=== PATIENT | male | born 1940 | race Caucasian/White ===

== ENCOUNTER → 2017-05-12 08:49 | Outpatient (CLI) | payer MEDICARE, SELFPAY ==
[2017-05-12 09:08] LABS: Basophils # 0.1 K/mm3 (0-0.2); Basophils % 0.9 % (0.1-2.0); Eosinophils # 0.4 K/mm3 (0.0-0.4); Eosinophils % 5.8 % (0.1-12.0); Hematocrit 45.2 % (42.0-52.0); Hemoglobin 14.4 g/dL (14.1-18.0); Lymphocytes # 1.9 K/mm3 (0.7-4.5); Lymphocytes % 31.9 K/mm3 (10-50); Mean Corpuscular HGB Conc 31.9 g/dL (31.8-35.4); Mean Corpuscular Hemoglobin 30.2 pg (27.0-31.2); Mean Corpuscular Volume 94.7 fl (80-94); Mean Platelet Volume 7.7 fl (7.4-10.4); Monocytes # 0.4 K/mm3 (0.1-1.0); Monocytes % 6.3 % (1.7-9.3); Neutrophils # 3.3 K/mm3 (1.8-7.8); Neutrophils % 55.2 % (37.0-80.0); Platelet Count 228 K/mm3 (142-424); Red Blood Count 4.77 M/mm3 (4.60-6.20); Red Cell Distribution Width 13.8 % (11.5-17.5); White Blood Count 6.1 K/mm3 (4.8-10.8)
[2017-05-12 10:28] LABS: Alanine Aminotransferase 36 U/L (12-78); Albumin Level 3.5 gm/dL (3.4-5.0); Albumin/Globulin Ratio 1.3 (1.1-1.8); Alkaline Phosphatase 113 U/L (46-116); Anion Gap 10.3 mEq/L (5-15); Aspartate Amino Transferase 31 U/L (15-37); Bilirubin,Total 0.5 mg/dL (0.2-1.0); Blood Urea Nitrogen 21 mg/dL (7-18); Calcium 8.7 mg/dL (8.5-10.1); Carbon Dioxide 28 mmol/L (21.0-32.0); Chloride 111 mmol/L (98-107); Chol/HDL Ratio 2.3 (1-3.5); Cholesterol 147 mg/dL (140-200); Estimated Glomerular Filt Rate 53 ml/min (>60); GFR (African American) 65 ML/MIN (>60); Globulin 2.7 gm/dl (1.3-3.2); Glucose 88 mg/dL (74-106); HDL Cholesterol 64 mg/dL (27-67); LDL Cholesterol 69 mg/dL (0-130); Potassium 4.3 mmoL/L (3.5-5.1); Sodium 145 mmol/L (136-145); Thyroid Stimulating Hormone 5.22 uIU/ml (0.358-3.740); Total Protein,Serum 6.2 gm/dL (6.4-8.2); Triglycerides 69 mg/dL (30-200); VLDL Cholesterol 14 mg/dL (0-40)
== END ==
PROVIDERS: PCP Internal Medicine Adolescent Medicine; Visit Provider Internal Medicine Adolescent Medicine
DX: I25.10 Atherosclerotic heart disease of native coronary artery without angina pectoris (principal); E78.5 Hyperlipidemia, unspecified; E03.9 Hypothyroidism, unspecified; I10 Essential (primary) hypertension
CPT/HCPCS: 36415; 80053; 80061; 84443; 85025

== ENCOUNTER → 2017-05-16 12:34 | Outpatient (CLI) | payer MEDICARE, SELFPAY ==
--- NOTE | 2017-05-16 12:41 | XR_ITS ---
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 Bipolar pacer is present. Chronic changes in the left lung base. No change with no acute finding. No convincing evidence of amiodarone toxicity. No acute bony abnormalities. IMPRESSION: Chronic changes left lung base with cardiac pacemaker device. No change with no acute finding.
== END ==
PROVIDERS: PCP Internal Medicine Adolescent Medicine; Visit Provider Internal Medicine Adolescent Medicine
DX: Z51.81 Encounter for therapeutic drug level monitoring (principal)
CPT/HCPCS: 71046

== ENCOUNTER → 2017-06-27 10:01 | Outpatient (POV) | payer MEDICARE, SELFPAY | PROVIDERS: Visit Provider Podiatrist | DX: Z00.00 Encounter for general adult medical examination without abnormal findings (principal) ==

== ENCOUNTER → 2017-08-15 10:44 | Outpatient (CLI) | payer MEDICARE, SELFPAY ==
--- NOTE | 2017-08-15 10:54 | CT_ITS ---
CT chest wo con Ordering Physician: Ricki London MD Patient Age: 76 years: Male HISTORY: ITS.REASON: HYPOXIA short of breath. Dyspnea. TECHNIQUE: Helical CT scanning performed the chest with no IV contrast. COMPARISON : CT CT abdomen pelvis from August 2015 which includes lung bases. FINDINGS Mild Developing emphysematous changes bilaterally... Linear scarring and atelectasis at the left base are more pronounced than 2016 in most evident just above the left hemidiaphragm.. No focal or discrete acute infiltrate is seen in the lung childs.. . borderline to perhaps minor thickening of the central airways most evident infrahilar regions towards bases bilateral.: . May reflect some mild central airway inflammatory changes with bronchitis. Is any wheezing? No hilar adenopathy. Calcified hilar nodes right infrahilar region appears stable. Largest an just less than 9 mm size. Scant pleural thickening at the posterior mid right lung is similar to previous study. Negligible. No pleural calcifications or masses. Mediastinum:. No significant hilar adenopathy or mass. Scattered small nodes in mediastinum including a view small nodes AP window Small hiatal hernia including generous fat about the small hiatal hernia,. This extends into the lower most mediastinum/chest There is a anteriorly tilted tip of xiphoid, then with a small fat-containing ventral hernia midline immediate inferior this anteriorly directed xiphoid.. . Heart normal size . No pericardial effusion. Previous median sternotomy & CABG.Extensive coronary artery calcification most evident at LAD . Pacemaker overlying the upper left chest. Leads intact. Upper abdomen. Moderate stool throughout colon otherwise unremarkable IMPRESSION------ No acute findings in the chest . No focal pneumonia evident no pleural effusion. No pneumothorax. No CHF . Developing emphysematous changes. Suggestion borderline to mild thickening Central airways, most evident infrahilar regions,. Could reflect mild bronchitis. . Minimal linear atelectasis & scarring left lung bases... Sternotomy. CABG. Pacemaker. Small sliding hiatal hernia. Small midline ventral hernia, just beneath the anteriorly directed tip of xiphoid
== END ==
PROVIDERS: PCP Internal Medicine Adolescent Medicine; Visit Provider Internal Medicine Adolescent Medicine
DX: R09.02 Hypoxemia (principal)
CPT/HCPCS: 71250

== ENCOUNTER → 2017-11-19 10:25 | Outpatient (CLI) | payer MEDICARE, SELFPAY ==
[2017-11-19 10:41] LABS: Basophils # 0.1 K/mm3 (0-0.2); Basophils % 0.8 % (0.1-2.0); Eosinophils # 0.6 K/mm3 (0.0-0.4); Hematocrit 45.2 % (42.0-52.0); Hemoglobin 14.5 g/dL (14.1-18.0); Lymphocytes # 2.1 K/mm3 (0.7-4.5); Lymphocytes % 30.4 K/mm3 (10-50); Mean Corpuscular HGB Conc 32.1 g/dL (31.8-35.4); Mean Corpuscular Hemoglobin 30.3 pg (27.0-31.2); Mean Corpuscular Volume 94.4 fl (80-94); Mean Platelet Volume 7.5 fl (7.4-10.4); Monocytes # 0.4 K/mm3 (0.1-1.0); Monocytes % 5.3 % (1.7-9.3); Neutrophils # 3.7 K/mm3 (1.8-7.8); Neutrophils % 54.5 % (37.0-80.0); Platelet Count 275 K/mm3 (142-424); Red Blood Count 4.79 M/mm3 (4.60-6.20); Red Cell Distribution Width 13.9 % (11.5-17.5); White Blood Count 6.9 K/mm3 (4.8-10.8)
[2017-11-19 11:31] LABS: Alanine Aminotransferase 27 U/L (12-78); Albumin Level 3.7 gm/dL (3.4-5.0); Albumin/Globulin Ratio 1.2 (1.1-1.8); Alkaline Phosphatase 108 U/L (46-116); Anion Gap 9.5 mEq/L (5-15); Aspartate Amino Transferase 19 U/L (15-37); Bilirubin,Total 0.5 mg/dL (0.2-1.0); Blood Urea Nitrogen 25 mg/dL (7-18); Calcium 8.5 mg/dL (8.5-10.1); Carbon Dioxide 31 mmol/L (21.0-32.0); Chloride 110 mmol/L (98-107); Chol/HDL Ratio 2.6 (1-3.5); Cholesterol 137 mg/dL (140-200); Creatinine,Serum 1.66 mg/dL (0.70-1.30); Estimated Glomerular Filt Rate 40 ml/min (>60); Free Thyroxine Index 4.1 ug/dL (5.93-13.13); GFR (African American) 49 ML/MIN (>60); Globulin 3.1 gm/dl (1.3-3.2); Glucose 92 mg/dL (74-106); HDL Cholesterol 53 mg/dL (27-67); LDL Cholesterol 62 mg/dL (0-130); Potassium 4.5 mmoL/L (3.5-5.1); Sodium 146 mmol/L (136-145); T4 (Thyroxine) 12.1 ug/dl (4.7-13.3); Thyroid Stimulating Hormone 0.84 uIU/ml (0.358-3.740); Total Protein,Serum 6.8 gm/dL (6.4-8.2); Triglycerides 108 mg/dL (30-200); Triiodothryronine (T3) Uptake 34 % (31-39); VLDL Cholesterol 22 mg/dL (0-40)
== END ==
PROVIDERS: Visit Provider Internal Medicine Adolescent Medicine
DX: E03.9 Hypothyroidism, unspecified (principal); I25.10 Atherosclerotic heart disease of native coronary artery without angina pectoris
CPT/HCPCS: 36415; 80053; 80061; 84436; 84443; 84479; 85025

== ENCOUNTER 2018-04-16 14:00 | Outpatient (RCR) | payer MEDICARE, SELFPAY ==
--- NOTE | 2018-04-07 11:15 | HMH.PTOPEV ---
PT Outpatient Evaluation Rehab PT Outpatient Evaluation Start: 04/07/18 11:09 Freq: Status: Active Protocol: Document 04/07/18 11:09 PHORNE (Rec: 04/07/18 11:15 PHORNE [id number]) Electronically Signed By Cody Ocasio, PT 04/07/18 11:09 Outpatient Therapy Subjective History Subjective History Pt is a 77 yowm who presents with c/o vertigo with acute onset ~ 5 days ago. He reports he saw his [employer] who gave him some exercises to do which helped some. He has had several similar episodes previously. He reports worst symptoms when rolling from right to left in bed last night. He has PMH of emphysema , CABG x 1, growth removed from posterior right eye which has caused some visual disturbance. Chief Complaint Other Symptoms Relieved By Rest/Positioning Prior Functional Limitations None Current Functional Limitations Sleeping Walking Bending/Stooping Symptom Description Intermittent Balance Eval Chief Complaint vertigo Yes Nystagmus Nystagmus Presence Bilateral Nystagmus Description Geotropic Left Torsion Latency - Immediate Oculomotor Gaze Oculomotor Gaze Nml: Vergence Smooth Pursuit Saccades Outpatient Therapy Assessment Impairments Problems/Impairmments Impaired Walking Impaired Self Care/Self Management Prognosis Rehab Potential Good Clinical Impression Consistent with Diagnosis Yes Short Term Goals Number of Weeks 4 Increase Ability to Walk Yes: without dizziness Improve Ability For Household Care Yes Patient to be Ind w/ HEP Yes Jigman Goals Number of Weeks 8 Increase Ability to Walk Yes Improve Ability For Household Care Yes Patient to be Ind w/ Advanced HEP Yes Outpatient Therapy Plan of Care Treatment Plan May Include Therapeutic Exercise Including Home Yes Exercise Program Manual Therapy Techniques Yes Neuromuscular Re-education Yes Eval/Re-Eval Yes Frequency Times per week 1 Duration Number of Weeks 8
== END 2018-04-16 14:05 | disposition home or self-care (01) ==
LOC: PT 14:00
PROVIDERS: Visit Provider Nurse Practitioner Family
DX: H81.13 Benign paroxysmal vertigo, bilateral (principal)
CPT/HCPCS: 97110; 97140; 97163

== ENCOUNTER 2018-05-22 11:00 | Outpatient (RCR) | payer MEDICARE, SELFPAY | END 2018-05-22 11:05 | disposition home or self-care (01) | LOC: PT 11:00 | PROVIDERS: Visit Provider Orthopaedic Surgery | DX: M17.11 Unilateral primary osteoarthritis, right knee (principal) | CPT/HCPCS: 97016; 97035; 97110; 97140; 97163 ==

== ENCOUNTER → 2018-06-16 10:48 | Outpatient (CLI) | payer MEDICARE, SELFPAY ==
[2018-06-16 11:44] LABS: Anion Gap 12.1 mEq/L (5-15); Blood Urea Nitrogen 20 mg/dL (7-18); Calcium 8.7 mg/dL (8.5-10.1); Carbon Dioxide 28 mmol/L (21.0-32.0); Chloride 110 mmol/L (98-107); Chol/HDL Ratio 2.4 (1-3.5); Cholesterol 142 mg/dL (140-200); Creatinine,Serum 1.52 mg/dL (0.70-1.30); Estimated Glomerular Filt Rate 44 ml/min (>60); GFR (African American) 54 ML/MIN (>60); Glucose 87 mg/dL (74-106); HDL Cholesterol 58 mg/dL (27-67); LDL Cholesterol 66 mg/dL (0-130); Potassium 4.1 mmoL/L (3.5-5.1); Sodium 146 mmol/L (136-145); Triglycerides 91 mg/dL (30-200); VLDL Cholesterol 18 mg/dL (0-40)
== END ==
PROVIDERS: Visit Provider Internal Medicine Adolescent Medicine
DX: E78.5 Hyperlipidemia, unspecified (principal); N18.3 Chronic kidney disease, stage 3 (moderate)
CPT/HCPCS: 36415; 80048; 80061

== ENCOUNTER 2018-08-17 10:00 | Outpatient (RCR) | payer MEDICARE, SELFPAY | END 2018-08-17 10:05 | disposition home or self-care (01) | LOC: PT 10:00 | PROVIDERS: Visit Provider Otolaryngology | DX: R42 Dizziness and giddiness (principal) | CPT/HCPCS: 97110; 97112; 97163 ==

== ENCOUNTER → 2018-11-04 10:28 | Outpatient (CLI) | payer MEDICARE, SELFPAY ==
[2018-11-04 11:16] LABS: Basophils % 0.6 % (0.1-2.0); Eosinophils # 0.3 K/mm3 (0.0-0.4); Eosinophils % 4.6 % (0.1-12.0); Hematocrit 43.2 % (42.0-52.0); Hemoglobin 13.8 g/dL (14.1-18.0); Lymphocytes # 2.2 K/mm3 (0.7-4.5); Mean Corpuscular HGB Conc 31.8 g/dL (31.8-35.4); Mean Corpuscular Hemoglobin 29.2 pg (27.0-31.2); Mean Corpuscular Volume 91.7 fl (80-94); Mean Platelet Volume 7.5 fl (7.4-10.4); Monocytes # 0.4 K/mm3 (0.1-1.0); Monocytes % 6.1 % (1.7-9.3); Neutrophils # 3.6 K/mm3 (1.8-7.8); Neutrophils % 54.6 % (37.0-80.0); Platelet Count 259 K/mm3 (142-424); Red Blood Count 4.71 M/mm3 (4.60-6.20); Red Cell Distribution Width 13.8 % (11.5-17.5); White Blood Count 6.6 K/mm3 (4.8-10.8)
[2018-11-04 12:05] LABS: Alanine Aminotransferase 25 U/L (12-78); Albumin Level 3.3 gm/dL (3.4-5.0); Albumin/Globulin Ratio 1.2 (1.1-1.8); Alkaline Phosphatase 93 U/L (46-116); Anion Gap 14.1 mEq/L (5-15); Aspartate Amino Transferase 21 U/L (15-37); Bilirubin,Total 0.7 mg/dL (0.2-1.0); Blood Urea Nitrogen 19 mg/dL (7-18); Carbon Dioxide 27 mmol/L (21.0-32.0); Chloride 110 mmol/L (98-107); Chol/HDL Ratio 2.3 (1-3.5); Cholesterol 131 mg/dL (140-200); Creatinine,Serum 1.37 mg/dL (0.70-1.30); Estimated Glomerular Filt Rate 50 ml/min (>60); Free Thyroxine Index 4.3 ug/dL (5.93-13.13); GFR (African American) 60 ML/MIN (>60); Globulin 2.8 gm/dl (1.3-3.2); Glucose 89 mg/dL (74-106); HDL Cholesterol 58 mg/dL (27-67); LDL Cholesterol 55 mg/dL (0-130); Potassium 4.1 mmoL/L (3.5-5.1); Sodium 147 mmol/L (136-145); T4 (Thyroxine) 11.5 ug/dl (4.7-13.3); Thyroid Stimulating Hormone 0.08 uIU/ml (0.358-3.740); Total Protein,Serum 6.1 gm/dL (6.4-8.2); Triglycerides 89 mg/dL (30-200); Triiodothryronine (T3) Uptake 37 % (31-39); VLDL Cholesterol 18 mg/dL (0-40)
[2018-11-05 22:05] LABS: Vitamin B12 793 pg/mL (232-1245)
== END ==
PROVIDERS: Visit Provider Internal Medicine Adolescent Medicine
DX: R53.83 Other fatigue (principal); E78.5 Hyperlipidemia, unspecified; E03.9 Hypothyroidism, unspecified
CPT/HCPCS: 36415; 80053; 80061; 82607; 84436; 84443; 84479; 85025

== ENCOUNTER → 2019-03-30 10:38 | Outpatient (CLI) | payer MEDICARE, SELFPAY ==
[2019-03-30 11:39] LABS: Basophils % 0.5 % (0.1-2.0); Eosinophils # 0.3 K/mm3 (0.0-0.4); Hematocrit 46.9 % (42.0-52.0); Hemoglobin 14.6 g/dL (14.1-18.0); Lymphocytes # 1.5 K/mm3 (0.7-4.5); Lymphocytes % 29.7 % (10-50); Mean Corpuscular HGB Conc 31.1 g/dL (31.8-35.4); Mean Corpuscular Hemoglobin 30.9 pg (27.0-31.2); Mean Corpuscular Volume 99.2 fl (80-94); Monocytes # 0.3 K/mm3 (0.1-1.0); Monocytes % 5.1 % (1.7-9.3); Neutrophils % 59.7 % (37.0-80.0); Platelet Count 242 K/mm3 (142-424); Red Blood Count 4.73 M/mm3 (4.60-6.20); Red Cell Distribution Width 13.4 % (11.5-17.5); White Blood Count 4.9 K/mm3 (4.8-10.8)
[2019-03-30 13:13] LABS: Alanine Aminotransferase 33 U/L (12-78); Albumin Level 3.3 gm/dL (3.4-5.0); Albumin/Globulin Ratio 1.2 (1.1-1.8); Alkaline Phosphatase 100 U/L (46-116); Anion Gap 16.1 mEq/L (5-15); Aspartate Amino Transferase 27 U/L (15-37); Bilirubin,Total 0.7 mg/dL (0.2-1.0); Blood Urea Nitrogen 17 mg/dL (7-18); Calcium 8.7 mg/dL (8.5-10.1); Carbon Dioxide 25 mmol/L (21.0-32.0); Chloride 109 mmol/L (98-107); Chol/HDL Ratio 2.9 (1-3.5); Cholesterol 149 mg/dL (140-200); Creatinine,Serum 1.25 mg/dL (0.70-1.30); Estimated Glomerular Filt Rate 56 ml/min (>60); GFR (African American) 67 ML/MIN (>60); Globulin 2.8 gm/dl (1.3-3.2); Glucose 84 mg/dL (74-106); HDL Cholesterol 51 mg/dL (27-67); LDL Cholesterol 76 mg/dL (0-130); Potassium 4.1 mmoL/L (3.5-5.1); Sodium 146 mmol/L (136-145); Thyroid Stimulating Hormone 0.48 uIU/ml (0.358-3.740); Total Protein,Serum 6.1 gm/dL (6.4-8.2); Triglycerides 111 mg/dL (30-200); VLDL Cholesterol 22 mg/dL (0-40)
== END ==
PROVIDERS: Visit Provider Internal Medicine Adolescent Medicine
DX: I25.10 Atherosclerotic heart disease of native coronary artery without angina pectoris (principal); E78.5 Hyperlipidemia, unspecified; E03.9 Hypothyroidism, unspecified
CPT/HCPCS: 36415; 80053; 80061; 84443; 85025

== ENCOUNTER → 2019-10-19 14:55 | Outpatient (POV) | payer MEDICARE, SELFPAY | PROVIDERS: PCP Internal Medicine Adolescent Medicine; Visit Provider Physician Assistant | DX: Z00.00 Encounter for general adult medical examination without abnormal findings (principal) ==

== ENCOUNTER → 2019-11-17 10:18 | Outpatient (CLI) | payer MEDICARE, SELFPAY ==
[2019-11-17 11:01] LABS: Basophils % 0.7 % (0.1-2.0); Eosinophils # 0.3 K/mm3 (0.0-0.4); Eosinophils % 5.3 % (0.1-12.0); Hematocrit 46.2 % (42.0-52.0); Lymphocytes # 1.8 K/mm3 (0.7-4.5); Lymphocytes % 28.2 % (10-50); Mean Corpuscular HGB Conc 32.5 g/dL (31.8-35.4); Mean Corpuscular Hemoglobin 31.3 pg (27.0-31.2); Mean Corpuscular Volume 96.5 fl (80-94); Monocytes # 0.4 K/mm3 (0.1-1.0); Monocytes % 5.5 % (1.7-9.3); Neutrophils # 3.9 K/mm3 (1.8-7.8); Neutrophils % 60.3 % (37.0-80.0); Platelet Count 262 K/mm3 (142-424); Red Blood Count 4.79 M/mm3 (4.60-6.20); Red Cell Distribution Width 13.7 % (11.5-17.5); White Blood Count 6.4 K/mm3 (4.8-10.8)
[2019-11-17 12:09] LABS: Chloride 107 mmol/L (98-107); Potassium 4.1 mmoL/L (3.5-5.1); Sodium 143 mmol/L (136-145)
[2019-11-17 12:12] LABS: Alanine Aminotransferase 20 U/L (12-78); Albumin Level 3.6 g/dl (3.5-5.0); Albumin/Globulin Ratio 1.5 (1.1-1.8); Alkaline Phosphatase 90 U/L (38-126); Anion Gap 11.1 mEq/L (5-15); Aspartate Amino Transferase 30 U/L (17-59); Bilirubin,Total 0.7 mg/dl (0.2-1.3); Blood Urea Nitrogen 25 mg/dl (9-20); Carbon Dioxide 29 mmol/L (22.0-30.0); Cholesterol 127 mg/dl (140-200); Estimated Glomerular Filt Rate 58 ml/min (>60); GFR (African American) 70 ML/MIN (>60); Globulin 2.4 g/dL (1.3-3.2); Triglycerides 97 mg/dl (30-150); VLDL Cholesterol 19 mg/dL (0-40)
[2019-11-17 12:13] LABS: Calcium 8.8 mg/dl (8.4-10.2); Glucose 88 mg/dl (74-100)
[2019-11-17 12:29] LABS: 25-OH Vitamin D, Total 85.9 ng/mL (30-100)
[2019-11-17 12:53] LABS: Thyroid Stimulating Hormone 0.08 uIU/mL (0.465-4.68)
[2019-11-17 13:41] LABS: Hemoglobin A1C 5.7 % (4.0-6.0)
[2019-11-17 17:19] LABS: Chol/HDL Ratio 2.5 (1-3.5); HDL Cholesterol 51 mg/dl (40-60)
[2019-11-18 10:12] LABS: Vitamin B12 805 pg/mL (232-1245)
== END ==
PROVIDERS: Visit Provider Internal Medicine Adolescent Medicine
DX: I25.10 Atherosclerotic heart disease of native coronary artery without angina pectoris (principal); E78.5 Hyperlipidemia, unspecified; E03.9 Hypothyroidism, unspecified; G60.9 Hereditary and idiopathic neuropathy, unspecified; Z79.899 Other long term (current) drug therapy
CPT/HCPCS: 36415; 80053; 80061; 82306; 82607; 83036; 84443; 85025

== ENCOUNTER → 2020-04-03 12:49 | Outpatient (CLI) | payer MEDICARE, SELFPAY ==
[2020-04-03 13:41] LABS: Basophils % 0.5 % (0.1-2.0); Eosinophils # 0.3 K/mm3 (0.0-0.4); Eosinophils % 4.3 % (0.1-12.0); Hematocrit 47.3 % (42.0-52.0); Hemoglobin 15.6 g/dL (14.1-18.0); Lymphocytes # 2.3 K/mm3 (0.7-4.5); Lymphocytes % 33.6 % (10-50); Mean Corpuscular HGB Conc 32.9 g/dL (31.8-35.4); Mean Corpuscular Volume 97.2 fl (80-94); Mean Platelet Volume 7.8 fl (7.4-10.4); Monocytes # 0.4 K/mm3 (0.1-1.0); Monocytes % 5.2 % (1.7-9.3); Neutrophils # 3.8 K/mm3 (1.8-7.8); Neutrophils % 56.4 % (37.0-80.0); Platelet Count 265 K/mm3 (142-424); Red Blood Count 4.87 M/mm3 (4.60-6.20); Red Cell Distribution Width 13.6 % (11.5-17.5); White Blood Count 6.8 K/mm3 (4.8-10.8)
[2020-04-03 14:16] LABS: Hemoglobin A1C 5.6 % (4.0-6.0)
[2020-04-03 15:06] LABS: Alanine Aminotransferase 24 U/L (12-78); Albumin Level 4.3 g/dl (3.5-5.0); Albumin/Globulin Ratio 1.7 (1.1-1.8); Alkaline Phosphatase 103 U/L (38-126); Anion Gap 9.9 mEq/L (5-15); Aspartate Amino Transferase 38 U/L (17-59); Bilirubin,Total 0.7 mg/dl (0.2-1.3); Blood Urea Nitrogen 20 mg/dl (9-20); Calcium 9.6 mg/dl (8.4-10.2); Carbon Dioxide 31 mmol/L (22.0-30.0); Chloride 107 mmol/L (98-107); Chol/HDL Ratio 2.9 (1-3.5); Cholesterol 142 mg/dl (140-200); Estimated Glomerular Filt Rate 58 ml/min (>60); GFR (African American) 70 ML/MIN (>60); Globulin 2.6 g/dL (1.3-3.2); Glucose 74 mg/dl (74-100); HDL Cholesterol 49 mg/dl (40-60); Potassium 4.9 mmoL/L (3.5-5.1); Sodium 143 mmol/L (136-145); Total Protein,Serum 6.9 g/dl (6.3-8.2); Triglycerides 175 mg/dl (30-150); VLDL Cholesterol 35 mg/dL (0-40)
[2020-04-03 15:17] LABS: Direct LDL Cholesterol 60.98 mg/dL (100-129)
[2020-04-03 15:22] LABS: 25-OH Vitamin D, Total 68.7 ng/mL (30-100)
[2020-04-03 15:23] LABS: Free Thyroxine Index 2.7 ug/dL (5.93-13.13); Triiodothryronine (T3) Uptake 34 % (23.5-40.5)
[2020-04-03 15:37] LABS: Thyroid Stimulating Hormone 1.73 uIU/mL (0.465-4.68)
[2020-04-03 15:57] LABS: Vitamin B12 896 pg/mL (239-931)
== END ==
PROVIDERS: Visit Provider Internal Medicine Adolescent Medicine
DX: I25.10 Atherosclerotic heart disease of native coronary artery without angina pectoris (principal); E03.9 Hypothyroidism, unspecified; G60.9 Hereditary and idiopathic neuropathy, unspecified; N18.30 Chronic kidney disease, stage 3 unspecified; Z79.899 Other long term (current) drug therapy
CPT/HCPCS: 36415; 80053; 80061; 82306; 82607; 83036; 84436; 84443; 84479; 85025

== ENCOUNTER 2020-07-12 18:24 | Emergency (ER) | payer MEDICARE, SELFPAY ==
--- NOTE | 2020-07-12 18:26 | CT_ITS ---
PROCEDURE: CT LUMBAR SPINE WO CON CLINICAL HISTORY: fall from standing, low back pain COMPARISON: [facility] CT LUMBAR WITH CONTRAST from 01/24/2017 TECHNIQUE: Axial images obtained with sagittal and coronal reformats. All CT scans at the facility use one or more dose reduction, viz: automated exposure control, ma/kV adjustment per patient size (including targeted exams where dose is matched to indication, i.e. head), or iterative reconstruction technique. FINDINGS: Transitional segment is present at the lumbosacral junction and labeled as L5. Acute wedge compression changes are present involving the T11 vertebral body with loss of height anteriorly of approximately 30 percent. No retropulsed fragments. There is diffuse osteopenia. There is minimal stranding of the Ghada lumbar fat at the T11 region. There is normal alignment. L1-L2: Unremarkable. L2-L3: Minimal bulging disc. L3-L4: Minimal bulging disc along with facet and ligamentum hypertrophy L4-5: Bulging disc which is eccentric toward the right. Severe facet hypertrophic change with bilateral lateral recess narrowing and bilateral foraminal narrowing. L5-S1: Bilateral spondylo lysis. Severe facet hypertrophic change right more severe than left. This is similar in appearance compared to the previous exam. This. Ligamentum hypertrophy also noted on the right. There is severe right-sided foraminal narrowing distally Chronic appearing fracture at the mid sacral region involving the S3 segment. There is 5 mm anterolisthesis of the S4 segment. Chronic right sacral insufficiency fracture. These findings are not significantly changed. Nonobstructing bilateral renal calculi are present measuring up to 8 mm in the lower pole on the right and 8 mm in the upper pole on the left. Suspect bilateral renal cysts. There is a small hiatal hernia. Suspect small hepatic cyst on the right at 6 mm. IMPRESSION: 1. Compression fracture of T11 which appears acute without retropulsion. 2. Chronic lumbosacral spondylosis. Please see above for detailed description at each level. 3. Chronic sacral insufficiency on the right 4. Chronic sacral fracture at the S3 level. 5. Other nonacute findings as described above. Dictated by: Abhinav Mercado MD 07/13/2020 07:34 Abhinav Mercado MD in [place] 07/13/2020 07:34
--- NOTE | 2020-07-12 18:27 | HMH.EDBACK ---
ED Disposition Clinical Impression: Thoracic spine fracture Qualifiers: Encounter type: initial encounter Thoracic vertebra fracture level: T11 Fracture type: closed Fracture morphology: unspecified fracture morphology Qualified Code(s): S22.089A - Unspecified fracture of T11-T12 vertebra, initial encounter for closed fracture Disposition: Home, Self-Care Condition on Discharge: Good Instructions: DI for Vertebral Fracture Additional Instructions: Follow-up outpatient with Dr. Munguia, neurosurgery in [facility] or another spine surgeon of your choice. No bending past 45 degrees and no lifting more than 5 pounds. Return to the emergency department if you develop any worsening symptoms, numbness or weakness in your legs, loss of bowel or bladder control. Use Flexeril for muscle spasms and naproxen for pain control if needed. Prescriptions: Cyclobenzaprine HCl [Flexeril 10mg tablet] 5 mg PO TID PRN #5 tab PRN Reason: spasm Prescription Printed Naproxen 500 mg PO BID PRN #10 tab PRN Reason: pain Prescription Printed Referrals: Ricki London MD [Primary Care Provider] - 3 days - Critical Care Critical Care Time: No Attestation: On , the high probability of a clinically significant, sudden or life threatening deterioration of the following system(s) required my full and direct attention, intervention and personal management. The time I documented below is in addition to time spent performing reported procedures but includes the following listed in this critical care notation. Medical Decision Making - Medical Records Medical records reviewed: Yes: I reviewed the patient's medical records. - [place] Inquiry Pt receiving controlled substance: Yes [place] was queried for this patient: No Risks and benefits of using a controlled substance: were discussed with pt by me Vital Signs: 07/12/20 18:32 07/12/20 18:41 07/12/20 19:01 Temperature 98 F Temperature Source Oral Pulse Rate 97 H 95 H Pulse Rate [Radial] 99 H Respiratory Rate 16 17 16 Blood Pressure 117/68 129/84 Blood Pressure [Right Arm] 127/90 Blood Pressure Mean 84 99 Blood Pressure Mean [Right Arm] 102 Blood Pressure Position [Right Arm] Sitting 02 Sat by Pulse Oximetry 92 L 92 L 94 L Oxygen Delivery Method Room Air Room Air Orders (Tests/Meds): ED MEDICATIONS Discontinued Medications Generic Name Dose Route Start Last Admin Trade Name Freq PRN Reason Stop Dose Admin Oxycodone/Acetaminophen 1 each 07/12/20 18:32 07/12/20 18:34 Oxycodone 5mg W/Apap 325mg Tablet PO 07/12/20 18:33 1 each ONCE ONE Administration ORDERS Category Date Time Status CT lumbar spine wo con Stat Cat Scan 07/12/20 18:26 Taken - CT Data CT Scan: L-Spine Time Received: 19:[address] Reviewed: Yes: I have reviewed the patient's CT results Findings Narrative: CT scan shows mild to moderate acute appearing superior endplate compression fracture of T11 with approximately 30% loss of anterior vertebral height. No retropulsion, no soft tissue hematoma but there is slight paraspinous edema/stranding. No other acute findings. Medical Decision Narrative: Patient CT scan shows T11 superior endplate fracture and suggest that this may be acute, however patient is not tender here, is more tender just over the pelvic brim. I did discuss this with Dr. Avila and he recommended general spinal precautions, no bending past 45 degrees or lifting anything greater than 5 pounds and follow-up outpatient with spine surgery, no need for brace given patient has no pain in this area. He is neurovascularly intact distally. Given spinal precautions and advised to follow-up outpatient with spine surgery. Back Pain HPI - General Stated Complaint: AO [id number] fell injured back Time Seen by Provider: 07/12/20 18:27 Mode of Arrival: Family Vehicle Source of Information: Patient Limitations: No Limitations - History of Present Illness HPI Narr
[2020-07-12 18:32] VITALS: BP 127/90; PULSE 99; RESP 16; TEMP 36.6; O2SAT 92; BMI 26.9
--- NOTE | 2020-07-12 18:32 | PC.NURSE ---
rad aware of orders.
[2020-07-12 18:41] VITALS: BP 117/68; PULSE 97; RESP 17; O2SAT 92
[2020-07-12 19:01] VITALS: BP 129/84; PULSE 95; RESP 16; O2SAT 94
--- NOTE | 2020-07-12 19:44 | PC.NURSE ---
call out to dr coronado at this time.
[2020-07-12 19:52] VITALS: BP 127/81; PULSE 89; RESP 16; TEMP 36.7; O2SAT 95
== END 2020-07-12 19:57 | disposition home or self-care (01) ==
PROVIDERS: Emergency Provider Emergency Medicine; PCP Internal Medicine Adolescent Medicine
DX: S22.089A Unspecified fracture of T11-T12 vertebra, initial encounter for closed fracture (principal); W07.XXXA Fall from chair, initial encounter; Y92.019 Unspecified place in single-family (private) house as the place of occurrence of the external cause; E78.5 Hyperlipidemia, unspecified; I10 Essential (primary) hypertension; Z95.0 Presence of cardiac pacemaker; N40.0 Benign prostatic hyperplasia without lower urinary tract symptoms; Z87.891 Personal history of nicotine dependence; Z79.899 Other long term (current) drug therapy
CPT/HCPCS: 72131; 99282

== ENCOUNTER → 2020-09-13 13:21 | Outpatient (CLI) | payer MEDICARE, SELFPAY ==
[2020-09-13 13:55] LABS: Basophils % 0.6 % (0.1-2.0); Eosinophils # 0.3 K/mm3 (0.0-0.4); Eosinophils % 3.4 % (0.1-12.0); Hematocrit 44.1 % (42.0-52.0); Hemoglobin 14.2 g/dL (14.1-18.0); Lymphocytes # 2.1 K/mm3 (0.7-4.5); Lymphocytes % 28.8 % (10-50); Mean Corpuscular HGB Conc 32.3 g/dL (31.8-35.4); Mean Corpuscular Hemoglobin 29.9 pg (27.0-31.2); Mean Corpuscular Volume 92.5 fl (80-94); Mean Platelet Volume 8.1 fl (7.4-10.4); Monocytes # 0.4 K/mm3 (0.1-1.0); Monocytes % 5.1 % (1.7-9.3); Neutrophils # 4.5 K/mm3 (1.8-7.8); Neutrophils % 62.1 % (37.0-80.0); Platelet Count 251 K/mm3 (142-424); Red Blood Count 4.76 M/mm3 (4.60-6.20); Red Cell Distribution Width 13.6 % (11.5-17.5); White Blood Count 7.2 K/mm3 (4.8-10.8)
[2020-09-13 14:19] LABS: Alanine Aminotransferase 27 U/L (12-78); Albumin/Globulin Ratio 1.6 (1.1-1.8); Alkaline Phosphatase 103 U/L (38-126); Anion Gap 8.7 mEq/L (5-15); Aspartate Amino Transferase 36 U/L (17-59); Bilirubin,Total 0.7 mg/dl (0.2-1.3); Blood Urea Nitrogen 20 mg/dl (9-20); Calcium 8.9 mg/dl (8.4-10.2); Carbon Dioxide 30 mmol/L (22.0-30.0); Chloride 110 mmol/L (98-107); Cholesterol 146 mg/dl (140-200); Estimated Glomerular Filt Rate 64 ml/min (>60); GFR (African American) 78 ML/MIN (>60); Globulin 2.5 g/dL (1.3-3.2); Glucose 86 mg/dl (74-100); HDL Cholesterol 49 mg/dl (40-60); Potassium 4.7 mmoL/L (3.5-5.1); Sodium 144 mmol/L (136-145); Total Protein,Serum 6.5 g/dl (6.3-8.2); Triglycerides 194 mg/dl (30-150); VLDL Cholesterol 39 mg/dL (0-40)
[2020-09-13 14:32] LABS: Direct LDL Cholesterol 61.11 mg/dL (100-129)
[2020-09-13 14:39] LABS: 25-OH Vitamin D, Total 55.1 ng/mL (30-100)
[2020-09-13 14:50] LABS: Thyroid Stimulating Hormone 1.75 uIU/mL (0.465-4.68)
== END ==
PROVIDERS: Visit Provider Internal Medicine Adolescent Medicine
DX: I25.10 Atherosclerotic heart disease of native coronary artery without angina pectoris (principal); E55.9 Vitamin D deficiency, unspecified; E03.2 Hypothyroidism due to medicaments and other exogenous substances
CPT/HCPCS: 36415; 80053; 80061; 82306; 84443; 85025

== ENCOUNTER 2020-11-16 12:24 | Emergency (ER) | payer MEDICARE, SELFPAY ==
[2020-11-16 12:47] VITALS: BP 119/82; PULSE 81; RESP 16; TEMP 36.6; O2SAT 96; BMI 26.6
--- NOTE | 2020-11-16 13:05 | HMH.EDUTC ---
[facility] [place] Clinical Impression: Encounter for laboratory testing for COVID-19 virus Disposition: Home, Self-Care Condition on Discharge: Good Instructions: DI for COVID-19 (Suspected or Confirmed ), Coronavirus Disease 2019, Preventing the Spread of Coronavirus Discharge Instructions Additional Instructions: *Monitor Temp, Over the counter Motrin or Tylenol as directed/as needed Tylenol every 4 hours and Motrin every 6 hours (as long as your family doctor has told you that you can take it) for fever or pain. and straight to ER if unable to lower temp less than 101.0 after medication given Follow up IMMEDIATELY for new or worsening symptoms or no Noticeable improvement over the next 48-72 hours. 911 for difficulty breathing or swallowing You were tested for today for COVID19 your test result should be back in the next 24-48 hours, you may call to the [facility] to see if your test results are back in the next 48 hours [phone] [facility] hours are 9am-9pm You was given a handout with instructions for Self Quarantine and Self isolation for while you wait on test results and what to do if they are positive If you are positive the Health Dept will be contacting you also Referrals: Ricki London MD [Primary Care Provider] - As needed Time of Disposition: 13:08 Medical Decision Making - [place] Inquiry Pt receiving controlled substance: No [place] was queried for this patient: No Vital Signs: 11/16/20 12:47 Temperature 97.8 F Temperature Source Oral Pulse Rate [Left] 81 Respiratory Rate 16 Blood Pressure [Right Arm] 119/82 Blood Pressure Mean [Right Arm] 94 02 Sat by Pulse Oximetry 96 Orders (Tests/Meds): ORDERS Category Date Time Status Covid-19 Nasal PCR ([facility]) Routine Lab 11/16/20 12:49 [place]dered [facility] [place] - General Stated complaint: covid test Time Seen by Provider: 11/16/20 13:05 Mode of Arrival: Ambulatory Source of Information: Patient Limitations: No Limitations Description of Symptoms (Recalled from Triage Doc. by RN): pt requests covid test for an appointment. HEENT Symptoms (Recalled from RN notes): No Resp Symptoms (Recalled from RN notes): No Skin Symptoms (Recalled from RN notes): No MS Symptoms (Recalled from RN notes): No Functional Status (Recalled from RN notes): na - History of Present Illness Provider Complaint: Patient states that has appointment on Friday with Pulmonology and they wanted him to have a COVID test before he can go in with her so he came in to get one Denies exposure or symptoms - Related Data Home Medications Medication Instructions Recorded Confirmed Atorvastatin Calcium [Lipitor 20mg 20 mg PO HS 12/22/17 06/12/20 Tablet] Clopidogrel Bisulfate [Plavix 75mg 75 mg PO DAILY 12/22/17 06/12/20 Tab] tiotropium 2.5 mcg-olodaterol 2.5 2 puff INHALATION DAILY g 05/27/19 06/12/20 mcg/actuation mist for inhalation azelastine 137 mcg (0.1 %) nasal INTRANASAL 03/13/20 06/12/20 spray aerosol gabapentin 300 mg capsule 300 mg PO cap 03/13/20 06/12/20 aspirin 81 mg tablet,delayed 81 mg PO DAILY 05/09/20 06/12/20 release coenzyme Q10 100 mg capsule 100 mg PO DAILY 05/09/20 06/12/20 levothyroxine 50 mcg capsule 50 mcg PO DAILY 05/09/20 06/12/20 omega-3 fatty acids 1,000 mg 1,000 mg PO DAILY 05/09/20 06/12/20 capsule vitamin B complex 1 tab PO DAILY 05/09/20 06/12/20 Previous Rx's Medication Instructions Recorded Cyclobenzaprine HCl [Flexeril 10mg 5 mg PO TID PRN #5 tab 07/12/20 tablet] Naproxen 500 mg PO BID PRN #10 tab 07/12/20 Allergies Allergy/AdvReac Type Severity Reaction Status Date / Time No Known Allergies Allergy Verified 06/12/20 13:10 - Worker's Comp Is this a Worker's Comp case?: No [facility] History - Hepatitis A Screen Drug use history?: No High risk sexual behaviors?: No History of sexually transmitted infection?: No Currently employed?: No Childcare worker?: No Do you have indoor plumbing?: Yes Do yo
[2020-11-16 13:17] VITALS: BP 121/77; PULSE 83; RESP 16; TEMP 36.6
== END 2020-11-16 13:17 | disposition home or self-care (01) ==
PROVIDERS: Emergency Provider Nurse Practitioner; PCP Internal Medicine Adolescent Medicine
DX: Z11.52 Encounter for screening for COVID-19 (principal); Z87.891 Personal history of nicotine dependence
CPT/HCPCS: G0463; 99202; U0003

== ENCOUNTER → 2021-01-02 11:30 | Outpatient (CLI) | payer MEDICARE, SELFPAY ==
[2021-01-02 13:16] LABS: Blood Urea Nitrogen 38 mg/dl (9-20); Estimated Glomerular Filt Rate 24 ml/min (>60); GFR (African American) 29 ML/MIN (>60)
== END ==
PROVIDERS: Visit Provider Internal Medicine Adolescent Medicine
DX: R10.32 Left lower quadrant pain (principal)
CPT/HCPCS: 36415; 82565; 84520

== ENCOUNTER → 2021-01-03 11:05 | Outpatient (CLI) | payer MEDICARE, SELFPAY ==
--- NOTE | 2021-01-03 11:09 | CT_ITS ---
PROCEDURE: CT ABDOMEN PELVIS WO CON CLINICAL INDICATION: LLQ ABD PAIN COMPARISON: CT ABDPELW/O CT ABD PELVIS W/O CONTRAST from 08/30/[address] PELVIS W/ CONTRAST from 03/19/[address] LUMBAR SPINE WO CON from 07/12/2020 TECHNIQUE: Axial images obtained with sagittal and coronal reformats. All CT scans at the facility use one or more dose reduction, viz: automated exposure control, ma/kV adjustment per patient size (including targeted exams where dose is matched to indication, i.e. head), or iterative reconstruction technique. FINDINGS: LOWER THORAX: Prior CABG ABDOMEN & PELVIS: Multiple hepatic hypodensities are present suggesting small cysts. The largest is 8 mm in the hepatic dome segment 7 previously at 7 mm. There is a small hiatal hernia with thickening of the GE junction nonspecific. The spleen, adrenal glands, and pancreas have an unremarkable appearance. There are bilateral renal calculi measuring up to 9 x 7 mm in the lower pole on the right and 3 mm in the upper pole on the left. There is moderate left hydronephrosis and hydroureter secondary to a 9 by 4 mm stone in the mid left ureter at the L5 region. There is moderate stranding of the left perinephric fat and periureteral fat with mild thickening of the anterior pararenal fascia on the left. There is also mild thickening of the right anterior pararenal fascia. Prostate is enlarged at 4.9 cm. Urinary bladder is mildly distended with lobular contour of the bladder wall. No intestinal obstruction or free air. There is a moderate amount retained colonic feces. No evidence of diverticulitis. There is given history of appendectomy. There is mild thickening of the anterior pararenal fascia on both sides. There is an old right inferior pubic ramus fracture. Mild compressive changes involve the T11 vertebral slightly increased compared to 07/12/2020. There is an old sacral fracture with kyphotic deformity of the upper sacrum at the fracture site. Minimal dilatation noted involving the lower abdominal aorta at 2.3 cm. IMPRESSION: 1. 9 x 4 mm left mid ureteral calculus causing moderate left hydroureteronephrosis. There is stranding of the perinephric fat and Ghada ureteral fat on the left which could represent underlying infection or inflammation. 2. Bilateral nephrolithiasis 3. Mild stranding of the right perinephric fat. There is also mild thickening of the anterior pararenal fascia on both sides extending down to the lateral conal fascia of the upper pelvis. 4. Moderate amount of retained colonic feces 5. Other nonacute findings as described above. Dictated by: Abhinav Mercado MD 01/03/2021 12:29 Abhinav Mercado MD in [place] 01/03/2021 12:29
== END ==
PROVIDERS: PCP Internal Medicine Adolescent Medicine; Visit Provider Internal Medicine Adolescent Medicine
DX: R10.32 Left lower quadrant pain (principal)
CPT/HCPCS: 74176

== ENCOUNTER → 2021-01-04 09:54 | Outpatient (CLI) | payer MEDICARE, SELFPAY ==
[2021-01-04 09:57] LABS: MANUAL DIFFERENTIAL MANUAL DIFFERENTIAL (MANUAL DIFF)
[2021-01-04 10:23] LABS: Basophils % 0.2 % (0.1-2.0); Eosinophils # 0.1 K/mm3 (0.0-0.4); Eosinophils % 1.2 % (0.1-12.0); Hematocrit 45.2 % (42.0-52.0); Hemoglobin 14.5 g/dL (14.1-18.0); Lymphocytes # 1.2 K/mm3 (0.7-4.5); Lymphocytes % 14.3 % (10-50); Mean Corpuscular HGB Conc 32.2 g/dL (31.8-35.4); Mean Corpuscular Hemoglobin 31.7 pg (27.0-31.2); Mean Corpuscular Volume 98.5 fl (80-94); Mean Platelet Volume 7.6 fl (7.4-10.4); Monocytes # 0.6 K/mm3 (0.1-1.0); Monocytes % 7.5 % (1.7-9.3); Neutrophils # 6.5 K/mm3 (1.8-7.8); Neutrophils % 76.8 % (37.0-80.0); Platelet Count 228 K/mm3 (142-424); Red Blood Count 4.59 M/mm3 (4.60-6.20); Red Cell Distribution Width 13.5 % (11.5-17.5); White Blood Count 8.5 K/mm3 (4.8-10.8)
[2021-01-04 11:02] LABS: Lymphocytes % 15 % (10-50); Monocytes % 11 % (2-9); Neutrophils % 74 % (42-76); Total Cells Counted 100
[2021-01-04 11:03] LABS: Platelet Estimate Normal
[2021-01-04 11:18] LABS: Chloride 102 mmol/L (98-107); Sodium 137 mmol/L (136-145)
[2021-01-04 11:19] LABS: Potassium 4.2 mmoL/L (3.5-5.1)
[2021-01-04 11:21] LABS: Blood Urea Nitrogen 40 mg/dl (9-20); Estimated Glomerular Filt Rate 24 ml/min (>60); GFR (African American) 29 ML/MIN (>60)
[2021-01-04 11:22] LABS: Anion Gap 16.2 mEq/L (5-15); Calcium 8.1 mg/dl (8.4-10.2); Carbon Dioxide 23 mmol/L (22.0-30.0); Glucose 102 mg/dl (74-100)
== END ==
PROVIDERS: Visit Provider Urology
DX: N20.1 Calculus of ureter (principal); Z01.812 Encounter for preprocedural laboratory examination; Z20.822 Contact with and (suspected) exposure to COVID-19
CPT/HCPCS: 36415; 80048; 85007; 85014; 85018; 85048; 85049; C9803; U0003; U0005

== ENCOUNTER 2021-01-05 09:56 | Day surgery (SDC) | payer MEDICARE, SELFPAY ==
[2021-01-04 13:37] VITALS: BMI 26.4
[2021-01-05] VITALS (10 sets, daily range): BP systolic 108–139; BP diastolic 50–74; PULSE 104–110; RESP 16–18; TEMP 36.4–43; O2SAT 91–94
--- NOTE | 2021-01-05 13:02 | HMH.ANESCL ---
[facility] Anesthesia Checklist - Patient Identification Patient Identification: Arm Band - Structural Data Admitted From: Home Planned Operative Procedure/s: Left Ureteroscopy with Stone Extraction Consent for Planned Operative Procedure(s) Verified: Yes Verified Documents: Surgical Consent, History and Physical - NPO Status Verified Time NPO: 00:00 - Additional verifications Anesthesia Reactions: No Hx Blood Transfusions: Yes Blood Transfusion Reaction: No - Airway Assessment C-Spine Mobility Assessed: Yes (mp2) TMJ Mobility Assessed: Yes Dentition: Good Dentition - Neurological Assessment Level of Consciousness: Awake, Alert - Anesthesia Plan Anesthesia Risk discussed: Yes Anesthesia Plan: Verified ASA Class: III Anesthesia Type: General [facility] History I have reviewed the patient's past medical history: Yes Medical History: Reports:: BPH, Hyperlipidemia, Hypertension, Internal Pacemaker, Kidney Stones Denies:: Cancer, Diabetes Mellitus Type 1, Diabetes Mellitus Type 2, MRSA, Seizures *Have you ever received a pneumonia vaccine?: Yes *Have you received a flu vaccine this season?: Yes Other Medical History: Reports: Arthritis. Denies: Blood Transfusion Reaction Anesthesia experience/problems:: nac Laterality Cases: Left: Arthroscopy Knee Other Surgeries: Yes: Cardiac Surgery, Colonoscopy, Pacemaker Amputation: No Fractures: No - *Social History Last grade of school completed: High school graduate Smoking Status: Never smoker Tobacco Type: smokeless tobacco # Packs/Day (cigarettes): 1 Alcohol Intake: never Alcohol Intake Frequency:: a few times a month Substance Use Type: denies use *Occupational Status:: retired Housing: house Household Members: spouse *Travel in the last 8 weeks: None Family Hx:: No significant family history
--- NOTE | 2021-01-05 14:10 | HMH.ANESI ---
[facility] Anesthesia Record Part I Intake, IV Amount: 900 Estimated blood loss (mL): 0 Urine output (mL): 0 Blood Pressure: 124/73 SaO2: 92 Pulse Rate: 105 Respiratory Rate: 16 Temperature: 99.8 F Patient is:: Drowsy, Stable Stable to PACU at:: 13:55
--- NOTE | 2021-01-05 14:24 | XR_ITS ---
PROCEDURE: XR KUB CLINICAL INDICATION: URETEROSCOPY COMPARISON: CT CT ABDOMEN PELVIS WO CON from 01/03/2021 FINDINGS: Fluoro time: 10 minutes and 58 seconds. A single image submitted with the C-arm demonstrates a left ureteral stent in place with the proximal tip at the upper pole renal calyx. Around the collection of contrast is present over the upper pole of the left kidney. There is contrast extravasation noted superior to the left kidney and medial to the left ureter. IMPRESSION: Left ureteral scope or stent in place with extravasated contrast noted Dictated by: Abhinav Mercado MD 01/05/2021 15:43 Abhinav Mercado MD in [place] 01/05/2021 15:43
--- NOTE | 2021-01-05 16:39 | HMH.OPNOTE ---
Date of procedure: 01/05/21 Pre-op Diagnosis:: Left ureteral stone Post-op Diagnosis:: Impacted left ureteral stone Procedure performed:: Cystoscopy with dilation of the left ureteral orifice, retrograde pyelography, left ureteroscopy, left stent placement Surgeon:: Manish Gonzalez MD CORNICE UPHOLSTERER:: Josafat Weldon Anesthesia: LMA Estimated blood loss (mL): 0 Clinical Note:: 80-year-old white male seen yesterday with a 1 week history of left flank and abdominal pain noted to have a 9 x [address] scan. Creatinine is elevated from normal and he resents for urologic management. Operative findings:: Patient with an impacted left ureteral stone and attempt to pass a guidewire by the stone resulted in submucosal perforation and a retrograde showed some extravasation. Ureteroscopy was used to pass the wire into its proper position and a stent was then placed. There was good diuresis after the stent was placed and we will reschedule stone extraction after his renal function has returned to normal. Operative note:: atient taken to the operating room after informed consent was obtained. Placed on the operating table in the supine position and general anesthesia administered. His Yip catheter was removed. Patient had been on preoperative oral Levaquin. Sequential compression devices placed. Patient then placed into the dorsal lithotomy position and prepped and draped in the standard surgical fashion. 22 Abdulkadir passed into the urethra and the prostatic urethra showed a TURP defect in no obvious obstructive tissue. Scope passed into the bladder and examined in a systematic fashion. There was some mild/moderate to severe trabeculation present, no mucosal abnormalities, the ureteral orifices in their normal anatomic position. The left ureteral orifice was cannulated with a 0.035 sensor guidewire passed up to the level of the stone which was at the mid ureter. There was resistance at this point and the stone was unable to be passed by the stone. The wire actually made a loop in the ureters. Tortuous. A five Kosovan ureteral catheter was then passed over the guidewire and attempts to leak from the stone with the wire met with apparent submucosal tunneling of the wire as the wire curled back on itself and did not passed into the expected course of the renal pelvis. I am removed the sensor wire and passed a zip wire and I was able to pass this by what I thought was the stone and into the left renal pelvis and advanced the ureteral catheter over the wire and then removed the wire and retrograde was performed injecting dye through the ureteral catheter but. To be in the retroperitoneal space and not in the kidney. Further attempts were made to cannulate the proper lumen and the another retrograde was performed which again showed just evidence of extravasation. I then dilated the left ureteral orifice with the 4 x 15 UroMax balloon dilator for 2 minutes at 12 josué. The balloon then deflated and removed and the scope removed. Our semirigid ureteroscope passed into the bladder and into the left ureteral orifice and proximally to the mid ureter but could not get the scope up to the stone and the guidewire was then passed through the ureteroscope and it passed without resistance up into the expected the renal pelvis. I then removed the ureteroscope and passed a five Kosovan ureteral catheter over the guidewire and the guidewire removed and retrograde again performed and this showed that the wire was in the renal pelvis. I replaced the wire and remove the ureteral catheter and backloaded the wire over the cystoscope and then passed a 4.8 x 24 Kosovan stent over the guidewire and under fluoroscopy the guidewire removed and a good curl was noted proximally and distally. There was good diuresis from the left stent after placement. String was removed from the end of the stent. The cystoscope removed and an 18 Kosovan Yip catheter was placed. He was discharged to the recovery in stable condition.
--- NOTE | 2021-01-14 17:46 | P.PN_ITS ---
[facility] Anesthesia Record Part II Discharge Time: 14:25 Destination: Surgical Day Care (OP Surgery) PACU nurse assessment reviewed?: Yes Patient Condition:: Good Anesthesia Complications:: None Swallowing reflex intact?: Yes Cyanosis?: No Blood Pressure: 128/69 Pulse Rate: 107 Temperature: 97.8 F Mental Status: Alert & Oriented Pain level:: 0 Nausea and/or vomitting:: None Intake, IV Amount: 0
[2021-01-14 17:47] VITALS: BP 128/69; PULSE 107; TEMP 36.6
== END 2021-01-05 14:56 | disposition home or self-care (01) ==
PROVIDERS: PCP Internal Medicine Adolescent Medicine; Visit Provider Urology
PROC: (CPT 52352; principal; 2021-01-05 11:45)
DX: N20.1 Calculus of ureter (principal); E78.5 Hyperlipidemia, unspecified; I10 Essential (primary) hypertension; N40.0 Benign prostatic hyperplasia without lower urinary tract symptoms; M19.90 Unspecified osteoarthritis, unspecified site; Z95.0 Presence of cardiac pacemaker; Z79.82 Long term (current) use of aspirin; Z79.899 Other long term (current) drug therapy
CPT/HCPCS: 52351; 74018; C1769; C2617; J2405

== ENCOUNTER → 2021-01-11 08:53 | Outpatient (CLI) | payer MEDICARE, SELFPAY ==
--- NOTE | 2021-01-11 08:57 | XR_ITS ---
PROCEDURE: XR KUB CLINICAL INDICATION: ureteral stone COMPARISON: CR ABDACU ABD ACUTE(MUL VIEWS) from 08/30/[address] ABDOMEN PELVIS WO CON from 01/03/2021 FINDINGS: There is a mild amount of retained colonic feces. The feces is somewhat hyperdense secondary to oral contrast administration. Left ureteral stent is present. Along the mid aspect of the stent there is a 10 by 4 mm ureteral calculus. There is right nephrolithiasis with the largest stone at 8 mm. Degenerative changes are present in the SI joints with widening of the left SI joint. IMPRESSION: Left ureteral stent present with a 10 by 4 mm mid ureteral calculus. Right nephrolithiasis Dictated by: Abhinav Mercado MD 01/11/2021 10:27 Abhinav Mercado MD in [place] 01/11/2021 10:27
[2021-01-11 13:03] LABS: Chloride 108 mmol/L (98-107); Potassium 4.8 mmoL/L (3.5-5.1); Sodium 143 mmol/L (136-145)
[2021-01-11 13:06] LABS: Anion Gap 13.8 mEq/L (5-15); Blood Urea Nitrogen 24 mg/dl (9-20); Calcium 8.4 mg/dl (8.4-10.2); Carbon Dioxide 26 mmol/L (22.0-30.0); Estimated Glomerular Filt Rate 53 ml/min (>60); GFR (African American) 64 ML/MIN (>60); Glucose 94 mg/dl (74-100)
== END ==
PROVIDERS: PCP Internal Medicine Adolescent Medicine; Visit Provider Urology
DX: N20.1 Calculus of ureter (principal); N20.0 Calculus of kidney
CPT/HCPCS: 36415; 74018; 80048

== ENCOUNTER → 2021-01-24 09:26 | Outpatient (CLI) | payer MEDICARE, SELFPAY ==
[2021-01-24 09:29] LABS: MANUAL DIFFERENTIAL MANUAL DIFFERENTIAL (MANUAL DIFF)
[2021-01-24 10:21] LABS: Basophils # 0.1 K/mm3 (0-0.2); Basophils % 0.8 % (0.1-2.0); Eosinophils # 0.4 K/mm3 (0.0-0.4); Eosinophils % 5.9 % (0.1-12.0); Hematocrit 44.4 % (42.0-52.0); Hemoglobin 14.3 g/dL (14.1-18.0); Lymphocytes # 1.9 K/mm3 (0.7-4.5); Lymphocytes % 27.9 % (10-50); Mean Corpuscular HGB Conc 32.2 g/dL (31.8-35.4); Mean Corpuscular Hemoglobin 31.4 pg (27.0-31.2); Mean Corpuscular Volume 97.4 fl (80-94); Monocytes # 0.4 K/mm3 (0.1-1.0); Monocytes % 5.1 % (1.7-9.3); Neutrophils # 4.1 K/mm3 (1.8-7.8); Neutrophils % 60.2 % (37.0-80.0); Platelet Count 371 K/mm3 (142-424); Red Blood Count 4.55 M/mm3 (4.60-6.20); Red Cell Distribution Width 13.9 % (11.5-17.5); White Blood Count 6.8 K/mm3 (4.8-10.8)
[2021-01-24 11:00] LABS: Blood Urea Nitrogen 15 mg/dl (9-20); Calcium 8.9 mg/dl (8.4-10.2); Carbon Dioxide 28 mmol/L (22.0-30.0); Chloride 110 mmol/L (98-107); Estimated Glomerular Filt Rate 81 ml/min (>60); GFR (African American) 98 ML/MIN (>60); Glucose 108 mg/dl (74-100); Sodium 143 mmol/L (136-145)
[2021-01-24 11:24] LABS: Eosinophils % 5 % (0-3); Lymphocytes % 27 % (10-50); Monocytes % 7 % (2-9); Neutrophils % 61 % (42-76); Total Cells Counted 100
[2021-01-24 11:25] LABS: Platelet Estimate Normal; RBC Morphology Normal
== END ==
PROVIDERS: Visit Provider Urology
DX: N20.1 Calculus of ureter (principal); Z01.812 Encounter for preprocedural laboratory examination; Z11.52 Encounter for screening for COVID-19
CPT/HCPCS: 36415; 80048; 85007; 85014; 85018; 85048; 85049; C9803; U0003; U0005

== ENCOUNTER 2021-01-26 07:18 | Day surgery (SDC) | payer MEDICARE, SELFPAY ==
[2021-01-25 12:18] VITALS: BMI 25.8
[2021-01-26] VITALS (9 sets, daily range): BP systolic 101–118; BP diastolic 58–85; PULSE 63–84; RESP 12–18; TEMP 36.1–36.4; O2SAT 92–96
--- NOTE | 2021-01-26 07:24 | XR_ITS ---
PROCEDURE: XR KUB CLINICAL INDICATION: ureteral stone COMPARISON: CT CT ABDOMEN PELVIS WO CON from 01/03/2021 FINDINGS: Gas pattern-The bowel gas pattern is unremarkable. There is a moderate amount of stool in the hepatic flexure and proximal transverse colon. No obvious obstruction. There is a left-sided ureteral stent in place extending from the renal pelvis to the bladder floor. There is a 9.5 mm calculus mid ureter sitting between the transverse processes of L3 and L4. There is an apparent transitional vertebrae lumbosacral junction with partial sacralization of L5. There are 2 small calculi overlying the mid pole right kidney... Bones-No acute bony anomalies evident. IMPRESSION: Satisfactory position left ureteral stent, calculus seen mid left ureter adjacent to the stent Dictated by: Dr. Christiano Daniels MD 01/26/2021 07:53 Dr. Christiano Daniels MD in [place] 01/26/2021 07:53
--- NOTE | 2021-01-26 10:22 | P.PN_ITS ---
[facility] Anesthesia Checklist - Structural Data Admitted From: Home Planned Operative Procedure/s: eswl Consent for Planned Operative Procedure(s) Verified: Yes - Additional verifications Anesthesia Reactions: No Hx Blood Transfusions: Yes Blood Transfusion Reaction: No - Airway Assessment C-Spine Mobility Assessed: Yes TMJ Mobility Assessed: Yes Dentition: Poor Dentition - Neurological Assessment Level of Consciousness: Awake, Alert, Appropriate - Anesthesia Plan Anesthesia Risk discussed: Yes Anesthesia Plan: Verified ASA Class: III Anesthesia Type: General [facility] History I have reviewed the patient's past medical history: Yes Medical History: Reports:: BPH, Hyperlipidemia, Hypertension, Internal Pacemaker, Kidney Stones Denies:: Cancer, Diabetes Mellitus Type 1, Diabetes Mellitus Type 2, MRSA, Seizures *Have you ever received a pneumonia vaccine?: Yes *Have you received a flu vaccine this season?: Yes Other Medical History: Reports: Arthritis. Denies: Blood Transfusion Reaction Anesthesia experience/problems:: none Laterality Cases: Left: Arthroscopy Knee Other Surgeries: Yes: No Previous Surgery, Cardiac Surgery, Colonoscopy, Pacemaker Amputation: No Fractures: No - *Social History Smoking Status: Unknown if ever smoked Tobacco Type: smokeless tobacco # Packs/Day (cigarettes): 0 Alcohol Intake: never Alcohol Intake Frequency:: a few times a month Substance Use Type: denies use *Occupational Status:: retired, disabled Housing: house Household Members: spouse *Travel in the last 8 weeks: None Family Hx:: No significant family history
--- NOTE | 2021-01-26 10:23 | P.PN_ITS ---
[facility] Anesthesia Record Part I Intake, IV Amount: 1,200 Estimated blood loss (mL): 0 Urine output (mL): 0 Blood Pressure: 106/85 SaO2: 94 Pulse Rate: 72 Respiratory Rate: 12 Temperature: 97 F Patient is:: Awake, Stable Stable to PACU at:: 10:20
--- NOTE | 2021-01-26 10:27 | P.OP_ITS ---
Date of procedure: 01/26/21 Pre-op Diagnosis:: Left proximal ureteral stone/right kidney stone Post-op Diagnosis:: Same Procedure performed:: ESWL of the left proximal ureteral stone and ESWL of right kidney stone Surgeon:: Manish Gonzalez MD HEEL CEMENTER MACHINE:: Douglas Charles Anesthesia: LMA Estimated blood loss (mL): 0 Clinical Note:: Patient is an 80-year-old white male with recent left renal colic. He underwent left-sided stent placement and stone manipulation during an earlier visit. KUB today shows the stone is in the proximal left ureter and he has a stone in the right kidney as well and ESWL of both stones is planned. Operative findings:: Left proximal ureteral stone/right kidney stone Operative note:: Patient taken to the operating room after informed consent was obtained. Was placed on the operating table and general anesthesia administered. Preoperative antibiotics and sequential compression device was placed. He was then positioned so that F2 was focused onto the left proximal ureteral stone. A left ureteral stent is in place. He was padded appropriately and a total of 4000 shockwaves delivered to the left proximal ureteral stone at that maximum energy of 9. Patient was then repositioned for treatment of the right-sided kidney stone. 3000 shockwaves at a maximum energy level of 7 were delivered to the stone. Appear to be good fragmentation of the stones. Patient tolerated the procedure well there are no complications. Discharged to recovery in stable condition. Condition: stable Disposition: PACU Specimens:: None Complications:: None
--- NOTE | 2021-01-26 10:52 | SUR.PHASEI ---
1049- detailed report called to víctor Dotson in postop.
[2021-01-29 13:43] VITALS: BP 101/58; PULSE 66; TEMP 36.3
--- NOTE | 2021-01-29 13:43 | HMH.ANESII ---
[facility] Anesthesia Record Part II Discharge Time: 10:50 Destination: Surgical Day Care (OP Surgery) PACU nurse assessment reviewed?: Yes Patient Condition:: Good Anesthesia Complications:: None Swallowing reflex intact?: Yes Cyanosis?: No Blood Pressure: 101/58 Pulse Rate: 66 Temperature: 97.4 F Mental Status: Alert & Oriented Pain level:: 0 Nausea and/or vomitting:: None Intake, IV Amount: 0
== END 2021-01-26 11:31 | disposition home or self-care (01) ==
PROVIDERS: PCP Internal Medicine Adolescent Medicine; Visit Provider Urology
DX: N20.1 Calculus of ureter (principal); N20.0 Calculus of kidney; N40.0 Benign prostatic hyperplasia without lower urinary tract symptoms; E78.5 Hyperlipidemia, unspecified; I10 Essential (primary) hypertension; Z95.0 Presence of cardiac pacemaker; M19.90 Unspecified osteoarthritis, unspecified site; Z79.82 Long term (current) use of aspirin; Z79.899 Other long term (current) drug therapy
CPT/HCPCS: 50590; 74018; 96374

== ENCOUNTER → 2021-02-02 14:17 | Outpatient (CLI) | payer MEDICARE, SELFPAY ==
--- NOTE | 2021-02-02 14:21 | XR_ITS ---
PROCEDURE: XR KUB CLINICAL INDICATION: kidney stone COMPARISON: CR XR KUB from 01/26/2021 FINDINGS: Left ureteral stent remains in place. Previously there was a calcific density overlying the mid aspect of the left stent. The patient is somewhat rotated now with the lumbar spine partially obscuring this region. No definite ureteral calculus is evident however, 1 could easily be obscured by the overlying bone. Degenerative changes with bony hypertrophy present at the lumbosacral junction. IMPRESSION: Left ureteral stent remains in place. There is obscuration of the mid left ureter due to the overlying spine. Dictated by: Abhinav Mercado MD 02/02/2021 15:37 Abhinav Mercado MD in [place] 02/02/2021 15:37
== END ==
PROVIDERS: PCP Internal Medicine Adolescent Medicine; Visit Provider Urology
DX: N20.0 Calculus of kidney (principal)
CPT/HCPCS: 74018

== ENCOUNTER → 2021-02-02 16:31 | Outpatient (CLI) | payer MEDICARE, SELFPAY ==
[2021-06-15 19:06] LABS: Ca oxalate dihydrate 10; Size 2X3
== END ==
PROVIDERS: Visit Provider Urology
DX: N20.0 Calculus of kidney (principal)
CPT/HCPCS: 74018; 82370

== ENCOUNTER → 2021-02-07 12:32 | Outpatient (CLI) | payer MEDICARE, SELFPAY | PROVIDERS: Visit Provider Urology | DX: N20.1 Calculus of ureter (principal); Z01.812 Encounter for preprocedural laboratory examination; Z11.52 Encounter for screening for COVID-19 | CPT/HCPCS: C9803; U0003; U0005 ==

== ENCOUNTER 2021-02-09 07:13 | Day surgery (SDC) | payer MEDICARE, SELFPAY ==
[2021-02-05 11:16] VITALS: BMI 25.0
--- NOTE | 2021-02-09 07:23 | XR_ITS ---
PROCEDURE: XR KUB CLINICAL INDICATION: ureteral stone COMPARISON: CT CT ABDOMEN PELVIS WO CON from 01/03/2021 CR XR KUB from 02/02/2021 FINDINGS: There is a left ureteral stent in place. Previously there was a 6 mm stone in the mid left ureter.. This region is obscured by the overlying sacrum and could obscure a ureteral stone. There is a moderate amount of retained colonic feces.: Overlies the left inguinal area which could be seen with an inguinal hernia containing colon however, recent CT scan did not demonstrate this finding in this may only be related to the radiographic projection. Degenerative changes are present in the lumbar spine. There are right renal calculi. IMPRESSION: Left ureteral stent in place as described above. Left ureteral stone could be obscured by the overlying sacrum. Right nephrolithiasis Moderate amount of retained colonic feces. Dictated by: Abhinav Mercado MD 02/09/2021 10:01 Abhinav Mercado MD in [facility] 02/09/2021 10:01
[2021-02-09 07:54] VITALS: BP 112/70; PULSE 81; RESP 18; TEMP 36.2; O2SAT 97
[2021-02-09 08:50] VITALS: BP 117/68; PULSE 73; RESP 16; TEMP 36.1; O2SAT 94
[2021-02-09 09:37] LABS: Blood Urea Nitrogen 19 mg/dl (9-20); Creatinine Clearance Estimated 27 mL/min (50-200); Estimated Glomerular Filt Rate 30 ml/min (>60); GFR (African American) 37 ML/MIN (>60)
--- NOTE | 2021-02-09 09:43 | HMH.OPNOTE ---
Date of procedure: 02/09/21 Pre-op Diagnosis:: Bilateral nephrolithiasis status post previous bilateral ESWL Post-op Diagnosis:: Same Procedure performed:: Cystoscopy with left stent removal Surgeon:: Manish Gonzalez MD Anesthesia: local Estimated blood loss (mL): 0 Clinical Note:: 80-year-old white male status post recent bilateral ESWL. A stent had been placed prior to the ESWL. Postoperative KUB reveals fragmentation of the right renal stones and resolution of the left ureteral stones. Over the past few days patient has had some right renal colic and a KUB was performed today which showed a possible calcification in the course of the right ureter. Operative findings:: Stent noted from the left distal ureter. KUB was performed showing a possible calcification in the right ureter. Operative note:: Patient taken to the operating room after informed consent was obtained. On the stretcher he was prepped and draped in the standard surgical fashion and 2% lidocaine placed into the urethra. Urethra was clamped for 5 minutes. After 5 minutes the flexible cystoscope passed into the urethra and into the bladder without difficulty. The stent was grasped and removed with the flexible grasper. Patient tolerated procedure well there are no complications. We discussed his KUB today and that there is a possible right ureteral stone and I am going to arrange for a CT scan today in follow-up early next week. Condition: stable Disposition: same day Specimens:: Left ureteral stent Complications:: None
== END 2021-02-09 09:20 | disposition home or self-care (01) ==
LOC: OUTP 07:14
PROVIDERS: PCP Internal Medicine Adolescent Medicine; Visit Provider Urology
PROC: (CPT 52310; principal; 2021-02-09 08:30)
DX: N20.1 Calculus of ureter (principal); Z87.442 Personal history of urinary calculi; E78.5 Hyperlipidemia, unspecified; I10 Essential (primary) hypertension; N40.0 Benign prostatic hyperplasia without lower urinary tract symptoms; Z95.0 Presence of cardiac pacemaker; N28.9 Disorder of kidney and ureter, unspecified; Z79.82 Long term (current) use of aspirin; Z79.899 Other long term (current) drug therapy
CPT/HCPCS: 52310; 74018; 82565; 84520

== ENCOUNTER → 2021-02-12 11:14 | Outpatient (CLI) | payer MEDICARE, SELFPAY ==
[2021-02-12 11:38] LABS: Basophils % 0.2 % (0.1-2.0); Eosinophils # 0.2 K/mm3 (0.0-0.4); Eosinophils % 1.3 % (0.1-12.0); Hematocrit 43.2 % (42.0-52.0); Hemoglobin 14.2 g/dL (14.1-18.0); Lymphocytes # 1.4 K/mm3 (0.7-4.5); Lymphocytes % 8.2 % (10-50); Mean Corpuscular HGB Conc 32.8 g/dL (31.8-35.4); Mean Corpuscular Hemoglobin 31.7 pg (27.0-31.2); Mean Corpuscular Volume 96.7 fl (80-94); Mean Platelet Volume 8.2 fl (7.4-10.4); Monocytes # 0.6 K/mm3 (0.1-1.0); Monocytes % 3.6 % (1.7-9.3); Neutrophils # 14.6 K/mm3 (1.8-7.8); Neutrophils % 86.7 % (37.0-80.0); Platelet Count 322 K/mm3 (142-424); Red Blood Count 4.47 M/mm3 (4.60-6.20); Red Cell Distribution Width 14.1 % (11.5-17.5); White Blood Count 16.9 K/mm3 (4.8-10.8)
[2021-02-12 11:44] LABS: MANUAL DIFFERENTIAL MANUAL DIFFERENTIAL (MANUAL DIFF)
[2021-02-12 12:06] LABS: Chloride 98 mmol/L (98-107)
[2021-02-12 12:07] LABS: Potassium 4.4 mmoL/L (3.5-5.1); Sodium 134 mmol/L (136-145)
[2021-02-12 12:09] LABS: Alanine Aminotransferase 16 U/L (12-78); Aspartate Amino Transferase 37 U/L (17-59); Blood Urea Nitrogen 39 mg/dl (9-20); Estimated Glomerular Filt Rate 9 ml/min (>60); GFR (African American) 11 ML/MIN (>60)
[2021-02-12 12:10] LABS: Albumin Level 3.7 g/dl (3.5-5.0); Albumin/Globulin Ratio 1.4 (1.1-1.8); Alkaline Phosphatase 116 U/L (38-126); Anion Gap 17.4 mEq/L (5-15); Bilirubin,Total 0.7 mg/dl (0.2-1.3); Calcium 8.5 mg/dl (8.4-10.2); Carbon Dioxide 23 mmol/L (22.0-30.0); Globulin 2.6 g/dL (1.3-3.2); Glucose 98 mg/dl (74-100); Magnesium 3.5 mg/dl (1.6-2.3); Total Protein,Serum 6.3 g/dl (6.3-8.2)
[2021-02-12 12:29] LABS: Triiodothryronine (T3) Uptake 35 % (23.5-40.5)
[2021-02-12 12:30] LABS: Free Thyroxine Index 2.4 ug/dL (5.93-13.13); T4 (Thyroxine) 6.9 ug/dl (5.53-11.0)
[2021-02-12 12:43] LABS: Thyroid Stimulating Hormone 1.57 uIU/mL (0.465-4.68)
[2021-02-12 13:13] LABS: Lymphocytes % 7 % (10-50); Macrocytosis 1+; Monocytes % 3 % (2-9); Neutrophils % 90 % (42-76); Platelet Estimate Normal; Total Cells Counted 100
[2021-02-12 13:14] LABS: Vitamin B12 775 pg/mL (239-931)
== END ==
PROVIDERS: Visit Provider Internal Medicine Adolescent Medicine
DX: R27.0 Ataxia, unspecified (principal); E03.9 Hypothyroidism, unspecified; G60.9 Hereditary and idiopathic neuropathy, unspecified
CPT/HCPCS: 36415; 80053; 82607; 83735; 84436; 84443; 84479; 85007; 85025

== ENCOUNTER → 2021-02-22 12:26 | Outpatient (CLI) | payer MEDICARE, SELFPAY ==
[2021-02-22 13:36] LABS: Chloride 110 mmol/L (98-107); Potassium 4.1 mmoL/L (3.5-5.1); Sodium 145 mmol/L (136-145)
[2021-02-22 13:39] LABS: Blood Urea Nitrogen 19 mg/dl (9-20); Estimated Glomerular Filt Rate 58 ml/min (>60); GFR (African American) 70 ML/MIN (>60)
[2021-02-22 13:40] LABS: Anion Gap 14.1 mEq/L (5-15); Calcium 9.3 mg/dl (8.4-10.2); Carbon Dioxide 25 mmol/L (22.0-30.0); Glucose 121 mg/dl (74-100)
== END ==
PROVIDERS: Visit Provider Internal Medicine Adolescent Medicine
DX: N17.9 Acute kidney failure, unspecified (principal)
CPT/HCPCS: 36415; 80048

== ENCOUNTER → 2021-03-03 11:22 | Outpatient (CLI) | payer MEDICARE, SELFPAY | PROVIDERS: Visit Provider Internal Medicine Adolescent Medicine | DX: Z20.822 Contact with and (suspected) exposure to COVID-19 (principal) | CPT/HCPCS: 36415; C9803; U0003; U0005 ==

== ENCOUNTER 2021-03-08 12:52 | Observation (INO) | payer MEDICARE, SELFPAY ==
[2021-03-08] VITALS (7 sets, daily range): BP systolic 101–148; BP diastolic 52–115; PULSE 60–87; RESP 11–18; TEMP 36.4–36.9; O2SAT 93–99; BMI 25.7; BMI 25.0; BMI 23.8
--- NOTE | 2021-03-08 12:54 | CT_ITS ---
Procedure: CT ANGIO NECK CLINICAL HISTORY: slurred speech, stoke like COMPARISON: No exams were available for comparison TECHNIQUE: IV Contrast: 100ml Isovue 370 Axial images obtained with sagittal and coronal reformats. All CT scans at the facility use one or more dose reduction, viz: automated exposure control, ma/kV adjustment per patient size (including targeted exams where dose is matched to indication, i.e. head), or iterative reconstruction technique. FINDINGS: There is significant artifact from reflux of contrast into the venous structures of the neck and paraspinal region. Motion artifact also present have a the eye hydroceles reflux of contrast into No significant stenosis of the great vessels. Moderate tortuosity of the carotid arteries. Mild amount of plaque in the right carotid bifurcation and proximal ICA but no significant stenosis.. There is considerable artifact adjacent to the left ICA.. There is also significant artifact from the patient's dental work. The proximal most aspect of the left ICA is not adequately visualized due to the underlying artifact. The vertebrals onto adequately imaged proximally due to the severe artifact from the collateral venous structures. Right vertebral is are a small. There is a cardiac pacemaker device present from the left subclavian approach. There is narrowing of the left subclavian vein distally and abrupt angulation of the left subclavian vein in the sub clavicular region. Chronic occlusion or narrowing of the subclavian vein is considered with recanalization. This could account for the numerous collaterals. Also the distal aspect of the superior vena cava is not imaged. Superior vena cava occlusion could also account for the extensive collaterals. IMPRESSION: Very limited exam secondary to reflux of contrast into the venous system with severe artifact. No definite high-grade stenosis apparent of the internal carotids. The proximal aspect of the vertebrals are not well delineated. The right vertebral is very small. The distal aspect of the left vertebral has an unremarkable appearance. Possible prior subclavian vein occlusion on the left with recanalization. Superior vena cava occlusion could also account for the extensive collaterals. The distal aspect of the SVC is not imaged on this exam. Dictated by: Abhinav Mercado MD 03/08/2021 14:06 Abhinav Mercado MD in [place] 03/08/2021 14:06
--- NOTE | 2021-03-08 12:54 | CT_ITS ---
Procedure: CT ANGIO HEAD CLINICAL HISTORY: slurred speech, stoke like COMPARISON: CT CT ANGIO NECK from 03/08/[address] HEAD/BRAIN WO CON from 03/08/2021 TECHNIQUE: IV Contrast: 100ml Isovue 370 Axial images obtained with sagittal and coronal reformats. All CT scans at the facility use one or more dose reduction, viz: automated exposure control, ma/kV adjustment per patient size (including targeted exams where dose is matched to indication, i.e. head), or iterative reconstruction technique. FINDINGS: Scattered atheromatous plaque is present within the cavernous portion of the carotids on both sides. There is mild fusiform dilatation of the cavernous portion of the left ICA at approximately 7 mm. No aneurysm, AVM, or major intracranial occlusive process apparent. The left transverse and sigmoid sinuses are small in conjunction to the right side. No obvious sinus thrombosis. No enhancing lesions midline shift or mass effect. 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 No aneurysm, AVM or major intracranial occlusive process evident. Dictated by: Abhinav Mercado MD 03/08/2021 14:18 Abhinav Mercado MD in [facility] 03/08/2021 14:18
--- NOTE | 2021-03-08 12:55 | CT_ITS ---
PROCEDURE: CT HEAD/BRAIN WO CON CLINICAL INDICATION: slurred speech COMPARISON: CT HEADWO CT head/brain wo con from 12/22/2017 TECHNIQUE: Axial images obtained. All CT scans at the facility use one or more dose reduction, viz: automated exposure control, ma/kV adjustment per patient size (including targeted exams where dose is matched to indication, i.e. head), or iterative reconstruction technique. FINDINGS: No midline shift, mass effect, intracranial hemorrhage, hydrocephalus, or extra-axial fluid collection is evident. There is diffuse generalized atrophy. Low-density changes are present in the periventricular region consistent with ischemic microangiopathic changes. Vague low-density changes are present in the posterior aspect of the left occipital lobe. This is of questionable clinical significance but does raise the possibility an area infarction. No edema however apparent. No acute intracranial hemorrhage. The calvarium has an unremarkable appearance. No mastoid effusion. Mucosal thickening of the ethmoid sinuses on the left and left frontal ethmoid air cell. No air-fluid levels apparent. Small retention cysts in the maxillary sinuses. IMPRESSION: Atrophy with chronic ischemic gliotic change. Vague low-density changes in the left occipital lobe posteriorly raising the question of a small area of acute infarction. Dictated by: Abhinav Mercado MD 03/08/2021 13:43 Abhinav Mercado MD in [place] 03/08/2021 13:43
--- NOTE | 2021-03-08 13:11 | PC.NURSE ---
Pt is with rad.
--- NOTE | 2021-03-08 13:15 | HMH.EDGENADL ---
ED Disposition Clinical Impression: Slurred speech, Intermittent atrial fibrillation Transient cerebral ischemia Qualifiers: Transient cerebral ischemia type: unspecified Qualified Code(s): G45.9 - Transient cerebral ischemic attack, unspecified Disposition: Admitted As Inpatient Condition on Discharge: Serious Referrals: Ricki London MD [Primary Care Provider] - Time of Disposition: 15: - Critical Care Critical Care Time: No Attestation: On 03/08/21, the high probability of a clinically significant, sudden or life threatening deterioration of the following system(s) required my full and direct attention, intervention and personal management. The time I documented below is in addition to time spent performing reported procedures but includes the following listed in this critical care notation. Total Critical Care Time: 30 Vital system(s) involved:: Central Nervous System My critical care processes included: Assessment & monitoring of V/S, Initial and Re-exams, Data Review/Interpretation, Coordinating Care, Medication Orders and management, Documentation Medical Decision Making - Medical Records Medical records reviewed: Yes: I reviewed the patient's medical records. - [place] Inquiry Pt receiving controlled substance: No Vital Signs: 03/08/21 12:56 03/08/21 13:27 03/08/21 14:01 Temperature 98.2 F Temperature Source Oral Pulse Rate 64 60 Pulse Rate [Left Radial] 82 Respiratory Rate 18 11 L 15 Blood Pressure 135/69 113/56 L Blood Pressure [Right Arm] 148/115 H Blood Pressure Mean [Right Arm] 126 02 Sat by Pulse Oximetry 94 L 99 97 Oxygen Delivery Method Room Air 03/08/21 14:30 Temperature Temperature Source Pulse Rate 65 Pulse Rate [Left Radial] Respiratory Rate 11 L Blood Pressure 101/52 L Blood Pressure [Right Arm] Blood Pressure Mean [Right Arm] 02 Sat by Pulse Oximetry 93 L Oxygen Delivery Method - Lab Data Lab Results 03/08/21 14:15: WBC 7.3, RBC 4.09 L, Hgb 12.7 L, Hct 39.4 L, MCV 96.2 H, MCH 31.0, MCHC 32.2, RDW 14.3, Plt Count 285, MPV 8.3, Neut % (Auto) 71.4, Lymph % (Auto) 18.2, Mellette % (Auto) 5.3, Eos % (Auto) 4.3, Baso % (Auto) 0.8, Neut # (Auto) 5.2, Lymph # (Auto) 1.3, Mellette # (Auto) 0.4, Eos # (Auto) 0.3, Baso # (Auto) 0.1 03/08/21 14:15: PT 11.5, INR 1.02, APTT 22.1 L 03/08/21 14:15: Sodium 140, Potassium 4.4, Chloride 104, Carbon Dioxide 30, Anion Gap 10.4, BUN 25 H, Creatinine 1.20, Estimated Creat Clear 47, Estimated GFR 58 L, Est GFR ( Amer) 70, Glucose 95, Calcium 8.7, Total Bilirubin 0.3, AST 28, ALT 12, Alkaline Phosphatase 114, Total Protein 6.0 L, Albumin 3.4 L, Globulin 2.6, Albumin/Globulin Ratio 1.3 Result diagrams: 03/08/21 14:15 03/08/21 14:15 Orders (Tests/Meds): ED MEDICATIONS Generic Name Dose Route Start Last Admin Trade Name Freq PRN Reason Stop Dose Admin Miscellaneous 1 each 03/08/21 13:52 Consider Pt For Statin At Discharge-Stroke NOTAPPLIC 04/07/21 13:51 NEEDED PRN Reminder for med @discharge Discontinued Medications Generic Name Dose Route Start Last Admin Trade Name Freq PRN Reason Stop Dose Admin Aspirin 162 mg 03/08/21 15:17 03/08/21 15:28 Aspirin 81mg Chewable Tablet PO 03/08/21 15:18 162 mg ONCE ONE Administration ORDERS Category Date Time Status Comprehensive Metabolic Panel Stat Lab 03/08/21 14:15 Results Rapid PCR Covid and Flu A/B Stat Lab 03/08/21 15:28 Ordered Troponin I Q3H Lab 03/08/21 17:00 Ordered Troponin I Q3H Lab 03/08/21 20:00 Ordered Troponin I Stat Lab 03/08/21 14:15 Results EKG Request [ECG Request by /Nse] Stat Y 03/08/21 13:53 Ordered - CT Data CT Scan: Head Time Received: 15:[address] Reviewed: Yes: I have reviewed the patient's CT results, I have viewed the radiologist's interpretation Preliminary Findings: Abnormal Findings Narrative: IMPRESSION: Atrophy with chronic ischemic gliotic change. Vague low-density changes
--- NOTE | 2021-03-08 13:53 | XR_ITS ---
PROCEDURE: XR CHEST PORTABLE CLINICAL HISTORY: stroke like COMPARISON: CR CXR CHEST(2 VIEWS-NOT PORTABLE) from 09/18/2016 CR CXR2V XR chest 2V from 05/16/[address] chest wo con from 08/15/2017 CR CXR1VP XR chest portable from 11/16/2017 FINDINGS: Prior CABG. Bipolar pacemaker present from left subclavian approach. Vague increased density overlies the left lower lobe and may be due to overlying soft tissue attenuation somewhat similar compared to 11/16/2017. No lobar consolidation or collapse. No acute bony abnormalities. IMPRESSION: No acute findings. Dictated by: Abhinav Mercado MD 03/08/2021 14:41 Abhinav Mercado MD in [place] 03/08/2021 14:41
[2021-03-08 14:28] LABS: Basophils # 0.1 K/mm3 (0-0.2); Basophils % 0.8 % (0.1-2.0); Eosinophils # 0.3 K/mm3 (0.0-0.4); Eosinophils % 4.3 % (0.1-12.0); Hematocrit 39.4 % (42.0-52.0); Hemoglobin 12.7 g/dL (14.1-18.0); Lymphocytes # 1.3 K/mm3 (0.7-4.5); Lymphocytes % 18.2 % (10-50); Mean Corpuscular HGB Conc 32.2 g/dL (31.8-35.4); Mean Corpuscular Volume 96.2 fl (80-94); Mean Platelet Volume 8.3 fl (7.4-10.4); Monocytes # 0.4 K/mm3 (0.1-1.0); Monocytes % 5.3 % (1.7-9.3); Neutrophils # 5.2 K/mm3 (1.8-7.8); Neutrophils % 71.4 % (37.0-80.0); Platelet Count 285 K/mm3 (142-424); Red Blood Count 4.09 M/mm3 (4.60-6.20); Red Cell Distribution Width 14.3 % (11.5-17.5); White Blood Count 7.3 K/mm3 (4.8-10.8)
[2021-03-08 14:50] LABS: Activated Partial Thrombo Time 22.1 seconds (22.8-30.6); INR 1.02 (0.9-1.1); Prothrombin Time 11.5 seconds (10.1-12.5)
--- NOTE | 2021-03-08 15:16 | PC.NURSE ---
Calling Dr London at this time
[2021-03-08 15:17] LABS: Chloride 104 mmol/L (98-107); Potassium 4.4 mmoL/L (3.5-5.1); Sodium 140 mmol/L (136-145)
[2021-03-08 15:20] LABS: Alanine Aminotransferase 12 U/L (12-78); Albumin Level 3.4 g/dl (3.5-5.0); Albumin/Globulin Ratio 1.3 (1.1-1.8); Alkaline Phosphatase 114 U/L (38-126); Anion Gap 10.4 mEq/L (5-15); Aspartate Amino Transferase 28 U/L (17-59); Bilirubin,Total 0.3 mg/dl (0.2-1.3); Blood Urea Nitrogen 25 mg/dl (9-20); Carbon Dioxide 30 mmol/L (22.0-30.0); Creatinine Clearance Estimated 47 mL/min (50-200); Estimated Glomerular Filt Rate 58 ml/min (>60); GFR (African American) 70 ML/MIN (>60); Globulin 2.6 g/dL (1.3-3.2)
[2021-03-08 15:21] LABS: Calcium 8.7 mg/dl (8.4-10.2); Glucose 95 mg/dl (74-100)
[2021-03-08 15:34] LABS: Troponin I < 0.01 ng/ml (0.00-0.034)
[2021-03-08 16:06] LABS: Coronavirus 19, PCR Not Detected (NotDetected); Influenza A, PCR Not Detected (NotDetected); Influenza B, PCR Not Detected (NotDetected)
--- NOTE | 2021-03-08 16:36 | PC.NURSE ---
called report to víctor leyva
--- NOTE | 2021-03-08 16:59 | PC.NURSE ---
Pt arrived to the floor at this.
[2021-03-08 19:39] LABS: Troponin I < 0.01 ng/ml (0.00-0.034)
--- NOTE | 2021-03-08 21:22 | HMH.HP ---
*Admission Date: 03/08/21 *Chief complaint: Slurred speech and weakness *History of present illness: 80-year-old white male with remote history of coronary disease and stent placement who was in my office a couple of weeks ago for medication evaluation and we elected to stop clopidogrel because of his length of time since stent placement and lack of indication for DAPT therapy. He has been doing well over the past for 5 days, did have recent stent placement by urology and was due to have the stent removed tomorrow in [place]. He has a history of recent obstructive uropathy with creatinine elevation up to the 6 range, hospital stay at [facility] with operative intervention for stone removal and stent placement. Unfortunately this morning he awoke with significant slurred speech and weakness, was brought to the emergency department. In route he began to improve and by the time he got to the emergency department he was alert, oriented. Had minor speech deficits consistent with some thickening of his speech but had good articulation and word finding with no memory loss. CT and CTA were unremarkable. Blood pressure was normal, it was elected the patient would not benefit from TPA therapy and he was admitted overnight here for observation. I asked the ER to give him a dose of Plavix to resume his dual antiplatelet therapy after he has had a full dose of aspirin in the ER to begin with. [facility] History I have reviewed the patient's past medical history: Yes Medical History: Reports:: Atrial Fibrillation, BPH, Hyperlipidemia, Hypertension, Internal Pacemaker, Kidney Stones Denies:: Cancer, Diabetes Mellitus Type 1, Diabetes Mellitus Type 2, MRSA, Seizures *Have you ever received a pneumonia vaccine?: Yes *Have you received a flu vaccine this season?: Yes Other Medical History: Reports: Arthritis, Blood Transfusion Reaction, Hypothyroidism Laterality Cases: Left: Arthroscopy Knee Other Surgeries: Yes: No Previous Surgery, Appendectomy, Cardiac Catheterization, Cardiac Surgery, Cholecystectomy, Colonoscopy, Coronary Stent, Pacemaker Amputation: No Fractures: No - *Social History Smoking Status: Former smoker Tobacco Type: smokeless tobacco # Packs/Day (cigarettes): 0 Alcohol Intake: never Alcohol Intake Frequency:: holidays/special occasions only Substance Use Type: denies use *Occupational Status:: retired Housing: house Household Members: significant other *Travel in the last 8 weeks: None Family Hx:: Heart Attack, Hypertension Review of Systems - Review of Systems Review of systems:: pertinent systems reviewed and negative unless documented below - *Neurologic Reports abnormal speech, Reports localized weakness, Reports weakness, Denies seizure-like activity, Denies dizziness, Denies headache(s), Denies numbness, Denies tingling/numbness/burning sensations, Denies tingling Meds Home Medications Medication Instructions Recorded Confirmed Type Atorvastatin Calcium [Lipitor 20mg 20 mg PO HS 12/22/17 03/08/21 History Tablet] Clopidogrel Bisulfate [Plavix 75mg 75 mg PO DAILY 12/22/17 02/09/21 History Tab] tiotropium 2.5 mcg-olodaterol 2.5 2 puff INHALATION DAILY g 05/27/19 03/08/21 History mcg/actuation mist for inhalation gabapentin 300 mg capsule 600 mg PO TID cap 03/13/20 03/08/21 History aspirin 81 mg tablet,delayed 81 mg PO DAILY 05/09/20 03/08/21 History release coenzyme Q10 100 mg capsule 100 mg PO DAILY 05/09/20 03/08/21 History levothyroxine 50 mcg capsule 50 mcg PO DAILY 05/09/20 03/08/21 History omega-3 fatty acids 1,000 mg 1,200 mg PO DAILY 05/09/20 02/09/21 History capsule vitamin B complex 1 tab PO DAILY 05/09/20 02/09/21 History ALPRAZolam [Alprazolam Xr 0.5mg 0.5 mg PO TID 01/04/21 03/08/21 History Tab] Cromolyn Sodium [Nasalcrom] 1 spray NS QID 02/05/21 02/09/21 History Multivit-Min/Folic Acid/Vit K1 1 each PO DAILY 02/05/21 03/08/21 History [Multi For Him Softgel] Linaclotide
[2021-03-08 22:48] LABS: Troponin I < 0.01 ng/ml (0.00-0.034)
[2021-03-09 04:00] VITALS: BP 117/62; PULSE 79; RESP 16; TEMP 36.4; O2SAT 96
--- NOTE | 2021-03-09 06:42 | PC.NURSE ---
No acute changes this shift. Pt has rested well and has had no c/o pain this shift. Pt reported to this RN that he uses 2L NC at bedtime while at home and requested to use it while he slept here. Pt is alert and oriented x 4, speech clear, ambulated to restroom with assistance. VSS t/o shift call danielle in reach will continue to monitor.
[2021-03-09 06:44] LABS: Basophils % 0.6 % (0.1-2.0); Eosinophils # 0.6 K/mm3 (0.0-0.4); Eosinophils % 8.2 % (0.1-12.0); Hematocrit 37.5 % (42.0-52.0); Hemoglobin 12.1 g/dL (14.1-18.0); Lymphocytes # 1.8 K/mm3 (0.7-4.5); Lymphocytes % 25.6 % (10-50); Mean Corpuscular HGB Conc 32.3 g/dL (31.8-35.4); Mean Corpuscular Hemoglobin 30.6 pg (27.0-31.2); Mean Corpuscular Volume 94.6 fl (80-94); Mean Platelet Volume 8.3 fl (7.4-10.4); Monocytes # 0.5 K/mm3 (0.1-1.0); Monocytes % 7.1 % (1.7-9.3); Neutrophils # 4.1 K/mm3 (1.8-7.8); Neutrophils % 58.5 % (37.0-80.0); Platelet Count 267 K/mm3 (142-424); Red Blood Count 3.97 M/mm3 (4.60-6.20); Red Cell Distribution Width 14.3 % (11.5-17.5)
[2021-03-09 07:13] LABS: Anion Gap 8.8 mEq/L (5-15); Blood Urea Nitrogen 24 mg/dl (9-20); Calcium 8.3 mg/dl (8.4-10.2); Carbon Dioxide 29 mmol/L (22.0-30.0); Chloride 108 mmol/L (98-107); Creatinine Clearance Estimated 49 mL/min (50-200); Estimated Glomerular Filt Rate 64 ml/min (>60); GFR (African American) 78 ML/MIN (>60); Glucose 92 mg/dl (74-100); Potassium 3.8 mmoL/L (3.5-5.1); Sodium 142 mmol/L (136-145)
--- NOTE | 2021-03-09 07:36 | HMH.PHAVTE ---
[facility] Pharmacy VTE Monitoring - Patient Demographics Admission date: 03/09/21 Report Date: 03/09/21 Time: 07:36 Allergies/Adverse Reactions: Patient Allergies No Known Allergies Allergy (Verified 02/09/21 07:53) Height: 1.68 m Weight: 67 kg Patient Problems: Current Active Problems Slurred speech (Acute) Transient cerebral ischemia (Acute) Intermittent atrial fibrillation (Acute) Ureteral stent retained (Acute) - VTE Risk Labs: VTE Related Lab Results Hgb 12.1 g/dL (14.1-18.0) L 03/09/21 05:54 Hct 37.5 % (42.0-52.0) L 03/09/21 05:54 Plt Count 267 K/mm3 (142-424) 03/09/21 05:54 PT 11.5 seconds (10.1-12.5) 03/08/21 14:15 INR 1.02 (0.9-1.1) 03/08/21 14:15 APTT 22.1 seconds (22.8-30.6) L 03/08/21 14:15 BUN 24 mg/dl (9-20) H 03/09/21 05:54 Creatinine 1.10 mg/dl (0.66-1.25) 03/09/21 05:54 Estimated Creat Clear 49 mL/min (50-200) 03/09/21 05:54 Was VTE Risk Assessment Performed: Yes VTE Score: 4 VTE Risk Level: Low Risk Clinical Trial Participant: No - Prophylaxis VTE Prophylaxis Ordered?: Yes Types of VTE Prophylaxis: TEDS Knee High
[2021-03-09 08:00] VITALS: BP 119/67; PULSE 80; RESP 16; TEMP 36.4; O2SAT 93
--- NOTE | 2021-03-09 08:32 | HMH.DCSUM ---
General - General Admission date:: 03/08/21 Discharge date: 03/09/21 HPI HPI: 80-year-old white male with remote history of coronary disease and stent placement who was in my office a couple of weeks ago for medication evaluation and we elected to stop clopidogrel because of his length of time since stent placement and lack of indication for DAPT therapy. He has been doing well over the past for 5 days, did have recent stent placement by urology and was due to have the stent removed tomorrow in [place]. He has a history of recent obstructive uropathy with creatinine elevation up to the 6 range, hospital stay at [facility] with operative intervention for stone removal and stent placement. Unfortunately this morning he awoke with significant slurred speech and weakness, was brought to the emergency department. In route he began to improve and by the time he got to the emergency department he was alert, oriented. Had minor speech deficits consistent with some thickening of his speech but had good articulation and word finding with no memory loss. CT and CTA were unremarkable. Blood pressure was normal, it was elected the patient would not benefit from TPA therapy and he was admitted overnight here for observation. I asked the ER to give him a dose of Plavix to resume his dual antiplatelet therapy after he has had a full dose of aspirin in the ER to begin with. Hospital Course Hospital Course: 80-year-old male admitted for TIA. Resumed dual antiplatelet therapy on admission. Symptoms have improved during observation. No significant deficits on day of discharge. Recommend following up with his twist packer to discuss further anticoagulation therapy given his remote history of A. fib. PT/OT evaluation of patient. Okay to return home. No acute deficits. At baseline Complicating condition is a current ureteral stent that was placed by his urologist in [place]. Due to be removed on day of discharge. Had extensive discussion with patient. He declined having her urologist address removing the stent and preferred to wait to have it removed by his urologist on Friday. Medically stable for discharge home. Examined on day of discharge. Objective Vital signs: Temp Pulse Resp BP Pulse Ox 97.6 F 80 16 119/67 93 L 03/09/21 08:00 03/09/21 08:00 03/09/21 08:00 03/09/21 08:00 03/09/21 08:00 Narrative: - Constitutional no acute distress - *Routine HEENT Exam Head: Present: normocephalic Eye: Present: EOMI, PERRL ENT: Present: mucous membranes moist - *Routine Neck Exam Present: supple. Absent: lymphadenopathy - *Routine Respiratory Exam Present: CTA bilaterally - *Routine Cardiovascular Exam Present: RRR - *Routine Abdominal Exam Present: soft, normoactive bowel sounds. Absent: tenderness - *Routine Extremities Exam Absent: cyanosis, clubbing, edema - *Routine Skin Exam Present: warm. Absent: rash - *Routine Neurological Exam Present: alert, oriented X3, improvement in thick speech. no appreciable dysarthria Results Labs on day of discharge: Labs from last 24 hours 03/09/21 03/09/21 03/08/21 05:54 05:54 22:00 WBC 7.0 RBC 3.97 L Hgb 12.1 L Hct 37.5 L MCV 94.6 H MCH 30.6 MCHC 32.3 RDW 14.3 Plt Count 267 MPV 8.3 Neut % (Auto) 58.5 Lymph % (Auto) 25.6 Rains % (Auto) 7.1 Eos % (Auto) 8.2 Baso % (Auto) 0.6 Neut # (Auto) 4.1 Lymph # (Auto) 1.8 Rains # (Auto) 0.5 Eos # (Auto) 0.6 H Baso # (Auto) 0.0 PT INR APTT Sodium 142 Potassium 3.8 Chloride 108 H Carbon Dioxide 29 Anion Gap 8.8 BUN 24 H Creatinine 1.10 Estimated Creat Clear 49 Estimated GFR 64 Est GFR ( Amer) 78 Glucose 92 Calcium 8.3 L Total Bilirubin AST ALT Alkaline Phosphatase Troponin I < 0.01 Total Protein Albumin Globulin Albumin/Globu
--- NOTE | 2021-03-09 10:28 | SW/DCPLANNER ---
SET UP HOME HEALTH FOR THIS PATIENT WITH PERSONAL TOUCH OUT OF [facility]... I DID SEND REFERRAL AND ASK FOR SOMEONE TO MAKE CONTACT WITH PATIENT TO START SERVICES. PATIENT WILL FOLLOW UP WITH MD NEXT WEEK... HE ALSO HAS SCHEDULED APPT IN [place] ON FRIDAY.
--- NOTE | 2021-03-09 10:28 | HMH.OTEV ---
OT Inpatient Evaluation Rehab OT IP Evaluation Start: 03/08/21 21:27 Freq: ONCE Status: Complete Protocol: Document 03/09/21 10:19 [facility] (Rec: 03/09/21 10:28 [facility] [id number]) Rehab OT IP Assessment Subjective History Pt oriented x 3 on arrival. Pt agreeable to engage in therapy evaluation. Pt polite and cooperative. Pt was admitted via ED on 03/08/21 due to slurred speech, right side weakness, and right side facial droop. Pt has a past medical history of Atrial Fibrillation, BPH, Hyperlipidemia, Hypertension, Internal Pacemaker, Kidney Stones. Pt's symptoms resolved quickly. Pt reports prior to admission to hospital he lived at home with his . Pt claims he is independent with ADLs; dressing, bathing, feeding. However, he is dependent on his to complete IADLS such as cleaning, cooking, laundry, etc. He does use a walker during ambulation for safety purposes. Subjective I can get up and get around fine. Pt completed bed mobility with sba. Pt engaged in sit to stand from bed with cga. Pt engaged in functional transfer to restroom with cga. Pt sat down on toilet with sba. Pt was independent with toileting hygiene. Pt stood from toilet with cga and grab bars. Pt transferred to sink with sba. Pt independent in hand hygiene. Pt transferred back to eob with cga. Pt completed LB dressing by donning and doffing socks with SBA. Pt was left sitting at eob with call danielle and all other needs in reach; present. Objective Patient Orientation Person,Place,Birthday Upper Extremity Gross RO
--- NOTE | 2021-03-09 11:06 | HMH.PTEV ---
Physical Therapy Evaluation Rehab PT IP Evaluation Start: 03/08/21 21:27 Freq: ONCE Status: Active Protocol: Document 03/09/21 11:04 [email or web address] (Rec: 03/09/21 11:06 [email or web address] [id number]) Subjective/History History History 80 yowm adm to [facility] after TIA now resolved. He lives with family, uses walker for ambulation at baseline. Subjective Subjective Pt with no c/o this am. Rehab PT IP Eval Objective Appearance Patient Behavior Appropriate Patient Orientation Person,Place,Time Difficulty following instructions none Speech Pattern Clear Ambulation Patient Able to Ambulate Yes Ambulation Observation IP General Gait Pattern Observation Wide Based Gait Ambulation Distance (feet) 30 Ambulation Assistive Device Rolling Walker Ambulation Ability Independent Balance Ability to Arise Able, uses arms to help Sitting Balance Steady, safe Standing Balance Steady, wide stance Dynamic Sitting Balance Ability Good Dynamic Standing Balance Ability Good Transfers Bed Transfer Ability Independent Chair Transfer Ability Independent Sit to Stand Bed Transfer Ability Independent Sit to Stand Chair Transfer Ability Independent MMT All Extremities PT MMT WFL Rehab PT IP prob,goals,plan Problems Date of Evaluation: 03/09/21 Discharge Plan PT Discharge Plan Pt appears to be back at baseline for all mobility, no current inpatient therapy needs and is appropriate to return home once medically stable. G -code Required No Eval Complexity Eval Charge Codes 80269 - Moderate Complexity PHYSICIAN CERTIFICATION: I certify the specified therapy services for Tony Bonilla are required, authorized, and reviewed every 30 days.
== END 2021-03-09 11:15 | disposition home or self-care (01) ==
LOC: ER 15:21 → 2ND 16:30
PROVIDERS: Admitting Provider Internal Medicine Adolescent Medicine; Emergency Provider Emergency Medicine; PCP Internal Medicine Adolescent Medicine; Visit Provider Internal Medicine Adolescent Medicine
DX: G45.9 Transient cerebral ischemic attack, unspecified (principal); I48.0 Paroxysmal atrial fibrillation; Z20.822 Contact with and (suspected) exposure to COVID-19; I25.10 Atherosclerotic heart disease of native coronary artery without angina pectoris; Z95.5 Presence of coronary angioplasty implant and graft; Z79.899 Other long term (current) drug therapy; I10 Essential (primary) hypertension; Z87.442 Personal history of urinary calculi
CPT/HCPCS: G0378; 36415; 70450; 70496; 70498; 71045; 80048; 80053; 84484; 85025; 85610; 85730; 97162; 97166; 99284; C9803; U0003; U0005

== ENCOUNTER → 2021-05-29 10:50 | Outpatient (CLI) | payer MEDICARE, SELFPAY ==
[2021-05-30 08:30] LABS: Covid-19 Nasal PCR Sendout Lex NOT DETECTED
== END ==
PROVIDERS: Visit Provider Nurse Practitioner
DX: Z20.822 Contact with and (suspected) exposure to COVID-19 (principal)
CPT/HCPCS: C9803; U0004; U0005

== ENCOUNTER 2021-09-18 15:00 | Outpatient (RCR) | payer MEDICARE, SELFPAY ==
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
--- NOTE | 2021-08-17 14:46 | HMH.RHREAS ---
Rehab Reassessment Rehab OP Re-assessment Start: 08/17/21 14:43 Freq: Status: Active Protocol: Document 08/17/21 14:43 [facility] (Rec: 08/17/21 14:46 [facility] [id number]) Electronically Signed By Cody Ocasio, PT 08/17/21 14:43 Rehab Re-assessment Subjective Subjective Pt reports, I feel like I've got more endurance, but I don' t know if my legs are any stronger. Objective Objective Notes B LE MMT = grossly 4+/5 throughout. DGI: Assessment Progress Assessment Progressing as Expected Assessment Notes Pt has shown significant improvement in static and dynamic standing balance. He also has shown some improvement in B LE strength and ambulation ability. He needs to continue increasing his strength. Patient goals met ST,2,3,4,5 Goals Not Met LT,2,3,4,5,6,7 Revised Goals none Plan Plan Continue per initial POC. Frequency of Therapy 2 x/wk Duration of therapy 4 wks Time and Billing Re-Eval Time 14 Re-Eval Billing Units 1 PHYSICIAN CERTIFICATION: I certify the specified therapy services for Tony Bonilla are required, authorized, and reviewed every 30 days.
--- NOTE | 2021-09-18 15:39 | HMH.RHREAS ---
Rehab Reassessment Rehab OP Re-assessment Start: 08/17/21 14:43 Freq: Status: Active Protocol: Document 09/18/21 15:36 [facility] (Rec: 09/18/21 15:39 [email or web address] [id number]) Electronically Signed By Cody Ocasio, PT 09/18/21 15:36 Rehab Re-assessment Subjective Subjective Pt reports, After I come here I'm pretty worn out. But usually I walk with my cane at home and do whatever I feel like at the house. Objective Objective Notes B LE MMT = grossly 4+/5 throughout. DGI: Assessment Progress Assessment Progressing as Expected Assessment Notes Pt has shown significant improvements in gait pattern and endurance since last reassessment. He continues to have difficulty ambulating due to fatigue at times, but DGI has shown statistically significant improvement. Patient goals met ST,2,3,4,5 LT,2,3,4,5,6,7 Goals Not Met none Revised Goals none Plan Plan Will d/c at this time with HEP in place. Frequency of Therapy 0 Duration of therapy 0 Time and Billing Re-Eval Time 16 Re-Eval Billing Units 1 PHYSICIAN CERTIFICATION: I certify the specified therapy services for Tony Bonilla are required, authorized, and reviewed every 30 days.
== END 2021-09-18 15:05 | disposition home or self-care (01) ==
LOC: PT 15:00
PROVIDERS: PCP Internal Medicine Adolescent Medicine; Visit Provider Internal Medicine Adolescent Medicine
DX: R42 Dizziness and giddiness (principal); R26.9 Unspecified abnormalities of gait and mobility
CPT/HCPCS: 97110; 97112; 97163; 97164; 97530

== ENCOUNTER 2022-03-31 17:13 | Emergency (ER) | payer MEDICARE, SELFPAY ==
[2022-03-31 17:14] VITALS: BP 134/78; PULSE 102; RESP 18; TEMP 36.3; O2SAT 98; BMI 25.7
[2022-03-31 17:19] VITALS: BP 134/78; PULSE 98; RESP 20; O2SAT 99
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
--- NOTE | 2022-03-31 17:28 | XR_ITS ---
PROCEDURE INFORMATION: Exam: XR Left Femur Exam date and time: 03/31/2022 5:34 PM Age: 81 years old Clinical indication: Injury or trauma; Fall; Blunt trauma; Thigh or upper leg; Left; Additional info: Falls TECHNIQUE: Imaging protocol: Radiologic exam of the Left femur. Views: 2 views. COMPARISON: CR XR HIP LT 2-3V W/PELVIS 03/31/2022 5:33 PM FINDINGS: Bones/joints: There is a total knee arthroplasty. The remaining osseous structures are unremarkable. No other fractures. The joint spaces are intact. No dislocations. Soft tissues: Unremarkable. No swelling or abnormal density. IMPRESSION: Total knee arthroplasty in anatomic alignment. No acute changes.
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
--- NOTE | 2022-03-31 17:28 | XR_ITS ---
PROCEDURE INFORMATION: Exam: XR Left Hip Exam date and time: 03/31/2022 5:33 PM Age: 81 years old Clinical indication: Injury or trauma; Fall; Blunt trauma (contusions or hematomas); Left; Hip; Additional info: Falls TECHNIQUE: Imaging protocol: Radiologic exam of the Left hip. Views: 2 or 3 views hip with pelvis when performed. COMPARISON: CT ABDOMEN PELVIS WO CON 01/03/2021 11:37 AM FINDINGS: Bones/joints: Old fractures of the bilateral pubic rami and the proximal right femur. No acute fractures. No dislocations. Soft tissues: Normal. No swelling or abnormal density. IMPRESSION: 1. No acute fractures or dislocations. 2. Old fractures as described.
--- NOTE | 2022-03-31 17:28 | CT_ITS ---
PROCEDURE INFORMATION: Exam: CT Thoracic Spine Without Contrast Exam date and time: 03/31/2022 5:56 PM Age: 81 years old Clinical indication: Injury or trauma; Fall; Additional info: Falls TECHNIQUE: Imaging protocol: Computed tomography of the thoracic spine without contrast. Radiation optimization: All CT scans at this facility use at least one of these dose optimization techniques: automated exposure control; mA and/or kV adjustment per patient size (includes targeted exams where dose is matched to clinical indication); or iterative reconstruction. COMPARISON: No relevant priors. FINDINGS: Bones/joints: Old superior endplate fracture of T11. No acute fractures. The disc spaces are mildly narrowed. There are small marginal endplate osteophytes at most levels. Soft tissues: Unremarkable. IMPRESSION: 1. No acute fractures or dislocations. 2. Old superior endplate fracture of T11. 3. Mild generalized thoracic spondylosis.
--- NOTE | 2022-03-31 17:28 | CT_ITS ---
PROCEDURE INFORMATION: Exam: CT Pelvis Without Contrast; Skeletal Exam date and time: 03/31/2022 6:02 PM Age: 81 years old Clinical indication: Injury or trauma; Fall; Additional info: Falls TECHNIQUE: Imaging protocol: Computed tomography of the pelvis without contrast. Exam focused on the skeleton. Radiation optimization: All CT scans at this facility use at least one of these dose optimization techniques: automated exposure control; mA and/or kV adjustment per patient size (includes targeted exams where dose is matched to clinical indication); or iterative reconstruction. COMPARISON: CT ABDOMEN PELVIS WO CON 01/03/2021 11:37 AM FINDINGS: Bones/joints: No acute fractures. Old fracture of S4. Old fractures of the bilateral pubic rami. Old ununited fracture of the right sacral ala. Old healed fracture of the proximal right femur. Soft tissues: Unremarkable. IMPRESSION: 1. No acute fractures. 2. Old fractures as described.
[2022-03-31 17:30] VITALS: BP 111/74; PULSE 106; RESP 18; O2SAT 96
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
[2022-03-31 18:12] VITALS: BP 133/80; PULSE 91; O2SAT 96
[2022-03-31 18:29] LABS: Basophils # 0.1 K/mm3 (0-0.2); Basophils % 0.7 % (0.1-2.0); Eosinophils # 0.3 K/mm3 (0.0-0.4); Eosinophils % 3.2 % (0.1-12.0); Hematocrit 45.9 % (42.0-52.0); Hemoglobin 14.8 g/dL (14.1-18.0); Lymphocytes # 1.7 K/mm3 (0.7-4.5); Lymphocytes % 19.9 % (10-50); Mean Corpuscular HGB Conc 32.2 g/dL (31.8-35.4); Mean Corpuscular Hemoglobin 30.6 pg (27.0-31.2); Mean Corpuscular Volume 95.2 fl (80-94); Mean Platelet Volume 7.9 fl (7.4-10.4); Monocytes # 0.4 K/mm3 (0.1-1.0); Monocytes % 4.7 % (1.7-9.3); Neutrophils # 6.2 K/mm3 (1.8-7.8); Neutrophils % 71.3 % (37.0-80.0); Platelet Count 351 K/mm3 (142-424); Red Blood Count 4.82 M/mm3 (4.60-6.20); Red Cell Distribution Width 13.3 % (11.5-17.5); White Blood Count 8.7 K/mm3 (4.8-10.8)
[2022-03-31 18:30] VITALS: BP 131/80; PULSE 82; O2SAT 96
--- NOTE | 2022-03-31 18:33 | ECG_ITS ---
APPROVED REPORT Exam: Resting ECG HR:78 bpm ECG Measurements Heart Rate 78 AXES ND 151 P 46 QRSd 110 QRS -20 QT 410 T 44 QTc 444 Conclusion SINUS RHYTHM NORMAL ECG UNCONFIRMED REPORT Electronically signed by : Ricki London MD 04/01/2022 19:57:23
[2022-03-31 18:41] LABS: Alanine Aminotransferase 21 U/L (12-78); Albumin Level 4.3 g/dl (3.5-5.0); Albumin/Globulin Ratio 1.5 (1.1-1.8); Alkaline Phosphatase 134 U/L (38-126); Aspartate Amino Transferase 40 U/L (17-59); Bilirubin,Total 0.4 mg/dl (0.2-1.3); Blood Urea Nitrogen 21 mg/dl (9-20); Calcium 9.2 mg/dl (8.4-10.2); Carbon Dioxide 29 mmol/L (22.0-30.0); Chloride 108 mmol/L (98-107); Creatinine Clearance Estimated 46 mL/min (50-200); Estimated Glomerular Filt Rate 58 ml/min (>60); GFR (African American) 70 ML/MIN (>60); Globulin 2.8 g/dL (1.3-3.2); Glucose 93 mg/dl (74-100); Magnesium 2.1 mg/dl (1.6-2.3); Sodium 144 mmol/L (136-145); Total Protein,Serum 7.1 g/dl (6.3-8.2)
[2022-03-31 18:53] LABS: NT Pro Brain Natriuretic Pep. 184 pg/mL (0-450)
[2022-03-31 18:55] LABS: Troponin I < 0.01 ng/ml (0.00-0.034)
[2022-03-31 18:57] LABS: Microscopic, Urine URINE MICROSCOPIC (MICROSCOPIC)
[2022-03-31 18:59] LABS: Appearance,Urine CLEAR (Clear); Bilirubin,Urine Negative (Negative); Blood, Urine Negative (Negative); Color,Urine YELLOW (Yellow); Glucose,Urine (UA) Negative (Negative); Ketones,Urine Negative (Negative); Leukocyte Esterase,Urine Negative (Negative); Nitrate,Urine Negative (Negative); Protein,Urine Negative (Negative); Specific Gravity, Urine >= 1.030 (1.005-1.030); Urobilinogen,Urine 0.2 EU/dl (0.2)
[2022-03-31 19:12] LABS: Thyroid Stimulating Hormone 2.23 uIU/mL (0.465-4.68)
[2022-03-31 19:14] LABS: Bacteria,Urine Trace /lpf; Squamous Epithelial Cell,Urine Occasional #/hpf (0-5); WBC,Urine Occasional #/hpf (0-3)
--- NOTE | 2022-03-31 19:35 | PC.NURSE ---
Updated pt/family on POC. Pt provided with warm blanket. No other needs or complaints at this time.
[2022-03-31 20:39] VITALS: BP 130/80; PULSE 79; RESP 16; TEMP 36.3; O2SAT 96
== END 2022-03-31 20:48 | disposition home or self-care (01) ==
PROVIDERS: Emergency Provider Emergency Medicine; PCP Internal Medicine Adolescent Medicine
DX: S41.112A Laceration without foreign body of left upper arm, initial encounter (principal); M79.602 Pain in left arm; M25.552 Pain in left hip; M54.50 Low back pain, unspecified; R00.0 Tachycardia, unspecified; R53.1 Weakness; Z79.02 Long term (current) use of antithrombotics/antiplatelets; Z79.82 Long term (current) use of aspirin; Z79.899 Other long term (current) drug therapy; Z87.891 Personal history of nicotine dependence; W19.XXXA Unspecified fall, initial encounter
CPT/HCPCS: 70450; 71045; 72125; 72128; 72131; 72192; 73502; 73552; 73560; 80053; 81001; 83735; 83880; 84443; 84484; 85025; 93005; 99285

== ENCOUNTER → 2022-04-30 09:41 | Outpatient (CLI) | payer MEDICARE, SELFPAY ==
[2022-04-30 11:05] LABS: Basophils # 0.1 K/mm3 (0-0.2); Basophils % 0.8 % (0.1-2.0); Eosinophils # 0.2 K/mm3 (0.0-0.4); Eosinophils % 2.5 % (0.1-12.0); Hematocrit 48.1 % (42.0-52.0); Hemoglobin 14.9 g/dL (14.1-18.0); Lymphocytes # 1.2 K/mm3 (0.7-4.5); Mean Corpuscular HGB Conc 30.9 g/dL (31.8-35.4); Mean Corpuscular Hemoglobin 30.7 pg (27.0-31.2); Mean Corpuscular Volume 99.2 fl (80-94); Mean Platelet Volume 7.7 fl (7.4-10.4); Monocytes # 0.4 K/mm3 (0.1-1.0); Monocytes % 5.6 % (1.7-9.3); Neutrophils # 5.7 K/mm3 (1.8-7.8); Neutrophils % 75.1 % (37.0-80.0); Platelet Count 264 K/mm3 (142-424); Red Blood Count 4.85 M/mm3 (4.60-6.20); Red Cell Distribution Width 13.4 % (11.5-17.5); White Blood Count 7.6 K/mm3 (4.8-10.8)
[2022-04-30 11:16] LABS: Alanine Aminotransferase 29 U/L (12-78); Albumin Level 4.4 g/dl (3.5-5.0); Albumin/Globulin Ratio 1.6 (1.1-1.8); Alkaline Phosphatase 127 U/L (38-126); Aspartate Amino Transferase 45 U/L (17-59); Bilirubin,Total 0.6 mg/dl (0.2-1.3); Blood Urea Nitrogen 21 mg/dl (9-20); Calcium 8.8 mg/dl (8.4-10.2); Carbon Dioxide 30 mmol/L (22.0-30.0); Chloride 106 mmol/L (98-107); Cholesterol 167 mg/dl (140-200); Estimated Glomerular Filt Rate 64 ml/min (>60); GFR (African American) 77 ML/MIN (>60); Globulin 2.7 g/dL (1.3-3.2); Glucose 85 mg/dl (74-100); HDL Cholesterol 56 mg/dl (40-60); Sodium 143 mmol/L (136-145); Total Protein,Serum 7.1 g/dl (6.3-8.2); Triglycerides 126 mg/dl (30-150); VLDL Cholesterol 25 mg/dL (0-40)
[2022-04-30 11:27] LABS: Direct LDL Cholesterol 71.11 mg/dL (100-129)
[2022-04-30 11:45] LABS: Thyroid Stimulating Hormone 3.23 uIU/mL (0.465-4.68)
== END ==
PROVIDERS: PCP Internal Medicine Adolescent Medicine; Visit Provider Nurse Practitioner Family
DX: E03.9 Hypothyroidism, unspecified (principal); I10 Essential (primary) hypertension; R53.1 Weakness; E78.5 Hyperlipidemia, unspecified
CPT/HCPCS: 36415; 80053; 80061; 84443; 85025

== ENCOUNTER 2022-10-24 21:08 | Observation (INO) | payer MEDICARE, SELFPAY ==
[2022-10-24] VITALS (7 sets, daily range): BP systolic 125–154; BP diastolic 67–81; PULSE 68–78; RESP 16–20; TEMP 36.8; O2SAT 96–100; BMI 24.2
--- NOTE | 2022-10-24 21:16 | ECG_ITS ---
APPROVED REPORT Exam: Resting ECG HR:65 bpm ECG Measurements Heart Rate 65 AXES TN 153 P 50 QRSd 109 QRS -36 QT 411 T 45 QTc 423 Conclusion SINUS RHYTHM LEFT AXIS DEVIATION [QRS AXIS < -30] PATTERN CONSISTENT WITH PULMONARY DISEASE ABNORMAL ECG UNCONFIRMED REPORT Electronically signed by : Ricki London MD 10/26/2022 09:56:30
--- NOTE | 2022-10-24 21:35 | XR_ITS ---
PROCEDURE INFORMATION: Exam: XR Chest Exam date and time: 10/24/2022 9:43 PM Age: 82 years old Clinical indication: Pain; Chest pressure TECHNIQUE: Imaging protocol: Radiologic exam of the chest. Views: 2 views. COMPARISON: CR XR CHEST PORTABLE 03/31/2022 5:32 PM FINDINGS: Tubes, catheters and devices: A 2 lead internal cardiac device implanted at the left chest with leads extending to the right heart. Multiple sternal cerclage wires overlie the sternum. Surgical clips overlie the gallbladder fossa. Lungs: Unremarkable. No consolidation. Pleural spaces: Unremarkable. No pleural effusion. No pneumothorax. Heart/Mediastinum: Unremarkable. No cardiomegaly. Bones/joints: Unremarkable. IMPRESSION: No acute findings.
[2022-10-24 21:45] LABS: Basophils % 0.3 % (0.1-2.0); Eosinophils # 0.4 K/mm3 (0.0-0.4); Eosinophils % 4.7 % (0.1-12.0); Hematocrit 42.7 % (42.0-52.0); Hemoglobin 13.7 g/dL (14.1-18.0); Lymphocytes # 1.4 K/mm3 (0.7-4.5); Lymphocytes % 14.5 % (10-50); Mean Corpuscular Hemoglobin 29.8 pg (27.0-31.2); Mean Corpuscular Volume 93.3 fl (80-94); Monocytes # 0.4 K/mm3 (0.1-1.0); Monocytes % 3.9 % (1.7-9.3); Neutrophils # 7.2 K/mm3 (1.8-7.8); Neutrophils % 76.7 % (37.0-80.0); Platelet Count 258 K/mm3 (142-424); Red Blood Count 4.57 M/mm3 (4.60-6.20); Red Cell Distribution Width 13.9 % (11.5-17.5); White Blood Count 9.4 K/mm3 (4.8-10.8)
[2022-10-24 21:53] LABS: Influenza A, PCR Not Detected (NotDetected); Influenza B, PCR Not Detected (NotDetected)
--- NOTE | 2022-10-24 21:54 | HMH.EDCP ---
Discharge Plan Disposition Patient Disposition: Admitted Chief Complaint: Chest Pain Clinical Impressions Clinical Impression: Angina at rest, Non-ST elevated myocardial infarction (non-STEMI) Discharge ED Provider: Nick (ED)David Chest Pain HPI General Chief Complaint: Chest Pain Stated Complaint: Ches & bilat arm pressure Time Seen by Provider: 10/24/22 21:10 Mode of Arrival: EMS Source of Information: Patient, EMS and Medical Record Limitations: No Limitations Description of Symptoms (Recalled from ER Triage Doc. by RN): Pt brought in by [facility], pt complained of pressure in chest that started at 1700 while watching tv. States pressure was midline and went into both arms. Pt stated the pain is gone at this time, he does take a daily aspirin and blood thinner daily. History of Present Illness HPI narrative: acute onset of chest pain -pt with relief with ntg - and hx of cad, s/p cabg MD complaint: chest pain indicative of cardiac Onset (ago): hour(s) Duration: now resolved Activity at onset: during rest Pain location: right chest Severity: moderate Quality: heaviness Pain radiation: RUE and LUE Relieving factors: nitroglycerin Risk Factors for CAD: Hypertension and Family Hx of CAD Treatments prior to or on arrival for Cardiac Chest Pain: nitroglycerin JEN Score for Non-Stemi Age of Patient: 80-89 years old Heart Rate: 70-89 bpm Systolic Blood Pressure: 140-159 mmHg Serum Creatinine: 0.80-1.19 mg/dl CHF Killip Class: I-No CHF Other Risk Factors: Elevated Cardiac Enzymes or Biomarkers Non-Stemi Risk Score: 145 Risk Stratification: 109-140 = Intermediate Ri Related Data Prior Cardiac Testing/Procedures: CABG Home Medications Medication Instructions Recorded Confirmed atorvastatin 20 mg tablet 20 mg PO HS Cholesterol 12/22/17 10/24/22 gabapentin 300 mg capsule 600 mg PO TID nerve damage 03/13/20 10/24/22 aspirin 81 mg tablet,delayed 81 mg PO DAILY Blood thinner 05/09/20 10/24/22 release (Adult Aspirin Regimen) coenzyme Q10 100 mg capsule 100 mg PO DAILY Supplement 05/09/20 10/24/22 (CoQ-10) levothyroxine 50 mcg capsule 50 mcg PO DAILY thyroid 05/09/20 10/24/22 omega-3 fatty acids 1,000 mg 1,200 mg PO DAILY Supplement 05/09/20 10/24/22 capsule (Fish Oil Concentrate) vitamin B complex (B 1 tab PO DAILY Supplement 05/09/20 10/24/22 Complex-Vitamin B12 tablet) alprazolam 0.5 mg tablet,extended 0.5 mg PO TID nerve damage 01/04/21 10/24/22 release 24 hr cromolyn 5.2 mg/spray (4 %) nasal 1 spray NS QID allergies 02/05/21 10/24/22 spray ufyopvxqwjnb-auumcmfj-jyjme acid 1 each PO DAILY Supplement 02/05/21 10/24/22 400 mcg-vitamin K 40 mcg capsule linaclotide 145 mcg capsule 145 mcg PO DAILY Pain 03/08/21 10/24/22 clopidogrel 75 mg tablet 75 mg PO DAILY Heart Disease 10/24/22 10/24/22 finasteride 5 mg tablet 5 mg PO DAILY prostate 10/24/22 10/24/22 tamsulosin 0.4 mg capsule 0.4 mg PO DAILY prostate 10/24/22 10/24/22 Allergies Allergy/AdvReac Type Severity Reaction Status Date / Time No Known Allergies Allergy Verified 02/09/21 07:53 [facility] Disclaimer: The information contained in this section may have been updated after the patient was seen, as this information can be updated by other users. Social History Smoking Status: Former smoker second hand exposure: No alcohol intake: never substance use type: denies use current occupational status: retired Travel in the last 8 weeks: None household members: significant other housing: house current occupational exposures/hazards: No caffeine: Yes ROS Obtained: Yes All systems reviewed & no additional complaints except as documented Physical Exam General General appearance: alert Head Head exam: normocephalic Eye Eye exam: Present PERRL and EOMI ENT ENT exam: Present mucous membranes moist Neck Neck exam: Present trachea midline Respiratory Respir
--- NOTE | 2022-10-24 21:55 | PC.NURSE ---
lab called for a recollect of a green top tube d/t it being hemolyzed
--- NOTE | 2022-10-24 22:19 | PC.NURSE ---
Dr. Romero s/w Dr. Kirby for admission
[2022-10-24 22:20] LABS: Alanine Aminotransferase 26 U/L (12-78); Albumin Level 3.3 g/dl (3.5-5.0); Alkaline Phosphatase 109 U/L (38-126); Aspartate Amino Transferase 38 U/L (17-59); Bilirubin,Indirect 0.2 mg/dL (0.0-0.9); Bilirubin,Total 0.2 mg/dl (0.2-1.3); Bilirubin,Unconjugated 0.4 mg/dL (0.0-1.1); Blood Urea Nitrogen 21 mg/dl (9-20); Calcium 7.3 mg/dl (8.4-10.2); Carbon Dioxide 27 mmol/L (22.0-30.0); Chloride 110 mmol/L (98-107); Creatinine Clearance Estimated 48 mL/min (50-200); Estimated Glomerular Filt Rate 64 ml/min (>60); GFR (African American) 77 ML/MIN (>60); Glucose 102 mg/dl (74-100); Magnesium 1.8 mg/dl (1.6-2.3); Sodium 141 mmol/L (136-145); Total Protein,Serum 5.8 g/dl (6.3-8.2)
--- NOTE | 2022-10-24 22:21 | PC.NURSE ---
House notified for bed assignment
--- NOTE | 2022-10-24 22:22 | PC.NURSE ---
Registration notified of admission at this time. Pt assigned to room 215. Kofi London. OBS
--- NOTE | 2022-10-24 22:22 | PC.NURSE ---
Registration notified of admission. Pt assigned to room 204. Kofi London. OBS
[2022-10-24 22:26] LABS: Coronavirus 19, PCR Detected (NotDetected)
[2022-10-24 22:32] LABS: NT Pro Brain Natriuretic Pep. 194 pg/mL (0-450); Troponin I 0.04 ng/ml (0.00-0.034)
--- NOTE | 2022-10-24 23:01 | PC.NURSE ---
Pt reassigned to room 212 d/t positive COVID test for negative pressure room.
[2022-10-25] VITALS (10 sets, daily range): BP systolic 121–146; BP diastolic 61–92; PULSE 60–80; RESP 16–18; TEMP 36.4–36.9; O2SAT 93–97; BMI 24.5
--- NOTE | 2022-10-25 00:26 | PC.NURSE ---
report given to jay Snyder RN
[2022-10-25 00:51] LABS: Troponin I 0.31 ng/ml (0.00-0.034)
--- NOTE | 2022-10-25 00:51 | PC.NURSE ---
notified of critical troponin
--- NOTE | 2022-10-25 01:03 | PC.NURSE ---
Pt arrived to floor via wheelchair @ 0101
[2022-10-25 04:21] LABS: Basophils % 0.6 % (0.1-2.0); Eosinophils # 0.5 K/mm3 (0.0-0.4); Eosinophils % 6.3 % (0.1-12.0); Hematocrit 43.3 % (42.0-52.0); Hemoglobin 13.4 g/dL (14.1-18.0); Lymphocytes # 2.1 K/mm3 (0.7-4.5); Lymphocytes % 28.6 % (10-50); Mean Corpuscular Hemoglobin 29.2 pg (27.0-31.2); Mean Corpuscular Volume 94.2 fl (80-94); Monocytes # 0.4 K/mm3 (0.1-1.0); Monocytes % 5.4 % (1.7-9.3); Neutrophils # 4.4 K/mm3 (1.8-7.8); Neutrophils % 59.1 % (37.0-80.0); Platelet Count 253 K/mm3 (142-424); Red Cell Distribution Width 13.9 % (11.5-17.5); White Blood Count 7.4 K/mm3 (4.8-10.8)
[2022-10-25 04:24] LABS: Chloride 110 mmol/L (98-107); Potassium 4.1 mmoL/L (3.5-5.1); Sodium 142 mmol/L (136-145)
[2022-10-25 04:27] LABS: Anion Gap 8.1 mEq/L (5-15); Blood Urea Nitrogen 18 mg/dl (9-20); Carbon Dioxide 28 mmol/L (22.0-30.0); Creatinine Clearance Estimated 49 mL/min (50-200); Estimated Glomerular Filt Rate 64 ml/min (>60); GFR (African American) 77 ML/MIN (>60); Triglycerides 100 mg/dl (30-150); VLDL Cholesterol 20 mg/dL (0-40)
[2022-10-25 04:28] LABS: Calcium 7.8 mg/dl (8.4-10.2); Chol/HDL Ratio 2.6 (1-3.5); Cholesterol 126 mg/dl (140-200); Glucose 90 mg/dl (74-100); HDL Cholesterol 49 mg/dl (40-60); Magnesium 1.9 mg/dl (1.6-2.3)
[2022-10-25 04:39] LABS: Direct LDL Cholesterol 49.65 mg/dL (100-129)
--- NOTE | 2022-10-25 04:46 | PC.NURSE ---
critical toponin of 1.00 reported by Juliette in lab, name and verified, notified MD Kirby. no new orders at this time.
--- NOTE | 2022-10-25 08:13 | PC.NURSE ---
[Pt refused to have his groin shaved and wants to speak to the MD. first.
--- NOTE | 2022-10-25 08:58 | PC.NURSE ---
COURTESY TECH NOTE; ROUNDED ON PT 0800, PT DENIED NEED FOR ASSISTANCE WITH RESTROOM OR NEED TO REPOSITION IN BED. CALL LIGHT WITHIN REACH, NO FURTHER REQUESTS AT THIS TIME JOVON MENG
--- NOTE | 2022-10-25 13:15 | EXP.HPDC ---
General Admission date:: 10/24/22 Discharge date: 10/25/22 *Admission Date: 10/24/22 *Chief complaint: Chest pain/ dyspnea *History of present illness: 82-year-old male with a long history of coronary disease, status post CABG in the remote past, follows with Dr. Cm at [facility] cardiology. Diagnosed with COVID-19 at the end of August, made a fairly good recovery although continues to be somewhat dyspneic and has had a more persistent oxygen requirement than his normal nocturnal requirement. Yesterday began to have some angina type symptoms and they did not jose and he came to the ER. EKGs were normal but initial troponin was slightly elevated, admitted overnight for observation and further diagnostic testing. By the time I made rounds he was pain-free and feeling much better although still dyspneic with exertion but at his baseline. [facility] Disclaimer: The information contained in this section may have been updated after the patient was seen, as this information can be updated by other users. Medical History (Updated 10/25/22 @ 01:42 by Nohelia Clarke RN) COPD (chronic obstructive pulmonary disease) Surgical History (Updated 10/25/22 @ 01:42 by Nohelia Clarke RN) Hx of appendectomy Hx of CABG Hx of cholecystectomy Social History (Updated 10/25/22 @ 01:42 by Nohelia Clarke RN) Smoking Status: Former smoker second hand exposure: No alcohol intake: never substance use type: denies use current occupational status: retired Travel in the last 8 weeks: None household members: significant other housing: house current occupational exposures/hazards: No caffeine: Yes Review of Systems Review of Systems Review of systems:: pertinent systems reviewed and negative unless documented below Exam Data for Last 24 hours Vital signs and Labs for Last 24 Hours: Temp Pulse Resp BP Pulse Ox O2 Del Method O2 Flow Rate 97.5 F L 72 16 121/62 96 Nasal Cannula 2 10/25/22 11:45 10/25/22 12:00 10/25/22 11:45 10/25/22 11:45 10/25/22 11:45 10/25/22 11:52 10/25/22 11:52 Laboratory Results - last 24 hr 10/24/22 20:20: WBC 9.4, RBC 4.57 L, Hgb 13.7 L, Hct 42.7, MCV 93.3, MCH 29.8, MCHC 32.0, RDW 13.9, Plt Count 258, MPV 8.0, Neut % (Auto) 76.7, Lymph % (Auto) 14.5, Duchesne % (Auto) 3.9, Eos % (Auto) 4.7, Baso % (Auto) 0.3, Neut # (Auto) 7.2, Lymph # (Auto) 1.4, Duchesne # (Auto) 0.4, Eos # (Auto) 0.4, Baso # (Auto) 0.0, Sodium 141, Potassium 4.0, Chloride 110 H, Carbon Dioxide 27, Anion Gap 8.0, BUN 21 H, Creatinine 1.10, Estimated Creat Clear 48, Estimated GFR 64, Est GFR ( Amer) 77, Glucose 102 H, Calcium 7.3 L, Magnesium 1.8, Total Bilirubin 0.2, Direct Bilirubin 0.0, Conjugated Bilirubin 0.0, Indirect Bilirubin 0.2, Unconjugated Bilirubin 0.4, AST 38, ALT 26, Alkaline Phosphatase 109, Troponin I 0.04 H, NT-Pro-B Natriuret Pep 194, Total Protein 5.8 L, Albumin 3.3 L 10/24/22 21:48: SARS-CoV-2 (PCR) Detected A, Influenza A Untype (PCR) Not detected, Influenza Type B (PCR) Not detected 10/25/22 00:00: Troponin I 0.31 H 10/25/22 04:10: WBC 7.4, RBC 4.60, Hgb 13.4 L, Hct 43.3, MCV 94.2 H, MCH 29.2, MCHC 31.0 L, RDW 13.9, Plt Count 253, MPV 8.0, Neut % (Auto) 59.1, Lymph % (Auto) 28.6, Duchesne % (Auto) 5.4, Eos % (Auto) 6.3, Baso % (Auto) 0.6, Neut # (Auto) 4.4, Lymph # (Auto) 2.1, Duchesne # (Auto) 0.4, Eos # (Auto) 0.5 H, Baso # (Auto) 0.0, Sodium 142, Potassium 4.1, Chloride 110 H, Carbon Dioxide 28, Anion Gap 8.1, BUN 18, Creatinine 1.10, Estimated Creat Clear 49, Estimated GFR 64, Est GFR ( Amer) 77, Glucose 90, Calcium 7.8 L, Magnesium 1.9, Troponin I 1.00 H, Triglycerides 100, Cholesterol 126 L, LDL Cholesterol Direct 49.65 L, VLDL Cholesterol 20, HDL Cholesterol 49, Cholesterol/HDL Ratio 2.6 I & O for Last 24 hours: Intake & Output 10/23/22 10/24/22 10/25/22 10/26/22 11:59 11:59 11:59 11:59 Intake Total 240 / 240 240 / 240 Output Total 0 / 0 0 / 0 Balance 240 / 240 240 / 240
--- NOTE | 2022-10-28 12:36 | CARE MANAGER ---
Spoke with patient who states he is feeling better. 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 He is aware of his follow up appointments. LUCIO Sweeney
== END 2022-10-25 13:58 | disposition home or self-care (01) ==
LOC: ER 21:14 → 2ND 22:25
PROVIDERS: Admitting Provider Family Medicine; Emergency Provider Emergency Medicine; PCP Internal Medicine Adolescent Medicine; Visit Provider Internal Medicine Adolescent Medicine
DX: I25.118 Atherosclerotic heart disease of native coronary artery with other forms of angina pectoris (principal); Z95.1 Presence of aortocoronary bypass graft; Z79.02 Long term (current) use of antithrombotics/antiplatelets; J44.9 Chronic obstructive pulmonary disease, unspecified; Z79.899 Other long term (current) drug therapy; Z86.16 Personal history of COVID-19; R06.9 Unspecified abnormalities of breathing
CPT/HCPCS: 36415; 71046; 80048; 80061; 80076; 83735; 83880; 84484; 85025; 87636; 93005; 93306; 99285; G0378

== ENCOUNTER → 2022-12-10 12:37 | Outpatient (CLI) | payer MEDICARE, SELFPAY ==
--- NOTE | 2022-12-10 12:45 | CT_ITS ---
FINAL REPORT TECHNIQUE: thin section axial CT with and without IV contrast supplemented with multiplanar 3-D reconstruction of the head. This study was performed with techniques to keep radiation doses as low as reasonably achievable, (ALARA)individualized dose reduction techniques using automated exposure control or adjustment of mA and/or kV according to the patient's size were employed. CLINICAL HISTORY: DIZZINESS COMPARISON: 03/08/2021 FINDINGS: The intracranial vessels demonstrate normal branching pattern. The vertebral arteries are not well visualized due to streak artifact. The left vertebral artery appears to be the dominant posterior circulation vessel. The basilar artery appears patent. There is a patent posterior communicating artery on the right. Incidental note is made of mild mucosal thickening in the maxillary sinuses and ethmoid air cells. IMPRESSION: No segmental stenosis. Reviewed, Interpreted and Dictated by Otis Fernandez MD Transcribed by Amelia Humphrey Authenticated and [facility]
[2022-12-10 13:10] LABS: Blood Urea Nitrogen 19 mg/dl (9-20); Estimated Glomerular Filt Rate 64 ml/min (>60); GFR (African American) 77 ML/MIN (>60)
== END ==
PROVIDERS: PCP Internal Medicine Adolescent Medicine; Visit Provider Internal Medicine Adolescent Medicine
DX: R42 Dizziness and giddiness (principal)
CPT/HCPCS: 36415; 70496; 82565; 84520; Q9967

== ENCOUNTER 2023-02-13 17:00 | Emergency (ER) | payer MEDICARE, SELFPAY ==
[2023-02-13 17:03] VITALS: BP 114/67; PULSE 117; RESP 19; TEMP 36.6; O2SAT 96; BMI 24.8
--- NOTE | 2023-02-13 17:23 | HMH.EDGENADL ---
Discharge Plan Disposition Patient Disposition: Xfer Other Prescriptions Prescriptions: No Action gabapentin 300 mg capsule 600 mg PO TID aspirin [Adult Aspirin Regimen] 81 mg tablet,delayed release (DR/EC) 81 mg PO DAILY coenzyme Q10 [CoQ-10] 100 mg capsule 100 mg PO DAILY vitamin B complex [B Complex-Vitamin B12] Tablet 1 tab PO DAILY atorvastatin 20 MG tablet 20 mg PO HS tamsulosin 0.4 mg capsule 0.4 mg PO BID Patient Comments: TAKE ONE CAPSULE BY MOUTH TWICE DAILY finasteride 5 mg tablet 5 mg PO DAILY Patient Comments: TAKE ONE TABLET BY MOUTH EVERY DAY clopidogrel 75 MG tablet 75 mg PO DAILY alprazolam 1 mg tablet 1 mg PO TID Patient Comments: TAKE ONE TABLET BY MOUTH EVERY 8 HOURS MAY CAUSE DROWSINESS levothyroxine 50 mcg tablet 50 mcg PO DAILY Patient Comments: TAKE ONE TABLET BY MOUTH EVERY DAY Referrals Follow up/Referrals: Provider,Referral, MD [Referring] - See instructions Clinical Impressions Clinical Impression: Post-op bleeding, Hematuria, Tachycardia, Acute UTI Instructions Patient Instructions: DI for Urinary Tract Infection (UTI), DI for Urinary Tract Infection in Children Discharge ED Provider: Adali Arana General Adult HPI General Chief complaint: Urogenital-Male Stated complaint: Bleeding when he goes to the bathroom Time Seen by Provider: 02/13/23 17:10 History of Present Illness HPI narrative: Patient is an 82-year-old male presented today with hematuria. He had a transurethral resection of his prostate done on February 03 [facility] dorote[facility] Wen in [place]. He was on aspirin and Plavix prior to this for transient ischemic attacks as well as coronary disease but this was stopped for his procedure. He had a Yip catheter that was placed and removed on February 07 and was restarted on his medications at that time. He has had significant bleeding and passing clots and increasing rate over the last 24 hours with some abdominal discomfort as well. No fevers chills no dysuria frequency or urgency. Related Data Home Medications Medication Instructions Recorded Confirmed atorvastatin 20 mg tablet 20 mg PO HS Cholesterol 12/22/17 10/24/22 gabapentin 300 mg capsule 600 mg PO TID Pain 03/13/20 10/24/22 aspirin 81 mg tablet,delayed 81 mg PO DAILY HEART HEALTH 05/09/20 10/24/22 release (Adult Aspirin Regimen) coenzyme Q10 100 mg capsule 100 mg PO DAILY Supplement 05/09/20 10/24/22 (CoQ-10) vitamin B complex (B 1 tab PO DAILY Supplement 05/09/20 10/24/22 Complex-Vitamin B12 tablet) clopidogrel 75 mg tablet 75 mg PO DAILY PLATELET INHIBITOR 10/24/22 10/24/22 finasteride 5 mg tablet 5 mg PO DAILY prostate 10/24/22 10/24/22 tamsulosin 0.4 mg capsule 0.4 mg PO BID prostate 10/24/22 10/25/22 alprazolam 1 mg tablet 1 mg PO TID Anxiety 10/25/22 10/25/22 levothyroxine 50 mcg tablet 50 mcg PO DAILY THYROID 10/25/22 10/25/22 Allergies Allergy/AdvReac Type Severity Reaction Status Date / Time No Known Allergies Allergy Verified 02/09/21 07:53 [facility] Disclaimer: The information contained in this section may have been updated after the patient was seen, as this information can be updated by other users. Medical History (Updated 02/13/23 @ 20:12 by Adali Arana MD) COPD (chronic obstructive pulmonary disease) Surgical History (Updated 10/25/22 @ 01:42 by Nohelia Clarke RN) Hx of appendectomy Hx of CABG Hx of cholecystectomy Social History (Updated 10/25/22 @ 01:42 by Nohelia Clarke RN) Smoking Status: Former smoker tobacco type: smokeless tobacco second hand exposure: No alcohol intake: never substance use type: denies use current occupational status: retired Travel in the last 8 weeks: None household members: significant other housing: house current occupational exposures/hazards: No caffeine: Yes ROS Obtained: Yes All systems
[2023-02-13 17:39] LABS: Basophils # 0.1 K/mm3 (0-0.2); Basophils % 0.6 % (0.1-2.0); Eosinophils # 0.5 K/mm3 (0.0-0.4); Hematocrit 40.1 % (42.0-52.0); Hemoglobin 13.6 g/dL (14.1-18.0); Lymphocytes # 1.6 K/mm3 (0.7-4.5); Lymphocytes % 16.6 % (10-50); Mean Corpuscular HGB Conc 33.8 g/dL (31.8-35.4); Mean Corpuscular Hemoglobin 32.2 pg (27.0-31.2); Mean Platelet Volume 7.8 fl (7.4-10.4); Monocytes # 0.5 K/mm3 (0.1-1.0); Neutrophils # 7.1 K/mm3 (1.8-7.8); Neutrophils % 72.8 % (37.0-80.0); Platelet Count 366 K/mm3 (142-424); Red Blood Count 4.22 M/mm3 (4.60-6.20); Red Cell Distribution Width 13.2 % (11.5-17.5); White Blood Count 9.8 K/mm3 (4.8-10.8)
[2023-02-13 17:52] LABS: Chloride 110 mmol/L (98-107); Potassium 4.4 mmoL/L (3.5-5.1); Sodium 141 mmol/L (136-145)
[2023-02-13 17:55] LABS: Alanine Aminotransferase 21 U/L (12-78); Albumin Level 4.1 g/dl (3.5-5.0); Albumin/Globulin Ratio 1.4 (1.1-1.8); Alkaline Phosphatase 118 U/L (38-126); Anion Gap 7.4 mEq/L (5-15); Aspartate Amino Transferase 37 U/L (17-59); Bilirubin,Total 0.4 mg/dl (0.2-1.3); Blood Urea Nitrogen 23 mg/dl (9-20); Carbon Dioxide 28 mmol/L (22.0-30.0); Creatinine Clearance Estimated 42 mL/min (50-200); Estimated Glomerular Filt Rate 53 ml/min (>60); GFR (African American) 64 ML/MIN (>60); Total Protein,Serum 7.1 g/dl (6.3-8.2)
[2023-02-13 17:56] LABS: Calcium 8.4 mg/dl (8.4-10.2); Glucose 116 mg/dl (74-100)
[2023-02-13 17:58] LABS: Activated Partial Thrombo Time 28.1 seconds (22.8-30.6); INR 1.02 (0.9-1.1)
[2023-02-13 18:00] VITALS: BP 112/57; PULSE 90; O2SAT 95
[2023-02-13 18:05] LABS: Microscopic, Urine URINE MICROSCOPIC (MICROSCOPIC)
[2023-02-13 18:14] LABS: Appearance,Urine CLOUDY (Clear); Bilirubin,Urine Negative (Negative); Blood, Urine 3+ (Negative); Color,Urine RED (Yellow); Glucose,Urine (UA) Negative (Negative); Ketones,Urine TRACE (Negative); Leukocyte Esterase,Urine 1+ (Negative); Nitrate,Urine POSITIVE (Negative); PH,Urine 7.5 (5.0-8.5); Protein,Urine 3+ (Negative)
[2023-02-13 18:15] VITALS: BP 117/61; PULSE 87; O2SAT 95
[2023-02-13 18:27] LABS: Bacteria,Urine 2+ /lpf; RBC,Urine TNTC #/hpf (0-3); WBC,Urine 20-50 #/hpf (0-3)
[2023-02-13 18:28] LABS: Amorphous Sediment,Urine Trace /lpf
[2023-02-13 18:30] VITALS: BP 118/67; PULSE 87; O2SAT 96
--- NOTE | 2023-02-13 18:51 | PC.NURSE ---
Rounded on pt. No needs voiced at this time. remains at BS. Call light within reach
[2023-02-13 19:00] VITALS: BP 118/65; PULSE 91; O2SAT 95
--- NOTE | 2023-02-13 19:16 | PC.NURSE ---
Switched over to 3L CBI bag. total out 3,750ml & total in 3,000ml= urinary output 750ml.
--- NOTE | 2023-02-13 19:40 | PC.NURSE ---
PC to [facility], spoke with Rebecca, Urology will be paged and will have them call us back
--- NOTE | 2023-02-13 19:48 | PC.NURSE ---
Started 3rd 3LNS bladder irrigation bag. Emptied 3,050 ml from deng. Irrigation remains pink. Provider notified.
--- NOTE | 2023-02-13 20:00 | PC.NURSE ---
ED doctor on phone with Dr. Wen, Urology
--- NOTE | 2023-02-13 20:10 | PC.NURSE ---
[place] hospitalist on phone with ED doctor
--- NOTE | 2023-02-13 20:28 | PC.NURSE ---
4th 3L NS continuous irrigation bag started at this time. Irrigation continues to run red at this time. Provider aware. 3,000 ml output, 3,000 ml input.
--- NOTE | 2023-02-13 20:52 | PC.NURSE ---
Nurse to nurse report given to Inna VALDES at [facility] 3 TEL.
--- NOTE | 2023-02-13 20:54 | PC.NURSE ---
EMS notified of need for transport to [place]
[2023-02-13 21:38] VITALS: BP 135/89; PULSE 105; RESP 19; TEMP 36.7; O2SAT 95
== END 2023-02-13 21:42 | disposition other institution (70) ==
PROVIDERS: Emergency Provider Student in an Organized Health Care Education/Training Program; PCP Internal Medicine Adolescent Medicine
DX: N39.0 Urinary tract infection, site not specified (principal); R31.0 Gross hematuria; L76.22 Postprocedural hemorrhage of skin and subcutaneous tissue following other procedure; R00.0 Tachycardia, unspecified; J44.9 Chronic obstructive pulmonary disease, unspecified; Z87.891 Personal history of nicotine dependence; I48.0 Paroxysmal atrial fibrillation; Z79.01 Long term (current) use of anticoagulants
CPT/HCPCS: 80053; 81001; 85025; 85610; 85730; 87086; 96361; 96365; 99285; J0696

== ENCOUNTER 2023-08-06 14:00 | Outpatient (RCR) | payer MEDICARE, SELFPAY ==
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
--- NOTE | 2023-07-17 16:39 | HMH.RHREAS ---
Rehab Reassessment Rehab OP Re-assessment Start: 06/16/23 14:58 Freq: Status: Active Protocol: Document 07/17/23 16:02 MONICA (Rec: 07/17/23 16:38 MONICA [id number]) E-signed By Nallely Boothe, PT LIU Balance Evaluation Sitting to Standing Ability Independent w/Hands Unsupported Stance Supervision- 2 minutes Sitting Unsupported, Feet on Floor Safely- 2 minutes Standing to Sitting Ability Assist, Control w/Hands Transfer Ability Safely, Hand Use Unsupported Stance- Eyes Closed Supervision, 10 seconds Unsupported Stance- Eyes Open Supervision to maintain Reaching Forward Standing Safely, 5 inches Pick- Up Object From Floor Supervision Look Behind Shoulder - Standing Supervision w/Turning Turning 360 Degrees Requires Assistance Unsupported Stance, Alternating Feet on Assist to Prevent Fall Stair Unsupported Tandem Stance Balance Lost- Step/Stand Unilateral Leg Stance Lifts Leg/Unable to Hold Total Score Balance Evaluation Total (out of 56 30 points) Rehab Re-assessment Subjective Subjective Pt reports he feels 3% better since IE. Objective Objective Notes MMT: 4-/5 BLE (R hip flexion 3 +/5) LIU/56 Rhomberg: Even EO: PASS Even EC: PASS Uneven EO: PASS Uneven EC: FAIL Assessment Progress Assessment Slower Than Expected Assessment Notes This is a reassessment for Tony Bonilla who presents to PT with c/o poor balance, frequent falls, and worsening weakness. Since IE, pt has been seen for 5 visits which has consisted of various therapeutic exercises targeting balance, gait, and strength. Pt with good attendance to scheduled PT visits. Pt with minimal adherence to HEP tasks. Pt still presents with impaired balance and strength leading to multiple reported falls. PT adjusted some STGs and LTGs to reflect current progress, severity of deficits, and rehab prognosis. Pt continues to require Mod-Max A at times d/t poor balance and weakness (knees buckling). PT suspecting vestibular involvement d/t nature and mechanism of falls/LOB (during turns and head movements) and pt's reported history with vertigo. PT educated pt on obtaining PT order for vesitibular/vertigo eval if necessary. Pt would continue to benefit from skilled outpatient physical therapy 2x a week to address remaining deficits and maximize safety. Patient goals met ST/6 LTG: In progress Revised Goals ST) Will perform dynamic standing balance tasks without LOB on 2/3 trials LT) 38/56 LIU 2) AMB 100' with Mod I using RW in open environment ( obstacle negotiation) without LOB Plan Plan Continue POC Frequency of Therapy 2x a week Duration of therapy 8 weeks Time and Billing Re-Eval Time 10 Re-Eval Billing Units 1 PHYSICIAN CERTIFICATION: I certify the specified therapy services for Tony Bonilla are required, authorized, and reviewed every 30 days.
== END 2023-08-06 15:00 | disposition home or self-care (01) ==
LOC: PT 14:00
PROVIDERS: Visit Provider Internal Medicine Adolescent Medicine
DX: R53.81 Other malaise (principal); R26.89 Other abnormalities of gait and mobility
CPT/HCPCS: 97110; 97112; 97116; 97163; 97164; 97530

== ENCOUNTER 2023-08-09 10:42 | Emergency (ER) | payer MEDICARE, SELFPAY ==
[2023-08-09] VITALS (8 sets, daily range): BP systolic 107–141; BP diastolic 54–81; PULSE 60–78; RESP 16–18; TEMP 36.7; O2SAT 91–97; BMI 24.5
--- NOTE | 2023-08-09 10:44 | CT_ITS ---
PROCEDURE INFORMATION: Exam: CT Thoracic Spine Without Contrast Exam date and time: 08/09/2023 11:05 AM Age: 82 years old Clinical indication: Injury or trauma; Other: Pain after fall; Additional info: Fall >65, back pain/bruising TECHNIQUE: Imaging protocol: Computed tomography of the thoracic spine without contrast. Radiation optimization: All CT scans at this facility use at least one of these dose optimization techniques: automated exposure control; mA and/or kV adjustment per patient size (includes targeted exams where dose is matched to clinical indication); or iterative reconstruction. COMPARISON: CT THORACIC SPINE WO CON 03/31/2022 5:56 PM FINDINGS: Bones/joints: Chronic T11 vertebral body fracture. Findings stable. Osteopenia. Incomplete visualization of subtle bilateral posterior T9 and right posterior T10 rib fractures. No evidence of displacement however the left T9 rib fracture is incompletely visualized. Soft tissues: Unremarkable. Pleural spaces: Trace pleural reactive changes at the lung bases. IMPRESSION: 1. Incomplete visualization of subtle bilateral posterior T9 and right posterior T10 rib fractures. 2. Trace pleural reactive changes at the lung bases. 3. Recommend follow-up with computerized tomography of the thorax if appropriate. 4. Chronic T11 vertebral body fracture.
--- NOTE | 2023-08-09 10:44 | CT_ITS ---
PROCEDURE INFORMATION: Exam: CT Chest Without Contrast; Diagnostic Exam date and time: 08/09/2023 11:10 AM Age: 82 years old Clinical indication: Other: Pain after fall; Additional info: Fall >65, back pain/bruising TECHNIQUE: Imaging protocol: Diagnostic computed tomography of the chest without contrast. Radiation optimization: All CT scans at this facility use at least one of these dose optimization techniques: automated exposure control; mA and/or kV adjustment per patient size (includes targeted exams where dose is matched to clinical indication); or iterative reconstruction. COMPARISON: CHESTO CT chest wo con 08/15/2017 10:54 AM FINDINGS: Lungs: Bibasilar atelectasis versus parenchymal scarring. Pleural spaces: Persistent regions of pleural reactive change demonstrated in the dependent portion of both lungs bilaterally. No significant pleural effusions are present. Previously demonstrated right posterior T9 rib fracture faintly identified. Left T9 rib fracture not identified. The Heart: Unremarkable. No cardiomegaly. No pericardial effusion. Lymph nodes: Scattered nonspecific mediastinal lymph nodes. Calcified right hilar lymph nodes. Calcified right hilar lymph nodes. Vasculature: Regions of atherosclerotic vascular calcification involving the aortic arch. Diaphragm: Small-moderate hiatal hernia Liver: Hypodensities within the liver too small to characterize. Bones/joints: Sternotomy and CABG. Osseous evaluation for subtle fractures limited secondary to the slice thickness. Soft tissues: Unremarkable. IMPRESSION: 1. Persistent regions of pleural reactive change demonstrated in the dependent portion of both lungs bilaterally. 2. Subtle right posterior T9 rib fracture as described above with associated pleural reactive change. Findings better demonstrated on CT of the thorax secondary to differences in technique. 3. Evidence of previous granulomatous disease.
--- NOTE | 2023-08-09 10:44 | CT_ITS ---
PROCEDURE INFORMATION: Exam: CT Lumbar Spine Without Contrast Exam date and time: 08/09/2023 11:07 AM Age: 82 years old Clinical indication: Injury or trauma; Other: Pain after fall; Additional info: Fall >65, back pain/bruising TECHNIQUE: Imaging protocol: Computed tomography of the lumbar spine without contrast. Radiation optimization: All CT scans at this facility use at least one of these dose optimization techniques: automated exposure control; mA and/or kV adjustment per patient size (includes targeted exams where dose is matched to clinical indication); or iterative reconstruction. COMPARISON: CT LUMBAR SPINE WO CON 03/31/2022 5:58 PM FINDINGS: Bones/joints: Generalized osteopenia. Chronic T11 vertebral body fracture stable. Left L5 pars defect. Persistent advanced hypertrophic facet changes L4-L5, L5-S1. Soft tissues: Unremarkable. IMPRESSION: No evidence of acute osseous injury.
--- NOTE | 2023-08-09 10:44 | CT_ITS ---
PROCEDURE INFORMATION: Exam: CT Head Without Contrast Exam date and time: 08/09/2023 10:58 AM Age: 82 years old Clinical indication: Injury or trauma; Other: Pain after fall; Additional info: Fall >65 TECHNIQUE: Imaging protocol: Computed tomography of the head without contrast. Total images: 273 Radiation optimization: All CT scans at this facility use at least one of these dose optimization techniques: automated exposure control; mA and/or kV adjustment per patient size (includes targeted exams where dose is matched to clinical indication); or iterative reconstruction. COMPARISON: CT ANGIO HEAD 12/10/2022 1:27 PM FINDINGS: Brain: Age-related atrophy and chronic white matter ischemic changes, with no evidence of an acute intracranial abnormality. No hemorrhage, mass effect or midline shift. Cerebral ventricles: The ventricular system demonstrates mild diffuse enlargement. Paranasal sinuses: Visualized sinuses are unremarkable. No fluid levels. Mastoid air cells: Visualized mastoid air cells are well aerated. Orbital cavities: Postoperative changes of both eyes. Bones/joints: No acute fracture. Soft tissues: No acute changes Vasculature: Mild atherosclerotic disease. IMPRESSION: 1. Age-related atrophy and chronic white matter ischemic changes, with no evidence of an acute intracranial abnormality. 2. No hemorrhage, mass effect or midline shift.
--- NOTE | 2023-08-09 10:44 | CT_ITS ---
PROCEDURE INFORMATION: Exam: CT Cervical Spine Without Contrast Exam date and time: 08/09/2023 11:02 AM Age: 82 years old Clinical indication: Injury or trauma; Fall; Sprain or strain, cervical ligaments; Additional info: Fall >65 TECHNIQUE: Imaging protocol: Computed tomography of the cervical spine without contrast. Total images: 265 Radiation optimization: All CT scans at this facility use at least one of these dose optimization techniques: automated exposure control; mA and/or kV adjustment per patient size (includes targeted exams where dose is matched to clinical indication); or iterative reconstruction. COMPARISON: CT CERVICAL SPINE WO CON 03/31/2022 5:54 PM FINDINGS: Bones/joints: There is a nonspecific reversal of the normal cervical lordosis. Posterior ligamentous calcifications present. No evidence of acute fracture. The cervical spine demonstrates mild degenerative changes at multiple levels. Disc space narrowing and bilateral neural foraminal narrowing noted at C5-C6 and C6-C7. Prevertebral and retropharyngeal spaces: Prevertebral soft tissues are within normal limits. Lungs: Lung apices are normal. Vasculature: Mild atherosclerotic disease. Soft tissues: Unremarkable. IMPRESSION: 1. There is a nonspecific reversal of the normal cervical lordosis. 2. No evidence of acute fracture. 3. The cervical spine demonstrates mild degenerative changes at multiple levels. 4. Prevertebral soft tissues are within normal limits.
--- NOTE | 2023-08-09 10:56 | PC.NURSE ---
PT TO CT
--- NOTE | 2023-08-09 11:21 | PC.NURSE ---
pt back from CT
[2023-08-09] MEDS: HYDROCODONE/APAP 5/325 MG TABLET 1 TAB PO (11:53)
--- NOTE | 2023-08-09 12:53 | HMH.EDGENADL ---
Discharge Plan Disposition Patient Disposition: Home, Self-Care Condition: Good Prescriptions Prescriptions: New lidocaine [Lidoderm] 5 % adhesive patch,medicated 1 patch topical DAILY Qty: 15 0RF Rx Instructions: leave on most painful area for up to 12 hrs methocarbamol 750 mg tablet 750 mg PO Q8H PRN (Reason: pain) Qty: 20 0RF naproxen 500 mg tablet 500 mg PO BID PRN (Reason: pain) Qty: 20 0RF hydrocodone-acetaminophen 5-325 mg tablet 1 tab PO Q8H PRN (Reason: pain) Qty: 10 0RF No Action gabapentin 300 mg capsule 600 mg PO TID aspirin [Adult Aspirin Regimen] 81 mg tablet,delayed release (DR/EC) 81 mg PO DAILY coenzyme Q10 [CoQ-10] 100 mg capsule 100 mg PO DAILY vitamin B complex [B Complex-Vitamin B12] Tablet 1 tab PO DAILY atorvastatin 20 MG tablet 20 mg PO HS tamsulosin 0.4 mg capsule 0.4 mg PO BID Patient Comments: TAKE ONE CAPSULE BY MOUTH TWICE DAILY finasteride 5 mg tablet 5 mg PO DAILY Patient Comments: TAKE ONE TABLET BY MOUTH EVERY DAY clopidogrel 75 MG tablet 75 mg PO DAILY alprazolam 1 mg tablet 1 mg PO TID Patient Comments: TAKE ONE TABLET BY MOUTH EVERY 8 HOURS MAY CAUSE DROWSINESS levothyroxine 50 mcg tablet 50 mcg PO DAILY Patient Comments: TAKE ONE TABLET BY MOUTH EVERY DAY escitalopram oxalate 10 mg tablet 10 mg PO DAILY Patient Comments: TAKE ONE TABLET BY MOUTH EVERY DAY solifenacin 10 mg tablet 10 mg PO DAILY Referrals Follow up/Referrals: Ricki London MD [Primary Care Provider] - See instructions Activity Restrictions/Add. Instructions Additional Instructions/Restrictions: You were evaluated in the emergency department today. You were diagnosed with a rib fracture. Please use the incentive spirometer that was provided to you every 4 hours while you are awake. doping supervisor your prescription for medications at the pharmacy and take them as prescribed. These medications can make you sleepy, so use caution. Follow-up with your primary care provider over the next 3 days for reassessment. Return to the emergency department for new or worsening symptoms, such as significant worsening of pain, shortness of breath, or other concerns. Clinical Impressions Clinical Impression: Fall, Fracture of rib Instructions Patient Instructions: DI for Rib Fracture, How to Prevent Falls Discharge ED Provider: Meenu Chávez General Adult HPI General Chief complaint: Fall Stated complaint: FALL/ BACK PAIN Time Seen by Provider: 08/09/23 10:44 Mode of Arrival: EMS Source of Information: Patient and EMS Limitations: No Limitations Description of Symptoms (Recalled from ER Triage Doc. by RN): Patient brought in via EMS with reports patient had a fall this am and hit right side on bath tub. Patient on blood thinners and wanted him to be checked out. Patient denies pain at this time. Has bruise to right mid back. Denies hitting head and LOC. History of Present Illness HPI narrative: This patient is an 82-year-old male with a history of paroxysmal atrial fibrillation, NSTEMI, hypothyroidism, neuropathy, and chronic use of aspirin and Plavix presenting with concern for fall. According the patient, he was in the bathroom when he lost his balance, falling and hitting his right side/back on the bathtub. He did not hit his head or lose consciousness. He complains of pain in his right mid/upper back but no other injuries. No numbness, tingling, or other concerns. He arrives by EMS who noted he was hemodynamically stable en route. He was well prior to the fall without dizziness or other concerns. Related Data Home Medications Medication Instructions Recorded Confirmed atorvastatin 20 mg tablet 20 mg PO HS Cholesterol 12/22/17 08/09/23 gabapentin 300 mg capsule 600 mg PO TID Pain 03/13/20 08/09/23 aspirin 81 mg tablet,delayed 81 mg PO DAILY HEART HEALTH 05/09/20 02/13/23 release (Adult Aspirin Regimen) coenzyme Q10 100 mg capsule 100 mg PO DAILY Supplement 05/09/20 02/13/23 (CoQ-10) vitamin B complex (B 1 tab PO DAILY Supplement 05/09/20 02/13/23 Complex-Vitamin B12 tablet) clopidogrel 75 mg tablet 75 mg PO DAILY PLATELET INHIBITOR 10/24/22 08/09/23 finasteride 5 mg tablet 5 mg PO DAILY prostate 10/24/22 08/09/23 tamsulosin 0.4 mg capsule 0.4 mg PO BID prostate 10/24/22 02/13/23 alprazolam 1 mg tablet 1 mg PO TID Anxiety 10/25/22 08/09/23 levothyroxine 50 mcg tablet 50 mcg PO DAILY THYROID 10/25/22 08/09/23 escitalopram oxalate 10 mg tablet 10 mg PO DAILY 08/09/23 08/09/23 solifenacin 10 mg tablet 10 mg PO DAILY 08/09/23 08/09/23 Previous Rx's Medication Instructions Recorded hydrocodone 5 mg-acetaminophen 325 1 tab PO Q8H PRN pain #10 tabs 08/09/23 mg tablet lidocaine 5 % topical patch 1 patch topical DAILY #15 ea 08/09/23 (Lidoderm) methocarbamol 750 mg tablet 750 mg PO Q8H PRN pain #20 tabs 08/09/23 naproxen 500 mg tablet 500 mg PO BID PRN pain #20 tabs 08/09/23 Allergies Allergy/AdvReac Type Severity Reaction Status Date / Time No Known Allergies Allergy Verified 02/09/21 07:53 [facility] Disclaimer: The information contained in this section may have been updated after the patient was seen, as this information can be updated by other users. Medical History COPD (chronic obstructive pulmonary disease) Surgical History Hx of cholecystectomy Hx of appendectomy Hx of CABG Social History Smoking Status: Never smoker second hand exposure: No alcohol intake: never substance use type: denies use current occupational status: retired Travel in the last 8 weeks: None household members: significant other housing: house current occupational exposures/hazards: No caffeine: Yes ROS Obtained: Yes All systems reviewed & no additional complaints except as documented Physical Exam General General appearance: alert and in no apparent distress Head Head exam: atraumatic and normocephalic Eye Eye exam: Present normal appearance, PERRL and EOMI ENT ENT exam: Present normal exam, normal oropharynx, mucous membranes moist and normal external ear exam Neck Neck exam: Present normal inspection, full ROM and trachea midline; Absent tenderness Chest Chest inspection: Present normal inspection and symmetric chest wall rise; Absent tenderness Respiratory Respiratory exam: Present normal lung sounds bilaterally; Absent respiratory distress, wheezes, stridor or accessory muscle use Cardiovascular Cardiovascular exam: Present regular rate and normal rhythm Abdominal Exam Abdominal exam: Present soft; Absent distention, tenderness or guarding Extremities Exam Extremities exam: Present normal inspection, full ROM and normal capillary refill; Absent tenderness or edema Back Exam Back exam: Present full ROM and tenderness Back 1 view image: 1. bruise/tenderness without significant stepoff Neurological Exam Neurological exam: Present alert, oriented X3, CN II-XII intact and normal gait; Absent motor sensory deficit Psychiatric Psychiatric exam: Present normal affect and normal mood Skin Skin exam: Present warm and dry Medical Decision Making Medical Records Medical records reviewed: Yes I reviewed the patient's medical records. [place] Inquiry Pt receiving controlled substance: Yes [place] was queried for this patient: Yes Risks and benefits of using a controlled substance: were discussed with pt by me Vital Signs: 08/09/23 10:43 08/09/23 11:18 08/09/23 11:30 Temperature 98.1 F Temperature Source Oral Pulse Rate 76 60 Pulse Rate [Left] 69 Respiratory Rate 16 18 18 Blood Pressure 126/77 141/73 H Blood Pressure [Right Arm] 119/76 Blood Pressure Mean 96 95 Blood Pressure Mean [Right Arm] 90 Blood Pressure Source [Right Arm] Automatic Cuff 02 Sat by Pulse Oximetry 97 92 L 92 L Oxygen Delivery Method Room Air 08/09/23 12:01 08/09/23 12:30 08/09/23 13:00 Temperature Temperature Source Pulse Rate 61 64 60 Pulse Rate [Left] Respiratory Rate 16 16 Blood Pressure 134/81 117/54 L 129/67 Blood Pressure [Right Arm] Blood Pressure Mean 98 81 75 Blood Pressure Mean [Right Arm] Blood Pressure Source [Right Arm] 02 Sat by Pulse Oximetry 93 L 93 L 95 Oxygen Delivery Method 08/09/23 14:19 08/09/23 14:24 Temperature 98.1 F 98.0 F Temperature Source Oral Pulse Rate 78 78 Pulse Rate [Left] Respiratory Rate 18 18 Blood Pressure 107/61 L 129/67 Blood Pressure [Right Arm] Blood Pressure Mean Blood Pressure Mean [Right Arm] Blood Pressure Source [Right Arm] 02 Sat by Pulse Oximetry Oxygen Delivery Method Room Air Room Air Lab Data Lab results reviewed: Yes I reviewed the patient's lab results. Orders (Tests/Meds): ED MEDICATIONS Discontinued Medications Generic Name Dose Route Start Last Admin Trade Name Freq PRN Reason Stop Dose Admin Hydrocodone Bitart/Acetaminophen 1 tab 08/09/23 11:43 08/09/23 11:53 Hydrocodone/Apap 5/325 Mg Tablet PO 08/09/23 11:44 1 tab ONCE ONE Administration Ketorolac Tromethamine 30 mg 08/09/23 12:52 08/09/23 13:25 Ketorolac 30mg/Ml Vial IM 08/09/23 12:53 30 mg ONCE ONE Administration Lidocaine 1 each 08/09/23 12:52 08/09/23 13:26 Lidocaine 5% Transdermal Patch TP 08/09/23 12:53 1 each ONCE ONE Administration Methocarbamol 500 mg 08/09/23 12:52 08/09/23 13:25 Methocarbamol 500mg Tablet PO 08/09/23 12:53 500 mg ONCE ONE Administration ORDERS Category Date Time Status CT cervical spine wo con Stat Cat Scan 08/09/23 10:[address] chest wo con Stat Cat Scan 08/09/23 10:[address] head/brain wo con Stat Cat Scan 08/09/23 10:[address] lumbar spine wo con Stat Cat Scan 08/09/23 10:[address] thoracic spine wo con Stat Cat Scan 08/09/23 10:44 Completed Medical Decision Narrative: In summary, this patient is a 82-year-old male presenting to the Emergency Department for evaluation of fall. Differential diagnoses considered include but are not limited to head trauma, spine trauma, rib fractures, polytrauma. Ruling out the most morbid conditions drove assessment. On exam, the patient is well-appearing. He has tenderness to palpation and bruising of his right posterior costovertebral junction without other acute concerns. He is neurologically intact. Workup included CT head, C/T/L-spine, and chest without contrast. I independently interpreted CT scan prior to the radiologist read and noted concern for isolated ninth rib fracture. Please see their read for final interpretation. Patient was given oral [place], oral Robaxin, IM Toradol, and topical Lidoderm patch with good improvement in his pain. I considered admission for this isolated rib fracture, however he was able to pull 2250 cc on incentive spirometer and is able to ambulate without difficulty. He would rather try going home. I gave him instructions for use of incentive spirometer at home as well as prescriptions for multimodal pain control. At this time, patient was deemed to be appropriate for discharge home. He was given very strict return precautions as well as the above. He was discharged in stable condition with very close outpatient follow-up. Critical Care Critical Care Time Critical Care Time: No
[2023-08-09] MEDS: KETOROLAC 30MG/ML VIAL 30 MG IM (13:25)
[2023-08-09] MEDS: METHOCARBAMOL 500MG TABLET 500 MG PO (13:25)
[2023-08-09] MEDS: LIDOCAINE 5% TRANSDERMAL PATCH 1 EACH TP (13:26)
--- NOTE | 2023-08-09 13:53 | PC.NURSE ---
2250 on IS< smbulated to door and back x2. tolerated well
== END 2023-08-09 14:21 | disposition home or self-care (01) ==
PROVIDERS: Emergency Provider Emergency Medicine; PCP Internal Medicine Adolescent Medicine
DX: S22.31XA Fracture of one rib, right side, initial encounter for closed fracture (principal); M54.6 Pain in thoracic spine; I48.0 Paroxysmal atrial fibrillation; E03.9 Hypothyroidism, unspecified; J44.9 Chronic obstructive pulmonary disease, unspecified; G62.9 Polyneuropathy, unspecified; Z79.01 Long term (current) use of anticoagulants; W18.30XA Fall on same level, unspecified, initial encounter
CPT/HCPCS: 70450; 71250; 72125; 72128; 72131; 96372; 99285

== ENCOUNTER 2023-08-13 11:56 | Observation (INO) | payer MEDICARE, SELFPAY ==
[2023-08-13] VITALS (11 sets, daily range): BP systolic 110–129; BP diastolic 51–71; PULSE 64–84; RESP 16–18; TEMP 36.6–36.8; O2SAT 89–98; BMI 24.2; BMI 25.7
--- NOTE | 2023-08-13 13:05 | PC.NURSE ---
DR RAMOS AT BEDSIDE
--- NOTE | 2023-08-13 13:09 | CT_ITS ---
FINAL REPORT TECHNIQUE: Axial CT images were performed through the head. Coronal reformatted images were submitted. This study was performed with techniques to keep radiation doses as low as reasonably achievable (ALARA). Individualized dose reduction techniques using automated exposure control or adjustment of mA and/or kV according to the patient's size were employed. CLINICAL HISTORY: ams, recent fall COMPARISON: 12/10/2022 FINDINGS: There is moderate atrophy with proportional ventriculomegaly. There is no evidence of hemorrhage. There is no mass or edema identified. There is no abnormal extra-axial fluid seen. There is [id number] mucoperiosteal thickening of the maxillary sinuses and ethmoid air cells. IMPRESSION: [id number] chronic bilateral maxillary and ethmoid sinusitis. Reviewed, Interpreted and Dictated by Otis Fernandez MD Transcribed by Karie Talbert Authenticated and [facility]
--- NOTE | 2023-08-13 13:10 | XR_ITS ---
FINAL REPORT CLINICAL HISTORY: xh rib fracture, hypoxemia COMPARISON: 03/31/2022 FINDINGS: The heart size is mildly enlarged. Sternotomy wires are present. There is a left-sided pacemaker. There is scarring or atelectasis in the lung bases, favored to represent atelectasis. There are no pleural effusions. There is no pneumothorax. There is no osseous abnormality. IMPRESSION: Scarring or atelectasis in the lung bases, favor atelectasis. Reviewed, Interpreted and Dictated by Otis Fernandez MD Transcribed by Karie Talbert Authenticated and [facility]
[2023-08-13 13:17] LABS: VBG Base Excess 0.9 mmol/L (-2.4-2.3); VBG HCO3 27.9 mmol/L (23-30); VBG Oxygen Saturation 73.3 % (50-70); VBG PCO2 63.3 mmol/L (35-51); VBG PH 7.26 mmol/L (7.31-7.41); VBG PO2 39.1 mmol/L (28-40); VBG Total CO2 29.8 mmol/L (23-27)
[2023-08-13 13:19] LABS: Lactate Venous 2.1 mmol/L (0.4-2.0)
[2023-08-13 13:20] LABS: Basophils # 0.1 K/mm3 (0-0.2); Basophils % 0.7 % (0.1-2.0); Eosinophils # 0.2 K/mm3 (0.0-0.4); Eosinophils % 2.2 % (0.1-12.0); Hematocrit 42.4 % (42.0-52.0); Hemoglobin 12.9 g/dL (14.1-18.0); Lymphocytes % 11.2 % (10-50); Mean Corpuscular HGB Conc 30.5 g/dL (31.8-35.4); Mean Corpuscular Hemoglobin 29.1 pg (27.0-31.2); Mean Corpuscular Volume 95.5 fl (80-94); Mean Platelet Volume 8.7 fl (7.4-10.4); Monocytes # 0.5 K/mm3 (0.1-1.0); Monocytes % 5.1 % (1.7-9.3); Neutrophils # 7.3 K/mm3 (1.8-7.8); Neutrophils % 80.9 % (37.0-80.0); Platelet Count 266 K/mm3 (142-424); Red Blood Count 4.44 M/mm3 (4.60-6.20); Red Cell Distribution Width 16.7 % (11.5-17.5); White Blood Count 9.1 K/mm3 (4.8-10.8)
[2023-08-13] MEDS: LACTATED RINGERS 1000ML 1,000 ML 500 ML IV (13:20)
[2023-08-13 13:26] LABS: Chloride 105 mmol/L (98-107)
[2023-08-13 13:27] LABS: Potassium 5.1 mmoL/L (3.5-5.1); Sodium 140 mmol/L (136-145)
[2023-08-13 13:29] LABS: Alanine Aminotransferase 17 U/L (12-78); Albumin Level 3.8 g/dl (3.5-5.0); Albumin/Globulin Ratio 1.4 (1.1-1.8); Alkaline Phosphatase 90 U/L (38-126); Anion Gap 8.1 mEq/L (5-15); Aspartate Amino Transferase 38 U/L (17-59); Bilirubin,Total 0.7 mg/dl (0.2-1.3); Blood Urea Nitrogen 30 mg/dl (9-20); Calcium 8.3 mg/dl (8.4-10.2); Carbon Dioxide 32 mmol/L (22.0-30.0); Creatinine Clearance Estimated 25 mL/min (50-200); Estimated Glomerular Filt Rate 30 ml/min (>60); GFR (African American) 37 ML/MIN (>60); Globulin 2.7 g/dL (1.3-3.2); Glucose 120 mg/dl (74-100); Total Protein,Serum 6.5 g/dl (6.3-8.2)
[2023-08-13 13:39] LABS: Microscopic, Urine URINE MICROSCOPIC (MICROSCOPIC)
[2023-08-13 13:42] LABS: Appearance,Urine CLEAR (Clear); Blood, Urine Negative (Negative); Color,Urine YELLOW (Yellow); Glucose,Urine (UA) Negative (Negative); Ketones,Urine TRACE (Negative); Leukocyte Esterase,Urine Negative (Negative); Nitrate,Urine Negative (Negative); Protein,Urine 1+ (Negative); Specific Gravity, Urine >= 1.030 (1.005-1.030); Urobilinogen,Urine 0.2 EU/dl (0.2)
--- NOTE | 2023-08-13 13:49 | PC.NURSE ---
radiology speaKING WITH md REGARDING PT SCAN
[2023-08-13 14:11] LABS: Bilirubin,Urine 1+ (Negative)
[2023-08-13 14:32] LABS: Bacteria,Urine 1+ /lpf
--- NOTE | 2023-08-13 15:14 | CT_ITS ---
FINAL REPORT TECHNIQUE: Axial images through the abdomen and pelvis were performed without contrast. This study was performed with techniques to keep radiation doses as low as reasonably achievable, (ALARA). Individualized dose reduction techniques using automated exposure control or adjustment of mA and/or kV according to the patient's size were employed. CLINICAL HISTORY: fall, R flank pain, jordy COMPARISON: 01/03/2021 FINDINGS: ABDOMEN: There is scarring at the lung bases. The heart size is normal. There are multiple low-attenuation lesions scattered throughout the right lobe of the liver which are nonspecific, probably due to benign cysts. Findings are stable since previous. Calcified granulomas are noted within the spleen. There is a moderate hiatal hernia. No adrenal mass is identified. The aorta is normal in caliber. There is no significant free fluid or adenopathy. There is a well-circumscribed low-attenuation focus in the right kidney measuring 1.3 cm consistent with a benign cyst. The previously noted kidney stones have resolved. There is no nephrolithiasis. There is no hydronephrosis. PELVIS: The appendix is not identified. Yip balloon is seen in the decompressed urinary bladder. There are advanced hypertrophic changes of degenerative disease in the lower lumbar spine. Fracture at the sacrococcygeal junction was present on the prior, stable. This is well seen on image 57 of series 1002. There is no significant free fluid or adenopathy. IMPRESSION: Previously identified kidney stones have resolved. Multiple low-attenuation lesions in the right lobe of the liver, probably due to benign cyst. Moderate hiatal hernia. Reviewed, Interpreted and Dictated by Otis Fernandez MD Transcribed by Amelia Humphrey Authenticated and [facility]
--- NOTE | 2023-08-13 16:23 | PC.NURSE ---
dr gr speaking with dr gupta for admission
--- NOTE | 2023-08-13 16:31 | EXP.HP ---
History of Present Illness *Admission Date: 08/13/23 *Reason for visit:: Confusion, pain *History of present illness: Mr. Hernández is an 82-year-old male who recently fell this past weekend on Friday and fractured a right rib. He has history of CAD, COPD on oxygen 2 L continuous, hyperlipidemia, apathy, chronic alprazolam and gabapentin use. He was transitioned to tramadol by his PCP earlier this week because of persistent pain. states after taking tramadol he became confused and slept for the better part of the past 24 hours. He has had poor p.o. intake. Due to his confusion and weakness and poor p.o. intake, she brought him to the ER for evaluation. On workup in the ER, he reportedly had received Narcan en route via EMS and became more arousable. He was found to have an MERY with creatinine 2.1, baseline approximately 1. Also found to be confused. Medicine consulted for admission and treatment of polypharmacy, dehydration, MERY. On evaluation, patient answers questions appropriately but occasionally will get confused or use the wrong words. Corrects himself and recognizes his confusion. Complaining of right sided rib pain. Denies nausea, vomiting, shortness of breath from baseline. Additionally his reports he gets constipated with pain meds. Would like to make sure he is on aggressive bowel regimen. [facility] Disclaimer: The information contained in this section may have been updated after the patient was seen, as this information can be updated by other users. Medical History (Updated 08/13/23 @ 18:58 by Dayton Felton MD) COPD (chronic obstructive pulmonary disease) Surgical History Hx of cholecystectomy Hx of appendectomy Hx of CABG Social History Smoking Status: Unknown if ever smoked second hand exposure: No alcohol intake: never substance use type: denies use current occupational status: retired Travel in the last 8 weeks: None household members: significant other housing: house current occupational exposures/hazards: No caffeine: Yes Review of Systems Review of Systems Review of systems (narrative): 14 point review of systems performed, pertinent positives and negatives as per HPI Meds Home Medications and Allergies Home Medications Medication Instructions Recorded Confirmed Type atorvastatin 20 mg tablet 20 mg PO HS Cholesterol 12/22/17 08/13/23 History gabapentin 300 mg capsule 600 mg PO TID Pain 03/13/20 08/13/23 History aspirin 81 mg tablet,delayed 81 mg PO DAILY HEART HEALTH 05/09/20 08/13/23 History release (Adult Aspirin Regimen) clopidogrel 75 mg tablet 75 mg PO DAILY PLATELET INHIBITOR 10/24/22 08/13/23 History finasteride 5 mg tablet 5 mg PO DAILY prostate 10/24/22 08/13/23 History alprazolam 1 mg tablet 0.5 mg PO TID PRN Anxiety 10/25/22 08/13/23 History levothyroxine 50 mcg tablet 50 mcg PO DAILY THYROID 10/25/22 08/13/23 History escitalopram oxalate 10 mg tablet 10 mg PO DAILY 08/09/23 08/13/23 History lidocaine 5 % topical patch 1 patch topical DAILY #15 ea 08/09/23 08/13/23 Rx (Lidoderm) solifenacin 10 mg tablet 10 mg PO DAILY 08/09/23 08/13/23 History alfuzosin 10 mg tablet,extended 10 mg PO HS 08/13/23 08/13/23 History release 24 hr midodrine 10 mg tablet 10 mg PO BID 08/13/23 08/13/23 History New Prescriptions to Start Prescriptions: Allergies Allergy/AdvReac Type Severity Reaction Status Date / Time No Known Allergies Allergy Verified 02/09/21 07:53 Exam Data for Last 24 hours Vital signs and Labs for Last 24 Hours: Temp Pulse Resp BP Pulse Ox O2 Del Method 98.0 F 75 16 115/65 97 Nasal Cannula 08/13/23 11:56 08/13/23 15:00 08/13/23 11:56 08/13/23 15:00 08/13/23 15:00 08/13/23 15:00 Laboratory Results - last 24 hr 08/13/23 11:56: WBC 9.1, RBC 4.44 L, Hgb 12.9 L, Hct 42.4, MCV 95.5 H, MCH 29.1, MCHC 30.5 L, RDW 16.7, Plt Count 266, MPV 8.7, Neut % (Auto) 80.9 H, Lymph % (Auto) 11.2, [place] % (Auto) 5.1, Eos % (Auto) 2.2, Baso % (Auto) 0.7, Neut # (Auto) 7.3, Lymph # (Auto) 1.0, [place] # (Auto) 0.5, Eos # (Auto) 0.2, Baso # (Auto) 0.1, Sodium 140, Potassium 5.1, Chloride 105, Carbon Dioxide 32 H, Anion Gap 8.1, BUN 30 H, Creatinine 2.10 H, Estimated Creat Clear 25, Estimated GFR 30 L, Est GFR ( Amer) 37 L, Glucose 120 H, Calcium 8.3 L, Total Bilirubin 0.7, AST 38, ALT 17, Alkaline Phosphatase 90, Total Protein 6.5, Albumin 3.8, Globulin 2.7, Albumin/Globulin Ratio 1.4 08/13/23 13:11: VBG pH 7.26 L, VBG pCO2 63.3 H, VBG pO2 39.1, VBG HCO3 27.9, VBG Total CO2 29.8 H, VBG O2 Saturation 73.3 H, VBG Base Excess 0.9, VBG Lactic Acid 2.1 H 08/13/23 13:30: Urine Color Yellow, Urine Appearance Clear, Urine pH 5.0, Ur Specific [place] >= 1.030, Urine Protein 1+, Urine Glucose (UA) Negative, Urine Ketones Trace, Urine Blood Negative, Urine Nitrate Negative, Urine Bilirubin 1+ A, Urine Urobilinogen 0.2, Ur Leukocyte Esterase Negative, Urine RBC 5-10, Urine WBC 3-5, Ur Squamous Epith Cells 3-5, Ur Renal Epithelial Cell 5-10, Urine Bacteria 1+ I & O for Last 24 hours: Intake & Output 08/10/23 08/11/23 08/12/23 08/13/23 23:59 23:59 23:59 23:59 Weight 68.039 kg Constitutional Constitutional: mild distress, average body habitus, chronically ill appearing and cooperative *Routine HEENT Exam Head: Present normocephalic Eye: Present EOMI and PERRL ENT: Present mucous membranes moist *Routine Neck Exam Neck: Present supple; Absent lymphadenopathy Routine Chest/Breast/Axilla Exam Chest wall: Present tenderness (Right lower thorax over ribs) *Routine Respiratory Exam Respiratory: Present prolonged expiratory phase; Absent rhonchi, wheezes or crackles *Routine Cardiovascular Exam Cardiovascular: Present RRR *Routine Abdominal Exam Abdominal: Present soft and normoactive bowel sounds; Absent tenderness *Routine Rectal Exam Rectal:: deferred *Routine Genitalia Exam Genitalia:: deferred *Routine Extremities Exam Extremities: Absent cyanosis, clubbing or edema *Routine Skin Exam Skin: Present warm; Absent rash *Routine Neurological Exam Neurological: Present alert, oriented X3 and moving all extremities; Absent altered mental status Comments: Slow to respond but responds appropriately. Difficulty with word finding but corrects himself. Appears somewhat confused and is not at baseline mentation per but can answer questions appropriately Assessment and Plan *Assessment and plan (1) MERY (acute kidney injury): Status: Acute Category: Medical Code(s): N17.9 - Acute kidney failure, unspecified (2) Toxic encephalopathy: Status: Acute Category: Medical Code(s): G92.9 - Unspecified toxic encephalopathy (3) Polypharmacy: Status: Acute Category: Medical Code(s): Z79.899 - Other residential (current) drug therapy (4) Fracture of rib: Status: Acute Category: Medical Code(s): S22.39XA - Fracture of one rib, unspecified side, initial encounter for closed fracture (5) Intermittent atrial fibrillation: Status: Acute Category: Medical Code(s): I48.0 - Paroxysmal atrial fibrillation (6) COPD (chronic obstructive pulmonary disease): Status: Chronic Category: Medical Code(s): J44.9 - Chronic obstructive pulmonary disease, unspecified (7) Anxiety: Status: Chronic Category: Medical Code(s): F41.9 - Anxiety disorder, unspecified (8) Neuropathy: Status: Chronic Category: Medical Code(s): G62.9 - Polyneuropathy, unspecified Plan 82-year-old male with a recent rib fracture this past Friday, continues to have chest pain. Started on new pain meds as an outpatient. Presents with confusion and poor p.o. intake. Found to have MERY and encephalopathy. Discussed case with ER physician, request admission for monitoring overnight, adjustment to pain regimen, and treatment for acute kidney injury. Medicine agreed to admit for further management. Patient on polypharmacy with gabapentin, Xanax, recent addition of tramadol. Will hold tramadol and trial of low-dose hydrocodone. Decreasing home/residential Xanax. Necessitating inpatient management. Problems addressed as follows: Acute kidney injury -Creatinine 2.1 on admission. Has had poor p.o. intake over the past few days. General resuscitation with 1 L IV fluids in the ER. Continue 125 cc LR per hour for 1 L overnight. -Having difficulty with voiding. Yip catheter placed in the ER. Strict monitoring of output. -Repeat CBC, CMP, magnesium ordered for the morning - Normal sodium and potassium. BUN 30 Toxic encephalopathy likely secondary to polypharmacy -Patient on gabapentin 600 mg 3 times a day for neuropathy along with Xanax 0.5 mg 3 times a day for anxiety. Will decrease Xanax to 0.25 mg 3 times a day and gabapentin to 300 mg 3 times a day. -Tramadol worsened his confusion and made him sleep all day. Holding tramadol at this time. -Tylenol as needed 650 mg every 6 hours for pain. Avoiding NSAIDs in the setting of MERY Rib fracture with pain -Trial hydrocodone 5/325 p.o. every 6 hours as needed. Close monitoring of mental status. -Lidocaine patch topically daily Continue home levothyroxine 50 mcg daily for hypothyroid Continue home alfuzosin 10 mg nightly and finasteride 5 mg daily for BPH Continue home Lexapro 10 mg for mood Continue home Lipitor 20 mg nightly and Plavix 75 mg daily and aspirin 81 mg daily for CAD and hyperlipidemia Reports having low blood pressure, recently started on midodrine. Will monitor blood pressure during admission, if needs supplementation, will initiate midodrine 5 mg 3 times a day and monitor for response for maps less than 65 Full code Cardiac diet
--- NOTE | 2023-08-13 16:35 | PC.NURSE ---
pt assigned to room 208. admissions called.
--- NOTE | 2023-08-13 16:43 | PC.NURSE ---
attempted to call report, nurse unavailable
--- NOTE | 2023-08-13 16:54 | PC.NURSE ---
arrived by stretcher from ED
[2023-08-13 17:19] LABS: Reflex Lactic Add Lactic Reflex
[2023-08-13] MEDS: LACTATED RINGERS 1000ML 1,000 ML 100 ML IV (18:49)
--- NOTE | 2023-08-13 18:55 | HMH.EDGENADL ---
Discharge Plan Disposition Patient Disposition: Admitted Clinical Impressions Clinical Impression: MERY (acute kidney injury) Discharge ED Provider: Donis Rivera General Adult HPI General Chief complaint: PAIN Stated complaint: pain Time Seen by Provider: 08/13/23 12:22 Mode of Arrival: EMS Source of Information: Patient Limitations: No Limitations Description of Symptoms (Recalled from ER Triage Doc. by RN): Patient states that he is having left rib pain from a fall last week. States he was seen and does have a fractured rib. Per EMS states the patient took his tramadol and xanax last night before bed and then was immediately asleep. States he was hard to arouse this morning so she called EMS. Patient was given Narcan enroute and woke up and became more arousable. History of Present Illness HPI narrative: This patient presents for evaluation of altered mental status, starting this morning, in the setting of recent bilateral rib fracture, for which he was prescribed tramadol, in addition to home medication of 3 times daily benzodiazepine as well as oxycodone. Patient has not had any subsequent injuries since his follow-up which precipitated the rib fractures and visit to the emergency department earlier this week. He does take blood thinner for reasons unknown to him. Symptoms were first noted when he was difficult to arouse this morning, previous therapies include administration of naloxone by EMS with some reported improvement of symptoms. He has had continued pain in his right flank, as well as decreased p.o. intake. He has chronic bladder issues in the setting of remote traumatic injury for which he voids on his own but has to bear down a great deal to do so. As recent injury and subsequent pain has made it more difficult for him to void spontaneously. He also reports concerns for constipation. Denies any fevers, chills, chest pain, overt abdominal pain, any other new symptoms Please note that above description of symptoms, in this electronic medical record under categorization of recalled from ER triage doctor by RN are reflective of an initial nursing assessment, however, is not reflective of my full history and physical exam that was personally taken and clarified. Consequentially, this preceding description of symptoms, which may include the patient's categorized chief complaint in the EMR, do not reflect my personal clinical impression, and the ultimate description of history of present illness and patient stated complaints should be deferred to this section of the note. Unless stated otherwise or congruent with this section of the note, additional signs, symptoms, or incongruence should be interpreted as inaccurate with my clinical impression. Related Data Home Medications Medication Instructions Recorded Confirmed atorvastatin 20 mg tablet 20 mg PO HS Cholesterol 12/22/17 08/13/23 gabapentin 300 mg capsule 600 mg PO TID Pain 03/13/20 08/13/23 aspirin 81 mg tablet,delayed 81 mg PO DAILY [facility] 05/09/20 08/13/23 release (Adult Aspirin Regimen) clopidogrel 75 mg tablet 75 mg PO DAILY [employer] 10/24/22 08/13/23 finasteride 5 mg tablet 5 mg PO DAILY prostate 10/24/22 08/13/23 alprazolam 1 mg tablet 0.5 mg PO TID PRN Anxiety 10/25/22 08/13/23 levothyroxine 50 mcg tablet 50 mcg PO DAILY THYROID 10/25/22 08/13/23 escitalopram oxalate 10 mg tablet 10 mg PO DAILY 08/09/23 08/13/23 solifenacin 10 mg tablet 10 mg PO DAILY 08/09/23 08/13/23 alfuzosin 10 mg tablet,extended 10 mg PO HS 08/13/23 08/13/23 release 24 hr midodrine 10 mg tablet 10 mg PO BID 08/13/23 08/13/23 Previous Rx's Medication Instructions Recorded lidocaine 5 % topical patch 1 patch topical DAILY #15 ea 08/09/23 (Lidoderm) Allergies Allergy/AdvReac Type Severity Reaction Status Date / Time No Known Allergies Allergy Verified 02/09/21 07:53 [facility] Disclaimer: The information contained in this section may have been updated after the patient was seen, as this information can be updated by other users. Medical History COPD (chronic obstructive pulmonary disease) Surgical History Hx of cholecystectomy Hx of appendectomy Hx of CABG Social History Smoking Status: Unknown if ever smoked second hand exposure: No alcohol intake: never substance use type: denies use current occupational status: retired Travel in the last 8 weeks: None household members: significant other housing: house current occupational exposures/hazards: No caffeine: Yes ROS Obtained: Yes other As per HPI Physical Exam General General appearance: lethargic Comment: Drowsy but arousable, impaired recent memory, no focal neurologic deficit Head Head exam: atraumatic and normocephalic Eye Eye exam: Present normal appearance Neck Neck exam: Present normal inspection Chest Chest inspection: Present normal inspection and symmetric chest wall rise Respiratory Respiratory exam: Present normal lung sounds bilaterally; Absent respiratory distress Cardiovascular Cardiovascular exam: Present regular rate and normal rhythm Abdominal Exam Abdominal exam: Present soft and distention; Absent tenderness Neurological Exam Neurological exam: Present alert Psychiatric Psychiatric exam: Present normal affect and normal mood Skin Skin exam: Present warm and dry Medical Decision Making Medical Records Medical records reviewed: Yes I reviewed the patient's medical records. [place] Inquiry Pt receiving controlled substance: No Vital Signs: 08/13/23 11:56 08/13/23 13:02 08/13/23 13:30 Temperature 98.0 F Temperature Source Oral Pulse Rate 75 71 Pulse Rate [Radial] 84 Respiratory Rate 16 Blood Pressure 116/63 129/65 Blood Pressure [Right Arm] 129/65 Blood Pressure Mean [Right Arm] 86 Blood Pressure Source Blood Pressure Source [Right Arm] Automatic Cuff Blood Pressure Position Blood Pressure Position [Right Arm] Sitting 02 Sat by Pulse Oximetry 93 L 92 L 90 L Oxygen Delivery Method Room Air Nasal Cannula Nasal Cannula 08/13/23 14:00 08/13/23 14:30 08/13/23 15:00 Temperature Temperature Source Pulse Rate 74 70 75 Pulse Rate [Radial] Respiratory Rate Blood Pressure 118/68 110/51 L 115/65 Blood Pressure [Right Arm] Blood Pressure Mean [Right Arm] Blood Pressure Source Blood Pressure Source [Right Arm] Blood Pressure Position Blood Pressure Position [Right Arm] 02 Sat by Pulse Oximetry 89 L 96 97 Oxygen Delivery Method Room Air Nasal Cannula 08/13/23 16:00 08/13/23 16:29 08/13/23 16:54 Temperature 98.1 F Temperature Source Oral Pulse Rate 84 72 72 Pulse Rate [Radial] Respiratory Rate 16 Blood Pressure 118/71 121/57 L 121/57 L Blood Pressure [Right Arm] Blood Pressure Mean [Right Arm] Blood Pressure Source Automatic Cuff Blood Pressure Source [Right Arm] Blood Pressure Position Sitting Blood Pressure Position [Right Arm] 02 Sat by Pulse Oximetry 95 95 Oxygen Delivery Method Room Air Room Air Room Air Lab Data Lab Results 08/13/23 11:56: WBC 9.1, RBC 4.44 L, Hgb 12.9 L, Hct 42.4, MCV 95.5 H, MCH 29.1, MCHC 30.5 L, RDW 16.7, Plt Count 266, MPV 8.7, Neut % (Auto) 80.9 H, Lymph % (Auto) 11.2, [place] % (Auto) 5.1, Eos % (Auto) 2.2, Baso % (Auto) 0.7, Neut # (Auto) 7.3, Lymph # (Auto) 1.0, [place] # (Auto) 0.5, Eos # (Auto) 0.2, Baso # (Auto) 0.1, Sodium 140, Potassium 5.1, Chloride 105, Carbon Dioxide 32 H, Anion Gap 8.1, BUN 30 H, Creatinine 2.10 H, Estimated Creat Clear 25, Estimated GFR 30 L, Est GFR ( Amer) 37 L, Glucose 120 H, Calcium 8.3 L, Total Bilirubin 0.7, AST 38, ALT 17, Alkaline Phosphatase 90, Total Protein 6.5, Albumin 3.8, Globulin 2.7, Albumin/Globulin Ratio 1.4 08/13/23 13:11: VBG pH 7.26 L, VBG pCO2 63.3 H, VBG pO2 39.1, VBG HCO3 27.9, VBG Total CO2 29.8 H, VBG O2 Saturation 73.3 H, VBG Base Excess 0.9, VBG Lactic Acid 2.1 H 08/13/23 13:30: Urine Color Yellow, Urine Appearance Clear, Urine pH 5.0, Ur Specific [place] >= 1.030, Urine Protein 1+, Urine Glucose (UA) Negative, Urine Ketones Trace, Urine Blood Negative, Urine Nitrate Negative, Urine Bilirubin 1+ A, Urine Urobilinogen 0.2, Ur Leukocyte Esterase Negative, Urine RBC 5-10, Urine WBC 3-5, Ur Squamous Epith Cells 3-5, Ur Renal Epithelial Cell 5-10, Urine Bacteria 1+ 08/13/23 11:56 08/13/23 11:56 Orders (Tests/Meds): ED MEDICATIONS Generic Name Dose Route Start Last Admin Trade Name Freq PRN Reason Stop Dose Admin Hydrocodone Bitart/Acetaminophen 1 tab 08/13/23 18:37 Hydrocodone/Apap 5/325 Mg Tablet PO 09/12/23 18:36 Q6HP PRN Severe Pain (7-10) Alprazolam 0.25 mg 08/13/23 21:00 Alprazolam 0.25mg Tablet PO 09/12/23 20:59 TID [facility] Aspirin 81 mg 08/14/23 09:00 Aspirin Ec 81mg Tablet PO 09/13/23 08:59 DAILY [facility] Atorvastatin Calcium 20 mg 08/13/23 21:00 Atorvastatin 20mg Tablet PO 09/12/23 20:59 HS [facility] Citalopram Hydrobromide 20 mg 08/14/23 09:00 Citalopram 20mg Tablet PO 09/13/23 08:59 DAILY [facility] Clopidogrel Bisulfate 75 mg 08/14/23 09:00 Clopidogrel 75mg Tab PO 09/13/23 08:59 DAILY [facility] Finasteride 5 mg 08/14/23 09:00 Finasteride 5mg Tablet PO 09/13/23 08:59 DAILY [facility] Gabapentin 600 mg 08/13/23 21:00 Gabapentin 300mg Capsule PO 09/12/23 20:59 TID [facility] Lactated Ringer's 1,000 mls @ 100 mls/hr 08/13/23 18:45 08/13/23 18:49 Lactated Ringer's 1000 Ml Bag IV 08/14/23 04:44 100 mls/hr .Q10H [facility] Administration Levothyroxine Sodium 50 mcg 08/14/23 09:00 Levothyroxine 50mcg (0.05mg) Tab PO 09/13/23 08:59 DAILY [facility] Lidocaine 1 each 08/14/23 09:00 Lidocaine 5% Transdermal Patch TP 09/13/23 08:59 DAILY [facility] Non-Formulary Medication 10 mg 08/13/23 21:00 Alfuzosin PO 09/12/23 20:59 HS [facility] Sodium Chloride 10 ml 08/13/23 18:34 Sodium Chloride 0.9% 10ml Flush Syringe IV 09/12/23 18:33 NEEDED PRN Maintain IV Site Tolterodine Tartrate 4 mg 08/13/23 21:00 Tolterodine La 2mg Cap.Er.24h PO 09/12/23 20:59 HS [facility] Discontinued Medications Generic Name Dose Route Start Last Admin Trade Name Freq PRN Reason Stop Dose Admin Fentanyl Citrate 50 mcg 08/13/23 13:09 08/13/23 13:16 Fentanyl 100mcg/2ml Vial IV 08/13/23 13:10 Not Given ONCE ONE Lactated Ringer's 1,000 mls @ 500 mls/hr 08/13/23 13:09 08/13/23 13:20 Lactated Ringer's 1000 Ml Bag IV 08/13/23 15:08 500 mls/hr .Q2H ONE Administration ORDERS Category Date Time Status CT abdomen pelvis wo con Stat Cat Scan 08/13/23 15:[address] head/brain wo con Stat Cat Scan 08/13/23 13:09 Completed XR chest portable Stat Exams 08/13/23 13:10 Completed CBC w/Auto Diff [Complete Blood Count Auto Diff] Stat Lab 08/13/23 11:56 Completed CMP [Comprehensive Metabolic Panel] Stat Lab 08/13/23 11:56 Completed Complete Blood Count Auto Diff AMLAB Lab 08/14/23 06:00 Ordered Comprehensive Metabolic Panel AMLAB Lab 08/14/23 06:00 Ordered Magnesium [facility] Lab 08/14/23 06:00 Ordered Urinalysis and Microscopic Stat Lab 08/13/23 13:30 Completed VBG [Venous Blood Gas] Stat RT 08/13/23 13:11 Completed Medical Decision Narrative: Patient with history and exam per above presenting for evaluation of altered mental status Diagnoses considered include electrolyte abnormality, hypercarbia, bacteremia, polypharmacy, anemia, among others ED workup and treatment included: ED MEDICATIONS Generic Name Dose Route Start Last Admin Trade Name Freq PRN Reason Stop Dose Admin Acetaminophen 650 mg 08/13/23 19:07 Acetaminophen 325mg Tab PO 09/12/23 19:06 Q6HP PRN Fever or Mild Pain (1-3) Hydrocodone Bitart/Acetaminophen 1 tab 08/13/23 18:37 Hydrocodone/Apap 5/325 Mg Tablet PO 09/12/23 18:36 Q6HP PRN Severe Pain (7-10) Alprazolam 0.25 mg 08/13/23 21:00 Alprazolam 0.25mg Tablet PO 09/12/23 20:59 TID [facility] Aspirin 81 mg 08/14/23 09:00 Aspirin Ec 81mg Tablet PO 09/13/23 08:59 DAILY [facility] Atorvastatin Calcium 20 mg 08/13/23 21:00 Atorvastatin 20mg Tablet PO 09/12/23 20:59 HS [facility] Citalopram Hydrobromide 20 mg 08/14/23 09:00 Citalopram 20mg Tablet PO 09/13/23 08:59 DAILY [facility] Clopidogrel Bisulfate 75 mg 08/14/23 09:00 Clopidogrel 75mg Tab PO 09/13/23 08:59 DAILY [facility] Finasteride 5 mg 08/14/23 09:00 Finasteride 5mg Tablet PO 09/13/23 08:59 DAILY [facility] Gabapentin 300 mg 08/13/23 21:00 Gabapentin 300mg Capsule PO 09/12/23 20:59 TID [facility] Lactated Ringer's 1,000 mls @ 100 mls/hr 08/13/23 18:45 08/13/23 18:49 Lactated Ringer's 1000 Ml Bag IV 08/14/23 04:44 100 mls/hr .Q10H [facility] Administration Levothyroxine Sodium 50 mcg 08/14/23 09:00 Levothyroxine 50mcg (0.05mg) Tab PO 09/13/23 08:59 DAILY [facility] Lidocaine 1 each 08/14/23 09:00 Lidocaine 5% Transdermal Patch TP 09/13/23 08:59 DAILY [facility] Non-Formulary Medication 10 mg 08/13/23 21:00 Alfuzosin PO 09/12/23 20:59 HS [facility] Senna/Docusate Sodium 1 tab 08/13/23 21:00 Sennosides 8.6mg/Docusate 50mg Tablet PO 09/12/23 20:59 BID [facility] Sodium Chloride 10 ml 08/13/23 18:34 Sodium Chloride 0.9% 10ml Flush Syringe IV 09/12/23 18:33 NEEDED PRN Maintain IV Site Tolterodine Tartrate 4 mg 08/13/23 21:00 Tolterodine La 2mg Cap.Er.24h PO 09/12/23 20:59 HS [facility] Discontinued Medications Generic Name Dose Route Start Last Admin Trade Name Freq PRN Reason Stop Dose Admin Fentanyl Citrate 50 mcg 08/13/23 13:09 08/13/23 13:16 Fentanyl 100mcg/2ml Vial IV 08/13/23 13:10 Not Given ONCE ONE Gabapentin 600 mg 08/13/23 21:00 Gabapentin 300mg Capsule PO 09/12/23 20:59 TID [facility] Lactated Ringer's 1,000 mls @ 500 mls/hr 08/13/23 13:09 08/13/23 13:20 Lactated Ringer's 1000 Ml Bag IV 08/13/23 15:08 500 mls/hr .Q2H ONE Administration ORDERS Category Date Time Status CT abdomen pelvis wo con Stat Cat Scan 08/13/23 15:[address] head/brain wo con Stat Cat Scan 08/13/23 13:09 Completed XR chest portable Stat Exams 08/13/23 13:10 Completed CBC w/Auto Diff [Complete Blood Count Auto Diff] Stat Lab 08/13/23 11:56 Completed CMP [Comprehensive Metabolic Panel] Stat Lab 08/13/23 11:56 Completed Complete Blood Count Auto Diff AMLAB Lab 08/14/23 06:00 Ordered Comprehensive Metabolic Panel AMLAB Lab 08/14/23 06:00 Ordered Magnesium AML[facility] Lab 08/14/23 06:00 Ordered Urinalysis and Microscopic Stat Lab 08/13/23 13:30 Completed VBG [Venous Blood Gas] Stat RT 08/13/23 13:11 Completed Labs were independently interpreted by me, significant for acute kidney injury, hemoglobin stable from prior, respiratory and metabolic acidosis Imaging was independently visualized and interpreted by me, significant for no acute surgical pathology. Please refer to radiology report for full details. Patient will benefit from admission for further management of acute kidney injury, pain, and altered mental status given suspected precipitant of polypharmacy in addition to MERY. Patient will be admitted to hospital medicine service. Critical Care Critical Care Time Critical Care Time: No
[2023-08-13] MEDS: GABAPENTIN 300MG CAPSULE 300 MG PO (20:16)
[2023-08-13] MEDS: SENNOSIDES 8.6MG/DOCUSATE 50MG TABLET 1 TAB PO (20:17)
[2023-08-13] MEDS: ATORVASTATIN 20MG TABLET 20 MG PO (20:17)
[2023-08-13] MEDS: TOLTERODINE LA 2MG CAP.ER.24H 4 MG PO (20:17)
[2023-08-13] MEDS: ALPRAZolam 0.25MG TABLET 0.25 MG PO (20:17)
[2023-08-14] VITALS: BP 126/65; PULSE 72; RESP 18; TEMP 36.8; O2SAT 95
--- NOTE | 2023-08-14 03:42 | PC.NURSE ---
Pt is alert to self with moments of confusion. Pt has been reoriented several times this shift. Pt remainson 2L NC, and is tolerating it well. Pt denies pain and needs at this time
[2023-08-14 04:00] VITALS: BP 122/60; PULSE 70; RESP 18; TEMP 36.7; O2SAT 96; BMI 26.2
[2023-08-14 07:21] LABS: Basophils % 0.6 % (0.1-2.0); Eosinophils # 0.6 K/mm3 (0.0-0.4); Lymphocytes # 1.3 K/mm3 (0.7-4.5); Monocytes # 0.4 K/mm3 (0.1-1.0); Red Cell Distribution Width 16.7 % (11.5-17.5); White Blood Count 6.5 K/mm3 (4.8-10.8)
--- NOTE | 2023-08-14 07:22 | HMH.PHAINT1 ---
Pharmacy Intervention Comments: HOME MEDICATION LIST VERIFIED VIA CLINIC PHARMACY
[2023-08-14 07:38] LABS: Eosinophils % 9.1 % (0.1-12.0); Hematocrit 37.4 % (42.0-52.0); Lymphocytes % 19.3 % (10-50); Mean Corpuscular HGB Conc 30.4 g/dL (31.8-35.4); Mean Corpuscular Hemoglobin 28.6 pg (27.0-31.2); Mean Corpuscular Volume 94.2 fl (80-94); Mean Platelet Volume 8.2 fl (7.4-10.4); Neutrophils # 4.2 K/mm3 (1.8-7.8); Platelet Count 215 K/mm3 (142-424); Red Blood Count 3.97 M/mm3 (4.60-6.20)
[2023-08-14 08:00] VITALS: BP 115/58; PULSE 96; RESP 21; TEMP 37.1; O2SAT 90
[2023-08-14] MEDS: ALPRAZolam 0.25MG TABLET 0.25 MG PO ×3 (08:41→20:50)
[2023-08-14] MEDS: GABAPENTIN 300MG CAPSULE 300 MG PO ×3 (08:42→20:51)
[2023-08-14] MEDS: CLOPIDOGREL 75MG TAB 75 MG PO (08:42)
[2023-08-14] MEDS: CITALOPRAM 20MG TABLET 20 MG PO (08:42)
[2023-08-14] MEDS: ASPIRIN EC 81MG TABLET 81 MG PO (08:42)
[2023-08-14] MEDS: LEVOTHYROXINE 50MCG (0.05MG) TAB 50 MCG PO (08:42)
[2023-08-14] MEDS: FINASTERIDE 5MG TABLET 5 MG PO (08:42)
[2023-08-14] MEDS: SENNOSIDES 8.6MG/DOCUSATE 50MG TABLET 1 TAB PO ×2 (08:42→20:51)
[2023-08-14] MEDS: LIDOCAINE 5% TRANSDERMAL PATCH 1 EACH TP (08:43)
[2023-08-14] MEDS: HYDROCODONE/APAP 5/325 MG TABLET 1 TAB PO (08:46)
[2023-08-14 08:50] LABS: Chloride 107 mmol/L (98-107)
[2023-08-14 08:51] LABS: Potassium 4.4 mmoL/L (3.5-5.1); Sodium 138 mmol/L (136-145)
[2023-08-14 08:53] LABS: Alanine Aminotransferase 19 U/L (12-78); Aspartate Amino Transferase 50 U/L (17-59); Blood Urea Nitrogen 22 mg/dl (9-20); Creatinine Clearance Estimated 48 mL/min (50-200); Estimated Glomerular Filt Rate 58 ml/min (>60); GFR (African American) 70 ML/MIN (>60)
[2023-08-14 08:54] LABS: Albumin Level 2.9 g/dl (3.5-5.0); Albumin/Globulin Ratio 1.3 (1.1-1.8); Alkaline Phosphatase 81 U/L (38-126); Anion Gap 5.4 mEq/L (5-15); Bilirubin,Total 0.5 mg/dl (0.2-1.3); Calcium 7.7 mg/dl (8.4-10.2); Carbon Dioxide 30 mmol/L (22.0-30.0); Globulin 2.3 g/dL (1.3-3.2); Glucose 96 mg/dl (74-100); Magnesium 2.1 mg/dl (1.6-2.3); Total Protein,Serum 5.2 g/dl (6.3-8.2)
[2023-08-14 09:14] LABS: Hemoglobin 11.4 g/dL (14.1-18.0)
--- NOTE | 2023-08-14 10:02 | SW/DCPLANNER ---
Addendum entered by [place] Castle 08/15/23 11:22: Meenu tariq/ [facility] stated patient has been approved SNF level of care. Patient will discharge today. Addendum entered by Virginia Castle 08/15/23 07:44: Meenu tariq/ DEVEN stated that she can accept this patient SNF level of care and auth will be started this AM. Original Note: I spoke w/ patient and his regarding plans once medically stable for discharge. PT/OT evaluated patient and recommended SNF level of care time of discharge. Patient is agreeable to placement and prefers [facility] or [facility]. I will fax information to both facilities and follow up. Discharge date is unknown at this time.
--- NOTE | 2023-08-14 11:35 | HMH.OTEV ---
OT Inpatient Evaluation Rehab OT IP Evaluation Start: 08/14/23 08:52 Freq: ONCE Status: Active Protocol: Document 08/14/23 11:27 [facility] (Rec: 08/14/23 11:35 [facility] [id number]) Rehab OT IP Assessment Subjective History Pt oriented x 3 on arrival. Pt admitted on 08/13/23 due to pain and MERY. History and physical: Mr. Hernández is an 82-year-old male who recently fell this past weekend on Friday and fractured a right rib. He has history of CAD, COPD on oxygen 2 L continuous, hyperlipidemia, apathy, chronic alprazolam and gabapentin use. He was transitioned to tramadol by his PCP earlier this week because of persistent pain. states after taking tramadol he became confused and slept for the better part of the past 24 hours. He has had poor p.o. intake. Due to his confusion and weakness and poor p.o. intake, she brought him to the ER for evaluation. On workup in the ER, he reportedly had received Narcan en route via EMS and became more arousable. He was found to have an MERY with creatinine 2.1, baseline approximately 1 . Also found to be confused. Medicine consulted for admission and treatment of polypharmacy, dehydration, MERY . Subjective I was already doing therapy. Pt agreeable to engage in therapy evaluation. Pt able to answer questions appropriately, but does get confused at times and corrects him. present and supportive. Pt lives at home with his . Pt claims normally he is independent with all ADLs. completes all IADLs. He does use a rolling walker during transfers. Objective Patient Orientation Person,Place,Birthday Right Upper Extremity Gross ROM Min Limitation <25% Left Upper Extremity Gross ROM Min Limitation <25% Shoulder ROM Limitations Muscle Weakness Elbow ROM Limitations Muscle Weakness Wrist Limitations of Range of Motion Muscle Weakness Bed Mobility bed mobility-scooting,bed mobility - supine/sit Assist Level Minimal x 2 (25% assist) Transfer Training Sit/Stand Transfer Assist Level Moderate x 2 (50% assist) Lower Body Dressing Ability Maximum Assistance Rehab OT IP prob,goals,plan Problems Date of Evaluation: 08/14/23 OT IP Problems Bed Mobility,Transfers,Balance ,Self care,Safety Rehab Potential Rehab Potential Good Equipment Needs Assistive Devices Rolling / Wheeled Walker Plan OT intervention Plan Bed Mobility,Transfers,Balance ,Self care,Safety,Therapeutic Exercise OT Plan Frequency Daily Duration LOS Discharge Goals Bed Mobility Ability Assistance x1 Sit to Stand Chair Transfer Ability Minimal x 2 (25% assist) Chair Transfer Ability Minimal x 1 (25% assist) Chair Transfer Technique Sit to/from Ambulatory Chair Transfer Assistive Devices Rolling Walker Feeding Ability Assist with Tray Set Up Lower Body Dressing Ability Maximum Assistance Upper Body Dressing Ability Minimal Assistance Bathing Ability Moderate Assistance Performing Toilet Hygiene Ability Moderate Assistance Overall Commode/Toilet Transfer Ability Minimal Assistance Commode/Toilet Transfer Technique Sit to/from Ambulatory Commode/Toilet Transfer Assistive Grab Bars Devices Oral Care Assist Minimal Assistance Decrease in Endurance Yes Discharge Plan OT Discharge Plan Pt will continue to be seen for OT services while at [facility]. Pt would benefit most from short term rehab at [facility] following discharge. Continued skilled therapy is important in order for patient to improve strength, safety, endurance, ADL independence, and funcitonal transfers to reach PLOF. Eval Complexity Eval Charge Codes 06242 - Moderate Complexity PHYSICIAN CERTIFICATION: I certify the specified therapy services for Tony Bonilla are required, authorized, and reviewed every 30 days.
[2023-08-14 12:48] VITALS: BP 138/68; PULSE 84; RESP 20; TEMP 37.1; O2SAT 90
--- NOTE | 2023-08-14 13:58 | HMH.PTEV ---
Physical Therapy Evaluation Rehab PT IP Evaluation Start: 08/14/23 08:52 Freq: .once Status: Active Protocol: Document 08/14/23 13:45 [facility] (Rec: 08/14/23 13:58 [facility] [id number]) Subjective/History History History Per H&P: Mr. Bonilla is an 82-year-old male who recently fell this past weekend on Friday and fractured a right rib. He has history of CAD, COPD on oxygen 2 L continuous, hyperlipidemia, apathy, chronic alprazolam and gabapentin use. He was transitioned to tramadol by his PCP earlier this week because of persistent pain. states after taking tramadol he became confused and slept for the better part of the past 24 hours. He has had poor p.o. intake. Due to his confusion and weakness and poor p.o. intake, she brought him to the ER for evaluation. On workup in the ER, he reportedly had received Narcan en route via EMS and became more arousable. He was found to have an MERY with creatinine 2.1, baseline approximately 1 . Also found to be confused. Medicine consulted for admission and treatment of polypharmacy, dehydration, MERY . Subjective Subjective PLOF: Pt living at home with . Pt lives in a 2 story home with 1 JEAN MARIE with his . Pt was Mod I with functional mobility using RW. Recently, pt has reported more falls leading to decline in function . Pt's has had to provide more assistance recently. Pt with history of frequent falls where he reports loss of balance/tripping. Pt's does the driving. New diagnosis of cancer in past 12 No months? Rehab PT IP Eval Objective Appearance Patient Behavior Appropriate,Cooperative Patient Orientation Person,Place,Birthday Difficulty following instructions none Speech Pattern Clear Ambulation Patient Able to Ambulate Yes Ambulation Observation IP General Gait Pattern Observation Ataxic Gait Ambulation Distance (feet) 20 Ambulation Assistive Device Rolling Walker Ambulation Ability Minimal x 2 (25% assist) Balance Ability to Arise Able, uses arms to help Sitting Balance Steady, safe Standing Balance Unsteady Transfers Bed Transfer Ability Contact Guard/Hand Hold Sit to Stand Bed Transfer Ability Minimal x 1 (25% assist) Rehab PT IP prob,goals,plan Problems Date of Evaluation: 08/13/24 PT IP Problems Transfers,Gait,Balance,Self care,Safety Rehab Potential Rehab Potential Good Equipment Needs Assistive Devices Rolling / Wheeled Walker Plan PT Intervention Plan Bed Mobility,Transfers,Gait, Balance,Self care,Safety, Therapeutic Exercise Other Intervention Plan 1-2 times PT Plan Frequency Daily Duration LOS Discharge Goals Bed Transfer Ability Supervision/Stand by Sit to Stand Chair Transfer Ability Supervision/Stand by Ambulation Assistive Device Rolling Walker Ambulation Distance (feet) 30 Discharge Plan PT Discharge Plan Initial physical therapy evaluation performed. Patient presents below baseline at this time in functional mobility, gait, transfers, and strength. Pt was seeing outpatient PT at [facility] and working on balance/gait. Pt's balance and gait are below baseline putting pt at a high fall risk. Pt not safe to return home at this time d/t current level of functional mobility and frequent falls. PT recommending short-term rehabilitation stay upon d/c from [facility]. Pt would benefit from skilled PT while at [facility] to prevent further functional decline and maximize safety with mobility. Eval Complexity Eval Charge Codes 31609 - Moderate Complexity PHYSICIAN CERTIFICATION: I certify the specified therapy services for Tony Wang Chad are required, authorized, and reviewed every 30 days.
--- NOTE | 2023-08-14 15:24 | EXP.ACUTE.PN ---
Subjective *Date: 08/14/23 *Time: 15:24 Interval history: Did not take any opiates overnight. Mentation normalized today. Still having significant rib pain, taking hydrocodone this morning. Monitoring for response. Tolerating baseline oxygen. No nausea or vomiting. Still no bowel movement. Afebrile, hemodynamically stable. at bedside on rounds. Medical Exam Vital signs and Labs for Last 24 Hours: Vital Signs Temp Pulse Pulse Resp BP BP Pulse Ox 08/14/23 14:40 08/14/23 13:00 08/14/23 12:48 98.7 F 84 20 138/68 90 L 08/14/23 10:56 08/14/23 09:00 08/14/23 08:00 08/14/23 08:00 98.8 F 96 H 21 115/58 L 90 L 08/14/23 06:59 08/14/23 05:00 08/14/23 04:00 98.1 F 70 18 122/60 96 08/14/23 03:00 08/14/23 00:39 08/14/23 00:00 98.2 F 72 18 126/65 95 08/13/23 23:00 08/13/23 21:00 08/13/23 20:00 98.2 F 64 18 117/63 98 08/13/23 20:00 08/13/23 18:38 08/13/23 18:35 08/13/23 17:41 97.8 F 75 17 119/60 97 08/13/23 17:00 08/13/23 16:54 98.1 F 72 16 121/57 L 08/13/23 16:29 72 121/57 L 95 08/13/23 16:00 84 118/71 95 O2 Del Method O2 Flow Rate 08/14/23 14:40 Room Air 08/14/23 13:00 Room Air 08/14/23 12:48 Room Air 08/14/23 10:56 Room Air 08/14/23 09:00 Room Air 08/14/23 08:00 Room Air 08/14/23 08:00 Room Air 08/14/23 06:59 Nasal Cannula 2 08/14/23 05:00 Nasal Cannula 2 08/14/23 04:00 Nasal Cannula 2 08/14/23 03:00 Nasal Cannula 2 08/14/23 00:39 Nasal Cannula 2 08/14/23 00:00 Room Air 3 08/13/23 23:00 Nasal Cannula 2 08/13/23 21:00 Nasal Cannula 2 08/13/23 20:00 Nasal Cannula 3 08/13/23 20:00 Nasal Cannula 2 08/13/23 18:38 Nasal Cannula 2 08/13/23 18:35 Nasal Cannula 2 08/13/23 17:41 Nasal Cannula 2 08/13/23 17:00 Nasal Cannula 2 08/13/23 16:54 Room Air 08/13/23 16:29 Room Air 08/13/23 16:00 Room Air Intake and Output 08/13/23 08/14/23 08/14/23 23:59 07:59 15:59 Intake Total 360 / 1220 860 / 1270 410 / 1270 Output Total 480 / 480 Balance 360 / 1220 860 / 790 -70 / 790 Intake: Intake, Oral Amount 360 / 720 360 / 770 410 / 770 Intake, Total IV Amount 500 / 500 Lactated Ringers 1000ML 1,000 500 / 500 ml @ 100 mls/hr IV .Q10H [facility] Rx #:[id number] Output: Output, Urine Amount 480 / 480 Other: Number of Unmeasured Voids 1 Number of Bowel Movements 1 Weight 72.263 kg 74.072 kg Patient Weight 08/14/23 23:59 Weight 74.072 kg Laboratory Results - last 24 hr 08/13/23 18:07: Lactate 1.0 08/14/23 06:13: WBC 6.5 D, RBC 3.97 L, Hgb 11.4 L D, Hct 37.4 L, MCV 94.2 H, MCH 28.6, MCHC 30.4 L, RDW 16.7, Plt Count 215, MPV 8.2, Neut % (Auto) 65.0, Lymph % (Auto) 19.3, [place] % (Auto) 6.0, Eos % (Auto) 9.1, Baso % (Auto) 0.6, Neut # (Auto) 4.2, Lymph # (Auto) 1.3, [place] # (Auto) 0.4, Eos # (Auto) 0.6 H, Baso # (Auto) 0.0, Sodium 138, Potassium 4.4, Chloride 107, Carbon Dioxide 30, Anion Gap 5.4, BUN 22 H D, Creatinine 1.20 D, Estimated Creat Clear 48, Estimated GFR 58 L, Est GFR ( Amer) 70 D, Glucose 96, Calcium 7.7 L, Magnesium 2.1, Total Bilirubin 0.5, AST 50 D, ALT 19, Alkaline Phosphatase 81, Total Protein 5.2 L, Albumin 2.9 L D, Globulin 2.3, Albumin/Globulin Ratio 1.3 I & O for Labs for Last 24 Hours: Intake & Output 08/11/23 08/12/23 08/13/23 08/14/23 23:59 23:59 23:59 23:59 Intake Total 360 / 1220 1270 / 1270 Output Total 480 / 480 Balance 360 / 1220 790 / 790 Weight 72.263 kg 74.072 kg Constitutional: Present no acute distress, average body habitus, chronically ill appearing and cooperative Head: Present atraumatic and normocephalic ENT: Present normal exam Neck: Present normal inspection Respiratory: Present prolonged expiratory phase; Absent rhonchi, wheezes or crackles Cardiac: Present Reg Rate and Rhythm GI: Present soft and normal bowel sounds; Absent distention or tenderness Extremities: Present normal inspection and full ROM Skin: Present intact; Absent erythema Neuro: Present Grossly Intact, alert, awake, oriented x 3 and moves all extremities Comment:: Weak in lower extremities. Assessment and Plan *Assessment and plan (1) MERY (acute kidney injury): Status: Acute Category: Medical Code(s): N17.9 - Acute kidney failure, unspecified (2) Toxic encephalopathy: Status: Acute Category: Medical Code(s): G92.9 - Unspecified toxic encephalopathy (3) Polypharmacy: Status: Acute Category: Medical Code(s): Z79.899 - Other skilled nursing (current) drug therapy (4) Fracture of rib: Status: Acute Category: Medical Code(s): S22.39XA - Fracture of one rib, unspecified side, initial encounter for closed fracture (5) Intermittent atrial fibrillation: Status: Acute Category: Medical Code(s): I48.0 - Paroxysmal atrial fibrillation (6) COPD (chronic obstructive pulmonary disease): Status: Chronic Category: Medical Code(s): J44.9 - Chronic obstructive pulmonary disease, unspecified (7) Anxiety: Status: Chronic Category: Medical Code(s): F41.9 - Anxiety disorder, unspecified (8) Neuropathy: Status: Chronic Category: Medical Code(s): G62.9 - Polyneuropathy, unspecified Plan 82-year-old male with a recent rib fracture this past Friday, continues to have chest pain. Started on new pain meds as an outpatient. Presents with confusion and poor p.o. intake. Found to have MERY and encephalopathy. Discussed case with ER physician, request admission for monitoring overnight, adjustment to pain regimen, and treatment for acute kidney injury. Medicine agreed to admit for further management. Patient on polypharmacy with gabapentin, Xanax, recent addition of tramadol. Did well overnight. Mentation has improved to baseline. First dose of hydrocodone this morning. Monitor for changes. Therapy evaluated today, would benefit from rehab. Necessitating inpatient management at this time while he awaits placement. Problems addressed as follows: Acute kidney injury -Creatinine 2.1 on admission. Kidney function improved with BUN 22, creatinine 1.2. Discontinue IV fluids. -Having difficulty with voiding. Yip catheter placed in the ER. Strict monitoring of output. Will remove this morning. -Repeat CBC, CMP, magnesium ordered for the morning - Normal sodium and potassium. Toxic encephalopathy likely secondary to polypharmacy Rib fracture with pain -Patient on gabapentin 600 mg 3 times a day for neuropathy along with Xanax 0.5 mg 3 times a day for anxiety. Continue with decreased doses Xanax to 0.25 mg 3 times a day and gabapentin to 300 mg 3 times a day. -Hydrocodone this morning, will monitor for changes in mentation. -Tylenol as needed 650 mg every 6 hours for pain. Avoiding NSAIDs in the setting of MERY -Lidocaine patch topically daily Continue home levothyroxine 50 mcg daily for hypothyroid Continue home alfuzosin 10 mg nightly and finasteride 5 mg daily for BPH Continue home Lexapro 10 mg for mood Continue home Lipitor 20 mg nightly and Plavix 75 mg daily and aspirin 81 mg daily for CAD and hyperlipidemia Blood pressure remains appropriate. No need for midodrine at this time. Will continue to monitor. if needs supplementation, will initiate midodrine 5 mg 3 times a day and monitor for response for maps less than 65 Full code Cardiac diet
[2023-08-14 16:00] VITALS: BP 119/75; PULSE 82; RESP 21; TEMP 36.8; O2SAT 91
--- NOTE | 2023-08-14 18:02 | PC.NURSE ---
PT IS ALERT AND ORIENTED BUT HAS PERIODS OF CONFUSION. HAS BEEN VERY WEAK AND UNSTEADY ON FEET. ASSIST X1 WITH WALKER TO BATHROOM. PT HAS HAD ADEQUATE U/O AND A BM THIS SHIFT, PASSING GAS. HAS RESTED IN BED, AT BEDSIDE MAJORITY OF SHIFT. HAS HAD NO NEEDS OR C/O NOTED THUS FAR, VSS.
[2023-08-14 20:00] VITALS: BP 145/81; PULSE 90; RESP 18; TEMP 36.9; O2SAT 94
[2023-08-14] MEDS: ATORVASTATIN 20MG TABLET 20 MG PO (20:50)
[2023-08-14] MEDS: TOLTERODINE LA 2MG CAP.ER.24H 4 MG PO (20:51)
[2023-08-14] MEDS: ACETAMINOPHEN 325MG TAB 650 MG PO (22:36)
[2023-08-15] VITALS: BP 159/86; PULSE 91; RESP 20; TEMP 36.9; O2SAT 94
--- NOTE | 2023-08-15 05:05 | PC.NURSE ---
pt has been confused through the night. reoriented patient. has no complaints of pain. been voiding well with standby assist with walker to the bathroom. 2L BL at bedtime. bed alarm on.
[2023-08-15] MEDS: LEVOTHYROXINE 50MCG (0.05MG) TAB 50 MCG PO (06:14)
[2023-08-15 06:35] LABS: Basophils % 0.6 % (0.1-2.0); Eosinophils # 0.3 K/mm3 (0.0-0.4); Eosinophils % 4.8 % (0.1-12.0); Hematocrit 35.4 % (42.0-52.0); Hemoglobin 11.4 g/dL (14.1-18.0); Lymphocytes # 1.2 K/mm3 (0.7-4.5); Lymphocytes % 18.9 % (10-50); Mean Corpuscular HGB Conc 32.2 g/dL (31.8-35.4); Mean Corpuscular Hemoglobin 29.3 pg (27.0-31.2); Mean Corpuscular Volume 91.1 fl (80-94); Mean Platelet Volume 8.5 fl (7.4-10.4); Monocytes # 0.5 K/mm3 (0.1-1.0); Monocytes % 7.3 % (1.7-9.3); Neutrophils # 4.4 K/mm3 (1.8-7.8); Neutrophils % 68.5 % (37.0-80.0); Platelet Count 257 K/mm3 (142-424); Red Blood Count 3.89 M/mm3 (4.60-6.20); Red Cell Distribution Width 16.8 % (11.5-17.5); White Blood Count 6.4 K/mm3 (4.8-10.8)
[2023-08-15 06:47] LABS: Chloride 108 mmol/L (98-107); Sodium 139 mmol/L (136-145)
[2023-08-15 06:49] LABS: Blood Urea Nitrogen 22 mg/dl (9-20); Creatinine Clearance Estimated 52 mL/min (50-200); Estimated Glomerular Filt Rate 64 ml/min (>60); GFR (African American) 77 ML/MIN (>60)
[2023-08-15 06:50] LABS: Alanine Aminotransferase 20 U/L (12-78); Albumin Level 2.9 g/dl (3.5-5.0); Albumin/Globulin Ratio 1.2 (1.1-1.8); Alkaline Phosphatase 83 U/L (38-126); Aspartate Amino Transferase 46 U/L (17-59); Bilirubin,Total 0.7 mg/dl (0.2-1.3); Calcium 8.5 mg/dl (8.4-10.2); Carbon Dioxide 29 mmol/L (22.0-30.0); Globulin 2.5 g/dL (1.3-3.2); Glucose 98 mg/dl (74-100); Magnesium 1.8 mg/dl (1.6-2.3); Total Protein,Serum 5.4 g/dl (6.3-8.2)
[2023-08-15 08:00] VITALS: BP 167/87; PULSE 86; RESP 20; TEMP 36.6; O2SAT 90; O2SAT 94
[2023-08-15] MEDS: GABAPENTIN 300MG CAPSULE 300 MG PO ×2 (09:05→12:45)
[2023-08-15] MEDS: ASPIRIN EC 81MG TABLET 81 MG PO (09:05)
[2023-08-15] MEDS: SENNOSIDES 8.6MG/DOCUSATE 50MG TABLET 1 TAB PO (09:06)
[2023-08-15] MEDS: CLOPIDOGREL 75MG TAB 75 MG PO (09:06)
[2023-08-15] MEDS: CITALOPRAM 20MG TABLET 20 MG PO (09:06)
[2023-08-15] MEDS: FINASTERIDE 5MG TABLET 5 MG PO (09:06)
[2023-08-15] MEDS: ALPRAZolam 0.25MG TABLET 0.5 MG PO ×2 (10:33→12:42)
[2023-08-15] MEDS: LIDOCAINE 5% TRANSDERMAL PATCH 1 EACH TP (10:59)
[2023-08-15 11:43] VITALS: BP 161/88; PULSE 88; RESP 20; TEMP 36.5; O2SAT 93
--- NOTE | 2023-08-15 11:44 | P.DS_ITS ---
General Admission date:: 08/13/23 Discharge date: 08/15/23 HPI HPI HPI: Mr. Hernández is an 82-year-old male who recently fell this past weekend on Friday and fractured a right rib. He has history of CAD, COPD on oxygen 2 L continuous, hyperlipidemia, apathy, chronic alprazolam and gabapentin use. He was transitioned to tramadol by his PCP earlier this week because of persistent pain. states after taking tramadol he became confused and slept for the better part of the past 24 hours. He has had poor p.o. intake. Due to his confusion and weakness and poor p.o. intake, she brought him to the ER for evaluation. On workup in the ER, he reportedly had received Narcan en route via EMS and became more arousable. He was found to have an MERY with creatinine 2.1, baseline approximately 1. Also found to be confused. Medicine consulted for admission and treatment of polypharmacy, dehydration, MERY. On evaluation, patient answers questions appropriately but occasionally will get confused or use the wrong words. Corrects himself and recognizes his confusion. Complaining of right sided rib pain. Denies nausea, vomiting, shortness of breath from baseline. Additionally his reports he gets constipated with pain meds. Would like to make sure he is on aggressive bowel regimen. Hospital Course Hospital Course Hospital Course: 82-year-old male with a recent rib fracture this past Friday, continues to have chest pain. Started on new pain meds as an outpatient. Presents with confusion and poor p.o. intake. Found to have MERY and encephalopathy. Discussed case with ER physician, request admission for monitoring overnight, adjustment to pain regimen, and treatment for acute kidney injury. Medicine agreed to admit for further management. Patient on polypharmacy with gabapentin, Xanax, recent addition of tramadol. Has done well since admission. Mentation has cleared. Back to baseline. Patient is significant weakness necessitating rehab. Has been accepted by [facility] for further management. Problems addressed as follows: Acute kidney injury -Creatinine 2.1 on admission. Gentle hydration with monitoring of kidney function. Kidney is improved to BUN of 22, creatinine 1.1 by day of discharge. Tolerating p.o. fluids. Catheter initially in place, removed during admission. Voiding independently. Electrolytes remained stable with normal sodium at 139, potassium 4.0, magnesium 1.8. Recommend repeat CBC, CMP, magnesium in 1 week Toxic encephalopathy likely secondary to polypharmacy Rib fracture with pain -Patient on gabapentin 600 mg 3 times a day for neuropathy along with Xanax 0.5 mg 3 times a day for anxiety. Adjustments made to home regimen. Will continue his Xanax 0.5 mg 3 times a day due to concern for confusion at lower dose. Decrease gabapentin however to 300 mg 3 times a day. Caution with hydrocodone for severe breakthrough pain. Would use very selectively. Has done well with lidocaine patch and Tylenol during admission. Recommend continuing these. Avoid NSAIDs if possible due to kidney injury. Mentation back to normal. Needs rehab for strength and weakness in his legs. Continue home levothyroxine 50 mcg daily for hypothyroid Continue home alfuzosin 10 mg nightly and finasteride 5 mg daily for BPH Continue home Lexapro 10 mg for mood Continue home Lipitor 20 mg nightly and Plavix 75 mg daily and aspirin 81 mg daily for CAD and hyperlipidemia Patient has COPD, chronic respiratory failure with oxygen requirement of 2 L at baseline. Continue 2 L with goal sats greater 90%. Blood pressure remains appropriate. No need for midodrine at this time. Maintain normal blood pressure during course of hospitalization. [facility] closely [facility]. Consider midodrine 5 mg 3 times a day if develops hypotension again. Stable to discharge to rehab. Electronic prescription sent for controlled s ubstances to [facility] Exam Data for Last 24 hours Vital signs and Labs for Last 24 Hours: Temp Pulse Resp BP Pulse Ox O2 Del Method O2 Flow Rate 97.7 F 88 20 161/88 H 93 L Room Air 2 08/15/23 11:43 08/15/23 11:43 08/15/23 11:43 08/15/23 11:43 08/15/23 11:43 08/15/23 11:43 08/15/23 06:33 Laboratory Results - last 24 hr 08/15/23 05:58: WBC 6.4, RBC 3.89 L, Hgb 11.4 L, Hct 35.4 L, MCV 91.1, MCH 29.3, MCHC 32.2, RDW 16.8, Plt Count 257, MPV 8.5, Neut % (Auto) 68.5, Lymph % (Auto) 18.9, [place] % (Auto) 7.3, Eos % (Auto) 4.8, Baso % (Auto) 0.6, Neut # (Auto) 4.4, Lymph # (Auto) 1.2, [place] # (Auto) 0.5, Eos # (Auto) 0.3, Baso # (Auto) 0.0, Sodium 139, Potassium 4.0, Chloride 108 H, Carbon Dioxide 29, Anion Gap 6.0, BUN 22 H, Creatinine 1.10, Estimated Creat Clear 52, Estimated GFR 64, Est GFR ( Amer) 77, Glucose 98, Calcium 8.5, Magnesium 1.8 D, Total Bilirubin 0.7, AST 46, ALT 20, Alkaline Phosphatase 83, Total Protein 5.4 L, Albumin 2.9 L , Globulin 2.5, Albumin/Globulin Ratio 1.2 I & O for Last 24 hours: Intake & Output 08/12/23 08/13/23 08/14/23 08/15/23 23:59 23:59 23:59 23:59 Intake Total 360 / 1220 1750 / 1900 420 / 420 Output Total 480 / 480 Balance 360 / 1220 1270 / 1420 420 / 420 Weight 72.263 kg 74.072 kg Constitutional Constitutional: no acute distress, obese and chronically ill appearing *Routine HEENT Exam Head: Present normocephalic Eye: Present EOMI and PERRL ENT: Present mucous membranes moist *Routine Neck Exam Neck: Present supple; Absent lymphadenopathy Routine Chest/Breast/Axilla Exam Chest wall: Present tenderness (Over right lower ribs) *Routine Respiratory Exam Respiratory: Present prolonged expiratory phase; Absent rhonchi, wheezes or crackles *Routine Cardiovascular Exam Cardiovascular: Present RRR *Routine Abdominal Exam Abdominal: Present soft and normoactive bowel sounds; Absent tenderness *Routine Rectal Exam Patient deferred: visual exam *Routine Exam Patient deferred: penile exam *Routine Extremities Exam Extremities: Absent cyanosis, clubbing or edema Comments: weakness in legs *Routine Skin Exam Skin: Present warm; Absent rash *Routine Neurological Exam Neurological: Present alert, oriented X3 and moving all extremities; Absent altered mental status Results Data Completed and Pending Labs on day of discharge: Labs from last 24 hours 08/15/23 05:58 WBC 6.4 RBC 3.89 L Hgb 11.4 L Hct 35.4 L MCV 91.1 MCH 29.3 MCHC 32.2 RDW 16.8 Plt Count 257 MPV 8.5 Neut % (Auto) 68.5 Lymph % (Auto) 18.9 [place] % (Auto) 7.3 Eos % (Auto) 4.8 Baso % (Auto) 0.6 Neut # (Auto) 4.4 Lymph # (Auto) 1.2 [place] # (Auto) 0.5 Eos # (Auto) 0.3 Baso # (Auto) 0.0 Sodium 139 Potassium 4.0 Chloride 108 H Carbon Dioxide 29 Anion Gap 6.0 BUN 22 H Creatinine 1.10 Estimated Creat Clear 52 Estimated GFR 64 Est GFR ( Amer) 77 Glucose 98 Calcium 8.5 Magnesium 1.8 D Total Bilirubin 0.7 AST 46 ALT 20 Alkaline Phosphatase 83 Total Protein 5.4 L Albumin 2.9 L Globulin 2.5 Albumin/Globulin Ratio 1.2 DS: Diagnosis Discharge Diagnosis (1) MERY (acute kidney injury): Status: Resolved Code(s): N17.9 - Acute kidney failure, unspecified (2) Toxic encephalopathy: Status: Resolved Code(s): G92.9 - Unspecified toxic encephalopathy (3) Polypharmacy: Status: Acute Code(s): Z79.899 - Other joint terminal attack controller (current) drug therapy (4) Fracture of rib: Status: Acute Code(s): S22.39XA - Fracture of one rib, unspecified side, initial encounter for closed fracture (5) Intermittent atrial fibrillation: Status: Acute Code(s): I48.0 - Paroxysmal atrial fibrillation (6) COPD (chronic obstructive pulmonary disease): Status: Chronic Code(s): J44.9 - Chronic obstructive pulmonary disease, unspecified (7) Anxiety: Status: Chronic Code(s): F41.9 - Anxiety disorder, unspecified (8) Neuropathy: Status: Chronic Code(s): G62.9 - Polyneuropathy, unspecified Meds Home Medications and Allergies Home Medications Medication Instructions Recorded Confirmed Type atorvastatin 20 mg tablet 20 mg PO 12/22/17 08/13/23 History aspirin 81 mg tablet,delayed 81 mg PO DAILY [facility] 05/09/20 08/13/23 History release (Adult Aspirin Regimen) clopidogrel 75 mg tablet 75 mg PO DAILY 10/24/22 08/13/23 History finasteride 5 mg tablet 5 mg PO DAILY 10/24/22 08/13/23 History levothyroxine 50 mcg tablet 50 mcg PO DAILY 10/25/22 08/13/23 History escitalopram oxalate 10 mg tablet 10 mg PO DAILY 08/09/23 08/13/23 History solifenacin 10 mg tablet 10 mg PO DAILY 08/09/23 08/13/23 History alfuzosin 10 mg tablet,extended 10 mg PO HS 08/13/23 08/13/23 History release 24 hr atenolol 25 mg tablet 25 mg PO DAILY 08/14/23 08/14/23 History alprazolam 0.5 mg tablet 0.5 mg PO TID 30 days #90 tabs 08/15/23 Rx gabapentin 300 mg capsule 300 mg PO TID 30 days #90 caps 08/15/23 Rx hydrocodone 5 mg-acetaminophen 325 1 tab PO Q8HP PRN Severe Pain 08/15/23 Rx mg tablet (7-10) 3 days #9 tabs lidocaine 5 % topical patch 1 patch topical DAILY #15 ea 08/15/23 Rx (Lidoderm) New Prescriptions to Start Prescriptions: alprazolam [place] gabapentin Dayton Felton hydrocodone-acetaminophen [place] Felton lidocaine [Lidoderm] Dayton Felton Allergies Allergy/AdvReac Type Severity Reaction Status Date / Time No Known Allergies Allergy Verified 02/09/21 07:53 Discharge Plan Disposition Patient Disposition: [facility] Condition: Fair Discharge Order Discharge Orders: Discharge Order (Routine); Ordered 08/15/23 Ordered By: Dayton Felton Follow up Plan Follow up with: Ricki London MD [Primary Care Provider] - Enter time for follow up Prescriptions/Medication Reconciliation: New hydrocodone-acetaminophen 5-325 mg Tablet 1 tab PO Q8HP PRN (Reason: Severe Pain (7-10)) 3 Days Qty: 9 0RF Continued aspirin [Adult Aspirin Regimen] 81 mg tablet,delayed release (DR/EC) 81 mg PO DAILY alfuzosin 10 mg tablet extended release 24 hr 10 mg PO HS atenolol 25 mg tablet 25 mg PO DAILY Patient Comments: TAKE ONE TABLET BY MOUTH EVERY DAY alprazolam 0.5 mg tablet 0.5 mg PO TID 30 Days Qty: 90 0RF lidocaine [Lidoderm] 5 % adhesive patch,medicated 1 patch topical DAILY Qty: 15 0RF Rx Instructions: leave on most painful area for up to 12 hrs atorvastatin 20 MG tablet 20 mg PO HS finasteride 5 mg tablet 5 mg PO DAILY Patient Comments: TAKE ONE TABLET BY MOUTH EVERY DAY clopidogrel 75 MG tablet 75 mg PO DAILY levothyroxine 50 mcg tablet 50 mcg PO DAILY Patient Comments: TAKE ONE TABLET BY MOUTH EVERY DAY escitalopram oxalate 10 mg tablet 10 mg PO DAILY Patient Comments: TAKE ONE TABLET BY MOUTH EVERY DAY solifenacin 10 mg tablet 10 mg PO DAILY Changed gabapentin 300 mg capsule 300 mg PO TID 30 Days Qty: 90 0RF Discontinued midodrine 10 mg tablet 10 mg PO BID tramadol 50 mg tablet 50 - 100 mg PO Q6 PRN (Reason: Pain) Patient Comments: TAKE 1 OR 2 TABLET(S) BY MOUTH EVERY 6 HOURS NEEDED methocarbamol 750 mg tablet 750 mg PO Q8 PRN (Reason: Pain) Patient Comments: TAKE ONE TABLET BY MOUTH EVERY 8 HOURS NEEDED FOR PAIN MAY CAUSE DROWSINESS naproxen 500 mg tablet 50 mg PO BIDWMEAL PRN (Reason: Pain) Patient Comments: TAKE ONE TABLET BY MOUTH TWICE DAILY NEEDED FOR PAIN --TAKE WITH FOOD-- Problem Reconciliation Problems Reviewed?: Yes Patient Discharge Instructions ACTIVITY: Ambulate as tolerated and Up with assistance DIET: continue same diet Patient Instructions: Delirium, DI for Acute Kidney Injury Providers Primary Care Provider: Ricki London Admbrenda Provider: Dayton Felton Attending Provider: Dayton Felton
== END 2023-08-15 13:48 ==
LOC: ER 15:36 → 2ND 16:50
PROVIDERS: Emergency Medicine; Admitting Provider Internal Medicine Adolescent Medicine; Emergency Provider Emergency Medicine; PCP Internal Medicine Adolescent Medicine; Visit Provider Internal Medicine Adolescent Medicine
DX: N17.9 Acute kidney failure, unspecified (principal); G92.9 Unspecified toxic encephalopathy; Z79.899 Other long term (current) drug therapy; S22.31XA Fracture of one rib, right side, initial encounter for closed fracture; I48.0 Paroxysmal atrial fibrillation; J44.9 Chronic obstructive pulmonary disease, unspecified; F41.9 Anxiety disorder, unspecified; G62.9 Polyneuropathy, unspecified; F17.290 Nicotine dependence, other tobacco product, uncomplicated; Z79.02 Long term (current) use of antithrombotics/antiplatelets; R29.6 Repeated falls; Z95.1 Presence of aortocoronary bypass graft; Z99.81 Dependence on supplemental oxygen
CPT/HCPCS: 36415; 51702; 70450; 71045; 74176; 80053; 81001; 82803; 83605; 83735; 85025; 97162; 97166; 97530; 97535; 99285; G0378

== ENCOUNTER 2024-08-31 21:59 | Observation (INO) | payer MEDICARE, SELFPAY ==
--- NOTE | 2024-08-31 22:15 | ED_ITS ---
Discharge Plan Prescriptions Prescriptions: No Action aspirin [Adult Aspirin Regimen] 81 mg tablet,delayed release (DR/EC) 81 mg PO DAILY alfuzosin 10 mg tablet extended release 24 hr 10 mg PO HS atenolol 25 mg tablet 25 mg PO DAILY Patient Comments: TAKE ONE TABLET BY MOUTH EVERY DAY hydrocodone-acetaminophen 5-325 mg Tablet 1 tab PO Q8HP PRN (Reason: Severe Pain (7-10)) 3 Days Qty: 9 0RF alprazolam 0.5 mg tablet 0.5 mg PO TID 30 Days Qty: 90 0RF lidocaine [Lidoderm] 5 % adhesive patch,medicated 1 patch topical DAILY Qty: 15 0RF Rx Instructions: leave on most painful area for up to 12 hrs gabapentin 300 mg capsule 300 mg PO TID 30 Days Qty: 90 0RF atorvastatin 20 MG tablet 20 mg PO HS finasteride 5 mg tablet 5 mg PO DAILY Patient Comments: TAKE ONE TABLET BY MOUTH EVERY DAY clopidogrel 75 MG tablet 75 mg PO DAILY levothyroxine 50 mcg tablet 50 mcg PO DAILY Patient Comments: TAKE ONE TABLET BY MOUTH EVERY DAY escitalopram oxalate 10 mg tablet 10 mg PO DAILY Patient Comments: TAKE ONE TABLET BY MOUTH EVERY DAY solifenacin 10 mg tablet 10 mg PO DAILY Referrals Follow up/Referrals: Ricki London MD [Primary Care Provider] - See instructions Print Language Print Language: Guatem[place] Discharge ED Provider: Agustin Horne General Adult HPI General Stated complaint: Lower abd pain, cramping, fecal inc Time Seen by Provider: 08/31/24 22:14 Related Data Home Medications ?Medication ?Instructions ?Recorded ?Confirmed atorvastatin 20 mg tablet 20 mg PO HS 12/22/17 08/13/23 aspirin 81 mg tablet,delayed 81 mg PO DAILY [facility] 05/09/20 08/13/23 release (Adult Aspirin Regimen) clopidogrel 75 mg tablet 75 mg PO DAILY 10/24/22 08/13/23 finasteride 5 mg tablet 5 mg PO DAILY 10/24/22 08/13/23 levothyroxine 50 mcg tablet 50 mcg PO DAILY 10/25/22 08/13/23 escitalopram oxalate 10 mg tablet 10 mg PO DAILY 08/09/23 08/13/23 solifenacin 10 mg tablet 10 mg PO DAILY 08/09/23 08/13/23 alfuzosin 10 mg tablet,extended 10 mg PO HS 08/13/23 08/13/23 release 24 hr atenolol 25 mg tablet 25 mg PO DAILY 08/14/23 08/14/23 Previous Rx's ?Medication ?Instructions ?Recorded alprazolam 0.5 mg tablet 0.5 mg PO TID 30 days #90 tabs 08/15/23 gabapentin 300 mg capsule 300 mg PO TID 30 days #90 caps 08/15/23 hydrocodone 5 mg-acetaminophen 325 1 tab PO Q8HP PRN Severe Pain 08/15/23 mg tablet (7-10) 3 days #9 tabs lidocaine 5 % topical patch 1 patch topical DAILY #15 ea 08/15/23 (Lidoderm) Allergies Allergy/AdvReac Type Severity Reaction Status Date / Time No Known Allergies Allergy Verified 02/09/21 07:53 [facility] Disclaimer: The information contained in this section may have been updated after the patient was seen, as this information can be updated by other users. Medical History (Updated 08/19/23 @ 00:00 by Beatrice Mcbride) COPD (chronic obstructive pulmonary disease) Surgical History Hx of cholecystectomy Hx of appendectomy Hx of CABG Social History Smoking Status: Never smoker second hand exposure: No alcohol intake: never substance use type: denies use current occupational status: retired Travel in the last 8 weeks?: None household members: significant other housing: house current occupational exposures/hazards: No caffeine: Yes Other Medical History Have you received the Flu Vaccine for this season: No Have you received the Pneumonia Vaccine: No ROS Obtained: Yes Systems reviewed as appropriate & no additional complaints except as documented Physical Exam General General appearance: alert and in no apparent distress Head Head exam: atraumatic and normal inspection Eye Eye exam: Present normal appearance, PERRL and EOMI ENT ENT exam: Present normal exam, normal oropharynx and mucous membranes moist Neck Neck exam: Present normal inspection, full ROM and trachea midline; Absent lymphadenopathy Chest Chest inspection: Present normal inspection and symmetric chest wall rise Respiratory Respiratory exam: Present normal lung sounds bilaterally; Absent accessory muscle use Cardiovascular Cardiovascular exam: Present regular rate, normal rhythm, normal heart sounds, +S1 and +S2 Abdominal Exam Abdominal exam: Present soft and normal bowel sounds; Absent tenderness, guarding or rebound Extremities Exam Extremities exam: Present normal inspection and full ROM Neurological Exam Neurological exam: Present alert, oriented X3 and CN II-XII intact Psychiatric Psychiatric exam: Present normal affect and normal mood Skin Skin exam: Present warm, dry and normal color Lymphatic Lymphatic Findings: no adenopathy Medical Decision Making Medical Records Screening: Per USPSTF and CDC recommendations, given the prevalence of disease in our region, it is our hospital?s policy to screen for HIV and viral Hepatitis for all patients aged 18 and over and those with ongoing risk factors. Medical Decision Narrative: In summary patient is a [age, sex] who presents to the emergency department for evaluation of [complaint]. Patient is [hemodynamically stable/unstable] upon arrival, [febrile/afebrile]. [Unremarkable physical exam, nonfocal exam versus focal remarkable exam]. Differential diagnosis includes [DDx]. Initial workup will be conducted with [hematologic labs, imaging, respiratory swab, describe workup]. Initial interventions include [crystalloid bolus, medications, p.o. challenge, etc.] initial workup reviewed by me [hematologic labs are remarkable for... Imaging remarkable for... Urinalysis remarkable for]. Upon repeat evaluation [patient had acceptable resolution of symptoms, had persistent pain for which additional interventions were conducted (describe interventions), tolerated p.o., was ambulatory, etc.]. Given this [patient is appropriate for discharge at this time and will be discharged with a prescription for... The case was discussed with hospital medicine regarding management and they will admit the patient their service for continued evaluation at this time... Etc.] Places where you can increase complexity: I informally interpreted the patient's chest x-ray or CT read and is remarkable for... Documenting what the group fitness assistant department head shows with rate and rhythm Consideration of test but deferring. Ex: I considered chest x-ray on this patient however given that they have no oxygen requirement and are clear to auscultation all lung childs will be deferred. Social determinants of health: Given that patient is undomiciled increases complexity. Given that patient has polysubstance abuse compounds all aspects of care
--- OUTSIDE RECORDS SUMMARY | 2024-08-31 22:20 | XMS_ITS | Data Portability ---
Author Organization DOYLE HALEY Diaz [place] Address [address] [facility] [address] [place] [address] Care Team Providers Care Flat Optical Element Maker Name Role Phone HARSH AGOSTO Primary Care Provider WINTER CLRAK House Decorator Assessment Encounter Date Assessment Date Assessment LastModified by Organization Details LastModified Time 11/26/2023 11/26/2023 Impression: 1. Coronary artery disease s/p remote 1v CABG (1997): Chronic problem, unstable with recent NSTEMI. Coronary angiography 11/04/2022: Patent PENNINGTON? LAD, no targets for revascularization 2. Sinus node dysfunction s/p Medtronic dual-chamber pacemaker system 2004 with gen change 03/2014: Chronic problem, stable. His device is functioning appropriately per in office device check performed on 05/26/2023 3. Paroxysmal atrial fibrillation 4. History of admission with TIA 03/09/2021 5. COPD, chronic hypoxic respiratory failure requiring supplemental O2 (Dr Maxwell) Plan: Mr. Bonilla was admitted overnight with NSTEMI in October 2022. His Troponin peaked at 1.0 (fourth-generation assay). He underwent coronary angiography, which confirmed patency of the PENNINGTON? LAD graft and no new obstructive disease in the circumflex or RCA. Reassurance was provided. Medication changes: None. Remain off of Atenolol. Regarding his use of midodrine, he was advised to take a dose three times a day in approximately 4-hour intervals during daytime hours. The first dose should be taken shortly before getting up in the morning, the 2nd dose at midday, and the last dose in the late afternoon (not later than 6 pm). The last dose of midodrine should not be taken after the evening meal or less than 3 to 4 hours before bedtime because supine hypertension can occur. If a dose is missed, he should take it as soon as possible. However, if it is almost time for your next dose, skip the missed dose and go back to your regular dosing schedule. Do not double doses. Additionally, we have not received any recent remote telemetry transmissions. Will have the device clinic reach out to him to coordinate an updated transmission. RTC: We will plan to follow-up in about 6 months, or sooner if needed. Testing at next visit: In-office Medtronic device check. [email or web address] Not available 11/26/2023 19:08:05 12/18/2023 12/18/2023 Continue to luis tor voiding symptoms. Solifenacin for symptoms of urinary incontinence. Discontinue alfuzosin due to recent problems of balance and continued urinary incontinence. [email or web address] Not available 12/19/2023 08:33:01 05/28/2024 05/28/2024 Impression: 1. Coronary artery disease s/p remote 1v CABG (1997): Chronic problem, unstable with recent NSTEMI. Coronary angiography 11/04/2022: Patent PENNINGTON? LAD, no targets for revascularization 2. Sinus node dysfunction s/p Medtronic dual-chamber pacemaker system 2004 with gen change 03/2014: Chronic problem, stable. His device is functioning appropriately per in office device check performed on 05/28/2024 3. Paroxysmal atrial fibrillation 4. History of admission with TIA 03/09/2021 5. COPD, chronic hypoxic respiratory failure requiring supplemental O2 (Dr Maxwell) 6. BLE weakness Plan: Mr. Bonilla was admitted overnight with NSTEMI in October 2022. His Troponin peaked at 1.0 (fourth-generation assay). He underwent coronary angiography, which confirmed patency of the P[place]INGTON? LAD graft and no new obstructive disease in the circumflex or RCA. Reassurance was provided. Medication changes: None. RTC: We will plan to follow-up in about 6 months, or sooner if needed. [email or web address] Not available 05/29/2024 07:51:19 06/17/2024 06/17/2024 Continue to luis tor voiding symptoms. Myrbetriq for symptoms of urinary incontinence. Not available 06/17/2024 21:43:50 Plan of Treatment Reminders Order Date Submit Date Provider Last Modified By Organization Details Last Modified Time Details Appointments RECHECK 2024 02:15P M MERLIN MOSER MD Not available Not available Not available RECHECK 2024 01:15P Jud CLARK MD Not available Not available Not available Lab urinalysi s panel, auto 2024 025 [email or web address] [id number] [facility] Extended Services With [address], [place], [address], 06/17/2024 21:43:51 urinalysi s panel, auto 2023 024 [email or web address] 4 [facility] Extended Services With [address], [place], [address], 12/19/2023 08:33:04 Referral None recorded. Procedures pacemaker programmi ng, dual lead (PROC) 2024 025 [facility], [address] [place] [address] , [facility], [place], [address], 05/31/2024 07:28:34 Surgeries None recorded. Imaging None recorded. Medication Orders Myrbetriq 50 mg tablet,ex tended release 2024 0[id number], [address] , [place], [place], [id number], 06/17/2024 15:41:31 Patient TargetsNo targets recorded. Patient Instructions Encounter Date Encounter Id Patient Instructions Last Modified By Organization Details Last Modified Time 11/26/2023 [id number] Body Mass Index: Care Instructions-LC [email or web address] Not available 11/26/2023 19:08:20 stopping smokeless tobacco use: care instructions [email or web address] Not available 11/26/2023 19:08:20 05/28/2024 [id number] Body Mass Index: Care Instructions-LC [email or web address] Not available 05/29/2024 07:51:51 06/17/2024 [id number] learning about healthy weight [email or web address] Not available 06/17/2024 21:43:51 Reason for Referral None Reported. Results Created Date Observation Date Name Description Value Unit Range Abnormal Flag Note LastModifiedBy Organization Detail LastModifiedTime 12/18/19 24 12/18/2023 urina lysis panel , auto Unknown Analyte Clean Catch Not Available [facility] Extended Services With [address] [place], [address], 12/18/2023 16:18:54 12/18/19 24 12/18/2023 urina lysis panel , auto Unknown Analyte Yellow Not Available [facility] Extended Services With [address] [place], [address], 12/18/2023 16:18:54 12/18/19 24 12/18/2023 urina lysis panel , auto Unknown Analyte Clear Not Available [facility] Extended Services With [address] [place], [address], 12/18/2023 16:18:54 12/18/19 24 12/18/2023 urina lysis panel , auto Unknown Analyte 1.010 Not Available [facility] Extended Services With [address] [place], [address], 12/18/2023 16:18:54 12/18/19 24 12/18/2023 urina lysis panel , auto Unknown Analyte 1.003- 1.035 Not Available [facility] Extended Services With [address] [place], [address], 12/18/2023 16:18:54 12/18/19 24 12/18/2023 urina lysis panel , auto Unknown Analyte 7.0 Not Available [facility] Extended Services With [address] [place], [address], 12/18/2023 16:18:54 12/18/19 24 12/18/2023 urina lysis panel , auto Unknown Analyte 5.0-8. 0 Not Available [facility] With [address], [place], [address], 12/18/2023 16:18:54 12/18/19 24 12/18/2023 urina lysis panel , auto Unknown Analyte Negati ve Not Available [facility] Extended Services With [address], [place], [address], 12/18/2023 16:18:54 12/18/19 24 12/18/2023 urina lysis panel , auto Unknown Analyte Negati ve Not Available [facility] Extended Services With [address] [place], [address], 12/18/2023 16:18:54 12/18/19 24 12/18/2023 urina lysis panel , auto Unknown Analyte Negati ve Not Available [facility] Extended Services With [address], [place], [address], 12/18/2023 16:18:54 12/18/19 24 12/18/2023 urina lysis panel , auto Unknown Analyte Negati ve Not Available [facility] Extended Services With [address] [place], [address], 12/18/2023 16:18:54 12/18/19 24 12/18/2023 urina lysis panel , auto Unknown Analyte Negati ve Not Available [facility] With [address] [place], [address], 12/18/2023 16:18:54 12/18/19 24 12/18/2023 urina lysis panel , auto Unknown Analyte Negati ve Not Available [facility] Extended Services With [address] [place], [address], 12/18/2023 16:18:54 12/18/19 24 12/18/2023 urina lysis panel , auto Unknown Analyte Normal Not Available [facility] Extended Services With [address] [place], [address], 12/18/2023 16:18:54 12/18/19 24 12/18/2023 urina lysis panel , auto Unknown Analyte Normal Not Available [facility] Extended Services With [address] [place], [address], 12/18/2023 16:18:54 12/18/19 24 12/18/2023 urina lysis panel , auto Unknown Analyte 15 mg/dl (Sm) Not Available [facility] Extended Services With [address] [place], [address], 12/18/2023 16:18:54 12/18/19 24 12/18/2023 urina lysis panel , auto Unknown Analyte Negati ve Not Available [facility] Extended Services With [address] [place], [address], 12/18/2023 16:18:54 12/18/19 24 12/18/2023 urina lysis panel , auto Unknown Analyte 1 mg/dl Not Available [facility] Extended Services With [address] [place], [address], 12/18/2023 16:18:54 12/18/19 24 12/18/2023 urina lysis panel , auto Unknown Analyte Normal 1 mg/dl Not Available [facility] Extended Services With [address] [place], [address], 12/18/2023 16:18:54 12/18/19 24 12/18/2023 urina lysis panel , auto Unknown Analyte Negati ve Not Available [facility] Extended Services With [address], [place], [address], 12/18/2023 16:18:54 12/18/19 24 12/18/2023 urina lysis panel , auto Unknown Analyte Negati ve Not Available [facility] Extended Services With [address] [place], [address], 12/18/2023 16:18:54 12/18/19 24 12/18/2023 urina lysis panel , auto Unknown Analyte Trace Not Available [facility] Extended Services With [address] [place], [address], 12/18/2023 16:18:54 12/18/19 24 12/18/2023 urina lysis panel , auto Unknown Analyte Negati ve Not Available [facility] Extended Services With [address], [place], [address], 12/18/2023 16:18:54 06/17/19 25 06/17/2024 urina lysis panel , auto Unknown Analyte Clean Catch Not Available [facility] Extended Services With [address] [place], [address], 06/17/2024 15:40:32 06/17/19 25 06/17/2024 urina lysis panel , auto Unknown Analyte Yellow Not Available [facility] Extended Services With [address] [place], [address], 06/17/2024 15:40:32 06/17/19 25 06/17/2024 urina lysis panel , auto Unknown Analyte Clear Not Available [facility] Extended Services With [address] [place], [address], 06/17/2024 15:40:32 06/17/19 25 06/17/2024 urina lysis panel , auto Unknown Analyte 1.025 Not Available [facility] Extended Services With [address] [place], [address], 06/17/2024 15:40:32 06/17/19 25 06/17/2024 urina lysis panel , auto Unknown Analyte 1.003 - 1.030 Not Available [facility] Extended Services With [address] [place], [address], 06/17/2024 15:40:32 06/17/19 25 06/17/2024 urina lysis panel , auto Unknown Analyte 5.0 Not Available [facility] Extended Services With [address] [place], [address], 06/17/2024 15:40:32 06/17/19 25 06/17/2024 urina lysis panel , auto Unknown Analyte 5.0 - 8.0 Not Available [facility] Extended Services With [address] [place], [address], 06/17/2024 15:40:32 06/17/19 25 06/17/2024 urina lysis panel , auto Unknown Analyte Negati ve Not Available [facility] Extended Services With [address] [place], [address], 06/17/2024 15:40:32 06/17/19 25 06/17/2024 urina lysis panel , auto Unknown Analyte Negati ve Not Available [facility] Extended Services With [address] [place], [address], 06/17/2024 15:40:32 06/17/19 25 06/17/2024 urina lysis panel , auto Unknown Analyte Negati ve Not Available [facility] Extended Services With [address] [place], [address], 06/17/2024 15:40:32 06/17/19 25 06/17/2024 urina lysis panel , auto Unknown Analyte Negati ve Not Available [facility] Extended Services With [address] [place], [address], 06/17/2024 15:40:32 06/17/19 25 06/17/2024 urina lysis panel , auto Unknown Analyte Trace Not Available [facility] Extended Services With [address] [place], [address], 06/17/2024 15:40:32 06/17/19 25 06/17/2024 urina lysis panel , auto Unknown Analyte Negati ve Not Available [facility] Extended Services With [address] [place], [address], 06/17/2024 15:40:32 06/17/19 25 06/17/2024 urina lysis panel , auto Unknown Analyte Normal Not Available [facility] Extended Services With [address] [place], [address], 06/17/2024 15:40:32 06/17/19 25 06/17/2024 urina lysis panel , auto Unknown Analyte Normal Not Available [facility] Extended Services With [address] [place], [address], 06/17/2024 15:40:32 06/17/19 25 06/17/2024 urina lysis panel , auto Unknown Analyte Negati ve Not Available [facility] Extended Services With [address] [place], [address], 06/17/2024 15:40:32 06/17/19 25 06/17/2024 urina lysis panel , auto Unknown Analyte Negati ve Not Available [facility] Extended Services With [address], [place], [address], 06/17/2024 15:40:32 06/17/19 25 06/17/2024 urina lysis panel , auto Unknown Analyte 1 mg/dL Not Available [facility] Extended Services With [address] [place], [address], 06/17/2024 15:40:32 06/17/19 25 06/17/2024 urina lysis panel , auto Unknown Analyte Normal Not Available [facility] Extended Services With [address] [place], [address], 06/17/2024 15:40:32 06/17/19 25 06/17/2024 urina lysis panel , auto Unknown Analyte 1 mg/dL Not Available [facility] Extended Services With [address] [place], [address], 06/17/2024 15:40:32 06/17/19 25 06/17/2024 urina lysis panel , auto Unknown Analyte Negati ve Not Available [facility] Extended Services With [address] [place], [address], 06/17/2024 15:40:32 06/17/19 25 06/17/2024 urina lysis panel , auto Unknown Analyte Negati ve Not Available [facility] Extended Services With [address] [place], [address], 06/17/2024 15:40:32 06/17/19 25 06/17/2024 urina lysis panel , auto Unknown Analyte Negati ve Not Available [facility] Extended Services With [address], [place], [address], 06/17/2024 15:40:32 12/30/19 24 12/29/2023 oxime try monit oring overn ight No observ ation record ed. [email or web address] [facility] [address] [facility] [address], [place], [address], 03/03/2024 08:01:46 05/31/19 25 05/28/2024 pacem rupinder inter rogat ion (PROC ) No observ ation record ed. BARCODE Not Available 2024 08:33:38 Result Notes None recorded. Problems Name Problem SNOMED Code Status Onset Date Resolution Date Notes Provider Name and Address Organization Details Recorded Time Long-ter m drug therapy Active 2016 [facility] Benign paroxysm al position al vertigo 095098543 Active 2017 Kaye Castle [facility] 09:22:18 Vasomoto r rhinitis 7004905 Active 2017 Kaye Castle [facility] 09:22:17 Posterio r rhinorrh ea 55170141 Active 2017 Kaye Castle [facility] 09:22:18 Chronic hypoxemi c respirat ory failure 096611641 Active 2017 Kaye Castle [facility] 09:22:17 Pulmonar y emphysem a 75306433 Active 2017 [facility] Cardiac pacemake r in situ 130938106 Active 2020 [facility] COVID-19 429068828 Active 2020 [facility] Chronic obstruct nikole pulmonar y disease 14240308 Active 2014 From Automate d Load;Pro vider: Mata Gore;Sta tus: [facility] Hypothyr oidism 26628189 Active 2014 From Automate d Load;Pro vider: Shahzad Garay;Sta tus: [facility]18 Hypoglyc emia 414228953 Active 2014 From Automate d Load;Pro vider: Shahzda Garay;Sta tus: [facility] 09:[facility]18 Coronary arterios clerosis in [place] artery 31391723878 07 Active 2014 From Automate d Load;Pro vider: Mata Castro;Sta tus: [facility]17 Atrial fibrilla tion 01727588 Completed 201412/05/2016 From Automate d Load;Pro vider: Mata Castro;Sta tus: Active MATA CASTRO MD [address] [place] [address], [address] [place] [address] 7 10:19:07 Hypergly cemia 74847916 Active 2015 From Automate d Load;Pro vider: Shahzad Garay;Sta tus: Active Kaye Castle [facility] 09:22:17 Sick sinus syndrome 62170370 Active 2015 From Automate d Load;Pro vider: Mata Castro;Sta tus: [facility]18 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 2015 From Automate d Load;Pro vider: Shahzad Garay;Sta tus: [facility] 09:[facility]:17 Asthenia 90650209 Active 2015 From Automate d Load;Pro vider: Aman Castañeda;St atus: Active [facility]17 Paresthe lilibeth of skin Active 2015 From Automate d Load;Pro vider: Aman Castañeda;St atus: [facility] 09:[facility]:17 Pain in right foot 98015647060 9107 Active 2015 From Automate d Load;Pro vider: Aman Castañeda;St atus: Active [facility] 09:[facility]:17 Walking disabili ty 531222850 Active 2015 From Automate d Load;Pro vider: Aman Castañeda;St atus: Active [facility] 09:22:17 Paroxysm al atrial fibrilla tion 673496018 Active 2015 From Automate d Load;Pro vider: Mata Castro;Sta tus: [facility]:17 Problem Notes None recorded. Procedures Surgical History Date Name Laterality Status Provider Name and Address Organization Details Recorded Time 05/26/19 24 EKG completed WINTER CLARK MD [address] [place] [address], [address], [facility] 05/26/2023 13:45:03 02/20/20 23 incision of prostate completed Apple Garcia [facility] 12/11/2023 11:22:32 11/07/19 23 cardiac catheterization completed Geovanna Elam [facility] 11/20/2022 14:24:28 11/06/19 22 EKG completed Prabha Hedrick [facility] 11/05/2021 14:48:58 06/01/19 22 Spirometry completed Vida Patel [facility] 06/01/2021 10:35:58 11/21/19 21 Airway Resistance [facility] 11/20/2020 11:20:18 11/21/19 21 Diffusion Capacity completed Mabel Fierro [facility] 11/20/2020 11:20:14 11/21/19 21 Lung Volumes, Plethysmography completed Mabel Fierro [facility] 11/20/2020 11:20:20 11/21/19 21 Spirometry completed Mabel Fierro [facility] 11/20/2020 11:20:17 02/29/20 20 Spirometry completed Mabeljuanpablo Fierro [facility] 02/29/2020 11:14:42 03/29/20 19 Spirometry completed Etta [facility] 03/29/2019 10:55:43 03/29/20 19 Pulse Oximetry completed [facility] 03/29/2019 10:55:50 10/03/19 19 Spirometry completed Mabeljuanpablo Fierro [facility] 10/02/2018 10:28:57 09/29/19 19 Stress Test - Nuclear Lexiscan completed MATA CASTRO MD [address] [place], [address], [facility] 09/28/2018 15:49:11 09/29/19 19 Echocardiogram completed MATA CASTRO MD [address] [place], [address], [facility] 09/28/2018 14:23:47 11/01/19 18 Canalith Repositioning Procedure completed JAMES LOMBARDO APRN [address] [place], [address], [facility] 10/31/2017 11:25:44 11/01/19 18 [place] completed JAMES LOMBARDO APRN [address] [place], [address], [facility] 10/31/2017 11:25:31 10/15/19 18 Airway Resistance completed Etta Simons [facility] 10/14/2017 14:34:04 10/15/19 18 Diffusion Capacity completed Etta [facility] 10/14/2017 14:33:59 10/15/19 18 Lung Volumes[facility] 14:33:55 10/15/19 18 Spirometry with Bronchodilator completed [facility] 10/14/2017 14:34:08 09/02/19 18 Echocardiogram completed KALYN WALDEN MD [address] [place], [address], [facility] 09/01/2017 16:53:27 10/30/19 17 Angela-Hallpike completed KAYE ALMODOVAR APRN [address] [place], [address], [facility] 10/29/2016 11:47:03 10/08/19 17 Tympanogram completed ABHISHEK GONZALEZ, AUD [address] [place], [address], [facility] 10/07/2016 14:39:40 10/08/19 17 Audiogram completed ABHISHEK GONZALEZ, AUD [address] [place], [address], [facility] 10/07/2016 14:39:39 10/08/19 17 Canalith Repositioning Procedure completed KAYE ALMODOVAR APRN [address] [place], [address], [facility] 10/07/2016 16:40:07 10/08/19 17 Audiogram completed Prabha Rodriguez [facility] 10/07/2016 15:59:47 10/08/19 17 Angela-Hallpike completed Prabha Rodriguez [facility] 10/07/2016 15:56:48 10/19/19 15 Cardiac Catheterization completed Bridgett Ventura [facility] 06/03/2016 11:06:28 04/21/19 14 Pacemaker completed Bridgett Ventura [facility] 06/03/2016 11:07:10 04/21/19 05 Pacemaker completed Bridgett Ventura [facility] 06/03/2016 11:07:02 04/21/18 98 CABG completed Bridgett Ventura [facility] 06/03/2016 11:04:57 Back Surgery completed Jory [facility] 05/06/2016 10:32:12 Joint Replacement completed Cheryl Tangent [facility] 05/23/2016 08:33:18 Appendectomy completed Cheryl Tangent [place] [facility] 05/23/2016 08:33:25 Other completed [facility] 05/23/2016 08:37:40 Cataract Surgery completed [facility] 05/23/2016 08:36:15 Imaging Results Imaging Date Name Status LastModified by Organization Details LastModified Time 12/29/2023 oximetry monitoring overnight completed [id number] [employer] [address] [facility] [address], [place], [address], 03/03/2024 08:01:46 05/28/2024 pacemaker interrogation (PROC) completed BARCODE Information not available 05/31/2024 08:33:38 Procedure Notes None recorded. 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 10/14 completed Not Available Not Available Not Available azithromy miranda 250 mg tablet TAKE 2 TABLETS (500 MG) BY ORAL ROUTE ONCE DAILY FOR 1 DAY THEN 1 TABLET (250 MG) BY ORAL ROUTE ONCE DAILY FOR 4 DAYS 11/20 completed Not Available Not Available Not Available amiodaron e 200 mg tablet 1/2 Daily 10/02 completed Frequenc y: daily;Me dication Descript ion: amiodaro ne; Dosage:0 .5; Route:or al; refills: 0; Quantity :60 tablet Not Available Not Available Not Available prednison e 20 mg tablet 2 tabs po qd for 7 days then 1 tab po qd for 7 days 11/20 completed Not Available Not Available Not Available atenolol 25 mg tablet Take 1 tablet every day by oral route. 11/25 completed patient stopped Not Available Not Available Not Available clopidogr el 75 mg tablet TAKE 1 TABLET BY MOUTH ONCE A DAY 12/17 completed Not Available Not Available Not Available Lipitor 20 mg tablet Take 1 tablet by oral route at bedtime. active Not Available Not Available No t Available levothyro xine 75 mcg tablet Every morning 05/06 completed Duration : 30 days;Ins truction s: for low thyroid. Take no calcium, iron, or antacids at same time as day as thyroid medicine .;Freque ncy: qam;Medi cation Descript ion: levothyr oxine; Dosage:1 ; Route:or al; refills: 4; Quantity :30 tablet Not Available Not Available Not Available Macrobid 100 mg capsule Take 1 capsule every 12 hours by oral route for 10 days. 05/26 completed Not Available Not Available Not Available levothyro xine 88 mcg tablet TAKE 1 TABLET BY MOUTH EVERY MORNING 11/05 completed last seen 05/06/16 template not open for 1 year appt Not Available Not Available Not Available alprazola m 0.5 mg tablet Take 1 tablet 3 times a day by oral route. 05/26 completed Not Available Not Available Not Available tamsulosi n 0.4 mg capsule Take 1 capsule twice a day by oral route for 90 days. 05/26 completed Not Available Not Available Not Available meclizine 25 mg tablet Take 1 tablet(s ) 3 times a day by oral route. 04/16 completed Not Available Not Available Not Available hydrocodo ne 7.5 mg-acetam inophen 325 mg tablet Take 1 tablet every 6 hours by oral route as needed. 04/16 completed Not Available Not Available Not Available Pravachol 20 mg tablet Bedtime 05/06 completed Frequenc y: hs;Medic ation Descript ion: pravasta tin; Dosage:1 ; Route:or al; refills: 4; Quantity :90 tablet Not Available Not Available Not Available nitroglyc gloria 0.4 mg sublingua l tablet Place 1 tablet by sublingu al route as directed . 2022 active Not Available Not Available Not Avai lable gabapenti n 300 mg capsule Take 2 capsules 3 times a day by oral route. active Not Available Not Available No t Available aspirin 81 mg tablet Daily 2005 active Duration : 30 days;Sukhi quency: daily;Al t Frequenc y: as direct.; Medicati on Descript ion: aspirin; Dosage:1 ; refills: 0; Quantity :30 Not Available Not Available Not Available azelastin e 137 mcg (0.1 %) nasal spray INSTILL 2 SPRAYS IN EACH NOSTRIL TWICE DAILY 2023 active PRN Not Available Not Available Not Avai lable ipratropi um bromide 42 mcg (0.06 %) nasal spray instill 2 sprays into each nostril three times a day if needed 11/25 completed Not Available Not Available Not Available fludrocor tisone 0.1 mg tablet Take 1 tablet every day by oral route as needed. 04/16 completed Not Available Not Available Not Available finasteri de 5 mg tablet TAKE ONE TABLET BY MOUTH EVERY DAY 06/17 completed Not Available Not Available Not Available loratadin e 10 mg tablet Take 1 tablet every day by oral route for 30 days. 05/26 completed Not Available Not Available Not Available midodrine 10 mg tablet Take 1 tablet 3 times a day by oral route. active Not Available Not Available No t Available Lexapro 10 mg tablet Take 1 tablet every day by oral route. 05/28 completed Not Available Not Available Not Available alfuzosin ER 10 mg tablet,ex tended release 24 hr Take 1 tablet every day by oral route for 90 days. 12/17 completed Not Available Not Available Not Available solifenac in 10 mg tablet Take 1 tablet every day by oral route for 90 days. 2023 active Not Available Not Available Not Avai lable Co Q-10 1 daily 11/25 completed Not Available Not Available Not Available B Complex 1 daily 11/25 completed Not Available Not Available Not Available vitamin B complex 1 dialy 04/16 completed Not Available Not Available Not Available meclizine ?mg prn 04/19 completed Not Available Not Available Not Available Centrum Silver 1 daily active Not Available Not Available Not Available Chelsy Root 04/16 completed Not Available Not Available Not Available Vitamin B12 daily 11/20 completed Not Available Not Available Not Available levothyro xine 50 mcg capsule Take 1 capsule every day by oral route. active Not Available Not Available No t Available Vitamin D3 125 mcg (5,000 unit) tablet Take 1 tablet every day by oral route. 04/16 completed Not Available Not Available Not Available Myrbetriq 50 mg tablet,ex tended release Take 1 tablet every day by oral route for 90 days. 2024 active Not Available Not Available Not Avai lable Linzess 145 mcg capsule Take 1 capsule every day by oral route. 05/22 completed Not Available Not Available Not Available Spiriva Respimat 2.5 mcg/actua tion solution for inhalatio n Inhale 2 puffs every day by inhalati on route. 10/02 completed Not Available Not Available Not Available Stiolto Respimat 2.5 mcg-2.5 mcg/actua tion solution for inhalatio n INHALE TWO PUFFS BY MOUTH EVERY DAY 11/05 completed Not Available Not Available Not Available Fish Oil 1,000 mg (120 mg-180 mg) capsule Take 1 capsule every day by oral route. 04/16 completed Not Available Not Available Not Available oxygen 2 lpm qhs and prn active Mitesh Not Available Not Available No t Available Vitals Date Recorded Body height Oxygen saturation Oxygen saturation in Arterial blood by Pulse oximetry Heart rate Body mass index (BMI) Body weight Systolic blood pressure Diastolic blood pressure Provider Name and Address Organization Details Last Updated DateTime 4 167.64 cm 95 % 95 % 62 /min 26.8 kg/m2 41861.0 3 g 104 mm[Hg] 64 mm[Hg] Ragini Jerome [facility] 4 13:46:31 Date Recorded Body height Body mass index (BMI) Body weight Heart rate Oxygen saturation Oxygen saturation in Arterial blood by Pulse oximetry Systolic blood pressure Diastolic blood pressure Provider Name and Address Organization Details Last Updated DateTime 4 167.64 cm 25 kg/m2 80493.8 2 g 95 /min 97 % 97 % 100 mm[Hg] 64 mm[Hg] Prettybipin Garcia [facility] 4 11:24:31 Date Recorded Body height Body mass index (BMI) Body weight Provider Name and Address Organization Details Last Updated DateTime 12/18/2023 167.64 cm 23.9 kg/m2 21471.67 g Judah Florentino [facility] 12/18/2023 16:16:22 Date Recorded Body height Body mass index (BMI) Body weight Oxygen saturation Oxygen saturation in Arterial blood by Pulse oximetry Heart rate Systolic blood pressure Diastolic blood pressure Provider Name and Address Organization Details Last Updated DateTime 167.64 cm 24 kg/m2 12319.2 6 g 95 % 95 % 102 /min 136 mm[Hg] 64 mm[Hg] Negin Moore [facility] 13:11:35 Date Recorded Body height Body mass index (BMI) Body weight Provider Name and Address Organization Details Last Updated DateTime 06/17/2024 167.64 cm 23.9 kg/m2 28684.67 g Judah Florentino [facility] 06/17/2024 15:39:36 Social History Question Answer Notes LastModified by Organizat ion Details LastModified Time Tobacco Smoking Status Former Smoker Quit 1974, chews tobacco Bridgett Ventura [facility] 06/03/2016 11:04:22 How Much Tobacco Do You Chew? 2-4/day Information not available 05/23/2016 When Did You Quit Smoking? 16+yearssin finesse [email or web address] Information not available 11/20/2022 Live Alone Or With Others? With Others Information not available 05/23/2016 Marital Status Informati on not available 05/23/2016 What Was The Date Of Your Most Recent Tobacco Screening? 06/17/2024 [email or web address] Information not available 06/17/2024 How Many Children Do You Have? 2 Information not available 05/23/2016 What Is Your Relationship Status? [email or web address] Information not available 02/26/2021 Has Tobacco Cessation Counseling Been Provided? Yes [email or web address] Information not available 04/16/2021 On What Date Was Tobacco Cessation Counseling Provided? 05/28/2024 [email or web address] Information not available 05/28/2024 Have You Recently Traveled Abroad? No [email or web address] Information not available 02/26/2021 Sex: Male Functional Status Question Answer Note LastModified by Organizat ion Details LastModified Time Do you use any illicit or recreational drugs? No Information not available 02/26/2021 Do you or have you ever used any other forms of tobacco or nicotine? Yes [email or web address] Information not available 11/20/2022 What is your level of alcohol consumption? [email or web address] Information not available 05/23/2016 Do you or have you ever used smokeless tobacco? Currently chews tobacco [email or web address] Information not available 04/19/2019 What is your occupation? Retired [email or web address] Information not available 05/23/2016 Do you or have you ever used e-cigarettes or vape? Never used electronic cigarettes Information not available 04/19/2019 Mental Status None recorded. Family History Relationship Description Onset Age of this Age Resolved Age Notes LastModified by Organization Details LastModified Time Paternal Uncle Diabetes mellitus [email or web address] Not available 05/06 10:31:18 Unspecified Relation Malignant neoplastic disease [place] [id number] Not available 05/2016 08:31:05 Unspecified Relation Family history of stroke [place] [id number] Not available 05/2016 08:31:19 Medical History Condition Response Coronary Artery Disease Y Other N Gout N Atrial Fibrillation Y Kidney Stones N Hyperthyroidism N Blood Transfusion N COPD N Depression N Anxiety Disorder Y Muscle, Joint, or Bone Problems N Vision or Eye Problems N Arthritis N Infertility N Polyps N Blood Clot N Cancer N Stroke N Varicosities N Fibromyalgia N Headaches N Kidney Disease N Heart Problems N Ear or Hearing Problems N Hospitalizations N Skin Problems N Eating Disorder N Constipation N Bleeding Disorder N Tuberculosis N Asthma N Thyroid Disorder Y GERD/Reflux N Hepatitis N Pulmonary Embolism N Chronic Ear Infections N Chicken Pox N Thrombophilias N Hypothyroidism N Lung Disease N Breast Problem N Difficulty Swallowing N Anesthesia Complications N Meniere's disease N Endometriosis N Bladder or Kidney Problems N High Cholesterol Y Liver Disease N Allergies/Hayfever Y Parkinson's Disease N Alzheimer's N Thyroid Problems Y GI Problems N Anemia N Mental Illness N Ovarian Cancer N Diabetes N Seizures/Epilepsy N Eczema N Diverticulitis N Reflux/GERD N Sleep Apnea N Heart Disease Y Pre-Eclampsia N Hypertension Y Osteoporosis N Immunizations Vaccine Type Date Status Note Provider Nam e and Address Organization Details Recorded Time Influenza, high-dose, trivalent, PF 8 completed Not Available [facility] 05/08/2019 02:50:00 Influenza, split virus, quadrivalent, preservative 7 [facility] 15:39:40 pneumococcal polysaccharide PPV23 9 completed Not Available [facility] 02/17/2021 15:01:22 Pneumococcal conjugate PCV 13 5 completed [facility] 05[facility]15[facility]23 14:22:36 Influenza, split virus, quadrivalent, preservative 9 completed [facility]23 14:22:36 Influenza, high-dose, quadrivalent, PF 0 completed Murelene Chadd [facility] 06/17/2024 15:39:40 COVID-19, mRNA, LNP-S, PF, 100 mcg/0.5mL dose or 50 mcg/0.25mL dose 1 completed Murelene Chadd [facility] 06/17/2024 15:39:40 COVID-19, mRNA, LNP-S, PF, 100 mcg/0.5mL dose or 50 mcg/0.25mL dose 1 completed Murelene Chadd [facility] 06/17/2024 15:39:40 COVID-19, mRNA, LNP-S, PF, 100 mcg/0.5mL dose or 50 mcg/0.25mL dose 1 completed [facility] 06/17/[facility]24 15:39:40 COVID-19, mRNA, LNP-S, PF, 100 mcg/0.5mL dose or 50 mcg/0.25mL dose 2 completed Murelene Chadd [facility] 06/17/2024 15:39:40 Past Encounters Encounter ID Performer Location Encounter Start Date Encounter Closed Date Diagnosis/Indication Diagnosis SNOMED-CT Code Diagnosis ICD10 Code Diagnosis Note [id number] FLAKITO JENNINGS MD ENDOCR[facility] [address] [place] [address] 05/06/2016 09:57:13 05/06/2016 11:51:34 Hypothyroidism 17482384 E03.9 Clinically euthyroidC heck TSH today Further adjustment of levothyrox ine dose to keep TSH within mid-normal reference rangePatie nt was instructed on the appropriat e method of levothyrox ine administra tion to be taken every a.m. on an empty stomach as new food, drinks or other medication s for at least 30 minutes. PPI and calcium -containin g preparatio ns is preferred to be given at least of her hours before or after levothyrox in therapy. Hypoglycemia 915865820 E 16.[address] Garay for hypoglycem ia.A1c in the office today of 5.3Random point-of-c are blood glucose of 116 He denies any further episodes of hypoglycem ia or borderline low blood glucose.No t Known to be diabetic.N O Further interventi on from that standpoint . [id number] MATA CASTRO MD CARDIOLOG Y [address] ,[address] [place] [id number] 06/03/2016 10:45:03 06/03/2016 14:44:00 Coronary arteriosclerosis in [place] artery 8486566481 107 I25.10 Medication changes, as well as new medication s were reviewed and discussed in detail including benefit and risk of therapy. The patient is otherwise doing well on current management . No new active problems identified . Chronic problems are all stable. Patient is to continue current regimen without change. All questions answered and regimen reviewed. Patient is to call for any change in status. Paroxysmal atrial fibrillation 001091655 I48.0 The patient remains in normal sinus rhythm on current therapy. No evidence of antiarrhyt hmic drug toxicity. Details of management and medication risk for antiarrhyt hmics and anticoagul ants reviewed.M edication changes, as well as new medication s were reviewed and discussed in detail including benefit and risk of therapy. The patient is otherwise doing well on current management . No new active problems identified . Chronic problems are all stable. Patient is to continue current regimen without change. All questions answered and regimen reviewed. Patient is to call for any change in status. Sick sinus syndrome 2408 3008 I49.5 Management of this problem was reviewed with the patient. No changes recommende d, status for this problem is stable at this time. Long-term drug therapy 551466074 Z79.899 No EKG evidence or symptoms suggesting amiodarone toxicity. 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 CHE[facility] [place] [facility] [address] [place] [address] 10/07/2016 14:39:09 10/07/2016 14:54:37 Sensorineural hearing loss of bilateral ears 476742345 H90.3 [id number] KAYE ALMODOVAR APRN [place] [facility] [address] [place] [address] 10/29/2016 10:41:31 10/29/2016 11:27:30 Benign paroxysmal positional vertigo 090316172 H81.11 Resolved Walking disability 43051 8008 R26.2 [id number] MATA CASTRO MD CARDIOLOG Y [address] [place] [address] 12/05/2016 09:51:06 12/05/2016 11:36:25 Sick sinus syndrome 43740066 I49.5 Management of this problem was reviewed with the patient. No changes recommende d, status for this problem is stable at this time.Pacem rupinder in situ.Trans telephonic pacemaker check done 11/29/2016, ANA PAULA estimated 11.5 years. No evidence of sustained atrial fibrillati on. Paroxysmal atrial fibrillation 399368065 I48.0 The patient remains in normal sinus rhythm on current therapy. No evidence of antiarrhyt hmic drug toxicity. Details of management and medication risk for antiarrhyt hmics and anticoagul ants reviewed.M edication changes, as well as new medication s were reviewed and discussed in detail including benefit and risk of therapy. The patient is otherwise doing well on current management . No new active problems identified . Chronic problems are all stable. Patient is to continue current regimen without change. All questions answered and regimen reviewed. Patient is to call for any change in status. EKG:Normal sinus rhythm with normal QTC. Mild nonspecifi c ST-T changes. Long-term drug therapy 004240854 Z79.899 Amiodarone :Patient shows no evidence of toxicity to the antiarrhyt hmic drug program. Electrocar diogram shows stable QTc interval. Risk of medication and monitoring reviewed with patient. Low blood pressure 39972 003 I95.9 I advised increasing sodium intake and avoiding dehydratio n with fluid hydration. [id number] MATA CASTRO MD CARDIOLOG [address] [place] [address] 06/05/2017 10:03:10 06/05/2017 11:30:26 Sick sinus syndrome 30479493 I49.5 Remote pacemaker check demonstrat es Appropriat e sensing and pacing with ANA PAULA greater than 5 years. Paroxysmal atrial fibrillation 894077024 I48.0 The patient remains in normal sinus rhythm on current therapy. No evidence of antiarrhyt hmic drug toxicity. Details of management and medication risk for antiarrhyt hmics and anticoagul ants reviewed.M edication changes, as well as new medication s were reviewed and discussed in detail including benefit and risk of therapy. The patient is otherwise doing well on current management . No new active problems identified . Chronic problems are all stable. Patient is to continue current regimen without change. All questions answered and regimen reviewed. Patient is to call for any change in status. EKG:Normal sinus rhythm with normal QTC. Mild nonspecifi c ST-T changes. Long-term drug therapy 719299496 Z79.899 Amiodarone :Patient shows no evidence of toxicity to the antiarrhyt hmic drug program. Electrocar diogram shows stable QTc interval. Risk of medication and monitoring reviewed with patient. Low blood pressure 32625 003 I95.9 I advised increasing sodium intake and avoiding dehydratio n with fluid hydration. Long-term current use of anticoagulant 294008722 Z79.01 CHADS2-VAS c score 2. I recommend adding clopidogre l to his aspirin. He complains of easy bruisabili ty just on aspirin and therefore will hold off on antithromb otic agents at this time. [id number] KALYN WALDEN MD [facility] [address] [place] [address] 09/01/2017 09:12:45 09/05/2017 11:00:39 Paroxysmal atrial fibrillation 778650402 I48.0 [id number] MATA CASTRO MD CARDIOLOG Y [address] [address] [facility] [address] [place] [address] 09/08/2017 13:14:19 09/09/2017 09:56:52 Sick sinus syndrome 73579784 I49.5 Remote pacemaker check demonstrat es Appropriat e sensing and pacing with ANA PAULA greater than 5 years. Paroxysmal atrial fibrillation 664743642 I48.0 The patient remains in normal sinus rhythm on current therapy. No evidence of antiarrhyt hmic drug toxicity. Details of management and medication risk for antiarrhyt hmics and anticoagul ants reviewed.M edication changes, as well as new medication s were reviewed and discussed in detail including benefit and risk of therapy. The patient is otherwise doing well on current management . No new active problems identified . Chronic problems are all stable. Patient is to continue current regimen without change. All questions answered and regimen reviewed. Patient is to call for any change in status. EKG:Normal sinus rhythm with normal QTC. Mild nonspecifi c ST-T changes. Long-term drug therapy 363134039 Z79.899 Amiodarone :Patient shows no evidence of toxicity to the antiarrhyt hmic drug program. Electrocar diogram shows stable QTc interval. Risk of medication and monitoring reviewed with patient. Low blood pressure 16010 003 I95.9 I advised increasing sodium intake and avoiding dehydratio n with fluid hydration. Long-term current use of anticoagulant 175933051 Z79.01 CHADS2-VAS c score 2. I recommend adding clopidogre l to his aspirin. He complains of easy bruisabili ty just on aspirin and therefore will hold off on antithromb otic agents at this time. Pulmonary emphysema 8743 3001 J43.9 [id number] MARIO MAXWELL MD PULMONARY [address] [facility], [address] [place] [address] 10/14/2017 13:10:57 10/15/2017 15:26:10 Chronic obstructive pulmonary disease 53363746 J44.9 Mild to moderate by FEV1. Trial of spiriva to see if he can use it without worsening urinary retention. If that proves problemati c, then I will change him to an ICS/LABA. Pulmonary emphysema 8743 3001 J43.9 Posterior rhinorrhea 758 80088 R09.82 Chronic hy poxemic respiratory failure 547262142 J96.11 Did not need oxygen by today's testing. He can continue it at night and PRN during the day for now and I will retest on him on follow up. 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 Stepping up spiriva to stiolto. Pulmonary emphysema 8743 3001 J43.9 Posterior rhinorrhea 758 49437 R09.82 Continue PRN ipra Chronic hy poxemic respiratory failure 965657394 J96.11 Did not need oxygen by today's testing but says he drops to 87 a times during the day at home. He can continue it at night and PRN during the day. [id number] MARIO MAXWELL MD PULMONARY [address] [place] [address], [address] [place] [address] 03/10/2018 11:23:16 03/18/2018 16:38:04 Administration of influenza vaccine 80176307 Z23 Chronic ob structive pulmonary disease 63230373 J44.9 Mild to moderate by FEV1. Continue Stiolto. Flu shot today. Pulmonary emphysema 8743 3001 J43.9 Posterior rhinorrhea 758 86979 R09.82 Continue PRN ipra Chronic hy poxemic respiratory failure 311210098 J96.11 He can continue it at night and PRN during the day. [id number] MATA CASTRO MD CARDIOLOG Y [address] [address] [facility] [place] [address] 03/16/2018 11:31:06 03/16/2018 13:39:56 Sick sinus syndrome 86401140 I49.5 Remote pacemaker check demonstrat es Appropriat e sensing and pacing 10 years.No evidence of atrial fibrillati on Paroxysmal atrial fibrillation 382849778 I48.0 The patient remains in normal sinus rhythm on current therapy. No evidence of antiarrhyt hmic drug toxicity. Details of management and medication risk for antiarrhyt hmics and anticoagul ants reviewed.M edication changes, as well as new medication s were reviewed and discussed in detail including benefit and risk of therapy. The patient is otherwise doing well on current management . No new active problems identified . Chronic problems are all stable. Patient is to continue current regimen without change. All questions answered and regimen reviewed. Patient is to call for any change in status. EKG:Normal sinus rhythm with normal QTC. Mild nonspecifi c ST-T changes. Long-term drug therapy [id number] Z79.899 Amiodarone :Patient shows no evidence of toxicity to the antiarrhyt hmic drug program. Electrocar diogram shows stable QTc interval. Risk of medication and monitoring reviewed with patient. Low blood pressure 82980 003 I95.9 I advised increasing sodium intake and avoiding dehydratio n with fluid hydration. Long-term current use of anticoagulant 429305354 Z79.01 CHADS2-VAS c score 2. I recommend adding clopidogre l to his aspirin. He complains of easy bruisabili ty just on aspirin and therefore will hold off on antithromb otic agents at this time. Pulmonary emphysema 8743 3001 J43.9 [id number] MATA CASTRO MD CARDIOLOG Y [address] [place] [address] 08/27/2018 11:09:56 08/27/2018 11:56:13 Sick sinus syndrome 05426315 I49.5 Permanent pacemaker in situ. Paroxysmal atrial fibrillation 565773718 I48.0 The patient remains in normal sinus rhythm on current therapy. No evidence of antiarrhyt hmic drug toxicity. Details of management and medication risk for antiarrhyt hmics and anticoagul ants reviewed.M edication changes, as well as new medication s were reviewed and discussed in detail including benefit and risk of therapy. The patient is otherwise doing well on current management . No new active problems identified . Chronic problems are all stable. Patient is to continue current regimen without change. All questions answered and regimen reviewed. Patient is to call for any change in status. EKG:Normal sinus rhythm with normal QTC. Mild nonspecifi c ST-T changes. Long-term drug therapy [id number] Z79.899 Amiodarone :Patient shows no evidence of toxicity to the antiarrhyt hmic drug program. Electrocar diogram shows stable QTc interval. Risk of medication and monitoring reviewed with patient. Low blood pressure 54039 003 I95.9 I advised increasing sodium intake and avoiding dehydratio n with fluid hydration. Long-term current use of anticoagulant 724762643 Z79.01 CHADS2-VAS c score 2. I recommend adding clopidogre l to his aspirin. He complains of easy bruisabili ty just on aspirin and therefore will hold off on antithromb otic agents at this time. Pulmonary emphysema 8743 3001 J43.9 Cardiac pa cemaker in situ [id number] Z95.0 Device remote check performed 07/30/18. Estimated device ANA PAULA 10 years. All pacing parameters appropriat e. No significan t arrhythmia s identified . Fatigue 50294254 R53.83 Major complaint at this time is fatigue and shortness of breath with myalgias. He may need to be evaluated for fibromyalg ia. 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 [id number] MATA CASTRO MD CARDIOLOG Y [address] ,[address] [place] [address] 09/28/2018 11:41:05 09/28/2018 16:08:26 Fatigue 98447693 R53.83 Echocardio gram and nuclear stress test unremarkab le patient reassured. Sick sinus syndrome 3600 3008 I49.5 Permanent pacemaker in situ. Paroxysmal atrial fibrillation 367779348 I48.0 The patient remains in normal sinus rhythm on current therapy. No evidence of antiarrhyt hmic drug toxicity. Details of management and medication risk for antiarrhyt hmics and anticoagul ants reviewed.M edication changes, as well as new medication s were reviewed and discussed in detail including benefit and risk of therapy. The patient is otherwise doing well on current management . No new active problems identified . Chronic problems are all stable. Patient is to continue current regimen without change. All questions answered and regimen reviewed. Patient is to call for any change in status. EKG:Normal sinus rhythm with normal QTC. Mild nonspecifi c ST-T changes. Long-term drug therapy 036900207 Z79.899 Amiodarone :Patient shows no evidence of toxicity to the antiarrhyt hmic drug program. Electrocar diogram shows stable QTc interval. Risk of medication and monitoring reviewed with patient. Low blood pressure 42189 003 I95.9 I advised increasing sodium intake and avoiding dehydratio n with fluid hydration. Long-term current use of anticoagulant 654119850 Z79.01 CHADS2-VAS c score 2. I recommend adding clopidogre l to his aspirin. He complains of easy bruisabili ty just on aspirin and therefore will hold off on antithromb otic agents at this time. Pulmonary emphysema 8743 3001 J43.9 Cardiac pa cemaker in situ [id number] Z95.0 Device remote check performed 07/30/18. Estimated device ANA PAULA 10 years. All pacing parameters appropriat e. No significan t arrhythmia s identified . [id number] MATA CASTRO MD ECHO [facility]ASC[facility] [address] [place] [address] 09/28/2018 11:42:23 2018 08:27:04 Dyspnea on exertion 36092181 R06.09 [id number] MATA CASTRO MD HEART STATION [facility] [address] [place] [address] 09/28/2018 11:42:43 09/28/2018 15:50:44 [id number] MARIO MAXWELL MD PULMONARY [address] [facility], [address] [place] [address] 10/02/2018 10:00:30 10/16/2018 18:56:18 Chronic obstructive pulmonary disease 53904507 J44.9 Mild to moderate by FEV1. Improved to Mild with FEV1 71% with regular LAMA/LABA use. Continue Stiolto. Flu shot annually. Pulmonary emphysema 8743 3001 J43.9 Posterior rhinorrhea 758 78748 R09.82 Continue PRN ipra Chronic hy poxemic respiratory failure 894160621 J96.11 He can continue it at night and PRN during the day. [id number] MARIO MAXWELL MD PULMONARY [address] [facility], [address] [place] [address] 03/29/2019 10:38:13 03/29/2019 11:31:15 Chronic obstructive pulmonary disease 06921346 J44.9 Mild to moderate by FEV1. Improved to Mild with FEV1 71% with regular LAMA/LABA use. Continue Stiolto. Flu shot annually. Continue oxygen at night. Pulmonary emphysema 8743 3001 J43.9 Posterior rhinorrhea 758 83285 R09.82 Continue PRN ipra Chronic hy poxemic respiratory failure 380124338 J96.11 He can continue it at night and PRN during the day. Chronic vertigo 69045065 11 9105 R42 1 time course of meclizine since his old order is 2 years old until he can see his ENT/PCP. [id number] MATA CASTRO MD CARDIOLOG Y SB [address] [place] [address] 04/19/2019 13:06:28 04/19/2019 15:33:31 Paroxysmal atrial fibrillation 315266579 I48.0 The patient remains in normal sinus rhythm on current therapy. No evidence of antiarrhyt hmic drug toxicity. Details of management and medication risk for antiarrhyt hmics and anticoagul ants reviewed.M edication changes, as well as new medication s were reviewed and discussed in detail including benefit and risk of therapy. The patient is otherwise doing well on current management . No new active problems identified . Chronic problems are all stable. Patient is to continue current regimen without change. All questions answered and regimen reviewed. Patient is to call for any change in status. EKG:Normal sinus rhythm with normal QTC. Mild nonspecifi c ST-T changes. Fatigue 44630079 R53.83 Echocardio gram and nuclear stress test unremarkab le patient reassured. Sick sinus syndrome 3608 3008 I49.5 Permanent pacemaker in situ. Low blood pressure 99049 003 I95.9 I advised increasing sodium intake and avoiding dehydratio n with fluid hydration. Long-term current use of anticoagulant 707718280 Z79.01 CHADS2-VAS c score 2. I recommend adding clopidogre l to his aspirin. He complains of easy bruisabili ty just on aspirin and therefore will hold off on antithromb otic agents at this time. Pulmonary emphysema 8743 3001 J43.9 Cardiac pa cemaker in situ 593489372 Z95.0 Device remote check performed 07/30/18. Estimated device ANA PAULA 10 years. All pacing parameters appropriat e. No significan t arrhythmia s identified . [id number] MATA CASTRO MD CARDIOLOG Y [address] [place] [address] 11/01/2019 10:31:19 11/01/2019 15:00:15 Paroxysmal atrial fibrillation 074842014 I48.0 The patient remains in normal sinus rhythm on current therapy. No evidence of antiarrhyt hmic drug toxicity. Details of management and medication risk for antiarrhyt hmics and anticoagul ants reviewed.M edication changes, as well as new medication s were reviewed and discussed in detail including benefit and risk of therapy. The patient is otherwise doing well on current management . No new active problems identified . Chronic problems are all stable. Patient is to continue current regimen without change. All questions answered and regimen reviewed. Patient is to call for any change in status. EKG:Normal sinus rhythm with normal QTC. Mild nonspecifi c ST-T changes. Fatigue 52547026 R53.83 Echocardio gram and nuclear stress test [facility] le patient reassured. Sick sinus syndrome 3608 3008 I49.5 Permanent pacemaker in situ. Low blood pressure 70622 003 I95.9 I advised increasing sodium intake and avoiding dehydratio n with fluid hydration. Long-term current use of anticoagulant 369592909 Z79.01 CHADS2-VAS c score 2. I recommend adding clopidogre l to his aspirin. He complains of easy bruisabili ty just on aspirin and therefore will hold off on antithromb otic agents at this time. Pulmonary emphysema 8743 [address] Maxwell. Cardiac pa christina in situ [id number] Z95.0 Device remote check performed 07/30/18. Estimated device ANA PAULA 10 years. All pacing parameters appropriat e. No significan t arrhythmia s identified . [id number] MARIO MAXWELL MD PULMONARY [address] [facility], [address] [place] [address] 02/29/2020 10:50:59 02/29/2020 14:01:39 Chronic obstructive pulmonary disease 47186661 J44.9 Mild to moderate by FEV1. Improved to Mild with FEV1 71% and then normalized with regular LAMA/LABA use. Continue Stiolto. Flu shot annually. Continue oxygen at night. Pulmonary emphysema 8743 3001 J43.9 Posterior rhinorrhea 758 84631 R09.82 Continue PRN ipra. adding azelastine . Chronic hy poxemic respiratory failure 064991754 J96.11 He can continue it at night and PRN during the day. [id number] MATA CASTRO MD CARDIOLOG Y [address]AST [address] [place] [address],[address] [place] [address] 05/03/2020 10:56:54 05/03/2020 12:23:29 Paroxysmal atrial fibrillation 481019391 I48.0 The patient remains in normal sinus rhythm on current therapy. No evidence of antiarrhyt hmic drug toxicity. Details of management and medication risk for antiarrhyt hmics and anticoagul ants reviewed.M edication changes, as well as new medication s were reviewed and discussed in detail including benefit and risk of therapy. The patient is otherwise doing well on current management . No new active problems identified . Chronic problems are all stable. Patient is to continue current regimen without change. All questions answered and regimen reviewed. Patient is to call for any change in status. EKG:Normal sinus rhythm with normal QTC. Mild nonspecifi c ST-T changes. Fatigue 19476858 R53.83 Echocardio gram and nuclear stress test unremarkab le patient reassured. Sick sinus syndrome 3608 3008 I49.5 Permanent pacemaker in situ. Low blood pressure 63772 003 I95.9 I advised increasing sodium intake and avoiding dehydratio n with fluid hydration. Long-term current use of anticoagulant 714370309 Z79.01 CHADS2-VAS c score 2. I recommend adding clopidogre l to his aspirin. He complains of easy bruisabili ty just on aspirin and therefore will hold off on antithromb otic agents at this time. Pulmonary emphysema 8743 [address] Maxwell. Cardiac pa christina in situ [id number] Z95.0 Device remote check reviewed. Estimated device ANA PAULA assessed. All pacing parameters appropriat e. No significan t arrhythmia s identified . COVID-19 841599173 U07.1 I had extensive discussion with patient and family present regarding the importance of vaccinatio n and reviewed findings of COVID 19 infection and answered all questions. [id number] MATA CASTRO MD CARDIOLOG Y [address] [place] [address] 10/12/2020 11:31:51 10/12/2020 13:51:56 Paroxysmal atrial fibrillation 818010956 I48.0 The patient remains in normal sinus rhythm on current therapy. No evidence of antiarrhyt hmic drug toxicity. Details of management and medication risk for antiarrhyt hmics and anticoagul ants reviewed.M edication changes, as well as new medication s were reviewed and discussed in detail including benefit and risk of therapy. The patient is otherwise doing well on current management . No new active problems identified . Chronic problems are all stable. Patient is to continue current regimen without change. All questions answered and regimen reviewed. Patient is to call for any change in status. EKG:Normal sinus rhythm with normal QTC. Mild nonspecifi c ST-T changes. Fatigue 85974341 R53.83 Echocardio gram and nuclear stress test unremarkab le patient reassured. Sick sinus syndrome 3608 3008 I49.5 Permanent pacemaker in situ. Low blood pressure 49148 003 I95.9 I advised increasing sodium intake and avoiding dehydratio n with fluid hydration. Long-term current use of anticoagulant 138654396 Z79.01 CHADS2-VAS c score 2. I recommend adding clopidogre l to his aspirin. He complains of easy bruisabili ty just on aspirin and therefore will hold off on antithromb otic agents at this time. Pulmonary emphysema 8743 [address] Maxwell. Cardiac pa christina in situ [id number] Z95.0 Device remote check reviewed. Estimated device ANA PAULA assessed. All pacing parameters appropriat e. No significan t arrhythmia s identified . COVID-19 458457481 U07.1 I had extensive discussion with patient and family present regarding the importance of vaccinatio n and reviewed findings of COVID 19 infection and answered all questions. [id number] MARIO MAXWELL MD PULMONARY [address] [facility], [address] [place] [address] 10/19/2020 11:01:11 10/19/2020 12:05:57 Chronic obstructive pulmonary disease 54482843 J44.9 Mild to moderate by FEV1. Improved to Mild with FEV1 71% and then normalized with regular LAMA/LABA use. Continue Stiolto. Flu shot annually. Continue oxygen at night. Pulmonary emphysema 8743 3001 J43.9 Posterior rhinorrhea 758 46526 R09.82 Continue PRN ipra/azela maurizio. Chronic hy poxemic respiratory failure 398891926 J96.11 He can continue it at night and PRN during the day. Dyspnea 058742786 R06.00 [id number] MARIO MAXWELL MD PULMONARY [address] [facility], [address] [place] [address] 11/20/2020 10:43:03 11/20/2020 12:11:49 Chronic obstructive pulmonary disease 22261313 J44.9 Mild to moderate by FEV1. Improved to Mild with FEV1 71% and then normalized with regular LAMA/LABA use. Continue oxygen at night. ---- Spirometry has normalized with an FEV1 of 1.89 (81%). This is with him being off all inhalers for 1 week. Given how well he is doing without inhalers for mild pulmonary function testing standpoint , I suspect that his symptoms are not related to COPD. I'm okay with him stoppign his stiolto. Pulmonary emphysema 8743 3001 J43.9 Posterior rhinorrhea 758 87477 R09.82 Continue PRN ipra/azela maurizio. Chronic hy poxemic respiratory failure 961747702 J96.11 He can continue it at night and PRN during the day. [id number] MERLIN MOSER MD [facility] [address] [place] [address] 02/26/2021 14:37:14 02/26/2021 16:03:17 Ureteric stone 58279441 N20.1 Deo hematuria 30516633 5 R31.0 [id number] MERLIN MOSER MD SURGERY SCHEDULE [address] [place] [address] 03/06/2021 12:12:00 03/06/2021 12:13:44 [id number] MERLIN MOSER MD DESHAUN [facility] [address] [place] [address] 03/12/2021 15:14:54 03/12/2021 18:19:13 Kidney stone 15645304 N20.0 Transient cerebral ischemia 257363271 G45.9 [id number] WINTER CLARK MD CARDIOLOG Y [address]AST [address] [place] [address],[address] [place] [address] 04/16/2021 12:56:20 04/16/2021 14:25:27 Paroxysmal atrial fibrillation 359582176 I48.0 CHADS2-VAS c score 5. Given his high risk for stroke, I think using direct acting oral anticoagul ant is advisable. He remains concerned about his recent urological issues and bleeding and would like to continue on Clopidogre l and aspirin. He has complained of easy bruisabili ty on aspirin monotherap y. 04/16/2021 : Patient and spouse aware of increased stroke risk with the use of DAPT instead of DOAC therapy. Sick sinus syndrome 3608 3008 I49.5 Last in-office device check: 04/16/2021 Recommend quarterly remote device checks and annual in office interrogat ion. Pulmonary emphysema 8743 [address] Maxwell. Cardiac pa cemaker in situ 939446196 Z95.0 Device: Medtronic AdaptaImpl ant: 03/29/2014M ode: MVP 60 Body mass index 25-29 - overweight 340246026 Z68.25 Tobacco us e cessation education 337334199 Z71.6 [id number] MARIO MAXWELL MD PULMONARY [address] [facility], [address] [place] [phone] 06/01/2021 10:30:30 06/01/2021 11:51:56 Chronic obstructive pulmonary disease 94934245 J44.9 Mild by FEV1. Continue oxygen at night. ----Honest ly, I do not think he gets much benefit from inhalers. His FEV1's 74% without using Stiolto more than 3 times in the last 6 months. I am okay with him just using his inhaler when he has a bout of bronchitis . His biggest cause of shortness of breath is his deconditio laura and I stressed to him the importance of of try to do any level of activity to keep from getting weaker Pulmonary emphysema 8743 3001 J43.9 Posterior rhinorrhea 758 78960 R09.82 Continue PRN ipra/azela maurizio. Chronic hy poxemic respiratory failure 467100397 J96.11 He can continue it at night and PRN during the day. [id number] MD [facility] [address] [facility] [address] [place], [place] [address] 06/05/2021 11:18:23 06/05/2021 12:26:42 Kidney stone 79347441 N20.0 Benign pro static hyperplasia with outflow obstruction 160021859 N40.1 [id number] MD [facility] [address] [facility] [place] [address] 10/19/2021 10:53:24 10/19/2021 12:30:49 Urinary tract infectious disease 57516556 N39.0 Kidney stone 50771350 N2 0.0 [id number] WINTER CLARK MD CARDIOLOG Y [address] ,[address] [place] [address] 11/05/2021 14:15:33 11/05/2021 15:23:24 Paroxysmal atrial fibrillation 503134864 I48.0 CHADS2-VAS c score 5. Given his high risk for stroke, I think using direct acting oral anticoagul ant is advisable. He remains concerned about his recent urological issues and bleeding and would like to continue on Clopidogre l and aspirin. He has complained of easy bruisabili ty on aspirin monotherap y. 04/16/2021 : Patient and spouse aware of increased stroke risk with the use of DAPT instead of DOAC therapy. Sick sinus syndrome 3608 3008 I49.5 Last in-office device check: 04/16/2021 Recommend quarterly remote device checks and annual in office interrogat ion. Cardiac pa cemaker in situ 499486118 Z95.0 Device: Medtronic AdaptaImpl ant: 03/29/2014M ode: MVP 60 Pulmonary emphysema 8743 [address] Maxwell. Body mass index 25-29 - overweight 508550795 Z68.25 Tobacco us e cessation education 254368582 Z71.6 [id number] MARIO MAXWELL MD PULMONARY [address] [facility], [address] [place] [address] 11/30/2021 10:35:00 11/30/2021 11:25:04 Chronic obstructive pulmonary disease 81975212 J44.9 Mild by FEV1. Continue oxygen at night. ----Honest ly, I do not think he gets much benefit from inhalers. His FEV1's 74% without using Stiolto more than 3 times in the last 6 months. I am okay with him just using his inhaler when he has a bout of bronchitis . His biggest cause of shortness of breath is his deconditio laura and I stressed to him the importance of of try to do any level of activity to keep from getting weaker Pulmonary emphysema 8743 3001 J43.9 Posterior rhinorrhea 758 90959 R09.82 Continue PRN ipra/azela maurizio. Chronic hy poxemic respiratory failure 731339175 J96.11 He can continue it at night and PRN during the day. [id number] WINTER CLARK MD CARDIOLOG Y [address] [place] [address] ,[address] [place] [address] 05/22/2022 14:37:01 05/22/2022 15:45:37 Paroxysmal atrial fibrillation 375120462 I48.0 CHADS2-VAS c score 5. Given his high risk for stroke, I think using direct acting oral anticoagul ant is advisable. He remains concerned about his recent urological issues and bleeding and would like to continue on Clopidogre l and aspirin. He has complained of easy bruisabili ty on aspirin monotherap y. 04/16/2021 : Patient and spouse aware of increased stroke risk with the use of DAPT instead of DOAC therapy. Sick sinus syndrome 3608 3008 I49.5 Last in-office device check: 05/22/2022Re commend quarterly remote device checks and annual in office interrogat ion. Cardiac pa cemaker in situ 707195736 Z95.0 Device: Medtronic Adapta DRImplant: 03/29/2014M ode: MVP 60 Pulmonary emphysema 8743 [address] Maxwell. Body mass index 25-29 - overweight 640697691 Z68.25 Tobacco us e cessation education 273567858 Z71.6 [id number] MERLIN MOSER MD [facility] [address] [place] [address] 05/23/2022 14:26:37 05/26/2022 04:06:29 Benign prostatic hyperplasia with outflow obstruction 426333032 N40.1 Kidney stone 24625616 N2 0.0 [id number] MERLIN MOSER MD [facility] [address] [place] [address] 06/20/2022 16:39:00 06/20/2022 18:30:42 Kidney stone 98537021 N20.0 Benign pro static hyperplasia with outflow obstruction 153549642 N40.1 [id number] WINTER CLARK MD CARDIOLOG Y [address] ,[address] [place] [address] 10/30/2022 13:47:40 10/30/2022 14:50:12 Paroxysmal atrial fibrillation 207080144 I48.0 CHADS2-VAS c score 5. Given his high risk for stroke, I have recommende d use of a direct acting oral anticoagul ant. He has declined this because of urological issues and hematuria, and has chosen to continue on Clopidogre l and aspirin. He is aware of the increased risk for ischemic stroke by using DAPT instead of DOAC therapy. Sick sinus syndrome 3608 3008 I49.5 Last in-office device check: 05/22/2022Re commend quarterly remote device checks and annual in office interrogat ion. Cardiac pa cemaker in situ 201692850 Z95.0 Device: Medtronic Adapta DRImplant: 03/29/2014M ode: MVP 60 Pulmonary emphysema 8743 [address] Maxwell. Body mass index 25-29 - overweight 874909039 Z68.25 Tobacco us e cessation education 949745037 Z71.6 Coronary arteriosclerosis 67407697 I25.10 History of coronary artery bypass grafting 642673215 Z95.1 [id number] WINTER CLARK MD CARDIOLOG Y [address]AST [address] [place] [address],[address] [place] [address] 11/20/2022 13:56:00 11/20/2022 14:48:40 Coronary arteriosclerosis 59368251 I25.10 History of coronary artery bypass grafting 146360960 Z95.1 Paroxysmal atrial fibrillation 800968887 I48.0 CHADS2-VAS c score 5. Given his high risk for stroke, I have recommende d use of a direct acting oral anticoagul ant.He has declined this because of urological issues and hematuria, and has chosen to continue on Clopidogre l and aspirin. He is aware of the increased risk for ischemic stroke by using DAPT instead of DOAC therapy. Sick sinus syndrome 3608 3008 I49.5 Last in-office device check: 05/22/2022Re commend quarterly remote device checks and annual in office interrogat ion. Cardiac pa christina in situ 885786526 Z95.0 Device: Medtronic Adapta DRImplant: 03/29/2014M ode: MVP 60 Pulmonary emphysema 8743 [address] Maxwell. Body mass index 25-29 - overweight 560453603 Z68.25 Tobacco us e cessation education 181939834 Z71.6 [id number] MARIO MAXWELL MD PULMONARY [address] [facility], [address] [place] [address] 12/04/2022 10:08:19 12/04/2022 11:12:33 Chronic obstructive pulmonary disease 97147642 J44.9 Mild by FEV1. Continue oxygen at night. ----Honest ly, I do not think he gets much benefit from inhalers. His FEV1 is 74% without using Stiolto more than 3 times in the last 18 months. I am okay with him just using his inhaler when he has a bout of bronchitis . His biggest cause of shortness of breath is his deconditio laura and I stressed to him the importance of of try to do any level of activity to keep from getting weaker Pulmonary emphysema 8743 3001 J43.9 Posterior rhinorrhea 758 72256 R09.82 Continue PRN ipra/azela maurizio. Chronic hy poxemic respiratory failure [id number] J96.11 He can continue oxygen at night and PRN during the day. [id number] [facility] [address],[place] [address] 01/02/2023 16:09:38 01/14/2023 04:44:21 Benign prostatic hyperplasia with outflow obstruction [id number] N40.1 Kidney stone 16810974 N2 0.0 Nocturia 577506276 R35.1 [id number] MERLIN MOSER MD [facility] [address] [facility],[place] [address] 02/07/2023 10:50:03 02/07/2023 11:42:51 Benign prostatic hyperplasia with outflow obstruction [id number] N40.1 Kidney stone 04039529 N2 0.0 Nocturia 891285545 R35.1 [id number] MERLIN MOSER MD [facility] [address] [facility] [address] 03/03/2023 12:32:09 03/03/2023 13:23:50 Acute urinary tract infection 872703959 N39.0 Benign pro static hyperplasia with outflow obstruction 180568665 N40.1 [id number] MERLIN MOSER MD [facility] [address],[place] [address] 05/15/2023 13:35:31 05/15/2023 18:55:26 Acute urinary tract infection 992180113 N39.0 Benign pro static hyperplasia with outflow obstruction 753214988 N40.1 Urinary incontinence 165 256192 R32 [id number] WINTER CLARK MD CARDIOLOG Y [address] [place] [address] 05/26/2023 13:11:13 05/26/2023 14:04:23 Coronary arteriosclerosis 23254845 I25.10 History of coronary artery bypass grafting 733777626 Z95.1 Paroxysmal atrial fibrillation 548455059 I48.0 CHADS2-VAS c score 5. Given his high risk for stroke, I have recommende d use of a direct acting oral anticoagul ant.He has declined this because of urological issues and hematuria, and has chosen to continue on Clopidogre l and aspirin. He is aware of the increased risk for ischemic stroke by using DAPT instead of DOAC therapy. Sick sinus syndrome 3608 3008 I49.5 Last in-office device check: 4Re commend quarterly remote device checks and annual in office interrogat ion. Cardiac pa cemaker in situ 585759641 Z95.0 Device: MiTurno Adapta DRImplant: 03/29/2014M ode: MVP 60 Pulmonary emphysema 8743 3001 J43.9 Body mass index 25-29 - overweight 797326520 Z68.25 Tobacco us e cessation education 772743560 Z71.6 05/26/2023: Continues to chew tobacco [id number] WINTER CLARK MD CARDIOLOG Y [address] [place], [place] [address] 11/26/2023 13:35:40 11/26/2023 14:14:08 Coronary arteriosclerosis 42078452 I25.10 History of coronary artery bypass grafting 666462219 Z95.1 Paroxysmal atrial fibrillation 151431743 I48.0 CHADS2-VAS c score 5. Given his high risk for stroke, I have recommende d use of a direct acting oral anticoagul ant.He has declined this because of urological issues and hematuria, and has chosen to continue on Clopidogre l and aspirin. He is aware of the increased risk for ischemic stroke by using DAPT instead of DOAC therapy. Sick sinus syndrome 3608 3008 I49.5 Last in-office device check: 4Re commend quarterly remote device checks and annual in office interrogat ion. Cardiac pa cemaker in situ 760488033 Z95.0 Device: Medtronic Adapta DRImplant: 03/29/2014M ode: MVP 60 Pulmonary emphysema 8743 3001 J43.9 Body mass index 25-29 - overweight 544662902 Z68.25 Tobacco us e cessation education 195821955 Z71.6 05/26/2023: Continues to chew tobacco [id number] IZZY OSBORNE MD PULMONARY [address] [facility], [address] [place] [address] 12/11/2023 11:12:15 12/11/2023 11:58:22 Chronic obstructive pulmonary disease 28804980 J44.9 Previous history of mild COPD without significan t lower respirator y tract symptomato logy on no inhaler therapy. Favor continuati on of watchful monitoring , feel no indication for inhaler therapy at this time Hypoxemia 097296699 R09. 02 On nocturnal oxygen as per PMD. He has a history of CALI s/p UPPP without any residual symptoms of sleep disordered breathing. Favor proceeding with overnight oxymetry on RA. At his request I will communicat e the results over the phone Allergic rhinitis 324314 04 J30.9 Continue azelastine and ipratropiu m [id number] MERLIN MOSER MD [facility] [address] [facility],[place] [address] 12/18/2023 15:15:03 12/19/2023 16:44:56 Benign prostatic hyperplasia with outflow obstruction 237619289 N40.1 Urinary incontinence 165 550220 R32 [id number] WINTER CLARK MD CARDIOLOG Y [address] ,[address] [place] [address] 05/28/2024 12:58:24 05/28/2024 13:37:22 Coronary arteriosclerosis 53509493 I25.10 History of coronary artery bypass grafting 972959948 Z95.1 Paroxysmal atrial fibrillation 253449784 I48.0 CHADS2-VAS c score 5. Given his high risk for stroke, I have recommende d use of a direct acting oral anticoagul ant.He has declined this because of urological issues and hematuria, and has chosen to continue on Clopidogre l and aspirin. He is aware of the increased risk for ischemic stroke by using DAPT instead of DOAC therapy. Sick sinus syndrome 0330 3008 I49.5 Last in-office device check: 05/28/2024R ecommend quarterly remote device checks and annual in office interrogat ion. Cardiac pa chitraaker in situ 835573941 Z95.0 Device: Medtronic Adapta DRImplant: 03/29/2014M ode: MVP 60 Pulmonary emphysema 8743 3001 J43.9 Body mass index 25-29 - overweight 041791368 Z68.25 [id number] MERLIN MOSER MD [facility] [address] [facility],[place] [address] 06/17/2024 15:36:16 06/17/2024 16:39:23 Urinary incontinence 811621574 R32 Benign pro static hyperplasia with outflow obstruction 353383897 N40.1 Health Concerns Section Related Observation LastModified by Organization Detai ls LastModified Time None Recorded Concern Status LastModified by Organization Details LastModified Time None Recorded Advance Directives Directive None Recorded Payers Insurance Date Sequence Insurance Name Policy Number Policy Hollins Covered Member ID Hollins Member ID Guarantor Name 06/14/2024 1 [employer] (MEDICARE REPLACEMENT/A DVANTAGE - PPO) Tony Bonilla [id number] Tony Bonilla Notes Date Note Type Note Provider Name and Address Organization Details Recorded Time 4 text/html CARDIOVASCULAR HISTORY:# Coronary artery disease s/p CABGx1 (1997)a. [facility] 09/2014. # Paroxysmal Atrial Fibrillationa. Amiodarone 2009? 2019b. Currently using ASA/clopidogrel (patient choice) # Sinus node dysfunction status post Medtronic dual-chamber pacemaker . Original system implanted . Generator change 2013 # COPD (Dr Maxewll)# Chronic hypoxic respiratory failure (O2 at night). # [facility] .He presented with right-sided weakness and dysarthria. A stroke alert was activated, and his CT scan suggested a new vague low-density change in the left occipital lobe. Clopidogrel therapy was prescribed at discharge.CTA of the neck made note of narrowing of the left subclavian vein distally and abrupt angulation of the left subclavian vein with extensive collateral; these findings suggest occlusion or narrowing with recannulization. # Dyslipidemia* Has complained of chronic fatigue and weakness of muscles. Dr Castro had noted that discontinuing atorvastatin did not provide any improvement in his symptoms. Other comorbidities:Hypothyroidis m 11/20/2022: Short interval follow-up after recent NSTEMI October 24-2022.As previously noted, Mr. Bonilla was recently hospitalized with NSTEMI with peak troponin 1.00. He underwent Coronary Angiography on 11/04/2022 (Dr. Walden):1. Left main: Large-caliber vessel with mild 30% plaquing noted. Bifurcates into the left anterior descending artery and left circumflex artery.2. LAD: long diffuse 90 to 99% stenosis. Competitive flow noted in the mid LAD, consistent with a patent bypass graft.3. LCx: Large caliber vessel, codominant supplying a PLB. Mild plaquing noted4. RCA: Codominant vessel yielding a PDA. It has mild plaquingThe PENNINGTON-LAD graft is patent. Of note it supplies a small LAD vessel which is patent Impression:1. Patent PENNINGTON to LAD. The paskenta vessel itself is small2. The paskenta LAD has diffuse 90 to 99% stenosis noted from the proximal to mid vessel3. LCx and RCA are codominant vessels, both patent and without stenosis.4. Normal LV function. LVEF 50-55% He has not had any further episodes of chest pain since his discharge from hospital.He did not have any postprocedural complications.His blood pressure has been running a little low, and was 102/60 in the office today.I reviewed the study findings with him today, and addressed his questions. Reassurance was provided regarding the patency of his PENNINGTON graft and lack of significant obstructive disease in the other epicardial vessels. 05/26/2023: 6 month follow-up visitHe reports that he was hospitalized February 132022 due to hematuria following TURP. EKG today: Sinus tachycardiaVentricular Rate: 106bpm.QRS duration 92 and QTc 400ms. We discussed his tachycardia and the potential to start him on a beta-sherlyn. His reports concerns that he was having syncopal spells when using metoprolol. Although most likely preceded his pacemaker implant, and would therefore be safe to rechallenge, we have decided to try him on an alternative beta-sherlyn (atenolol). 11/26/2023: 6 month follow-up visita. Coronary artery disease s/p CABGx1 (1997)NSTEMI October 24-2022.b. Paroxysmal Atrial Fibrillationc. Sinus node dysfunction status post Medtronic dual-chamber pacemaker 2004, gen change 2013d. COPD/Chronic hypoxic respiratory failure (O2 at night).e. History of stroke Cath on 11/04/2022 (Dr. Waldne):1. Patent PENNINGTON to LAD. The paskenta vessel itself is small. The paskenta LAD has diffuse 90 to 99% stenosis noted from the proximal to mid vessel2. LCx and RCA are codominant vessels, both patent and without stenosis. Former patient of Dr Mata Castro, from [place], [place].He was admitted in August following a mechanical fall in his restroom. He apparently broke a RIGHT rib. He was discharged home with analgesia, but became obtunded with alprazalam + pain meds (hydrocodone), and was readmitted for a few days. He did not raise any new cardiovascular concerns today.At his last visit, atenolol 25 mg daily was introduced. It does not appear that he has taking this, and in fact Dr. Agosto has started him on midodrine.His blood pressure was 104/64 in the office today.Since starting midodrine, he has not experienced any episodes of chest pain.His weight has increased by about 4 pounds since I last saw him. No edema.He has not experienced any sense of palpitations.+ Stable shortness of breath. He is no longer doing treadmill exercise. WINTER CLARK MD [address] [place], [address], [facility] 11/26/2023 19:08:24 4 text/html Patient comes in for follow-up of COPD as well as a previous history of obstructive sleep apnea he is currently on no inhaler therapy and quit smoking several decades ago. He denies any significant shortness of breath, cough, sputum production. He does not have any significant wheezes. He denies any significant activity intolerance secondary to respiratory complaints. He also has a history of obstructive sleep apnea status post UPPP. He states that he was prescribed nocturnal oxygen supplementation which he has been on for several years now. I do not see any records of previous sleep studies as well as overnight oximetry on room air. He denies any symptomatology suggestive of persistent sleep disordered breathing IZZY Plaza MD [address] [place], [address], [facility] 12/11/2023 11:38:02 4 text/html 83-year-old male in the office for follow-up evaluation for history of benign prostatic hyperplasia with history of limited TUR, 3.5 g of tissue resected. Since procedure he has had symptoms of urinary incontinence. He is currently taking alfuzosin and solifenacin. He continues taking alfuzosin and finasteride. He voids every 4 hours with nocturia 0 times nightly. No gross hematuria or dysuria. He has recent decreased balance and walks with walker. MERLIN MOSER MD [facility] [place], [address], [facility] 12/19/2023 08:33:27 5 text/html CARDIOVASCULAR HISTORY:# Coronary artery disease s/p CABGx1 (1997)a. C 09/2014. # Paroxysmal Atrial Fibrillationa. Amiodarone 2009? 2019b. Currently using ASA/clopidogrel (patient choice) # Sinus node dysfunction status post Medtronic dual-chamber pacemaker . Original system implanted . Generator change 2013 # COPD (Dr Maxwell)# Chronic hypoxic respiratory failure (O2 at night). # [facility] of [facility] .He presented with right-sided weakness and dysarthria. A stroke alert was activated, and his CT scan suggested a new vague low-density change in the left occipital lobe. Clopidogrel therapy was prescribed at discharge.CTA of the neck made note of narrowing of the left subclavian vein distally and abrupt angulation of the left subclavian vein with extensive collateral; these findings suggest occlusion or narrowing with recannulization. # Dyslipidemia* Has complained of chronic fatigue and weakness of muscles. Dr Castro had noted that discontinuing atorvastatin did not provide any improvement in his symptoms. Other comorbidities:Hypothyroidis m 11/20/2022: Short interval follow-up after recent NSTEMI October 242022.As previously noted, Mr. Bonilla was recently hospitalized with NSTEMI with peak troponin 1.00. He underwent Coronary Angiography on 11/04/2022 (Dr. Walden):1. Left main: Large-caliber vessel with mild 30% plaquing noted. Bifurcates into the left anterior descending artery and left circumflex artery.2. LAD: long diffuse 90 to 99% stenosis. Competitive flow noted in the mid LAD, consistent with a patent bypass graft.3. LCx: Large caliber vessel, codominant supplying a PLB. Mild plaquing noted4. RCA: Codominant vessel yielding a PDA. It has mild plaquingThe PENNINGTON-LAD graft is patent. Of note it supplies a small LAD vessel which is patent Impression:1. Patent PENNINGTON to LAD. The paskenta vessel itself is small2. The paskenta LAD has diffuse 90 to 99% stenosis noted from the proximal to mid vessel3. LCx and RCA are codominant vessels, both patent and without stenosis.4. Normal LV function. LVEF 50-55% He has not had any further episodes of chest pain since his discharge from hospital.He did not have any postprocedural complications.His blood pressure has been running a little low, and was 102/60 in the office today.I reviewed the study findings with him today, and addressed his questions. Reassurance was provided regarding the patency of his PENNINGTON graft and lack of significant obstructive disease in the other epicardial vessels. 05/26/2023: 6 month follow-up visitHe reports that he was hospitalized February 13-2022 due to hematuria following TURP. EKG today: Sinus tachycardiaVentricular Rate: 106bpm.QRS duration 92 and QTc 400ms. We discussed his tachycardia and the potential to start him on a beta-sherlyn. His reports concerns that he was having syncopal spells when using metoprolol. Although most likely preceded his pacemaker implant, and would therefore be safe to rechallenge, we have decided to try him on an alternative beta-sherlyn (atenolol). 11/26/2023: 6 month follow-up visita. Coronary artery disease s/p CABGx1 (1997)NSTEMI October 24-2022.b. Paroxysmal Atrial Fibrillationc. Sinus node dysfunction status post Medtronic dual-chamber pacemaker 2004, gen change 2013d. COPD/Chronic hypoxic respiratory failure (O2 at night).e. History of stroke Cath on 11/04/2022 (Dr. Walden):1. Patent PENNINGTON to LAD. The paskenta vessel itself is small. The paskenta LAD has diffuse 90 to 99% stenosis noted from the proximal to mid vessel2. LCx and RCA are codominant vessels, both patent and without stenosis. Former patient of Dr Mata Castro, from [place], [place].He was admitted in August following a mechanical fall in his restroom. He apparently broke a RIGHT rib. He was discharged home with analgesia, but became obtunded with alprazalam + pain meds (hydrocodone), and was readmitted for a few days. He did not raise any new cardiovascular concerns today.At his last visit, atenolol 25 mg daily was introduced. It does not appear that he has taking this, and in fact Dr. Agosto has started him on midodrine.His blood pressure was 104/64 in the office today.Since starting midodrine, he has not experienced any episodes of chest pain.His weight has increased by about 4 pounds since I last saw him. No edema.He has not experienced any sense of palpitations.+ Stable shortness of breath. He is no longer doing treadmill exercise. 05/28/2024: 6 month follow-up visita. Coronary artery disease s/p CABGx1 (1997)NSTEMI October 24-2022.b. Paroxysmal Atrial Fibrillationc. Sinus node dysfunction status post Medtronic dual-chamber pacemaker 2004, gen change 2013d. COPD/Chronic hypoxic respiratory failure (O2 at night).e. History of stroke Cath on 11/04/2022 (Dr. Walden):1. Patent PENNINGTON to LAD. The paskenta vessel itself is small. The paskenta LAD has diffuse 90 to 99% stenosis noted from the proximal to mid vessel2. LCx and RCA are codominant vessels, both patent and without stenosis. Former patient of Dr Mata Castro, from [place], [place]. He reports generally stable health since I last saw him.His complaint is of worsening of his lower extremity weakness.He arrived in a wheelchair today. He was apparently evaluated by Dr. Mac at several years ago and told that his spine was inoperable. He has not seen anybody recently regarding his lower extremity weakness. He has loss of sensation in the right lower extremity, but no bladder or bowel involvement. He has not had any further injuries from falls. He had been admitted in August 2023 following a mechanical fall in his restroom. He apparently broke a RIGHT rib. His blood pressure was 136/64 in the office today.His weight has decreased by about 17 pounds since I last saw him. No edema.He has not experienced any sense of palpitations.+ Stable shortness of breath. His pacemaker system was interrogated at today's visit, and I reviewed the findings with him. See scanned document for complete results. Device: Medtronic Adapta Implant: Original system placed in 2020 with GEN change March 29, 2014.Estimated longevity: 31 months Mode: MVP Pacin% AP, <1% RVP Events: None. No permanent programming changes were made to his device. WINTER CLARK MD [address] [place] [address], [phone], [facility] 05/29/2024 07:51:54 5 text/html 83-year-old male in the office for follow-up evaluation for history of benign prostatic hyperplasia with history of limited TUR, 3.5 g of tissue resected. Patient reports minimal improvement to urination symptoms, daytime frequency every 3-4 hours, nocturia 0-1x, he reports some hesitancy, no dysuria, no gross hematuria, continued urinary incontinence and wears 2 protective pads daily. He continues taking Solifenacin MERLIN MOSER MD [address] [place] [address], [phone], [facility] 06/17/2024 21:44:07
[2024-08-31 22:22] VITALS: BP 161/88; PULSE 94; RESP 18; TEMP 36.7; O2SAT 95; BMI 29.0
[2024-08-31 22:30] VITALS: BP 130/62; PULSE 89; RESP 16; O2SAT 97
--- NOTE | 2024-08-31 22:31 | CT_ITS ---
PROCEDURE INFORMATION: Exam: CT Abdomen And Pelvis With Contrast Exam date and time: 08/31/2024 11:37 PM Age: 83 years old Clinical indication: Abdominal pain; Additional info: Diffuse low abd pain, diarrhea TECHNIQUE: Imaging protocol: Computed tomography of the abdomen and pelvis with contrast. Radiation optimization: All CT scans at this facility use at least one of these dose optimization techniques: automated exposure control; mA and/or kV adjustment per patient size (includes targeted exams where dose is matched to clinical indication); or iterative reconstruction. Contrast material: ISOVUE; Contrast volume: 75 ml; Contrast route: IV; COMPARISON: CT ABDOMEN PELVIS WO CON 08/13/2023 3:28 PM FINDINGS: Lungs: Mild bibasilar atelectasis. Heart: The heart is enlarged. Pacing wires are noted. Diaphragm: A moderate hiatal hernia is present. Liver: There are numerous small circumscribed hypodense hepatic lesions not fully characterized however, they are similar to the prior exam. Gallbladder and biliary ducts: The gallbladder is absent. There is no biliary ductal dilation. Pancreas: Normal. No ductal dilation. Spleen: Normal. No splenomegaly. Adrenal glands: Normal. No mass. Kidneys and ureters: No hydronephrosis or stone disease. Multiple bilateral renal cortical hypodensities greater on the right. Bilateral renal cortical cysts are noted with the subcentimeter cortical hypodensities bilaterally too small to fully characterize. Stomach and bowel: There is significant fecal content within the rectum with rectal diameter measuring nearly 9 cm. There is some perirectal inflammation present. Prominent fecal content is noted throughout the remainder of the colon as well. The small bowel is nondilated. The stomach is decompressed. Appendix: No evidence of appendicitis. Intraperitoneal space: Unremarkable. No free air. No significant fluid collection. Vasculature: There is moderate calcific atherosclerotic disease. There is mild dilation of the distal abdominal aorta measuring up to 2.5 cm in diameter. No dissection. Lymph nodes: Unremarkable. No enlarged lymph nodes. Urinary bladder: There is significant distension of the urinary bladder. Reproductive: Prostate gland is absent. Bones/joints: There is significant facet arthropathy of the lower lumbar spine. There is an old compression deformity of T11. There is an old ununited vertical fracture of the right sacrum, an old transverse S4 fracture and old fracture of the proximal right femoral shaft. No acute fracture. Soft tissues: Unremarkable. IMPRESSION: 1. Significant fecal content within the rectum with rectal diameter measuring nearly 9 cm with associated perirectal inflammation. Significant fecal content is noted throughout the remainder of the colon. Nondilated small bowel is present. 2. Significant distension of the urinary bladder. 3. Other nonurgent findings as noted. COMMENTS: Consistent with the [employer]'s Incidental Findings Committee white paper (J Am Gregoria Radiol 2018): Any incidental renal lesion less than 1 cm or classified as too small to characterize, or any incidental cystic renal lesion characterized as simple-appearing, is likely benign. No follow-up imaging is recommended for these lesions per consensus recommendations based on imaging criteria.
[2024-08-31 22:36] LABS: Basophils # 0.1 K/mm3 (0-0.2); Basophils % 0.8 % (0.1-2.0); Eosinophils # 0.5 Kmm3 (0.0-0.4); Eosinophils % 5.5 % (0.1-12.0); Hematocrit 42.1 % (42.0-52.0); Hemoglobin 12.6 g/dL (14.1-18.0); Immature Granulocytes # 0.02 10^3uL; Immature Granulocytes % 0.2 %; Lymphocytes # 2.9 K/mm3 (0.7-4.5); Mean Corpuscular HGB Conc 29.9 g/dL (31.8-35.4); Mean Corpuscular Hemoglobin 26.8 pg (27.0-31.2); Mean Corpuscular Volume 89.6 fl (80-94); Mean Platelet Volume 9.8 fl (7.4-10.4); Monocytes # 0.7 K/mm3 (0.1-1.0); Monocytes % 7.3 % (1.7-9.3); Neutrophils # 5.2 K/mm3 (1.8-7.8); Neutrophils % 55.2 % (37.0-80.0); Nucleated Red Blood Cells # 0 10^3/uL; Nucleated Red Blood Cells % 0 %; Platelet Count 427 K/mm3 (142-424); Red Cell Distribution Width 14.4 % (11.5-17.5); Red Cell Distribution Width-SD 47.5 fL; White Blood Count 9.5 K/mm3 (4.8-10.8)
--- NOTE | 2024-08-31 22:38 | ED_ITS ---
Discharge Plan Disposition Patient Disposition: Admitted Clinical Impressions Clinical Impression: Abdominal pain, Obstructive uropathy, Kidney dysfunction, Fecal impaction Discharge ED Provider: Agustin Horne General Adult HPI <Agustin Horne MD - Last Filed: 08/31/24 22:47> General Chief complaint: Abdominal Pain Stated complaint: Lower abd pain, cramping, fecal inc Time Seen by Provider: 08/31/24 22:14 Mode of Arrival: Wheelchair Source of Information: Patient Description of Symptoms (Recalled from ER Triage Doc. by RN): pt to ED with c/o lower abd pain X2 days with one episode of vomiting before arrival to ED. Abd pain resolved at this time. History of Present Illness HPI narrative: Patient is 83-year-old male with past medical history of previous cholecystectomy previous appendectomy, chronic back pain who presents to the emergency department for evaluation of abdominal pain. Onset was acute over the last 48 hours, he has severe lower abdominal pain that is worse with in a sitting position and better with lying down there is associated nausea and nonbloody diarrhea, he is straining to void. His states that over the last week he has had some stool seepage. No trauma. No other acute complaints at this time. Related Data Home Medications ?Medication ?Instructions ?Recorded ?Confirmed atorvastatin 20 mg tablet 20 mg PO HS 12/22/17 09/01/24 aspirin 81 mg tablet,delayed 81 mg PO DAILY [facility] 05/09/20 08/13/23 release (Adult Aspirin Regimen) clopidogrel 75 mg tablet 75 mg PO DAILY 10/24/22 09/01/24 finasteride 5 mg tablet 5 mg PO DAILY 10/24/22 09/01/24 levothyroxine 50 mcg tablet 50 mcg PO DAILY 10/25/22 09/01/24 escitalopram oxalate 10 mg tablet 10 mg PO DAILY 08/09/23 08/13/23 solifenacin 10 mg tablet 10 mg PO DAILY 08/09/23 09/01/24 alfuzosin 10 mg tablet,extended 10 mg PO HS 08/13/23 08/13/23 release 24 hr atenolol 25 mg tablet 25 mg PO DAILY 08/14/23 08/14/23 gabapentin 300 mg capsule 600 mg PO TID 09/01/24 09/01/24 midodrine 10 mg tablet 10 mg PO TID 09/01/24 09/01/24 mirabegron 50 mg tablet,extended 50 mg PO DAILY 09/01/24 09/01/24 release 24 hr (Myrbetriq) Previous Rx's ?Medication ?Instructions ?Recorded alprazolam 0.5 mg tablet 0.5 mg PO TID 30 days #90 tabs 08/15/23 hydrocodone 5 mg-acetaminophen 325 1 tab PO Q8HP PRN Severe Pain 08/15/23 mg tablet (7-10) 3 days #9 tabs lidocaine 5 % topical patch 1 patch topical DAILY #15 ea 08/15/23 (Lidoderm) Allergies Allergy/AdvReac Type Severity Reaction Status Date / Time No Known Allergies Allergy Verified 02/09/21 07:53 [facility] <Agustin Horne MD - Last Filed: 08/31/24 22:47> [facility] Disclaimer: The information contained in this section may have been updated after the patient was seen, as this information can be updated by other users. Medical History COPD (chronic obstructive pulmonary disease) Surgical History Hx of cholecystectomy Hx of appendectomy Hx of CABG Social History (Updated 09/01/24 @ 02:36 by Esmer Domingo RN) Smoking Status: Smoker, status unknown tobacco type: smokeless tobacco second hand exposure: No alcohol intake: never substance use type: denies use current occupational status: retired Travel in the last 8 weeks?: None household members: significant other housing: house current occupational exposures/hazards: No caffeine: Yes Have you lived/traveled outside [place] in past 30 days?: No Contact w/someone who lives/traveled outside [place] past 30 days?: No Exposure to someone with infectious disease in past 14 days?: No Do you have a fever (greater than 100.4 F or 38 C)?: No Have you tested positive for COVID-19?: No Exposed to someone with COVID-19 in past 14 days?: No Do you have a sore throat?: No Do you have a cough?: No Do you have any weakness?: No Do you have any diarrhea?: Yes Are you experiencing any unusual bleeding?: No Do you have any muscle aches/pain?: No Do you have any abdominal pain?: Yes Are you experiencing loss of taste or smell?: No Other Medical History Have you received the Flu Vaccine for this season: No Have you received the Pneumonia Vaccine: No <Agustin Horne MD - Last Filed: 08/31/24 22:47> ROS Obtained: Yes Systems reviewed as appropriate & no additional complaints except as documented Physical Exam <Agustin Horne MD - Last Filed: 08/31/24 22:47> General General appearance: alert and in no apparent distress Head Head exam: atraumatic and normocephalic Eye Eye exam: Present PERRL and EOMI ENT ENT exam: Present mucous membranes moist Neck Neck exam: Present normal inspection Chest Chest inspection: Present normal inspection and symmetric chest wall rise Respiratory Respiratory exam: Present normal lung sounds bilaterally; Absent respiratory distress Cardiovascular Cardiovascular exam: Present regular rate and normal rhythm Abdominal Exam Abdominal exam: Present soft, tenderness (Diffuse, bilateral lower quadrants) and guarding (Voluntary) Extremities Exam Extremities exam: Present normal inspection Neurological Exam Neurological exam: Present alert Psychiatric Psychiatric exam: Present normal affect Skin Skin exam: Present warm and dry Medical Decision Making <Agustin Horne MD - Last Filed: 08/31/24 22:47> Medical Records Screening: Per USPSTF and CDC recommendations, given the prevalence of disease in our region, it is our hospital?s policy to screen for HIV and viral Hepatitis for all patients aged 18 and over and those with ongoing risk factors. [place] Inquiry Pt receiving controlled substance: No Vital Signs: 08/31/24 22:22 08/31/24 22:30 08/31/24 23:00 Temperature 98.1 F Temperature Source Oral Pulse Rate 89 88 Pulse Rate [Left Radial] 94 H Respiratory Rate 18 16 17 Blood Pressure 130/62 142/81 H Blood Pressure [Right Arm] 161/88 H Blood Pressure Mean [Right Arm] 112 Blood Pressure Source [Right Arm] Automatic Cuff Blood Pressure Position [Right Arm] Sitting 02 Sat by Pulse Oximetry 95 97 96 Oxygen Delivery Method Nasal Cannula Oxygen Flow Rate (LPM) 2 09/01/24 00:00 09/01/24 00:31 09/01/24 01:00 Temperature Temperature Source Pulse Rate 71 80 76 Pulse Rate [Left Radial] Respiratory Rate 14 16 10 L Blood Pressure 138/73 156/77 H 139/75 Blood Pressure [Right Arm] Blood Pressure Mean [Right Arm] Blood Pressure Source [Right Arm] Blood Pressure Position [Right Arm] 02 Sat by Pulse Oximetry 97 92 L 97 Oxygen Delivery Method Oxygen Flow Rate (LPM) Lab Data Lab Results 08/31/24 22:15: WBC 9.5, RBC 4.70, Hgb 12.6 L, Hct 42.1, MCV 89.6, MCH 26.8 L, M CHC 29.9 L, RDW 14.4, Plt Count 427 H, MPV 9.8, Neut % (Auto) 55.2, Lymph % (Auto) 31.0, [place] % (Auto) 7.3, Eos % (Auto) 5.5, Baso % (Auto) 0.8, Neut # (Auto) 5.2, Lymph # (Auto) 2.9, [place] # (Auto) 0.7, Eos # (Auto) 0.5 H, Baso # (Auto) 0.1, Sodium 141, Potassium 4.0, Chloride 108 H, Carbon Dioxide 27, Anion Gap 10.0, BUN 30 H, Creatinine 1.50 H, Estimated Creat Clear 42, Estimated GFR 44 L, Est GFR ( Amer) 54 L, Glucose 149 H, Calcium 9.2, Total Bilirubin 0.6, AST 35, ALT 20, Alkaline Phosphatase 115, Total Protein 7.2 D, Albumin 4.6, Globulin 2.6, Albumin/Globulin Ratio 1.8, Lipase 72 09/01/24 00:25: Urine Color Yellow, Urine Appearance Clear, Urine pH 7.0, Ur Specific [place] 1.015, Urine Protein Trace, Urine Glucose (UA) Negative, Urine Ketones Negative, Urine Blood 2+ A, Urine Nitrate Negative, Urine Bilirubin Negative, Urine Urobilinogen 0.2, Ur Leukocyte Esterase Trace, Urine RBC 50-100, Urine WBC 5-10, Ur Squamous Epith Cells Occasional, Urine Bacteria 1+ 08/31/24 22:15 08/31/24 22:15 Orders (Tests/Meds): ED MEDICATIONS Generic Name Dose Route Start Last Admin Trade Name Freq PRN Reason Stop Dose Admin Acetaminophen 650 mg 09/01/24 01:25 Acetaminophen 325mg Tab PO 10/01/24 01:24 Q4HP PRN Fever or Mild Pain (1-3) Ondansetron HCl 4 mg 09/01/24 01:25 Ondansetron 4mg/2ml Vial IV 10/01/24 01:24 Q8HP PRN Nausea Sodium Chloride 10 ml 08/31/24 23:50 08/31/24 23:51 Sodium Chloride 0.9% 10ml Syr (Rad Only) IV 09/30/24 23:49 10 ml NEEDED PRN Administration Maintain IV Site Discontinued Medications Generic Name Dose Route Start Last Admin Trade Name Freq PRN Reason Stop Dose Admin Iopamidol 75 ml 08/31/24 23:50 08/31/24 23:51 Iopamidol-370 (76%);100ml Bottle IV 08/31/24 23:51 75 ml ONCE ONE Administration Magnesium Citrate 10 oz 09/01/24 00:01 09/01/24 00:39 Magnesium Citrate 10oz Bottle PO 09/01/24 00:02 10 oz ONCE ONE Administration Morphine Sulfate 4 mg 09/01/24 00:02 09/01/24 00:15 Morphine 4mg/Ml Syringe IV 09/01/24 00:03 4 mg ONCE ONE Administration Ondansetron HCl 4 mg 09/01/24 00:09 09/01/24 00:18 Ondansetron 4mg/2ml Vial IV 09/01/24 00:10 4 mg ONCE ONE Administration Sodium Phosphate 133 ml 09/01/24 00:01 09/01/24 00:31 Sodium Phos/Biphosphate Fleet 133ml Enema RC 09/01/24 00:02 133 ml ONCE ONE Administration ORDERS Category Date Time Status CT abdomen pelvis w con Stat Cat Scan 08/31/24 22:31 Completed CBC w/Auto Diff [Complete Blood Count Auto Diff] Stat Lab 08/31/24 22:15 Completed CMP [Comprehensive Metabolic Panel] Stat Lab 08/31/24 22:15 Completed Complete Blood Count Auto Diff AMLAB Lab 09/01/24 06:00 Ordered Comprehensive Metabolic Panel AMLAB Lab 09/01/24 06:00 Ordered Diarrhea 23 Panel, PCR Stat Lab 08/31/24 22:30 Ordered Lipase Stat Lab 08/31/24 22:15 Completed UA [Urinalysis and Microscopic] Stat Lab 09/01/24 00:25 Completed Medical Decision Narrative: In summary patient is 83-year-old male with past medical history described above presents emergency department for evaluation abdominal pain. Patient is hemodynamically stable nontoxic-appearing upon arrival, afebrile. Patient is significantly tender in bilateral lower quadrants. My concern for intra- abdominal pathology is high. Workup we conducted with hematologic labs, urinalysis, CT abdomen pelvis with IV contrast. He is not have any pain while resting and not palpating therefore initial pain interventions will be deferred. Initial workup reviewed by me no significant leukocytosis or transfusable anemia. Remainder of hematologic labs CT imaging and urinalysis pending at time of transfer of care to the oncoming physician, Dr. Patterson. <Marcelo Patterson MD - Last Filed: 09/01/24 04:12> Vital Signs: 08/31/24 22:22 08/31/24 22:30 08/31/24 23:00 Temperature 98.1 F Temperature Source Oral Pulse Rate 89 88 Pulse Rate [Left Radial] 94 H Respiratory Rate 18 16 17 Blood Pressure 130/62 142/81 H Blood Pressure [Right Arm] 161/88 H Blood Pressure Mean [Right Arm] 112 Blood Pressure Source [Right Arm] Automatic Cuff Blood Pressure Position [Right Arm] Sitting 02 Sat by Pulse Oximetry 95 97 96 Oxygen Delivery Method Nasal Cannula Oxygen Flow Rate (LPM) 2 09/01/24 00:00 09/01/24 00:31 09/01/24 01:00 Temperature Temperature Source Pulse Rate 71 80 76 Pulse Rate [Left Radial] Respiratory Rate 14 16 10 L Blood Pressure 138/73 156/77 H 139/75 Blood Pressure [Right Arm] Blood Pressure Mean [Right Arm] Blood Pressure Source [Right Arm] Blood Pressure Position [Right Arm] 02 Sat by Pulse Oximetry 97 92 L 97 Oxygen Delivery Method Oxygen Flow Rate (LPM) Lab Data Lab Results 08/31/24 22:15: WBC 9.5, RBC 4.70, Hgb 12.6 L, Hct 42.1, MCV 89.6, MCH 26.8 L, M CHC 29.9 L, RDW 14.4, Plt Count 427 H, MPV 9.8, Neut % (Auto) 55.2, Lymph % (Auto) 31.0, [place] % (Auto) 7.3, Eos % (Auto) 5.5, Baso % (Auto) 0.8, Neut # (Auto) 5.2, Lymph # (Auto) 2.9, [place] # (Auto) 0.7, Eos # (Auto) 0.5 H, Baso # (Auto) 0.1, Sodium 141, Potassium 4.0, Chloride 108 H, Carbon Dioxide 27, Anion Gap 10.0, BUN 30 H, Creatinine 1.50 H, Estimated Creat Clear 42, Estimated GFR 44 L, Est GFR ( Amer) 54 L, Glucose 149 H, Calcium 9.2, Total Bilirubin 0.6, AST 35, ALT 20, Alkaline Phosphatase 115, Total Protein 7.2 D, Albumin 4.6, Globulin 2.6, Albumin/Globulin Ratio 1.8, Lipase 72 09/01/24 00:25: Urine Color Yellow, Urine Appearance Clear, Urine pH 7.0, Ur Specific [place] 1.015, Urine Protein Trace, Urine Glucose (UA) Negative, Urine Ketones Negative, Urine Blood 2+ A, Urine Nitrate Negative, Urine Bilirubin Negative, Urine Urobilinogen 0.2, Ur Leukocyte Esterase Trace, Urine RBC 50-100, Urine WBC 5-10, Ur Squamous Epith Cells Occasional, Urine Bacteria 1+ Orders (Tests/Meds): ED MEDICATIONS Generic Name Dose Route Start Last Admin Trade Name Freadelaida PRN Reason Stop Dose Admin Acetaminophen 650 mg 09/01/24 01:25 Acetaminophen 325mg Tab PO 10/01/24 01:24 Q4HP PRN Fever or Mild Pain (1-3) Ondansetron HCl 4 mg 09/01/24 01:25 Ondansetron 4mg/2ml Vial IV 10/01/24 01:24 Q8HP PRN Nausea Sodium Chloride 10 ml 08/31/24 23:50 08/31/24 23:51 Sodium Chloride 0.9% 10ml Syr (Rad Only) IV 09/30/24 23:49 10 ml NEEDED PRN Administration Maintain IV Site Discontinued Medications Generic Name Dose Route Start Last Admin Trade Name Freq PRN Reason Stop Dose Admin Iopamidol 75 ml 08/31/24 23:50 08/31/24 23:51 Iopamidol-370 (76%);100ml Bottle IV 08/31/24 23:51 75 ml ONCE ONE Administration Magnesium Citrate 10 oz 09/01/24 00:01 09/01/24 00:39 Magnesium Citrate 10oz Bottle PO 09/01/24 00:02 10 oz ONCE ONE Administration Morphine Sulfate 4 mg 09/01/24 00:02 09/01/24 00:15 Morphine 4mg/Ml Syringe IV 09/01/24 00:03 4 mg ONCE ONE Administration Ondansetron HCl 4 mg 09/01/24 00:09 09/01/24 00:18 Ondansetron 4mg/2ml Vial IV 09/01/24 00:10 4 mg ONCE ONE Administration Sodium Phosphate 133 ml 09/01/24 00:01 09/01/24 00:31 Sodium Phos/Biphosphate Fleet 133ml Enema RC 09/01/24 00:02 133 ml ONCE ONE Administration ORDERS Category Date Time Status CT abdomen pelvis w con Stat Cat Scan 08/31/24 22:31 Completed CBC w/Auto Diff [Complete Blood Count Auto Diff] Stat Lab 08/31/24 22:15 Completed CMP [Comprehensive Metabolic Panel] Stat Lab 08/31/24 22:15 Completed Complete Blood Count Auto Diff AMLAB Lab 09/01/24 06:00 Ordered Comprehensive Metabolic Panel AMLAB Lab 09/01/24 06:00 Ordered Diarrhea 23 Panel, PCR Stat Lab 08/31/24 22:30 Ordered Lipase Stat Lab 08/31/24 22:15 Completed UA [Urinalysis and Microscopic] Stat Lab 09/01/24 00:25 Completed Medical Decision Narrative: In summary patient is 83-year-old male with past medical history described above presents emergency department for evaluation abdominal pain. Patient is hemodynamically stable nontoxic-appearing upon arrival, afebrile. Patient is significantly tender in bilateral lower quadrants. My concern for intra- abdominal pathology is high. Workup we conducted with hematologic labs, urinalysis, CT abdomen pelvis with IV contrast. He is not have any pain while resting and not palpating therefore initial pain interventions will be deferred. Initial workup reviewed by me no significant leukocytosis or transfusable anemia. Remainder of hematologic labs CT imaging and urinalysis pending at time of transfer of care to the oncoming physician, Dr. Patterson. Patterson: Upon my assumption of care patient is stable and resting comfortably at this time. I agree with the assessment and plan from Dr. Horne. I personally interpreted the CT abdomen pelvis and appreciate a large, distended bladder with evidence of severe fecal impaction and large rectal stool ball up to 9 cm. The rectum also appears to have inflammatory changes but no evidence of perforation. See radiology read for final interpretation. I also reviewed labs which demonstrate mild MERY. I believe this is likely associated with patient's urinary retention. With urinary retention, obstructive uropathy, and fecal impaction I believe the patient will require admission. Prior to admission Yip catheter was placed and I performed fecal disimpaction. See procedure note for details. Patient tolerated procedure well. He had significant urinary output as well as stool removal from the rectum manually. Fleet enema and magnesium citrate administered. I believe patient requires admission to the hospital for continued management to fully disimpact the bowels and begin a regular bowel regimen. Optimistically they will then be able to remove the Yip catheter as well since I believe the stool burden is blocking urine output. Urinalysis pending at the time of admission. I discussed this case with the hospitalist including ER interventions. Patient was graciously accepted for admission to the hospitalist service. He was admitted in stable condition. Procedures <Marcelo Patterson MD - Last Filed: 09/01/24 04:12> Miscellaneous Procedure Procedure Performed: Fecal disimpaction Indication: Fecal impaction, abdominal pain Consent provided by patient and family at bedside Procedure details: Patient received small dose of morphine prior to procedure for comfort and pain management. Patient was rolled in the right lateral decubitus position. Manual disimpaction performed by me with large volume firm, sticky brown stool removed from the rectum. Patient had relief. No bleeding or pain. Post procedure: No complications, tolerated procedure well Critical Care <Agustin Horne MD - Last Filed: 08/31/24 22:47> Critical Care Time Critical Care Time: No
[2024-08-31 22:42] LABS: Alanine Aminotransferase 20 U/L (12-78); Albumin Level 4.6 g/dl (3.5-5.0); Albumin/Globulin Ratio 1.8 (1.1-1.8); Alkaline Phosphatase 115 U/L (38-126); Aspartate Amino Transferase 35 U/L (17-59); Bilirubin,Total 0.6 mg/dl (0.2-1.3); Blood Urea Nitrogen 30 mg/dl (9-20); Calcium 9.2 mg/dl (8.4-10.2); Carbon Dioxide 27 mmol/L (22.0-30.0); Chloride 108 mmol/L (98-107); Creatinine Clearance Estimated 42 mL/min (50-200); Estimated Glomerular Filt Rate 44 ml/min (>60); GFR (African American) 54 ML/MIN (>60); Globulin 2.6 g/dL (1.3-3.2); Glucose 149 mg/dl (74-100); Lipase 72 U/L (23-300); Sodium 141 mmol/L (136-145); Total Protein,Serum 7.2 g/dl (6.3-8.2)
--- NOTE | 2024-08-31 22:44 | PC.NURSE ---
report called to Poonam VALDES
--- NOTE | 2024-08-31 22:44 | PC.NURSE ---
pt given sandwich
[2024-08-31 23:00] VITALS: BP 142/81; PULSE 88; RESP 17; O2SAT 96
[2024-08-31] MEDS: IOPAMIDOL-370 (76%);100ML BOTTLE 75 ML IV (23:51)
[2024-08-31] MEDS: SODIUM CHLORIDE 0.9% 10ML SYR (RAD ONLY) 10 ML IV (23:51)
[2024-09-01] VITALS (8 sets, daily range): BP systolic 115–156; BP diastolic 52–77; PULSE 71–101; RESP 10–18; TEMP 36.6–36.8; O2SAT 90–98; BMI 23.4; BMI 24.0
[2024-09-01] MEDS: MORPHINE 4MG/ML SYRINGE 4 MG IV (00:15)
[2024-09-01] MEDS: ONDANSETRON 4MG/2ML VIAL 4 MG IV (00:18)
[2024-09-01 00:28] LABS: Microscopic, Urine URINE MICROSCOPIC (MICROSCOPIC)
[2024-09-01] MEDS: SODIUM PHOS/BIPHOSPHATE FLEET 133ML ENEMA 133 ML RC (00:31)
[2024-09-01] MEDS: MAGNESIUM CITRATE 10OZ BOTTLE 10 OZ PO (00:39)
[2024-09-01 00:43] LABS: Appearance,Urine CLEAR (Clear); Bilirubin,Urine Negative (Negative); Blood, Urine 2+ (Negative); Color,Urine YELLOW (Yellow); Glucose,Urine (UA) Negative (Negative); Ketones,Urine Negative (Negative); Leukocyte Esterase,Urine TRACE (Negative); Nitrate,Urine Negative (Negative); Protein,Urine TRACE (Negative); Specific Gravity, Urine 1.015 (1.005-1.030); Urobilinogen,Urine 0.2 EU/dl (0.2)
[2024-09-01 01:04] LABS: Bacteria,Urine 1+ /lpf; RBC,Urine 50-100 #/hpf (0-3); Squamous Epithelial Cell,Urine Occasional #/hpf (0-5)
--- NOTE | 2024-09-01 01:25 | PC.NURSE ---
report called to Amber VALDES
--- NOTE | 2024-09-01 01:27 | EXP.HP ---
History of Present Illness *Admission Date: 09/01/24 *Reason for visit:: Constipation *History of present illness: Patient is 83-year-old male who presents to the emergency department for evaluation of abdominal pain. Symptoms began about 48 hours ago, and are localized to lower abdomen. Exacerbated by remaining in a sitting position and is better with lying down. Cramping and sharp in nature. Associated symptoms include nausea and diarrhea. He is straining in order to pass stool, and has been largely limited to mild incompetence and fecal leaking. No falls, no trauma, no chest pain, shortness of breath, syncope. No other concerning symptoms. Abdominal CT performed demonstrating significant fecal content of the rectum with a rectal diameter measuring 9 cm. There is associated perirectal inflammation with significant fecal burden in the remainder of the colon. There is also a significant distention of the urinary bladder as a result. ER placed a Yip catheter for mechanical relief of obstruction. Fecal disimpaction was performed in the emergency department with alleviation of fecal impaction. Discussed with patient admission regarding kidney injury as result of the impaction, patient is agreeable. History was obtained and independently in through collaboration with the ER physician. Diagnostic tests and laboratory findings were independently evaluated. Prior documentation was reviewed. [facility] Disclaimer: The information contained in this section may have been updated after the patient was seen, as this information can be updated by other users. Medical History (Updated 09/01/24 @ 00:14 by Marcelo Patterson MD) COPD (chronic obstructive pulmonary disease) Surgical History Hx of cholecystectomy Hx of appendectomy Hx of CABG Social History Smoking Status: Never smoker second hand exposure: No alcohol intake: never substance use type: denies use current occupational status: retired Travel in the last 8 weeks?: None household members: significant other housing: house current occupational exposures/hazards: No caffeine: Yes Have you lived/traveled outside [place] in past 30 days?: No Contact w/someone who lives/traveled outside [place] past 30 days?: No Exposure to someone with infectious disease in past 14 days?: No Do you have a fever (greater than 100.4 F or 38 C)?: No Have you tested positive for COVID-19?: No Exposed to someone with COVID-19 in past 14 days?: No Do you have a sore throat?: No Do you have a cough?: No Do you have any weakness?: No Do you have any diarrhea?: Yes Are you experiencing any unusual bleeding?: No Do you have any muscle aches/pain?: No Do you have any abdominal pain?: Yes Are you experiencing loss of taste or smell?: No Other Medical History Have you received the Flu Vaccine for this season: No Have you received the Pneumonia Vaccine: No Review of Systems Review of Systems Review of systems:: pertinent systems reviewed and negative unless documented below Constitutional Constitutional: Reports fatigue and Reports malaise Eyes Eyes: Reports system reviewed and no additional complaints, except as documented ENT Ears, Nose, Mouth, and Throat: Reports system reviewed and no additional complaints, except as documented *Cardiovascular Cardiovascular: Denies chest pain and Denies dyspnea *Respiratory Respiratory: Denies dyspnea *Gastrointestinal Gastrointestinal: Reports change in bowel habits, Reports constipation and Reports cramping *Genitourinary Genitourinary: Reports oliguria *Musculoskeletal Musculoskeletal: Reports system reviewed and no additional complaints, except as documented *Neurologic Neurologic: Reports system reviewed and no additional complaints, except as documented Endocrine Endocrine: Reports fatigue Meds Home Medications and Allergies Home Medications ?Medication ?Instructions ?Recorded ?Confirmed ?Type atorvastatin 20 mg tablet 20 mg PO HS 12/22/17 08/13/23 History aspirin 81 mg tablet,delayed 81 mg PO DAILY [facility] 05/09/20 08/13/23 History release (Adult Aspirin Regimen) clopidogrel 75 mg tablet 75 mg PO DAILY 10/24/22 08/13/23 History finasteride 5 mg tablet 5 mg PO DAILY 10/24/22 08/13/23 History levothyroxine 50 mcg tablet 50 mcg PO DAILY 10/25/22 08/13/23 History escitalopram oxalate 10 mg tablet 10 mg PO DAILY 08/09/23 08/13/23 History solifenacin 10 mg tablet 10 mg PO DAILY 08/09/23 08/13/23 History alfuzosin 10 mg tablet,extended 10 mg PO HS 08/13/23 08/13/23 History release 24 hr atenolol 25 mg tablet 25 mg PO DAILY 08/14/23 08/14/23 History alprazolam 0.5 mg tablet 0.5 mg PO TID 30 days #90 tabs 08/15/23 Rx gabapentin 300 mg capsule 300 mg PO TID 30 days #90 caps 08/15/23 Rx hydrocodone 5 mg-acetaminophen 325 1 tab PO Q8HP PRN Severe Pain 08/15/23 Rx mg tablet (7-10) 3 days #9 tabs lidocaine 5 % topical patch 1 patch topical DAILY #15 ea 08/15/23 Rx (Lidoderm) New Prescriptions to Start Prescriptions: Allergies Allergy/AdvReac Type Severity Reaction Status Date / Time No Known Allergies Allergy Verified 02/09/21 07:53 Exam Data for Last 24 hours Vital signs and Labs for Last 24 Hours: Temp Pulse Resp BP Pulse Ox O2 Del Method O2 Flow Rate 98.1 F 76 10 L 139/75 97 Nasal Cannula 2 08/31/24 22:22 09/01/24 01:00 09/01/24 01:00 09/01/24 01:00 09/01/24 01:00 08/31/24 22:22 08/31/24 22:22 Laboratory Results - last 24 hr 08/31/24 22:15: WBC 9.5, RBC 4.70, Hgb 12.6 L, Hct 42.1, MCV 89.6, MCH 26.8 L, MCHC 29.9 L, RDW 14.4, Plt Count 427 H, MPV 9.8, Neut % (Auto) 55.2, Lymph % (Auto) 31.0, [place] % (Auto) 7.3, Eos % (Auto) 5.5, Baso % (Auto) 0.8, Neut # (Auto) 5.2, Lymph # (Auto) 2.9, [place] # (Auto) 0.7, Eos # (Auto) 0.5 H, Baso # (Auto) 0.1, Sodium 141, Potassium 4.0, Chloride 108 H, Carbon Dioxide 27, Anion Gap 10.0, BUN 30 H, Creatinine 1.50 H, Estimated Creat Clear 42, Estimated GFR 44 L, Est GFR ( Amer) 54 L, Glucose 149 H, Calcium 9.2, Total Bilirubin 0.6, AST 35, ALT 20, Alkaline Phosphatase 115, Total Protein 7.2 D, Albumin 4.6, Globulin 2.6, Albumin/Globulin Ratio 1.8, Lipase 72 09/01/24 00:25: Urine Color Yellow, Urine Appearance Clear, Urine pH 7.0, Ur Specific Hiram 1.015, Urine Protein Trace, Urine Glucose (UA) Negative, Urine Ketones Negative, Urine Blood 2+ A, Urine Nitrate Negative, Urine Bilirubin Negative, Urine Urobilinogen 0.2, Ur Leukocyte Esterase Trace, Urine RBC 50-100, Urine WBC 5-10, Ur Squamous Epith Cells Occasional, Urine Bacteria 1+ I & O for Last 24 hours: Intake & Output 08/29/24 08/30/24 08/31/24 09/01/24 23:59 23:59 23:59 23:59 Weight 81.647 kg Constitutional Constitutional: no acute distress *Routine HEENT Exam Head: Present normocephalic Eye: Present EOMI and PERRL ENT: Present mucous membranes moist *Routine Neck Exam Neck: Present supple; Absent lymphadenopathy *Routine Respiratory Exam Respiratory: Present CTA bilaterally *Routine Cardiovascular Exam Cardiovascular: Present RRR *Routine Abdominal Exam Abdominal: Present soft and normoactive bowel sounds; Absent tenderness *Routine Rectal Exam Rectal:: deferred *Routine Genitalia Exam Genitalia:: deferred *Routine Extremities Exam Extremities: Absent cyanosis, clubbing or edema *Routine Skin Exam Skin: Present warm; Absent rash *Routine Neurological Exam Neurological: Present alert and oriented X3 Assessment and Plan *Assessment and plan (1) Fecal impaction: Status: Acute Category: Medical Code(s): K56.41 - Fecal impaction (2) COPD (chronic obstructive pulmonary disease): Status: Chronic Category: Medical Code(s): J44.9 - Chronic obstructive pulmonary disease, unspecified (3) MERY (acute kidney injury): Status: Resolved Category: Medical Code(s): N17.9 - Acute kidney failure, unspecified (4) Renal insufficiency: Status: Acute Category: Medical Code(s): N28.9 - Disorder of kidney and ureter, unspecified (5) Intermittent atrial fibrillation: Status: Acute Category: Medical Code(s): I48.0 - Paroxysmal atrial fibrillation (6) Abdominal pain: Status: Acute Category: Medical Code(s): R10.9 - Unspecified abdominal pain Plan 83-year-old male admitted with obstructive uropathy secondary to fecal impaction from constipation. Patient was disimpacted in the emergency department and placed on a bowel regimen. Patient was admitted for acute kidney injury Postobstructive acute kidney injury, mild - Baseline creatinine 1.1, currently 1.5 - Yip placed in the ER for obstruction relief - Daily BMP Fecal impaction Constipation - Disimpacted in the emergency department - Bowel regimen - tsh given hypothyroid Chronic illnesses - Medications to be continued following medicine reconciliation COPD - Resume home medications Coronary artery disease - Resume home medications Hypothyroid - Continue home medications - Will check TSH Normocytic anemia - Daily CBC Polycythemia - Daily CBC
--- NOTE | 2024-09-01 01:40 | PC.NURSE ---
Patient arrived to floor via stretcher from ED at 01:38.
--- NOTE | 2024-09-01 04:03 | PC.NURSE ---
Pt. is unsure of his medications. He states his handles all his medications. She has a list she carries but she went home before the patient came to the floor. Medication Reconciliation done with external medication list. unable to find information on the remaining meds at the bottom of the list with a question virgilio next to them.
--- NOTE | 2024-09-01 06:16 | PC.WOUNDNOTE ---
Pt. was admitted overnight from the ED. Pt. admitted for abdominal pain, obstructive uropathy, kidney dysfunction, and Fecal impaction. Pt. was given a fleets enema and had a manual dis-mpaction is the ED with some stool removed. Per CT . Pt. has a large amount of stool in the rectum and throuout the colon. Pt. also had bladder distention. Pt. has a deng catheter draining dark yellow urine. Pt. had a lot of pain when he presented to the ED but no c/o pain since admission to the floor. Pt. resting quietly, no c/o's. Personal items and call danielle in reach.
[2024-09-01 06:45] LABS: Basophils # 0.1 K/mm3 (0-0.2); Basophils % 0.6 % (0.1-2.0); Eosinophils # 0.3 Kmm3 (0.0-0.4); Eosinophils % 2.7 % (0.1-12.0); Hematocrit 39.8 % (42.0-52.0); Immature Granulocytes # 0.03 10^3uL; Immature Granulocytes % 0.3 %; Lymphocytes # 1.9 K/mm3 (0.7-4.5); Lymphocytes % 15.8 % (10-50); Mean Corpuscular HGB Conc 30.2 g/dL (31.8-35.4); Mean Corpuscular Hemoglobin 27.6 pg (27.0-31.2); Mean Corpuscular Volume 91.5 fl (80-94); Mean Platelet Volume 10.2 fl (7.4-10.4); Monocytes % 8.5 % (1.7-9.3); Neutrophils # 8.4 K/mm3 (1.8-7.8); Neutrophils % 72.1 % (37.0-80.0); Nucleated Red Blood Cells # 0 10^3/uL; Nucleated Red Blood Cells % 0 %; Platelet Count 374 K/mm3 (142-424); Red Blood Count 4.35 M/mm3 (4.60-6.20); Red Cell Distribution Width 14.6 % (11.5-17.5); White Blood Count 11.7 K/mm3 (4.8-10.8)
[2024-09-01 07:00] LABS: Alanine Aminotransferase 18 U/L (12-78); Albumin/Globulin Ratio 1.6 (1.1-1.8); Alkaline Phosphatase 95 U/L (38-126); Anion Gap 11.1 mEq/L (5-15); Aspartate Amino Transferase 39 U/L (17-59); Bilirubin,Total 0.5 mg/dl (0.2-1.3); Blood Urea Nitrogen 29 mg/dl (9-20); Calcium 8.7 mg/dl (8.4-10.2); Carbon Dioxide 27 mmol/L (22.0-30.0); Chloride 109 mmol/L (98-107); Creatinine Clearance Estimated 34 mL/min (50-200); Estimated Glomerular Filt Rate 44 ml/min (>60); GFR (African American) 54 ML/MIN (>60); Globulin 2.5 g/dL (1.3-3.2); Glucose 103 mg/dl (74-100); Potassium 4.1 mmoL/L (3.5-5.1); Sodium 143 mmol/L (136-145); Total Protein,Serum 6.5 g/dl (6.3-8.2)
[2024-09-01 07:28] LABS: Thyroid Stimulating Hormone 1.22 uIU/mL (0.465-4.68)
--- NOTE | 2024-09-01 09:42 | HMH.PHAINT1 ---
Pharmacy Intervention Comments: MEDICATION RECONCILIATION COMPLETED ON PATIENT USING EXTERNAL FILL HISTORY FROM PHARMACY. -DALIA RAI, JACKIED
[2024-09-01] MEDS: MINERAL OIL ENEMA 133ML 133 ML RC (10:01)
[2024-09-01] MEDS: POLYETHYLENE GLYCOL 3350 17 GM PACKET PO ×3 (10:02→16:00)
[2024-09-01] MEDS: SENNOSIDES 8.6MG/DOCUSATE 50MG TABLET 1 TAB PO (10:02)
--- NOTE | 2024-09-01 10:20 | HMH.PTEV ---
Physical Therapy Evaluation Rehab PT IP Evaluation Start: 09/01/24 09:12 Freq: ONCE Status: Active Protocol: Document 09/01/24 10:00 MONICA (Rec: 09/01/24 10:10 MONICA [id number]) Subjective/History History History Per H&P: Patient is 83-year- old male who presents to the emergency department for evaluation of abdominal pain. Symptoms began about 48 hours ago, and are localized to lower abdomen. Exacerbated by remaining in a sitting position and is better with lying down. Cramping and sharp in nature. Associated symptoms include nausea and diarrhea. He is straining in order to pass stool, and has been largely limited to mild incompetence and fecal leaking . No falls, no trauma, no chest pain, shortness of breath, syncope. No other concerning symptoms. Abdominal CT performed demonstrating significant fecal content of the rectum with a rectal diameter measuring 9 cm. There is associated perirectal inflammation with significant fecal burden in the remainder of the colon. There is also a significant distention of the urinary bladder as a result. ER placed a Yip catheter for mechanical relief of obstruction. Fecal disimpaction was performed in the emergency department with alleviation of fecal impaction . Discussed with patient admission regarding kidney injury as result of the impaction, patient is agreeable. Subjective Subjective Pt reports he lives at home with his who is available as needed. Pt reports he usually is able to ambulate short distances using a RW but reports his believes he should be using a w/c. Pt reports hx of falls. New diagnosis of cancer in past 12 No months? [facility] How much help from another person do you currently need... Turning from your back to your side A little while in a flat bed without using bedrails? Moving from lying on back to sitting on A little the side of a flat bed without using bedrails? Moving to and from a bed to a chair ( A little including a wheelchair)? Standing up from a chair using your arms A lot ? (e.g., wheelchair, bedside chair) Walking in hospital room? A lot Climbing 3-5 steps with a railing? A lot Mobility Score 15 Mobility Level [facility] Mobility Calculator Mobility 4 Move to chair/ commode Rehab PT IP Eval Objective Appearance Patient Behavior Appropriate,Cooperative Patient Orientation Person,Place Difficulty following instructions none Speech Pattern Clear Ambulation Patient Able to Ambulate Yes Ambulation Observation IP General Gait Pattern Observation Narrow Based Gait Ambulation Distance (feet) 3 Ambulation Assistive Device Rolling Walker Ambulation Ability Minimal x 2 (25% assist) Balance Ability to Arise Able, uses arms to help Sitting Balance Leans or slides in chair Standing Balance Unsteady Transfers Bed Transfer Ability Moderate x 1 (50% assist) Chair Transfer Ability Moderate x 1 (50% assist) Sit to Stand Bed Transfer Ability Minimal x 1 (25% assist) Rehab PT IP prob,goals,plan Problems Date of Evaluation: 09/01/24 PT IP Problems Bed Mobility,Transfers,Gait, Balance,Self care,Safety Rehab Potential Rehab Potential Good Equipment Needs Assistive Devices Rolling / Wheeled Walker Plan PT Intervention Plan Bed Mobility,Transfers,Gait, Balance,Self care,Safety, Therapeutic Exercise Other Intervention Plan 1-2 times PT Plan Frequency Daily Duration LOS Discharge Goals Bed Transfer Ability Minimal x 1 (25% assist) Sit to Stand Chair Transfer Ability Contact Guard/Hand Hold Ambulation Assistive Device Rolling Walker Ambulation Distance (feet) 10 Discharge Plan PT Discharge Plan Initial physical therapy evaluation performed. Patient presents below baseline at this time in functional mobility, transfers, and strength. Pt not safe to return home at this time d/t current level of functional mobility and safety. PT recommending short-term rehabilitation stay upon d/c from [facility]. Pt would benefit from skilled PT while at [facility] to prevent further functional decline and maximize safety with mobility. Eval Complexity Eval Charge Codes 34645 - Moderate Complexity PHYSICIAN CERTIFICATION: I certify the specified therapy services for Tony Bonilla are required, authorized, and reviewed every 30 days.
--- NOTE | 2024-09-01 10:31 | SW/DCPLANNER ---
Addendum entered by Carmela Martin 09/01/24 15:19: [facility] is able to accept patient. [facility] will start services on Friday or Friday. Nicky Padgett Addendum entered by Carmela Martin 09/01/24 13:27: Sent patients info to [facility] and they are unable to accept patient due to staffing issues. Spoke with patient and asked if he had any other preference for home health and he said no and that i could send his info to [facility]. I will update when i hear back from [facility]. Nicky Padgett Addendum entered by Virginia Castle 09/01/24 11:32: Patient prefers to return home w/ [facility] . Original Note: I spoke w/ patient and his regarding plans once medically stable for discharge. PT/OT evaluated patient and recommended SNF level of care. Patient and his stated they would prefer to return home w/ home health services. I did have a lengthy discussion regarding the importance of placement. stated that someone is home w/ patient 24-7. Patient is agreeable to home health services. I will continue to follow up w/ patient and regarding discharge planning. Discharge date is unknown at this time.
--- NOTE | 2024-09-01 10:38 | P.DS_ITS ---
General Admission date:: 09/01/24 Discharge date: 09/01/24 HPI HPI HPI: Patient is 83-year-old male who presents to the emergency department for evaluation of abdominal pain. Symptoms began about 48 hours ago, and are localized to lower abdomen. Exacerbated by remaining in a sitting position and is better with lying down. Cramping and sharp in nature. Associated symptoms include nausea and diarrhea. He is straining in order to pass stool, and has been largely limited to mild incompetence and fecal leaking. No falls, no trauma, no chest pain, shortness of breath, syncope. No other concerning symptoms. Abdominal CT performed demonstrating significant fecal content of the rectum with a rectal diameter measuring 9 cm. There is associated perirectal inflammation with significant fecal burden in the remainder of the colon. There is also a significant distention of the urinary bladder as a result. ER placed a Yip catheter for mechanical relief of obstruction. Fecal disimpaction was performed in the emergency department with alleviation of fecal impaction. Discussed with patient admission regarding kidney injury as result of the impaction, patient is agreeable. Hospital Course Hospital Course Hospital Course: 83-year-old male admitted with obstructive uropathy secondary to fecal impaction from constipation. Patient was disimpacted in the emergency department and placed on a bowel regimen. Patient was admitted for acute kidney injury. Renal function showed improvement. Had multiple more bowel movements with resolution of his abdominal pain. Stable discharge home as he is tolerating p.o. intake, improvement in function, and has no further abdominal pain or concern for infection. Problems addressed as follows: Postobstructive acute kidney injury, mild - Baseline creatinine 1.1, currently 1.5 at admission. BUN improved to 29. Tolerating p.o. fluids. Yip was placed with improvement in distention and significant urine output. Yip removed prior to discharge given movement in bowels and obstructions resolved. Fecal impaction Constipation - Disimpacted in the emergency department. Started on aggressive bowel regimen. Proceeded to have several additional bowel movements with large quantity of stool output. TSH normal at 1.22. Chronic illnesses - Medications to be continued for the following conditions: COPD: Resume home inhalers Coronary artery disease: Aspirin, Plavix Hypothyroid: Continue levothyroxine 75 mcg daily Normocytic anemia: Stable with hemoglobin of 12 Had a large bowel movement, stable to discharge home Exam Data for Last 24 hours Vital signs and Labs for Last 24 Hours: Temp Pulse Resp BP Pulse Ox O2 Del Method O2 Flow Rate 97.8 F 75 18 115/52 L 90 L Nasal Cannula 1 09/01/24 07:47 09/01/24 07:47 09/01/24 07:47 09/01/24 07:47 09/01/24 07:47 09/01/24 07:47 09/01/24 07:47 Laboratory Results - last 24 hr 08/31/24 22:15: WBC 9.5, RBC 4.70, Hgb 12.6 L, Hct 42.1, MCV 89.6, MCH 26.8 L, MCHC 29.9 L, RDW 14.4, Plt Count 427 H, MPV 9.8, Neut % (Auto) 55.2, Lymph % (Auto) 31.0, [place] % (Auto) 7.3, Eos % (Auto) 5.5, Baso % (Auto) 0.8, Neut # (Auto) 5.2, Lymph # (Auto) 2.9, [place] # (Auto) 0.7, Eos # (Auto) 0.5 H, Baso # (Auto) 0.1, Sodium 141, Potassium 4.0, Chloride 108 H, Carbon Dioxide 27, Anion Gap 10.0, BUN 30 H, Creatinine 1.50 H, Estimated Creat Clear 42, Estimated GFR 44 L, Est GFR ( Amer) 54 L, Glucose 149 H, Calcium 9.2, Total Bilirubin 0.6, AST 35, ALT 20, Alkaline Phosphatase 115, Total Protein 7.2 D, Albumin 4.6, Globulin 2.6, Albumin/Globulin Ratio 1.8, Lipase 72 09/01/24 00:25: Urine Color Yellow, Urine Appearance Clear, Urine pH 7.0, Ur Specific [place] 1.015, Urine Protein Trace, Urine Glucose (UA) Negative, Urine Ketones Negative, Urine Blood 2+ A, Urine Nitrate Negative, Urine Bilirubin Negative, Urine Urobilinogen 0.2, Ur Leukocyte Esterase Trace, Urine RBC 50-100, Urine WBC 5-10, Ur Squamous Epith Cells Occasional, Urine Bacteria 1+ 09/01/24 05:28: WBC 11.7 H, RBC 4.35 L, Hgb 12.0 L, Hct 39.8 L, MCV 91.5, MCH 27.6, MCHC 30.2 L, RDW 14.6, Plt Count 374, MPV 10.2, Neut % (Auto) 72.1, Lymph % (Auto) 15.8, [place] % (Auto) 8.5, Eos % (Auto) 2.7, Baso % (Auto) 0.6, Neut # (Auto) 8.4 H, Lymph # (Auto) 1.9, [place] # (Auto) 1.0, Eos # (Auto) 0.3, Baso # (Auto) 0.1, Sodium 143, Potassium 4.1, Chloride 109 H, Carbon Dioxide 27, Anion Gap 11.1, BUN 29 H, Creatinine 1.50 H, Estimated Creat Clear 34, Estimated GFR 44 L, Est GFR ( Amer) 54 L, Glucose 103 H D, Calcium 8.7, Total Bilirubin 0.5, AST 39, ALT 18, Alkaline Phosphatase 95, Total Protein 6.5, Albumin 4.0 D, Globulin 2.5, Albumin/Globulin Ratio 1.6, TSH 1.22 I & O for Last 24 hours: Intake & Output 08/29/24 08/30/24 08/31/24 09/01/24 23:59 23:59 23:59 23:59 Intake Total 520 / 520 Output Total 120 / 120 Balance 400 / 400 Weight 81.647 kg 67.699 kg Constitutional Constitutional: no acute distress, obese and chronically ill appearing *Routine HEENT Exam Head: Present normocephalic Eye: Present EOMI and PERRL ENT: Present mucous membranes moist *Routine Neck Exam Neck: Present supple; Absent lymphadenopathy Routine Chest/Breast/Axilla Exam Chest wall: Present tenderness (Over right lower ribs) *Routine Respiratory Exam Respiratory: Present prolonged expiratory phase; Absent rhonchi, wheezes or cr ackles *Routine Cardiovascular Exam Cardiovascular: Present RRR *Routine Abdominal Exam Abdominal: Present soft, normoactive bowel sounds and tenderness (Significant improvement. Very minimal); Absent distended *Routine Rectal Exam Patient deferred: visual exam *Routine Exam Patient deferred: penile exam *Routine Extremities Exam Extremities: Absent cyanosis, clubbing or edema Comments: Generalized weakness in legs *Routine Skin Exam Skin: Present intact and warm; Absent rash *Routine Neurological Exam Neurological: Present alert, oriented X3 and moving all extremities; Absent altered mental status Results Data Completed and Pending Labs on day of discharge: Labs from last 24 hours 09/01/24 09/01/24 08/31/24 05:28 00:25 22:15 WBC 11.7 H 9.5 RBC 4.35 L 4.70 Hgb 12.0 L 12.6 L Hct 39.8 L 42.1 MCV 91.5 89.6 MCH 27.6 26.8 L MCHC 30.2 L 29.9 L RDW 14.6 14.4 Plt Count 374 427 H MPV 10.2 9.8 Neut % (Auto) 72.1 55.2 Lymph % (Auto) 15.8 31.0 [place] % (Auto) 8.5 7.3 Eos % (Auto) 2.7 5.5 Baso % (Auto) 0.6 0.8 Neut # (Auto) 8.4 H 5.2 Lymph # (Auto) 1.9 2.9 [place] # (Auto) 1.0 0.7 Eos # (Auto) 0.3 0.5 H Baso # (Auto) 0.1 0.1 Sodium 143 141 Potassium 4.1 4.0 Chloride 109 H 108 H Carbon Dioxide 27 27 Anion Gap 11.1 10.0 BUN 29 H 30 H Creatinine 1.50 H 1.50 H Estimated Creat Clear 34 42 Estimated GFR 44 L 44 L Est GFR ( Amer) 54 L 54 L Glucose 103 H D 149 H Calcium 8.7 9.2 Total Bilirubin 0.5 0.6 AST 39 35 ALT 18 20 Alkaline Phosphatase 95 115 Total Protein 6.5 7.2 D Albumin 4.0 D 4.6 Globulin 2.5 2.6 Albumin/Globulin Ratio 1.6 1.8 Lipase 72 TSH 1.22 Urine Color Yellow Urine Appearance Clear Urine pH 7.0 Ur Specific [place] 1.015 Urine Protein Trace Urine Glucose (UA) Negative Urine Ketones Negative Urine Blood 2+ A Urine Nitrate Negative Urine Bilirubin Negative Urine Urobilinogen 0.2 Ur Leukocyte Esterase Trace Urine RBC 50-100 Urine WBC 5-10 Ur Squamous Epith Cells Occasional Urine Bacteria 1+ DS: Diagnosis Discharge Diagnosis (1) Fecal impaction: Status: Acute Code(s): K56.41 - Fecal impaction (2) COPD (chronic obstructive pulmonary disease): Status: Chronic Code(s): J44.9 - Chronic obstructive pulmonary disease, unspecified (3) MERY (acute kidney injury): Status: Resolved Code(s): N17.9 - Acute kidney failure, unspecified (4) Renal insufficiency: Status: Acute Code(s): N28.9 - Disorder of kidney and ureter, unspecified (5) Intermittent atrial fibrillation: Status: Acute Code(s): I48.0 - Paroxysmal atrial fibrillation (6) Abdominal pain: Status: Acute Code(s): R10.9 - Unspecified abdominal pain Meds Home Medications and Allergies Home Medications ?Medication ?Instructions ?Recorded ?Confirmed ?Type atorvastatin 20 mg tablet 20 mg PO HS 12/22/17 09/01/24 History aspirin 81 mg tablet,delayed 81 mg PO DAILY 05/09/20 09/01/24 History release (Adult Aspirin Regimen) clopidogrel 75 mg tablet 75 mg PO DAILY 10/24/22 09/01/24 History finasteride 5 mg tablet 5 mg PO DAILY 10/24/22 09/01/24 History escitalopram oxalate 10 mg tablet 10 mg PO DAILY 08/09/23 09/01/24 History solifenacin 10 mg tablet 10 mg PO DAILY 08/09/23 09/01/24 History alprazolam 0.5 mg tablet 0.5 mg PO TID 30 days #90 tabs 08/15/23 09/01/24 Rx gabapentin 300 mg capsule 600 mg PO TID 09/01/24 09/01/24 History levothyroxine 75 mcg tablet 75 mcg PO DAILY 09/01/24 09/01/24 History mirabegron 50 mg tablet,extended 50 mg PO DAILY 09/01/24 09/01/24 History release 24 hr (Myrbetriq) polyethylene glycol 3350 17 gram 17 g PO DAILYP PRN constipation 30 09/01/24 Rx oral powder packet (HealthyLax) days #30 ea sennosides 8.6 mg-docusate sodium 1 tab PO HS 30 days #30 tabs 09/01/24 Rx 50 mg tablet (Stimulant Laxative Plus) New Prescriptions to Start Prescriptions: polyethylene glycol 3350 [HealthyLax] Dayton Felton sennocheyennes-docusate sodium [Stimulant Laxative Plus] Dayton Felton Allergies Allergy/AdvReac Type Severity Reaction Status Date / Time No Known Allergies Allergy Verified 02/09/21 07:53 Discharge Plan Disposition Patient Disposition: Home Health Service Condition: Fair Discharge Order Discharge Orders: Discharge Order (Routine); Ordered 09/01/24 Ordered By: Dayton Felton Follow up Plan Follow up with: Ricki London MD [Primary Care Provider] - 09/06/24 2:30 pm Prescriptions/Medication Reconciliation: New polyethylene glycol 3350 [HealthyLax] 17 gram Powder In Packet 17 g PO DAILYP PRN (Reason: constipation) 30 Days Qty: 30 0RF sennosides-docusate sodium [Stimulant Laxative Plus] 8.6-50 mg Tablet 1 tab PO HS 30 Days Qty: 30 0RF Continued aspirin [Adult Aspirin Regimen] 81 mg tablet,delayed release (DR/EC) 81 mg PO DAILY alprazolam 0.5 mg tablet 0.5 mg PO TID 30 Days Qty: 90 0RF gabapentin 300 mg capsule 600 mg PO TID mirabegron [Myrbetriq] 50 mg tablet extended release 24 hr 50 mg PO DAILY Patient Comments: TAKE 1 TABLET BY MOUTH EVERY DAY levothyroxine 75 mcg tablet 75 mcg PO DAILY Patient Comments: TAKE 1 TABLET BY MOUTH DAILY atorvastatin 20 MG tablet 20 mg PO HS finasteride 5 mg tablet 5 mg PO DAILY Patient Comments: TAKE ONE TABLET BY MOUTH EVERY DAY clopidogrel 75 MG tablet 75 mg PO DAILY escitalopram oxalate 10 mg tablet 10 mg PO DAILY Patient Comments: TAKE ONE TABLET BY MOUTH EVERY DAY solifenacin 10 mg tablet 10 mg PO DAILY Problem Reconciliation Problems Reviewed?: Yes Patient Discharge Instructions ACTIVITY: Continue current activity DIET: continue same diet Patient Instructions: Acute Kidney Injury, DI for Fecal Impaction, Catheter- Associated Urinary Tract Infection Print Language: Tristanian Providers Primary Care Provider: Ricki London Admit Provider: Dayton Felton Attending Provider: Dayton Felton
--- NOTE | 2024-09-01 10:40 | PC.NURSE ---
spoke with pt on the phone this morning around 0740 regarding the administration of Xanax that pt takes at home. educated that home medications had not been reordered, but that it would be discussed during rounds with the hospitalist this afternoon, and if necessary they would be reordered and administered. entered pt room at 1000 to administer morning medications and found at bedside with unlabeled pill sorter. verbalized that since we had not given him his morning meds, she administered them from his home medications. educated pt and on the potential harm that this could cause due to staff being unaware of what exactly was administered r/t duplicate administration, side effects, and worsening of current medical conditions. educated on the need to take unlabeled medications home with her. verbalized understanding. hospitalist aware of situation.
--- NOTE | 2024-09-01 10:55 | HMH.OTEV ---
OT Inpatient Evaluation Rehab OT IP Evaluation Start: 09/01/24 09:12 Freq: ONCE Status: Active Protocol: Document 09/01/24 10:51 [facility] (Rec: 09/01/24 10:54 [facility] [id number]) Rehab OT IP Assessment Subjective History Per H&P: Patient is 83-year- old male who presents to the emergency department for evaluation of abdominal pain. Symptoms began about 48 hours ago, and are localized to lower abdomen. Exacerbated by remaining in a sitting position and is better with lying down. Cramping and sharp in nature. Associated symptoms include nausea and diarrhea. He is straining in order to pass stool, and has been largely limited to mild incompetence and fecal leaking . No falls, no trauma, no chest pain, shortness of breath, syncope. No other concerning symptoms. Subjective Pt reports he lives at home with his who is available as needed. Pt reports he usually is able to transfer short distances using a RW but reports his believes he should be using a w/c. Pt reports hx of falls. Pt requires assistance from with dressing, toileting, and bathing. Pt dependent upon for completion of all IADLs. Objective Patient Orientation Person,Place,Birthday Right Upper Extremity Gross ROM WFL Left Upper Extremity Gross ROM WFL Bed Mobility bed mobility-scooting,bed mobility - supine/sit Assist Level Moderate x 1 (50% assist) Rehab OT IP prob,goals,plan Problems Date of Evaluation: 09/01/24 OT IP Problems Bed Mobility,Transfers,Balance ,Self care,Safety Rehab Potential Rehab Potential Good Equipment Needs Assistive Devices Rolling / Wheeled Walker Plan OT intervention Plan Bed Mobility,Transfers,Balance ,Self care,Safety,Therapeutic Exercise OT Plan Frequency Daily Duration LOS Discharge Goals Bed Mobility Ability Assistance x1 Sit to Stand Chair Transfer Ability Minimal x 1 (25% assist) Chair Transfer Ability Minimal x 1 (25% assist) Chair Transfer Technique Stand Step Pivot Chair Transfer Assistive Devices Rolling Walker Lower Body Dressing Ability Moderate Assistance Upper Body Dressing Ability Minimal Assistance Bathing Ability Moderate Assistance Performing Toilet Hygiene Ability Moderate Assistance Overall Commode/Toilet Transfer Ability Minimal Assistance Commode/Toilet Transfer Technique Sit to/from Ambulatory Discharge Plan OT Discharge Plan Pt will continue to be seen for OT services while at [facility] Patient presents below baseline at this time in functional transfers, ADL independence, and strength. Pt not safe to return home at this time. OT recommending short-term rehabilitation stay upon d/c from [facility] for continued skilled therapy services. Eval Complexity Eval Charge Codes 49230 - Moderate Complexity PHYSICIAN CERTIFICATION: I certify the specified therapy services for Tony Bonilla are required, authorized, and reviewed every 30 days.
[2024-09-01] MEDS: ALPRAZolam 0.5MG TABLET 0.5 MG PO (12:56)
[2024-09-01] MEDS: GABAPENTIN 300MG CAPSULE 600 MG PO (12:56)
--- NOTE | 2024-09-02 11:32 | SW/DCPLANNER ---
Spoke with patient on the phone. Patient stated that he is doing a little better. Patient stated that he is aware of his upcoming appointment. Patient stated that he was able to get his medicine picked up from clinic pharmacy. Patient stated that he would like to know how much longer will it take before he gets some relief and i suggest that if he doesnt feel any relief within the next day or 2 to call his PCP or come back to the ER. Paient stated that he has no other concerns or questions. Nicky Padgett
== END 2024-09-01 18:17 | disposition home health service (06) ==
LOC: ER 09-01 00:14 → 2ND 09-01 01:30
PROVIDERS: Student in an Organized Health Care Education/Training Program; Admitting Provider Internal Medicine Adolescent Medicine; Emergency Provider Emergency Medicine; PCP Internal Medicine Adolescent Medicine; Visit Provider Internal Medicine Adolescent Medicine
DX: K56.41 Fecal impaction (principal); N17.9 Acute kidney failure, unspecified; J44.9 Chronic obstructive pulmonary disease, unspecified; I48.0 Paroxysmal atrial fibrillation; D64.9 Anemia, unspecified; N13.8 Other obstructive and reflux uropathy; E03.9 Hypothyroidism, unspecified; D75.1 Secondary polycythemia; I25.10 Atherosclerotic heart disease of native coronary artery without angina pectoris; Z79.890 Hormone replacement therapy; Z79.899 Other long term (current) drug therapy; Z79.82 Long term (current) use of aspirin; Z79.02 Long term (current) use of antithrombotics/antiplatelets; Z90.49 Acquired absence of other specified parts of digestive tract; Z95.1 Presence of aortocoronary bypass graft
CPT/HCPCS: 36415; 51702; 74177; 80053; 81001; 83690; 84443; 85025; 93005; 97162; 97166; 99285; G0378; J2270; J2405; Q9967

== ENCOUNTER 2024-11-04 14:00 | Outpatient (CLI) | payer MEDICARE, SELFPAY ==
--- NOTE | 2024-11-04 14:05 | XR_ITS ---
FINAL REPORT CLINICAL HISTORY: knee pain COMPARISON: 02/14/2018 FINDINGS: RIGHT KNEE Three views demonstrate no acute fracture or dislocation. There is moderate tricompartment degenerative change. Osteopenia is noted. There is mild lateral patellar subluxation. IMPRESSION: Degenerative changes without acute process. Reviewed, Interpreted and Dictated by Boni Jernigan MD Transcribed by Cheryl Byrne Authenticated and [facility]
--- NOTE | 2024-11-04 14:05 | XR_ITS ---
FINAL REPORT CLINICAL HISTORY: knee pain knee replacement 5-6 yrs ago COMPARISON: 03/31/2022 FINDINGS: LEFT KNEE Three views demonstrate no acute fracture or dislocation. There are post arthroplasty changes. The hardware is unremarkable. There is no joint effusion. IMPRESSION: No acute bony or hardware abnormality. Reviewed, Interpreted and Dictated by Boni Jernigan MD Transcribed by Cheryl Byrne Authenticated and [facility]
--- OUTSIDE RECORDS SUMMARY | 2024-11-04 14:16 | XMS_ITS ---
Author Organization [facility] Care Team Providers Care [employer] Name Role Phone Ricki London Unavailable Unavailable Allergies and adverse reactions No Known Allergies Care Team Name Role Address Phone Organization Dates Ricki London PCP [address] [place] [facility] [address], [address], [place] States (Office): : [facility] 08/15/2023 - 08/26/2023 Goals Section Goals Description Status Target Date Advanced Directives will be honored through next review Active 07/30/2024 Maintain stable weight through next review Activ e 07/30/2024 Optimal cognition will be ma intained with no avoidable decline through next review Active 07/30/2024 Pain will be managed with goal range through nex t review Active 07/30/2024 Prevent/heal wounds and prev ent avoidable skin breakdown through next review Active 07/30/2024 Resident will be at decrease d risk for falls with nursing interventions through next review Active 07/30/2024 Resident will have a normal bowel movement at least every (3) day through the review date. Active 07/30/2024 Resident will have no injury r/t side rail use through next review. Active 07/30/2024 Resident will have toileting needs met by staff through nursing interventions daily Active 07/30/2024 Resident will not leave faci lity unaccompanied by staff or family through next review Active 07/30/2024 The resident will be able to return to the commu nit. Active 07/30/2024 The resident will be free fr om complications related to infection through the review date. Active 07/30/2024 The resident will have no co mplications related to SOB though the review date. Active 07/30/2024 The resident will have no s/ sx of complications r/t fluid deficit through the review date. Active 07/30/2024 The resident will have no s/ sx of complications relate to fluid overload through the review date. Active 07/30/2024 The resident will resume usu al activities without further incident through the review date. Active 07/30/2024 Will achieve/maintain maximu m functional mobility through next review Active 07/30/2024 Will attend/participate in a ctivities of choice through next review Active 07/30/2024 Will benefit from medication without adverse effects through next review Active 07/30/2024 Will express/exhibit satisfa ction with stay and care through next review Active 07/30/2024 Will have needs met by olivier mota of staff as needed through next review Active 07/30/2024 Will have no cardiac complications. Active 07/30/2024 Will not exhibit an avoidable decline in mood th rough next review Active 07/30/2024 Immunizations Immunization Status Vaccine Details Vaccine Code CodeSystem Date Notes TB 2 Step Mantoux Skin Test completed tuberculin skin test; unspecified formulation lotNumber: [id number] expiry: 04/20/2025 Given 0.1 ml Left Forearm intradermally Step 2 of Multi-step with next step required 98 CVX created date: 08/24/2023 consent date: 08/24/2023 administer ed date: 08/24/2023 TB 2 Step Mantoux Skin Test completed tuberculin skin test; unspecified formulation lotNumber: [id number] expiry: 08/18/2026 Mfg: Char pharmaceical Given 0.1 ml Left Forearm intradermally Step 1 of Multi-step with next step required 98 CVX created date: 08/17/2023 consent date: 08/17/2023 administer ed date: 08/14/2023 Educated by LUCIO Trevino on 08/17/2023 Shingles completed zoster vaccine, live 121 CVX created date: 08/18/2023 administer ed date: 08/30/2016 COVID-19 Vaccine Single Dose completed unknown vaccine or immune globulin 999 CVX created date: 08/18/2023 administer ed date: 01/27/2023 COVID-19 Vaccine Additional Dose/Booster completed unknown vaccine or immune globulin 999 CVX created date: 08/18/2023 administer ed date: 03/10/2022 COVID-19 Vaccine Additional Dose/Booster completed unknown vaccine or immune globulin 999 CVX created date: 08/18/2023 administer ed date: 06/09/2020 Flu Vaccine Prior To Admission (historical only) completed unknown vaccine or immune globulin 999 CVX created date: 08/18/2023 administer ed date: 01/27/2023 Flu Vaccine Prior To Admission (historical only) completed unknown vaccine or immune globulin 999 CVX created date: 08/18/2023 administer ed date: 02/06/2022 Flu Vaccine Prior To Admission (historical only) completed unknown vaccine or immune globulin 999 CVX created date: 08/18/2023 administer ed date: 01/11/2021 Flu Vaccine Prior To Admission (historical only) completed unknown vaccine or immune globulin 999 CVX created date: 08/18/2023 administer ed date: 01/21/2020 RSV Vaccine completed Respiratory syncytial virus (RSV), vaccine, recombinant, protein subunit RSV prefusion F, adjuvant reconstituted, 0.5 mL, preservative free 303 CVX created date: 08/18/2023 administer ed date: 02/12/2023 Mental Status Section Date Assessment Total Score Description 08/26/2023 BIMS 14 cognitively int act CAM 0 No delirium ind icated PHQ-9 00 08/17/2023 BIMS 09 moderate cognit nikole impairment CAM 0 No delirium ind icated PHQ-9 13 moderate depres flora Problems Problem # Description Date of onset Resolved Date Code CodeSystem Concern Status 1 ACUTE KIDNEY FAILURE , UNSPECIFIED 08/15/[address] active 2 ANXIETY DISORDER, UNSPECIFIED 08/15/[address] active 3 ATHEROSCLEROTIC HEAR T DISEASE OF [place] CORONARY ARTERY WITHOUT ANGINA PECTORIS 08/15/[id number] active 4 BENIGN PROSTATIC HYPERPLASIA WITHOUT LOWER URINARY TRACT SYMPTOMS 08/15/[address] active 5 CHRONIC OBSTRUCTIVE PULMONARY DISEASE, UNSPECIFIED 08/15/[address] active 6 COGNITIVE COMMUNICATION DEFICIT 08/15/[address] active 7 DIFFICULTY IN WALKING, NOT ELSEWHERE CLASSIFIED 08/15/[address] active 8 DYSPHAGIA, PHARYNGOESOPHAGEAL PHASE 08/15/[address] active 9 ESSENTIAL (PRIMARY) HYPERTENSION 08/15/[address] active 10 FRACTURE OF ONE RIB, UNSPECIFIED SIDE, SUBSEQUENT ENCOUNTER FOR FRACTURE WITH ROUTINE HEALING 08/15/[address] active 11 HISTORY OF FALLING 08/15/[address] active 12 HYPERLIPIDEMIA, UNSPECIFIED 08/15/[address] active 13 HYPOTHYROIDISM, UNSPECIFIED 08/15/[address] active 14 MUSCLE WEAKNESS (GENERALIZED) 08/15/[address] active 15 OTHER ABNORMALITIES OF GAIT AND MOBILITY 08/15/[address] active 16 OTHER TOXIC ENCEPHALOPATHY 08/15/[address] active 17 PAROXYSMAL ATRIAL FIBRILLATION 08/15/[address] active 18 POLYNEUROPATHY, UNSPECIFIED 08/15/[address] active Reason for Referral No Reasons for Referral Entered Social History Social History Observation Description Start Date End Date Code Code System Current Smoking Status Tobacco smoking consumption unknown 810051383 SNOMED CT Sex Assigned At Male 1940 67491-8 [facility] Gender Identity Male [id number] Vital Signs Code Code System Vitals Name Values and Units Timing Information 9279-1 [facility] Respiratory Rate Value=18.0 Units=/m in 08/26/2023 8462-4 [facility] Blood Pressure-Diastolic Value=72 Un its=mmHg 08/26/2023 8480-6 [facility] Blood Pressure-Systolic Mosee=381 Un its=mmHg 08/26/2023 8310-5 [facility] Body Temperature Value=97.8 Units= F 08/26/2023 8867-4 [facility] Heart rate Value=62.0 Units=/min 10/2023 60937-1 [facility] O2 % BldC Oximetry Value=90.0 Units= % 08/26/2023 59649-9 [facility] Pain Level Value=0.0 08/26/2023 27603-6 [facility] Weight Rlxut=914.4 Units=Lbs 08/2023 8302-2 [facility] Height Value=64.0 Units=Inches 08/16/2023
--- OUTSIDE RECORDS SUMMARY | 2024-11-04 14:16 | XMS_ITS | Encounter Summary ---
Author Organization [employer] ([place], [place], [place], [place]) Address [address] [place] [address] Care Team Providers Care Prison Guard Name Role Phone Ricki London MD Primary Care Provider + [phone] Encounter Details Date Type Department Care Team (Late st Contact Info) Description 02/12/2021 Transcribed Document [facility] [place] Family Medicine [facility]ly [facility] [place] [address] ProviderStanford MD [address] [place] [id number] Social History Tobacco Use Types Packs/Day Years Used Date Smoking Tobacco: Never Assessed Sex and Gender Information Value Date Recorded Sex Assigned at Not on file Legal Sex Male 5:38 PM CDT Gender Identity Not on file Sexual Orientation Not on file documented as of this encounter Miscellaneous Notes * Cerner Conversion Note - Stanford ProviderMD - 02/12/2021 2:24 PM CDT [place] Suicide Severity Rating Scale (C-SSRS) Entered On: 02/12/2021 17:16 EDT Performed On: 02/12/2021 17:10 EDT by Aleja Baumann RN [place] Suicide Severity Rating Scale (C-SSRS) CSSRS Past Month Wish to be : No CSSRS Past Month Suicidal Thoughts : No CSSRS Lifetime Suicide Behavior : No Suicide Severity Rating Score : 0 Suicide Severity Rating : No Additional Care Required at this time Aleja Baumann RN - 02/12/2021 17:10 EDT documented in this encounter Plan of Treatment Not on file documented as of this encounter Visit Diagnoses Not on filedocumented in this encounter Care Teams Prison Guard Relationship Specialty Start Date End Date Ricki London MD [address] [place] [id number] PCP - General Adolescent Medicine 11/04/22 documented as of this encounter
--- OUTSIDE RECORDS SUMMARY | 2024-11-04 14:16 | XMS_ITS | Encounter Summary ---
Author Organization [employer] ([place], [place], [place], [place]) Address [address] [place] [address] Care Team Providers Care Night Filler Name Role Phone Ricki London MD Primary Care Provider + [phone] Encounter Details Date Type Department Care Team (Late st Contact Info) Description 02/13/2021 Transcribed Document [facility] [place] [address] ProviderStanford MD [address] [place] [address] Social History Tobacco Use Types Packs/Day Years Used Date Smoking Tobacco: Never Assessed Sex and Gender Information Value Date Recorded Sex Assigned at Not on file Legal Sex Male 5:38 PM CDT Gender Identity Not on file Sexual Orientation Not on file documented as of this encounter Miscellaneous Notes * Cerner Conversion Note - Stanford Cain MD - 02/13/2021 10:34 AM CDT Meds to Bed Enrollment Entered On: 02/13/2021 10:34 EDT Performed On: 02/13/2021 10:34 EDT by Pritesh Casillas Refinery Operator V[employer] Recovery Unit Cert Lead Meds to Bed Enrollment Patient Enrollment Decision: : Yes/enroll in meds to bed program Pritesh Casillas Refinery Operator [employer] Recovery Unit Cert Lead - 02/13/2021 10:34 EDT documented in this encounter Plan of Treatment Not on file documented as of this encounter Visit Diagnoses Not on filedocumented in this encounter Care Teams Night Filler Relationship Specialty Start Date End Date Ricki London MD [address] [place] [address] [place] [id number] PCP - General Adolescent Medicine 11/04/22 documented as of this encounter
--- OUTSIDE RECORDS SUMMARY | 2024-11-04 14:16 | XMS_ITS | Encounter Summary ---
Author Organization [employer] ([place], [place], [place], [place]) Address [address] [place] [address] Care Team Providers Care Safety And Health Manager Name Role Phone Ricki Agosto MD Primary Care Provider + [phone] Encounter Details Date Type Department Care Team (Late st Contact Info) Description 02/12/2021 Transcribed Document [facility] [place] [facility] [place] [address] ProviderStanford MD [address] [place] [id number] Social History Tobacco Use Types Packs/Day Years Used Date Smoking Tobacco: Never Assessed Sex and Gender Information Value Date Recorded Sex Assigned at Not on file Legal Sex Male 5:38 PM CDT Gender Identity Not on file Sexual Orientation Not on file documented as of this encounter Miscellaneous Notes * Cerner Conversion Note - Stanford Cain MD - 02/12/2021 8:26 PM CDT Patient: TONY CASTRO Age: 80 Years Sex: Male : 1940 Chief Complaint had blood work done at his PCP Dr. gomez this AM weas told to come here to see a funeral car driver incase he needs diaylsis Reason for Consultation Bilateral ureteral stones Acute Renal Failure History of Present Illness 80 yo male in ER for Cr of 7 and bilateral ureteral stones. Patient of Dr. Gonzalez and s/p lithotripsy last week. Left ureteral stent removed last Friday. Low grade fever over weekend. Labs at PCP showed renal failure. Told to go to [place] to ER for evaluation. CT shows bilateral ureteral stones. There are small bilateral nonobstructing renal calculi. 3 on the right and one on the left side. There is mild left hydroureteronephrosis secondary to what appears to be 3 adjacent calculi at the UVJ. The largest is 4.3 mm in diameter. There is also mild right hydroureteronephrosis secondary to a 2 mm calculus at the UVJ. No bothersome flank pain. No hematuria or dysuria. No CP/SOA. Review of Systems As per HPI Vital Signs T: 36.7 ??C HR: 102(Monitored) RR: 25 BP: 126/66 SpO2: 96% HT: 165.1 cm WT: 68.18 kg BMI: 25 Oxygen Settings (Last) Oxygen Therapy Mode: Room air (02/12/21 19:14:00) Physical Exam NAD AO NCAT MMM RRR Normal, nonlabored resp S NT ND Normal affect No focal neuro deficits Assessment/Plan Abnormal laboratory findings ARF (acute renal failure) Obstructive uropathy He has acute renal failure related to bilateral ureteral obstruction from UVJ stones. Plan for OR urgently for bilateral ureteral stent placement. Will need definitive stone treatment by myself or Dr. Gonzalez in future. VTE Prophylaxis - Medical No VTE Prophylaxis Orders. Provider Information Primary Care Physician - RICKI AGOSTO (REF), -[facility] Attending Physician - ARELY PENALOZA MD-[facility] Admitting Physician - ARELY PENALOZA MD-EMR Consulting Physician - MERLIN MOSER MD - ARF, ureteral stone Referring Physician - ARELY PENALOZA MD-EMR Problem List/Past Medical History Ongoing Acute medical illness Acute medical illness Acute medical illness Allergic rhinitis Anxiety Arthritis Back pain Bronchitis Cardiac arrhythmia Chews tobacco Concussion Coronary artery disease Disorder of urinary tract Hiatal hernia Hyperlipidemia Hypertension hypothyroidism Patient with cardiac pacemaker medtronic Peripheral neuropathy Pneumonia Renal calculus Restless legs syndrome Sinusitis Sleep apnea uses dental appliance Spinal cord injury Stented coronary artery Wears prescription eyeglasses Historical No qualifying data Procedure/Surgical History pacemaker replaced (03/29/2014), pacemaker medtronic (2005), coronary artery bypass graft (1997), heart cath stent (1996), APPENDECTOMY, back surgury x 3, CHOLECYSTECTOMY, colonoscopy, euvola, injections right foot numerous, left knee replacement, right leg fracture. Medications Inpatient Zosyn + Sodium Chloride 0.9% intravenous solution 50 mL Home amiodarone 200 mg oral tablet, 100 mg= 0.5 Tab, Oral, Daily Aspirin Low Dose 81 mg oral tablet, 81 mg, Daily atorvastatin 20 mg oral tablet, 20 mg= 1 Tab, Oral, Daily Co-Q10 100 mg oral capsule, 100 mg= 1 Cap, Oral, Daily Fish Oil 1000 mg oral capsule, 1000 mg= 1 Cap, Oral, Daily levothyroxine 75 mcg (0.075 mg) oral tablet, 75 mcg= 1 Tab, Oral, Daily Lomotil 2.5 mg-0.025 mg oral tablet, 2 Tab, Oral, QID Multivitamins and Minerals, 1 Tab, Oral, Daily Neurontin 300 mg oral capsule, 900 mg= 3 Cap, Oral, TID Nitrostat 0.4 mg sublingual tablet, 0.4 mg= 1 Tab, SubLINgual, Q5Min, PRN Vitamin B Complex 100, 1 Tab, Daily Vitamin B-12 1000 mcg oral tablet, 1000 mcg= 1 Tab, Oral, Daily Vitamin D3 1000 intl units oral capsule, 1000 Int Units= 1 Cap, Oral, Daily Xanax 0.5 mg oral tablet, 0.5 mg= 1 Tab, Oral, TID, PRN Allergies No Known Allergies Social History Alcohol Alcohol Use History Yes. Date/Time of Last Drink: wine occasionally. Employment/School Retired Home/Environment Lives with Spouse. Home equipment: Walker/Cane. Substance Abuse Drug Use Hx: No. Use in Last 12 Months: No. Tobacco Smoking Status Former smoker. Years of Use: 15. Packs/Tins Daily: 1. Last Used: quit 1967 but chews tobacco. Family History NC to current problem Diagnostic Results As per HPI Lab Results Test Name Test Result Date/Time Sodium Level 134 mmol/L (Low) 02/12/2021 16:43 EDT Potassium Level 5.0 mmol/L 02/12/2021 16:43 EDT Chloride Level 101 mmol/L (Low) 02/12/2021 16:43 EDT Carbon Dioxide Level 22 mmol/L 02/12/2021 16:43 EDT Anion Gap 16 02/12/2021 16:43 EDT Glucose Level 117 mg/dL (High) 02/12/2021 16:43 EDT Blood Urea Nitrogen 45 mg/dL (High) 02/12/2021 16:43 EDT Creatinine Level 7.10 mg/dL (High) 02/12/2021 16:43 EDT eGFR 9 mL/min/1.73m2 (Low) 02/12/2021 16:43 EDT eGFR NonAfrican 7 mL/min/1.73m2 (Low) 02/12/2021 16:43 EDT Bun/Creatinine 6.3 (Low) 02/12/2021 16:43 EDT Calcium Level 8.1 mg/dL (Low) 02/12/2021 16:43 EDT Lactic Acid Level 1.1 mmol/L 02/12/2021 18:17 EDT WBC 15.2 K/uL (High) 02/12/2021 16:43 EDT RBC 4.33 Million/uL 02/12/2021 16:43 EDT Hgb 13.3 g/dL (Low) 02/12/2021 16:43 EDT Hct 41.2 % 02/12/2021 16:43 EDT MCV 95.2 fL (High) 02/12/2021 16:43 EDT MCH 30.7 pg 02/12/2021 16:43 EDT MCHC 32.3 Gram/dL 02/12/2021 16:43 EDT Platelet Count 250 K/uL 02/12/2021 16:43 EDT MPV 9.7 fL 02/12/2021 16:43 EDT RDW 13.5 % 02/12/2021 16:43 EDT Slide Review No 02/12/2021 16:43 EDT Urine Type. U CleanCatch 02/12/2021 19:00 EDT Urine Color YELLOW2 02/12/2021 19:00 EDT Urine Appearance CLOUDY2 (Abnormal) 02/12/2021 19:00 EDT Urine Specific [place] 1.012 02/12/2021 19:00 EDT Urine pH Dipstick *5.0 02/12/2021 19:00 EDT Urine Leukocyte Esterase TRACE2 (Abnormal) 02/12/2021 19:00 EDT Urine Nitrite NEGATIVE2 02/12/2021 19:00 EDT Urine Protein Dipstick 30 (Abnormal) 02/12/2021 19:00 EDT Urine Glucose Dipstick NEGATIVE2 02/12/2021 19:00 EDT Urine Ketones Dipstick NEGATIVE2 02/12/2021 19:00 EDT Urine Urobilinogen Dipstick 0.2 02/12/2021 19:00 EDT Urine Bilirubin Dipstick NEGATIVE2 02/12/2021 19:00 EDT Urine Blood Dipstick LARGE2 (Abnormal) 02/12/2021 19:00 EDT Ur RBC 20-50 (Abnormal) 02/12/2021 19:00 EDT Ur WBC 0-2 02/12/2021 19:00 EDT Ur Bacteria 1+ (Abnormal) 02/12/2021 19:00 EDT Ur Mucous 1+ (Abnormal) 02/12/2021 19:00 EDT Ur Squamous Epithelial Cells 0-2 02/12/2021 19:00 EDT Urine Culture if Indicated Not Indicated 02/12/2021 19:00 EDT Procalcitonin 0.70 ng/mL 02/12/2021 18:17 EDT SARS-CoV-2 (COVID19 PCR) Negative2 02/12/2021 18:28 EDT Electronically signed by Davis, [facility] Conversion Cloth Boil Off Machine Operator Cerner at 08/05/2022 9:16 AM CDT documented in this encounter Plan of Treatment Not on file documented as of this encounter Visit Diagnoses Not on filedocumented in this encounter Care Teams Safety And Health Manager Relationship Specialty Start Date End Date Ricki Agosto MD [address] [place] [id number] PCP - General Adolescent Medicine 11/04/22 documented as of this encounter
--- OUTSIDE RECORDS SUMMARY | 2024-11-04 14:16 | XMS_ITS | Encounter Summary ---
Author Organization [employer] ([place], [place], [place], [place]) Address [address] [place] [address] Care Team Providers Care Sweep Press Operator Name Role Phone Ricki London MD Primary Care Provider + [phone] Encounter Details Date Type Department Care Team (Late st Contact Info) Description 02/12/2021 Transcribed Document [facility] [place] Family Medicine [address] [place] [address] ProviderStanford MD [address] [place] [address] Social History Tobacco Use Types Packs/Day Years Used Date Smoking Tobacco: Never Assessed Sex and Gender Information Value Date Recorded Sex Assigned at Not on file Legal Sex Male 5:38 PM CDT Gender Identity Not on file Sexual Orientation Not on file documented as of this encounter Miscellaneous Notes * Cerner Conversion Note - Stanford Cain MD - 02/12/2021 8:48 PM CDT [facility] Main OR IntraOp Summary Primary Physician: MERLIN MOSER MD Finalized Date/Time: 02/13/21 14:21:29 Pt. Name: TONY CASTRO.O.B./Sex: 1940 Male Med Rec #: [id number] Physician: ARELY PENALOZA MD-EMR Financial #: [id number] Pt. Type: I Room/Bed: [facility]/ Admit/Disch: 02/12/21 20:19:00 - Institution: [facility] IntraOp Case Attendance Entry 1 Entry 2 Entry 3 Case Attendee EHSAN, MERLIN SMITAMD NEO Sims WAYNE B, MD-ANS Brummett, James, Staffing And Scheduling Coordinator Role Performed Surgeon/Proceduralist, Anesthesiologist Scrub, First First Time In 02/12/21 20:29:00 02/12/21 20:29:00 02/12/21 20:29:00 Time Out 02/12/21 21:06:00 02/12/21 21:06:00 02/12/21 21:06:00 Procedure Ureteral Stent Ureteral Stent Ureteral Stent Insertion, Cystoscopy Insertion, Cystoscopy Insertion, Cystoscopy Adult Adult Adult Other Attendee Superficial Wound Closed By: Last Modified By: Nathaly Ponce, Nathaly Brito RN Hauer, Jessica, RN 02/12/21 21:13:57 02/12/21 21:13:57 02/12/21 21:13:57 Entry 4 Entry 5 Case Attendee Nathaly Ponce, Angie Soto RN Role Performed Helicopter Repairer, First Helicopter Repairer, Second Time In 02/12/21 20:29:00 02/12/21 20:29:00 Time Out 02/12/21 21:06:00 02/12/21 20:40:00 Procedure Ureteral Stent Ureteral Stent Insertion, Cystoscopy Insertion, Cystoscopy Adult Adult Other Attendee Superficial Wound Closed By: Last Modified By: Nathaly Ponce, Nathaly Brito RN 02/12/21 21:13:57 02/12/21 21:13:57 [facility] IntraOp Case Attendance Audit 02/12/21 21:13:57 Pearl Digger: [id number] Modifier: [id number] <+> 1 Procedure 2 <+> Time In 2 <+> Time Out 2 <*> Procedure Ureteral Stent Insertion, Cystoscopy Adult 3 <+> Time In 3 <+> Time Out 3 <*> Procedure Ureteral Stent Insertion, Cystoscopy Adult 4 <+> Time In 4 <+> Time Out 4 <*> Procedure Ureteral Stent Insertion, Cystoscopy Adult 5 <+> Time In 5 <*> Procedure Ureteral Stent Insertion, Cystoscopy Adult 02/12/21 21:13:56 Pearl Digger: [id number] Modifier: [id number] <+> Time In 1 <+> Time Out 1 <-> Procedure Ureteral Stent Insertion, Cystoscopy Adult 02/12/21 21:13:07 Pearl Digger: [id number] Modifier: [id number] <+> 2 Case Attendee <+> 2 Role Performed <+> 2 Procedure <+> 3 Case Attendee <+> 3 Role Performed <+> 3 Procedure <+> 4 Case Attendee <+> 4 Role Performed <+> 4 Procedure <+> 5 Case Attendee <+> 5 Role Performed <+> 5 Time Out <+> 5 Procedure [facility] IntraOp Case Times Entry 1 Patient In Room Time 02/12/21 20:29:00 Out Room Time 02/12/21 21:06:00 Anesthesia Start Time 02/12/21 20:29:00 Stop Time 02/12/21 21:06:00 Surgery / Procedure Times Start Time 02/12/21 20:48:00 Stop Time 02/12/21 20:57:00 Last Modified By: Nathaly Ponce RN 02/12/21 21:13:55 [facility] IntraOp Communication Entry 1 Communication To Family/Significant other Comment start Communication By Nathaly Ponce RN Last Modified By: Nathaly Ponce RN 02/12/21 21:14:09 [facility] IntraOp Departure from OR Entry 1 Integumentary Assessment Integumentary WDL Assessment WDL Transfer/Handoff Transfer to PACU Phase I Handoff Method Phone call Post-op Transport Stretcher/Gurney Via Patient Transport ANTHONY LARSON MD-ANS, Accompanied by Nathaly Ponce RN Last Modified By: Nathaly Ponce RN 02/12/21 21:14:36 [facility] IntraOp Fire Risk Assessment Entry 1 Fire Info Surgical Site or 0- No Incision Above the Xyphoid Open O2 Source 0- No (Mask or Cannula) Available Ignition 1- Yes (ESU, Laser, Light Source) Fire Risk 1 Assessment Score Fire Score Fire Risk Yes Assessment Complete Fire Risk Nathaly Ponce RN Assessment Verified By Fire Risk 02/12/21 20:47:00 Assessment Verified Date/Time Fire Risk Standard Fire Yes Safety Precautions Followed Last Modified By: Nathaly Ponce RN 02/12/21 21:14:46 [facility] IntraOp General Case [employer] Tutor 1 Case Information OR Cysto 01 [facility] Case Level 1 Room Verified Yes Wound Class II - Clean-Contaminated Specialty Urology Anesthesia Type General ASA Class 3E Diagnosis Preop Diagnosis bilateral renal obstruction Postop Same As Preop No Postop Diagnosis bilateral renal obstruction, see md post op note Last Modified By: Nathaly Ponce RN 02/12/21 21:15:26 [facility] IntraOp Implant Log Entry 1 Entry 2 Type Implant (Synthetic) Implant (Synthetic) Implant Log Implant Type Other Other Tissue Implant Type Implant STENT URET BRAID + STENT URET BRAID + Identification [id number] Description Implant Quantity 2 2 Implant Site right ureter left ureter Implant Identification Model Number Implant Identification Serial Number Implant [id number] Identification Lot Number Implant [facility] Identification Sci:Urology/Gynecology Sci:Urology/Gynecology Drug Department Worker Name: Implant [id number] Identification Catalog Number Implant Size Implant Has an Yes Yes Expiration Date Implant Expiration 10/21/23 10/21/23 Date Wasted Radioactive Material Time Implanted Tissue Implant Continue for Tissue Implant Documentation Tissue Identification Number Graft Prep Per Drug Department Worker Instructions: Tissue Preparation Method: Reconstitution Solution: Reconstitution Solution Lot Number Reconstitution Solution Expiration Date: Thawing Solution Thawing Solution Lot Number Thawing Solution Expiration Date Preparation Materials, Other Preparation Materials, Other Lot Number Preparation Materials, Other Expiration Date Tissue Prepared/Processed By Drug Department Worker Paperwork Completed Implant Type Comment Last Modified By: Nathaly Ponce RN Hauer, Jessica, RN 02/12/21 21:19:35 02/12/21 21:19:35 [facility] IntraOp Intraoperative Assessment Entry 1 Handoff Method Bedside/Face to face, Online nursing summary Valid History / Yes Physical in Chart Preoperative Yes Checklist Reviewed/Evaluated Allergies Reviewed Yes Patient is Latex No Sensitive Isolation Not applicable Precautions Noted Level of WDL Consciousness (WDL = Alert, Oriented to Person, Place, and Time) Skin Assessment No Verified Present Upon IVs Arrival to OR Last Modified By: Nathaly Ponce RN 02/12/21 21:15:31 [facility] IntraOp Intraoperative Equipment Entry 1 Equipment Intraop Monitoring Electrocardiogram Five lead placement (ECG) Electrode Placement Blood Pressure Non-Invasive BP Device Source Blood Pressure Arm, right upper Location Pulse Oximeter Hand, left Probe Site Antiembolic Devices Scopes Photo/Video Documentation Last Modified By: Nathaly Ponce RN 02/12/21 21:15:50 [facility] IntraOp Medication Admin Entry 1 Medication/Irrigant lidocaine 2% urojet 10ml margaretlyndate - [id number] Route of Local anesthetic, Administration urethra Dose Dose 10 Unit of Measure ml Administered By MERLIN MOSER MD Procedure Irrigation Last Modified By: Nathaly Ponce RN 02/12/21 21:15:54 [facility] IntraOp Patient Positioning Entry 1 Procedure Ureteral Stent Insertion, Cystoscopy Adult Body Position Lithotomy Left Arm Position Resting at side Right Arm Position Resting at side Left Leg Position Secured in stirrup Right Leg Position Secured in stirrup Feet Uncrossed Yes Pressure Points Yes Checked Positioning Devices Table, Cysto, Head Rest, Pad, Elbow, Pad, Elbow, Stirrups/Leg Hollins, Cysto Positioned By ANTHONY LARSON MD-DAYANNA, Nathaly Ponce RN, MERLIN MOSER MD Position Verified Positioning Yes Verified by Anesthesia Positioning Yes Verified by Surgeon Last Modified By: Nathaly Ponce RN 02/12/21 21:16:07 [facility] IntraOp Sign In Entry 1 Patient, Site, Yes Procedure Identified Surgical Consent Yes Confirmed Relevant Surgical Yes Documents Available Surgical Site N/A Marked by person performing procedure Anesthesia Machine Yes Check Completed Medication Checks Yes Completed Allergies Yes Airway Difficult Yes Airway/Aspiration Risk Difficult Yes Airway/Aspiration Intervention Equipment Available Blood Loss Risk Yes Blood Loss Yes Intervention Equipment Prepared and Ready Blood Identifiers Not applicable Verified Per Policy Hypothermia Risk Yes Warming Measures Yes Taken Last Modified By: Nathaly Ponce RN 02/12/21 21:16:12 [facility] IntraOp Sign Out Entry 1 RN Confirmation Surgical Yes Procedure(s) Identified Instrument, Sponge N/A and Sharps Counts Correct/Documented Equipment Problems N/A Documented Specimen Labeled N/A Correctly Urinary Catheter Yes Documented in IView Miranda Patient Yes Recovery Concerns Reviewed with Anesthesia Provider, Surgeon and RN Miranda Patient Yes Management Concerns Reviewed with Anesthesia Provider, Surgeon and RN Safety Checklist Yes Elements Complete? RN Sign Out Nathaly Ponce RN Signature RN Sign Out 02/12/21 21:06:00 Signature Date/Time Plan of Care Outcome - Fire Risk OUTCOME STATEMENT: Goal met Patient is free from injury related to surgical fire Plan of Care Outcome - Pt Positioning OUTCOME STATEMENT: Goal met Absence of signs and symptoms of positioning injury. Plan of Care Outcome - Skin Prep OUTCOME STATEMENT: Goal met Intraoperative care is consistent with measures to prevent infection Plan of Care Outcome - Xray/Images OUTCOME STATEMENT: N/A Absence of observable signs or symptoms of radiation injury Plan of Care Outcome - Counts OUTCOME STATEMENT: Goal met Absence of signs and symptoms of injury related to extraneous objects Last Modified By: Nathaly Ponce RN 02/12/21 21:16:59 [facility] IntraOp Sign Out Audit 02/12/21 21:16:59 Pearl Digger: [id number] Modifier: [id number] <+> 1 RN Sign Out Signature Date/Time [facility] IntraOp Skin Prep Entry 1 Procedure Ureteral Stent Insertion, Cystoscopy Adult Prescribed Yes Pre-Surgical Prep Completed Prep Area Genitalia Intraop Prep Integumentary WDL Assessment WDL Prep Agents Betadine solution Prep by Nathaly Ponce RN Hair Removal Last Modified By: Nathaly Ponce RN 02/12/21 21:16:40 [facility] IntraOp Surgical Procedures Entry 1 Entry 2 Procedure Ureteral Stent Insertion Cystoscopy Adult Modifiers Additional Cystoscopy, bilateral Procedure ureteral stent placement Description Primary Procedure Yes No Primary Surgeon MERLIN MOSER MD JOHNSON, JUSTIN DALE, MD Start 02/12/21 20:48:00 02/12/21 20:48:00 Stop 02/12/21 20:57:00 02/12/21 20:57:00 Physician States Cecum Reached Anesthesia Type General General Specialty Urology Urology Wound Class II - Clean-Contaminated II - Clean-Contaminated Last Modified By: Nathaly Ponce RN Hauer, Jessica, RN 02/12/21 21:16:43 02/12/21 21:16:43 [facility] Intra Surgical Procedures Audit 02/12/21 21:16:43 Pearl Digger: [id number] Modifier: [id number] <+> 1 Start <+> 1 Stop <+> 2 Start <+> 2 Stop [facility] IntraOp Temp Regulation Devices Entry 1 Temp Regulation Temperature Warm blankets, Forced Regulation Device Air Warming device Temperature Upper body Regulation Site Temperature Patient's temperature Regulation Comment monitored by anesthesia provider. Forced air warming device available for use. Last Modified By: Nathaly Ponce RN 02/12/21 21:17:03 [facility] IntraOP Time Out Entry 1 Procedure to be Ureteral Stent Performed Insertion, Cystoscopy Adult Time Out Time Out Pause Time 02/12/21 20:47:00 All activity Yes suspended (unless life threatening emergency) Team Verbally Correct patient Confirms Information identity, Consent form is present and accurate, Agreement on the procedure to be done, Correct patient position, Relevant images/results properly labeled/appropriately displayed, Confirm antibiotics have been administered, Confirm the skin prep has dried, Confirm prosthesis/implant/devic e is present, Performed in location of procedure after prepped/draped Time Out Comment pt recieved zosyn in ER, no additional abx needed at this time per surgeon, no scuds per surgeon Antibiotic Yes Prophylaxis Administered Or In Progress Within the Last 60 Minutes Beta Naldo N/A Administered Venous N/A Thromboembolism Prophylaxis Required Anticipated Critical Events Surgeon None expected Anesthesia Provider Patient specific concerns Nursing Assures Sterility of instruments Essential Imaging N/A Labeled and Displayed Last Modified By: Nathayl Ponce RN 02/12/21 21:18:15 Case Comments <None> Finalized By: VENESSA FROST Document Signatures Signed By: Nathaly Ponce RN 02/12/21 21:20 VENESSA FROST 02/13/21 14:21 Unfinalized History Date/Time Username Reason for Unfinalizing Freetext Reason for Unfinalizing 02/13/21 14:19 MARGOTDR Correct Billing documented in this encounter Plan of Treatment Not on file documented as of this encounter Visit Diagnoses Not on filedocumented in this encounter Care Teams Sweep Press Operator Relationship Specialty Start Date End Date Ricki London MD [address] [place] [id number] PCP - General Adolescent Medicine 11/04/22 documented as of this encounter
--- OUTSIDE RECORDS SUMMARY | 2024-11-04 14:16 | XMS_ITS | Referral Summary ---
Author Organization [employer] ([place], [place], [place], [place]) Address [address] [place] [address] Care Team Providers Care Instructional Aide Name Role Phone Ricki London MD Primary Care Provider + [phone] Encounters Date Type Department Care Team Description 08/30/2024 Travel 08/30/2024 12:30 PM EDT Evaluation [facility] Occupational Therapy [address] [place] [address] [address] Ricki London MD Marotta, Violet A, OTR/L COPD (chronic obstructive pulmonary disease) ([facility]) (Primary Dx); Ataxia; Chronic fatigue; Gait disturbance; Frequent falls 08/08/2024 Outside Orders [facility] Occupational Therapy [address] [place] [address] [address] Ricki London MD Ataxia (Primary Dx); COPD (chronic obstructive pulmonary disease) ([facility]); Chronic fatigue; Gait disturbance; Frequent falls from Last 3 Months Allergies No known active allergies Medications ALPRAZolam (XANAX) 0.5 MG tablet Take 1 tablet (0.5 mg total) by mouth 3 (three) times daily as needed for Anxiety. Active multivitamin per tablet Take 1 tablet by mouth daily. Active coenzyme Q10 100 mg capsule Take 1 capsule (100 mg total) by mouth daily. Active finasteride (PROSCAR) 5 mg tablet Take 1 tablet (5 mg total) by mouth daily. Active gabapentin (NEURONTIN) 600 MG tablet Take 1 tablet (600 mg total) by mouth 3 (three) times daily. Active levothyroxine (SYNTHROID, LEVOTHROID) 50 MCG tablet Take 1 tablet (50 mcg total) by mouth Every morning on an empty stomach. Active atorvastatin (LIPITOR) 20 MG tablet Take 1 tablet (20 mg total) by mouth nightly. Active tamsulosin (FLOMAX) 0.4 mg Cap 24 hr capsule Take 1 capsule (0.4 mg total) by mouth daily. Active cyanocobalamin (VITAMIN B-12) 100 MCG tablet Take 1 tablet (100 mcg total) by mouth daily. Active meclizine (ANTIVERT) 25 MG tablet Take 1 tablet (25 mg total) by mouth 3 (three) times daily as needed. Active losartan (COZAAR) 25 MG tablet Take 1 tablet (25 mg total) by mouth daily as needed. Active nitroglycerin (NITROSTAT) 0.[address] under the tongue. 10/30/2022 Active aspirin 81 MG EC tablet Take 1 tablet (81 mg total) by mouth daily. 0 02/07/2023 Active clopidogreL (Plavix) 75 mg tablet Take 1 tablet (75 mg total) by mouth daily . 0 02/07/2023 Active Active Problems Problem Noted Date Diagnosed Date Hematuria 02/13/2023 Anxiety 01/30/2023 Chews tobacco 01/30/2023 Coronary artery disease 01/30/2023 History of obstructive sleep apnea 01/30/2023 Hyperlipidemia 01/30/2023 Hypertension 01/30/2023 Chronic hypoxemic respiratory failure 11/25/2017 Benign paroxysmal positional vertigo 10/31/2017 Sick sinus syndrome 10/19/2015 Overview (01/30/2023): From Automated Load;Provider: José Castro;Status: Active Hypothyroidism 04/03/2015 Overview (01/30/2023): From Automated Load;Provider: Shahzad Garay;Status: Active Chronic obstructive lung disease 02/26/2015 Overview (01/30/2023): From Automated Load;Provider: José Gore;Status: Active Cardiac pacemaker in situ 02/13/2012 Paroxysmal atrial fibrillation 02/13/2012 Overview (01/30/2023): From Automated Load;Provider: José Castro;Status: Active From Automated Load;Provider: José Castro;Status: Active Social History Tobacco Use Types Packs/Day Years Used Date Smoking Tobacco: Former Cigarettes 1 13 1967 Smokeless Tobacco: Current Chew Tobacco Cessation:Ready to Q uit: Not Asked; Counseling Given: Not Answered Comments:Chews tobacco daily Alcohol Use Standard Drinks/Week Comments Not Currently 0 (1 standard drink = 0.6 oz pur e alcohol) PRAPARE - Transportation Answer Date Re corded In the past 12 months, has l ack of transportation kept you from medical appointments or from getting medications? No 02/13/2023 Lack of Transportation (Non-Medical) Not on file 02/13/2023 Family and Community Support Answer Jaquan e Recorded Help with Day to Day Activities Not on file 05/09/2023 Feeling Lonely or Isolated Not on file 05/09 Educational Attainment Answer Date Liu rded Speak language other than Eritrean at home Not on file 05/09/2023 Want help with school or training Not on file 05/09/2023 Substance Use Answer Date Recorded Used prescription meds for non-medical reasons N ot on file 05/09/2023 Used illegal drugs past 12 months Not on file 05/09/2023 Sex and Gender Information Value Date Recorded Sex Assigned at Not on file Legal Sex Male 5:38 PM CDT Gender Identity Not on file Sexual Orientation Not on file Last Filed Vital Signs Vital Sign Reading Time Taken Comments Blood Pressure 151/78 02/18/2023 8:42 AM EDT Pulse 86 02/18/2023 8:42 AM EDT Temperature 36.2 C (97.2 F) 02/18/2023 8:42 AM EDT Respiratory Rate 16 02/18/2023 8:42 AM EDT Oxygen Saturation 95% 02/18/2023 8:42 AM EDT Inhaled Oxygen Concentration - - Weight 167 kg (368 lb 2.7 oz) 02/18/2023 6:00 AM EDT Height 167.6 cm (5' 6 ) 02/18/2023 1:00 AM EDT Body Mass Index 59.42 02/18/2023 1:00 AM EDT Plan of Treatment Not on file Insurance [facility] MEDICARE PPO Advance Directives For more information, please contact: [phone] * Full Code (Latest Code Status on File) Date Activated Date Inactivated Comments 02/13/2023 10:40 PM 02/18/2023 6:15 PM * Full Code Date Activated Date Inactivated Comments 02/03/2023 12:31 PM 02/04/2023 4:37 PM * Full Code Date Activated Date Inactivated Comments 02/03/2023 8:20 AM 02/03/2023 12:31 PM * Full Code Date Activated Date Inactivated Comments 11/04/2022 1:26 PM 11/05/2022 4:26 AM Care Teams Instructional Aide Relationship Specialty Start Date End Date Ricki London MD [address] [place] [id number] PCP - General Adolescent Medicine 11/04/22
--- OUTSIDE RECORDS SUMMARY | 2024-11-04 14:16 | XMS_ITS | Encounter Summary ---
Author Organization [employer] ([place], [place], [place], [place]) Address [address] [place] [address] Care Team Providers Care Nursing Assoc Name Role Phone Ricki London MD Primary Care Provider + [phone] Encounter Details Date Type Department Care Team (Late st Contact Info) Description 02/12/2021 Transcribed Document [facility] [place] [address] [place] [address] Stanford Cain MD [address] [place] [address] Social History Tobacco Use Types Packs/Day Years Used Date Smoking Tobacco: Never Assessed Sex and Gender Information Value Date Recorded Sex Assigned at Not on file Legal Sex Male 5:38 PM CDT Gender Identity Not on file Sexual Orientation Not on file documented as of this encounter Miscellaneous Notes * Cerner Conversion Note - Stanford Cain MD - 02/12/2021 9:07 PM CDT DATE OF PROCEDURE: 02/12/2021 SURGEON: Anson Wen MD PREOPERATIVE DIAGNOSES: 1. Bilateral obstructing ureteral stones. 2. Acute renal failure. POSTOPERATIVE DIAGNOSES: 1. Bilateral obstructing ureteral stones. 2. Acute renal failure. PROCEDURES PERFORMED: 1. Cystourethroscopy. 2. Bilateral ureteral catheterization with stone manipulation without removal. 3. Bilateral ureteral stent placement. 4. Intraoperative fluoroscopy with interpretation. ANESTHESIA: General. BLOOD LOSS: None. COMPLICATIONS: None. SPECIMENS: None. INDICATIONS FOR PROCEDURE: 80-year-old male with bilateral obstructing distal ureteral stones and acute renal failure. Creatinine is approximately 6 at the time of procedure. DESCRIPTION OF PROCEDURE: The patient was correctly identified and informed consent obtained. He was taken to the operating room, positioned in supine position. Anesthesia induced. He was repositioned to lithotomy position. All pressure points padded. Proper time-out procedure completed. Preoperative antibiotics were given. The genitourinary area was prepped and draped in normal sterile fashion. Rigid cystoscopy was performed at the left ureteral orifice. The stone was visible at the ureteral orifice. I attempted to grasp the stone and remove the stone, but the stone would not manipulate easily. Ureteral catheterization performed to allow for stone manipulation without removal and passage of Sensor wire to the renal pelvis. The wire was advanced to the renal pelvis utilizing fluoroscopy. A 6-Botswanan x 24 cm stent was placed over the wire with good curl proximally and distally. No string was left on the stent. I then turned my attention to the right side. I attempted to advance a Sensor wire, but could not get the wire to advance due to distal ureteral stone. Ureteral catheterization performed and stone manipulated to allow for wire passage into the proximal ureter. Over the wire, a 6-Botswanan x 24 cm stent was placed with good coil seen proximally and distally. Lidocaine gel instilled for local analgesia. A 16-Botswanan catheter placed for bladder decompression. DISPOSITION: The patient tolerated the procedure well. He was taken to the recovery room in stable condition. He is admitted to the hospital postoperatively. He will need definitive stone treatment with Urology, either myself or Dr. Gonzalez, to treat the bilateral distal ureteral stones. /[id number] Anson Wen MD JHINA/AQ / [id number] / MODL /[id number] Electronically signed by Davis, [facility] [employer] Promotion Coordinator Cerner at 08/05/2022 9:07 AM CDT documented in this encounter Plan of Treatment Not on file documented as of this encounter Visit Diagnoses Not on filedocumented in this encounter Care Teams Nursing Assoc Relationship Specialty Start Date End Date Ricki London MD [address] [place] [id number] PCP - General Adolescent Medicine 11/04/22 documented as of this encounter
--- OUTSIDE RECORDS SUMMARY | 2024-11-04 14:16 | XMS_ITS | Encounter Summary ---
Author Organization [employer] ([place], [place], [place], [place]) Address [address] [place] [address] Care Team Providers Care Ludlow Machine Operator Name Role Phone Ricki London MD Primary Care Provider + [phone] Encounter Details Date Type Department Care Team (Late st Contact Info) Description 02/13/2021 Transcribed Document [facility] Family Medicine [facility] [place] [address] ProviderStanford MD [address] [place] [id number] Social History Tobacco Use Types Packs/Day Years Used Date Smoking Tobacco: Never Assessed Sex and Gender Information Value Date Recorded Sex Assigned at Not on file Legal Sex Male 5:38 PM CDT Gender Identity Not on file Sexual Orientation Not on file documented as of this encounter Miscellaneous Notes * Cerner Conversion Note - Stanford ProviderMD - 02/13/2021 2:00 AM CDT Nitro Man Details Entered On: 02/13/2021 3:46 EDT Performed On: 02/13/2021 2:00 EDT by Sabine Wen NON EMP RN - INTERNATIONAL Order Details Transport Mode Order Detail : Stretcher/Gurney Isolation Precautions Order Detail : Standard Precautions Order Detail : N/A IV Order Detail : 1 Oxygen Order Detail : 1 Lift/Transfer : Moderate assist Patient Needs Meds Crushed/Liquid : No Sabine Wne NON EMP RN - INTERNATIONAL - 02/13/2021 3:46 EDT documented in this encounter Plan of Treatment Not on file documented as of this encounter Visit Diagnoses Not on filedocumented in this encounter Care Teams Ludlow Machine Operator Relationship Specialty Start Date End Date Ricki London MD [address] [place] [id number] PCP - General Adolescent Medicine 11/04/22 documented as of this encounter
--- OUTSIDE RECORDS SUMMARY | 2024-11-04 14:16 | XMS_ITS | Encounter Summary ---
Author Organization [employer] ([place], [place], [place], [place]) Address [address] [place] [address] Care Team Providers Care Sas Programmer Name Role Phone Ricki London MD Primary Care Provider + [phone] Encounter Details Date Type Department Care Team (Late st Contact Info) Description 02/12/2021 Transcribed Document [facility] Family Medicine [facility] [place] [address] ProviderStanford MD [address] [place] [id number] Social History Tobacco Use Types Packs/Day Years Used Date Smoking Tobacco: Never Assessed Sex and Gender Information Value Date Recorded Sex Assigned at Not on file Legal Sex Male 5:38 PM CDT Gender Identity Not on file Sexual Orientation Not on file documented as of this encounter Miscellaneous Notes * Cerner Conversion Note - Stanford Cain MD - 02/12/2021 2:24 PM CDT ED Assessment Entered On: 02/12/2021 17:16 EDT Performed On: 02/12/2021 17:10 EDT by Aleja Baumann, SUPERVISOR WORD PROCESSING Quick Look Assessment Level of Consciousness : Alert, Awake Aleja Baumann RN - 02/12/2021 17:10 EDT ED General-Functional Assess Preferred Communication Mode : Verbal Communication Barrier : None Primary Language : Estonian Any Spiritual/Cultural Needs or Requests : No Currently in Unsafe Situation : No Aleja Baumann RN - 02/12/2021 17:10 EDT Social Habits Smoking Status : Never (less than 100 in lifetime; none in last 30 days) Smokeless Tobacco Status : Never Desires Tobacco Cessation Calc : 0 Aleja Baumann RN - 02/12/2021 17:10 EDT Social History (As Of: 02/12/2021 17:16:35 EDT) Tobacco: Smoking Status Former smoker. Years of Use: 15. Packs/Tins Daily: 1. Last Used: quit 1967 but chews tobacco. (Last Updated: 10/18/2014 08:25:07 EDT by HEIDY RUIZ, LUCIO) Alcohol: Alcohol Use History Yes. Date/Time of Last Drink: wine occasionally. (Last Updated: 10/18/2014 08:25:30 EDT by HEIDY RUIZ, RN) Substance Abuse: Drug Use Hx: No. Use in Last 12 Months: No. (Last Updated: 10/18/2014 08:25:39 EDT by HEIDY RUIZ, LUCIO) Home/Environment: Lives with Spouse. Home equipment: Walker/Cane. (Last Updated: 03/23/2015 12:05:56 EST by RUMA GREWAL, LUCIO) Employment/School: Retired (Last Updated: 03/23/2015 12:05:42 EST by RUMA GREWAL, LUCIO) Cardiovascular ASMT, ED Cardiovascular Symptoms : None Heart Rhythm : Regular Nail Bed Color : [place] Chest Pain : No EKG Time Completed : 02/12/2021 17:05 EDT Capillary Refill, Left Hand : Less than/Equal to (</=) 2 seconds Capillary Refill, Right Hand : Less than/Equal to (</=) 2 seconds Capillary Refill, Left Foot : Less than/Equal to (</=) 2 seconds Capillary Refill, Right Foot : Less than/Equal to (</=) 2 seconds Clubbing Present : No Detailed Cardiovascular Assessment : Open Aleja Baumann RN - 02/12/2021 17:10 EDT Cardiovascular ASMT, Detailed Cardiac Rhythm : Sinus tachycardia Aleja Baumann RN - 02/12/2021 17:10 EDT Respiratory Breath Sounds Auscultated : Posterior, Anterior Aleja Baumann RN - 02/12/2021 17:10 EDT Breath Sounds Assessment Grid All Lobes Breath Sounds : Clear SEB : Clear LLL : Clear RUL : Clear RML : Clear RLL : Clear Aleja Baumann RN - 02/12/2021 17:10 EDT Genitourinary Assessment, ED Genitourinary Symptoms : Other: pt reports that he does feel like he can fully relieve his bladder. adds he has a prior back injury and believes these s/sx are related to this. adds that nikole had to set to pee for years now because I have to strain to get it out and sometime (Comment: I poop [Aleja Baumann RN - 02/12/2021 17:10 EDT] ) Aleja Baumann RN - 02/12/2021 17:10 EDT Integumentary Assessment Integumentary Assessment WDL : WDL with exceptions (Comment: left flank bruising, on plavix, noted he fell a few days ago, pt does have sporadic bruising all over his body, upon any palpation, pt does appear to bruise almost immediately. denies any acute symptoms, reports that he was sent here due to altered labs in relation to his kidney function [Aleja Baumann RN - 02/12/2021 17:10 EDT] ) Aleja Baumann RN - 02/12/2021 17:10 EDT Neurologic ASMT, ED Affect/Behavior : Appropriate, Calm Speech : Clear Orientation : Oriented x 4 Pupils Equal, Round, Reactive to Light : Yes Pupil Description, Left : Regular, Round Pupil Reaction, Left : Brisk Pupil Description, Right : Regular, Round Pupil Reaction, Right : Brisk Pupil Size, Left : 3 mm Pupil Size, Right : 3 mm Facial Symmetry : Symmetric [place] Coma Scale Link : Open GCS Aleja Baumann RN - 02/12/2021 17:10 EDT Buster Coma [place] Best Motor Response : Obey commands Buster Best Verbal Response : Oriented [place] Eye Opening Response : Spontaneous Buster Coma Score : 15 Aleja Baumann RN - 02/12/2021 17:10 EDT Electronically signed by [facility] Conversion Natural Resources Technician Cerner at 08/05/2022 9:21 AM CDT documented in this encounter Plan of Treatment Not on file documented as of this encounter Visit Diagnoses Not on filedocumented in this encounter Care Teams Sas Programmer Relationship Specialty Start Date End Date Ricki London MD [address] [place] [id number] PCP - General Adolescent Medicine 11/04/22 documented as of this encounter
--- OUTSIDE RECORDS SUMMARY | 2024-11-04 14:16 | XMS_ITS | Encounter Summary ---
Author Organization [employer] ([place], [place], [place], [place]) Address [address] [place] [address] Care Team Providers Care Inspector Timers Name Role Phone Ricki London MD Primary Care Provider + [phone] Encounter Details Date Type Department Care Team (Late st Contact Info) Description 02/12/[address] [facility] [place] [address] ProviderStanford MD [address] [place] [address] Social History Tobacco Use Types Packs/Day Years Used Date Smoking Tobacco: Never Assessed Sex and Gender Information Value Date Recorded Sex Assigned at Not on file Legal Sex Male 5:38 PM CDT Gender Identity Not on file Sexual Orientation Not on file documented as of this encounter Miscellaneous Notes * Cerner Conversion Note - Stanford ProviderMD - 02/12/2021 10:28 PM CDT Event Note Entered On: 02/12/2021 22:30 EDT Performed On: 02/12/2021 22:28 EDT by Grazyna Mac RN-PATIENT CARE BEDSIDE NON-EXEMPT Event Note Description of Event : Transported to floor in stable condition. 2lpm per n/c on pt. Denies c/o pain. Yip draining tea colored to bloody urine at times. Draining w/o issues. Belongings sent to floor w/ pt. Grazyna Mac RN-PATIENT CARE BEDSIDE NON-EXEMPT - 02/12/2021 22:28 EDT documented in this encounter Plan of Treatment Not on file documented as of this encounter Visit Diagnoses Not on filedocumented in this encounter Care Teams Inspector Timers Relationship Specialty Start Date End Date Ricki London MD [address] [place] [id number] PCP - General Adolescent Medicine 11/04/22 documented as of this encounter
--- OUTSIDE RECORDS SUMMARY | 2024-11-04 14:16 | XMS_ITS | Encounter Summary ---
Author Organization [employer] ([place], [place], [place], [place]) Address [address] [place] [address] Care Team Providers Care Lookback Coordinator Name Role Phone Ricki London MD Primary Care Provider + [phone] Encounter Details Date Type Department Care Team (Late st Contact Info) Description 02/16/2021 Transcribed Document [facility] Family Medicine Formerly [facility] [address] ProviderStanford MD [address] [place] [address] Social History Tobacco Use Types Packs/Day Years Used Date Smoking Tobacco: Never Assessed Sex and Gender Information Value Date Recorded Sex Assigned at Not on file Legal Sex Male 5:38 PM CDT Gender Identity Not on file Sexual Orientation Not on file documented as of this encounter Miscellaneous Notes * Cerner Conversion Note - Stanford Cain MD - 02/16/2021 3:35 PM CDT Patient Education Materials Follows: Acute Kidney Injury, Adult Acute kidney injury is a sudden worsening of kidney function. The kidneys are organs that have several jobs. They filter the blood to remove waste products and extra fluid. They also maintain a healthy balance of minerals and hormones in the body, which helps control blood pressure and keep bones strong. With this condition, your kidneys do not do their jobs as well as they should. This condition ranges from mild to severe. Over time, it may develop into long-lasting (chronic) kidney disease. Early detection and treatment may prevent acute kidney injury from developing into a chronic condition. What are the causes? Common causes of this condition include: ??? A problem with blood flow to the kidneys. This may be caused by: ? Low blood pressure (hypotension) or shock. ? Blood loss. ? Heart and blood vessel (cardiovascular) disease. ? Severe hdz. ? Liver disease. ??? Direct damage to the kidneys. This may be caused by: ? Certain medicines. ? A kidney infection. ? Poisoning. ? Being around or in contact with toxic substances. ? A surgical wound. ? A hard, direct hit to the kidney area. ??? A sudden blockage of urine flow. This may be caused by: ? Cancer. ? Kidney stones. ? An enlarged prostate in males. What increases the risk? You are more likely to develop this condition if you: ??? Are older than age 65. ??? Are female. ??? Are hospitalized, especially if you are in critical condition. ??? Have certain conditions, such as: ? Chronic kidney disease. ? Diabetes. ? Coronary artery disease and heart failure. ? Pulmonary disease. ? Chronic liver disease. What are the signs or symptoms? Symptoms of this condition may not be obvious until the condition becomes severe. Symptoms of this condition can include: ??? Tiredness (lethargy) or difficulty staying awake. ??? Nausea or vomiting. ??? Swelling (edema) of the face, legs, ankles, or feet. ??? Problems with urination, such as: ? Pain in the abdomen, or pain along the side of your stomach (flank). ? Producing little or no urine. ? Passing urine with a weak flow. ??? Muscle twitches and cramps, especially in the legs. ??? Confusion or trouble concentrating. ??? Loss of appetite. ??? Fever. How is this diagnosed? Your health care provider can diagnose this condition based on your symptoms, medical history, and a physical exam. You may also have other tests, such as: ??? Blood tests. ??? Urine tests. ??? Imaging tests. ??? A test in which a sample of tissue is removed from the kidneys to be examined under a microscope (kidney biopsy). How is this treated? Treatment for this condition depends on the cause and how severe the condition is. In mild cases, treatment may not be needed. The kidneys may heal on their own. In more severe cases, treatment will involve: ??? Treating the cause of the kidney injury. This may involve changing any medicines you are taking or adjusting your dosage. ??? Fluids. You may need specialized IV fluids to balance your body's needs. ??? Having a catheter placed to drain urine and prevent blockages. ??? Preventing problems from occurring. This may mean avoiding certain medicines or procedures that can cause further injury to the kidneys. In some cases, treatment may also require: ??? A procedure to remove toxic wastes from the body (dialysis or continuous renal replacement therapy, CRRT). ??? Surgery. This may be done to repair a torn kidney or to remove the blockage from the urinary system. Follow these instructions at home: Medicines ??? Take rnlj-euw-whvmvqa and prescription medicines only as told by your health care provider. ??? Do not take any new medicines without your health care provider's approval. Many medicines can worsen your kidney damage. ??? Do not take any vitamin and mineral supplements without your health care provider's approval. Many nutritional supplements can worsen your kidney damage. Lifestyle ??? If your health care provider prescribed changes to your diet, follow them. You may need to decrease the amount of protein you eat. ??? Achieve and maintain a healthy weight. If you need help with this, ask your health care provider. ??? Start or continue an exercise plan. Try to exercise at least 30 minutes a day, 5 days a week. ??? Do not use any products that contain nicotine or tobacco, such as cigarettes, e-cigarettes, and chewing tobacco. If you need help quitting, ask your health care provider. General instructions ??? Keep track of your blood pressure. Report changes in your blood pressure as told by your health care provider. ??? Stay up to date with your vaccines. Ask your health care provider which vaccines you need. ??? Keep all follow-up visits as told by your health care provider. This is important. Where to find more information ??? [place] [employer] of Kidney Patients: www.aakp.org ??? National Kidney Foundation: www.kidney.org ??? [employer] Kidney Fund: www.akfinc.org ??? Life Options Rehabilitation Program: ? www.lifeoptions.org ? www.kidneyschool.org Contact a health care provider if: ??? Your symptoms get worse. ??? You develop new symptoms. Get help right away if: ??? You develop symptoms of worsening kidney disease, which include: ? Headaches. ? Abnormally dark or light skin. ? Easy bruising. ? Frequent hiccups. ? Chest pain. ? Shortness of breath. ? End of menstruation in women. ? Seizures. ? Confusion or altered mental status. ? Abdominal or back pain. ? Itchiness. ??? You have a fever. ??? Your body is producing less urine. ??? You have pain or bleeding when you urinate. Summary ??? Acute kidney injury is a sudden worsening of kidney function. ??? Acute kidney injury can be caused by problems with blood flow to the kidneys, direct damage to the kidneys, and sudden blockage of urine flow. ??? Symptoms of this condition may not be obvious until it becomes severe. Symptoms may include edema, lethargy, confusion, nausea or vomiting, and problems passing urine. ??? This condition can be diagnosed with blood tests, urine tests, and imaging tests. Sometimes a kidney biopsy is done to diagnose this condition. ??? Treatment for this condition often involves treating the underlying cause. It is treated with fluids, medicines, diet changes, dialysis, or surgery. This information is not intended to replace advice given to you by your health care provider. Make sure you discuss any questions you have with your health care provider. Document Revised: 02/15/2020 Document Reviewed: 02/15/2020 [employer] Patient Education ? 2020 [employer]. Urology Kidney Stones Kidney stones are rock-like masses that form inside of the kidneys. Kidneys are organs that make pee (urine). A kidney stone may move into other parts of the urinary tract, including: ??? The tubes that connect the kidneys to the bladder (ureters). ??? The bladder. ??? The tube that carries urine out of the body (urethra). Kidney stones can cause very bad pain and can block the flow of pee. The stone usually leaves your body (passes) through your pee. You may need to have a doctor take out the stone. What are the causes? Kidney stones may be caused by: ??? A condition in which certain glands make too much parathyroid hormone (primary hyperparathyroidism). ??? A buildup of a type of crystals in the bladder made of a chemical called uric acid. The body makes uric acid when you eat certain foods. ??? Narrowing (stricture) of one or both of the ureters. ??? A kidney blockage that you were born with. ??? Past surgery on the kidney or the ureters, such as gastric bypass surgery. What increases the risk? You are more likely to develop this condition if: ??? You have had a kidney stone in the past. ??? You have a family history of kidney stones. ??? You do not drink enough water. ??? You eat a diet that is high in protein, salt (sodium), or sugar. ??? You are overweight or very overweight (obese). What are the signs or symptoms? Symptoms of a kidney stone may include: ??? Pain in the side of the belly, right below the ribs (flank pain). Pain usually spreads (radiates) to the groin. ??? Needing to pee often or right away (urgently). ??? Pain when going pee (urinating). ??? Blood in your pee (hematuria). ??? Feeling like you may vomit (nauseous). ??? Vomiting. ??? Fever and chills. How is this treated? Treatment depends on the size, location, and makeup of the kidney stones. The stones will often pass out of the body through peeing. You may need to: ??? Drink more fluid to help pass the stone. In some cases, you may be given fluids through an IV tube put into one of your veins at the hospital. ??? Take medicine for pain. ??? Make changes in your diet to help keep kidney stones from coming back. Sometimes, medical procedures are needed to remove a kidney stone. This may involve: ??? A procedure to break up kidney stones using a beam of light (laser) or shock waves. ??? Surgery to remove the kidney stones. Follow these instructions at home: Medicines ??? Take ebzs-eyv-ccyinpb and prescription medicines only as told by your doctor. ??? Ask your doctor if the medicine prescribed to you requires you to avoid driving or using heavy machinery. Eating and drinking ??? Drink enough fluid to keep your pee pale yellow. You may be told to drink at least 8?10 glasses of water each day. This will help you pass the stone. ??? If told by your doctor, change your diet. This may include: ? Limiting how much salt you eat. ? Eating more fruits and vegetables. ? Limiting how much meat, poultry, fish, and eggs you eat. ??? Follow instructions from your doctor about eating or drinking restrictions. General instructions ??? Collect pee samples as told by your doctor. You may need to collect a pee sample: ? 24 hours after a stone comes out. ? 8?12 weeks after a stone comes out, and every 6?12 months after that. ??? Strain your pee every time you pee (urinate), for as long as told. Use the strainer that your doctor recommends. ??? Do not throw out the stone. Keep it so that it can be tested by your doctor. ??? Keep all follow-up visits as told by your doctor. This is important. You may need follow-up tests. How is this prevented? To prevent another kidney stone: ??? Drink enough fluid to keep your pee pale yellow. This is the best way to prevent kidney stones. ??? Eat healthy foods. ??? Avoid certain foods as told by your doctor. You may be told to eat less protein. ??? Stay at a healthy weight. Where to find more information ??? National Kidney Foundation (NKF): www.kidney.org ??? Urology Care Foundation (UCF): www.urologyhealth.org Contact a doctor if: ??? You have pain that gets worse or does not get better with medicine. Get help right away if: ??? You have a fever or chills. ??? You get very bad pain. ??? You get new pain in your belly (abdomen). ??? You pass out (faint). ??? You cannot pee. Summary ??? Kidney stones are rock-like masses that form inside of the kidneys. ??? Kidney stones can cause very bad pain and can block the flow of pee. ??? The stones will often pass out of the body through peeing. ??? Drink enough fluid to keep your pee pale yellow. This information is not intended to replace advice given to you by your health care provider. Make sure you discuss any questions you have with your health care provider. Document Revised: 08/24/2019 Document Reviewed: 08/24/2019 [employer] Patient Education ? 2020 [employer] Ureteral Stent Implantation, Care After This sheet gives you information about how to care for yourself after your procedure. Your health care provider may also give you more specific instructions. If you have problems or questions, contact your health care provider. What can I expect after the procedure? After the procedure, it is common to have: ??? Nausea. ??? Mild pain when you urinate. You may feel this pain in your lower back or lower abdomen. The pain should stop within a few minutes after you urinate. This may last for up to 1 week. ??? A small amount of blood in your urine for several days. Follow these instructions at home: Medicines ??? Take gzsy-ixp-bqqfhdv and prescription medicines only as told by your health care provider. ??? If you were prescribed an antibiotic medicine, take it as told by your health care provider. Do not stop taking the antibiotic even if you start to feel better. ??? Do not drive for 24 hours if you were given a sedative during your procedure. ??? Ask your health care provider if the medicine prescribed to you requires you to avoid driving or using heavy machinery. Activity ??? Rest as told by your health care provider. ??? Avoid sitting for a long time without moving. Get up to take short walks every 1?2 hours. This is important to improve blood flow and breathing. Ask for help if you feel weak or unsteady. ??? Return to your normal activities as told by your health care provider. Ask your health care provider what activities are safe for you. General instructions ??? Watch for any blood in your urine. Call your health care provider if the amount of blood in your urine increases. ??? If you have a catheter: ? Follow instructions from your health care provider about taking care of your catheter and collection bag. ? Do not take baths, swim, or use a hot tub until your health care provider approves. Ask your health care provider if you may take showers. You may only be allowed to take sponge baths. ??? Drink enough fluid to keep your urine pale yellow. ??? Do not use any products that contain nicotine or tobacco, such as cigarettes, e-cigarettes, and chewing tobacco. These can delay healing after surgery. If you need help quitting, ask your health care provider. ??? Keep all follow-up visits as told by your health care provider. This is important. Contact a health care provider if: ??? You have pain that gets worse or does not get better with medicine, especially pain when you urinate. ??? You have difficulty urinating. ??? You feel nauseous or you vomit repeatedly during a period of more than 2 days after the procedure. Get help right away if: ??? Your urine is dark red or has blood clots in it. ??? You are leaking urine (have incontinence). ??? The end of the stent comes out of your urethra. ??? You cannot urinate. ??? You have sudden, sharp, or severe pain in your abdomen or lower back. ??? You have a fever. ??? You have swelling or pain in your legs. ??? You have difficulty breathing. Summary ??? After the procedure, it is common to have mild pain when you urinate that goes away within a few minutes after you urinate. This may last for up to 1 week. ??? Watch for any blood in your urine. Call your health care provider if the amount of blood in your urine increases. ??? Take etpi-xxf-szcqakj and prescription medicines only as told by your health care provider. ??? Drink enough fluid to keep your urine pale yellow. This information is not intended to replace advice given to you by your health care provider. Make sure you discuss any questions you have with your health care provider. Document Revised: 01/12/2019 Document Reviewed: 01/13/2019 [employer] Patient Education ? 2020 [employer]. documented in this encounter Plan of Treatment Not on file documented as of this encounter Visit Diagnoses Not on filedocumented in this encounter Care Teams Lookback Coordinator Relationship Specialty Start Date End Date Ricki London MD [address] [place] [address] PCP - General Adolescent Medicine 11/04/22 documented as of this encounter
--- OUTSIDE RECORDS SUMMARY | 2024-11-04 14:16 | XMS_ITS | Clinical Summary ---
Author Organization Healthcare Address [address] [place] [address] Care Team Providers Care Cable Splicer Name Role Phone Ricki London MD Primary Care Provider Social History Tobacco Use Types Packs/Day Years Used Date Smoking Tobacco: Never Assessed Sex and Gender Information Value Date Recorded Sex Assigned at Not on file Legal Sex Male 8:36 PM EDT Gender Identity Not on file Sexual Orientation Not on file Last Filed Vital Signs Vital Sign Reading Time Taken Comments Blood Pressure 139/77 10/25/2022 7:54 AM EDT Pulse 68 10/25/2022 7:54 AM EDT Temperature - - Respiratory Rate - - Oxygen Saturation - - Inhaled Oxygen Concentration - - Weight 68 kg (150 lb) 10/25/2022 7:54 AM EDT Height 167.6 cm (5' 6 ) 10/25/2022 7:54 AM EDT Body Mass Index 24.21 10/25/2022 7:54 AM EDT Plan of Treatment Health Maintenance Due Date Last Done Comments [facility]-Depression Screening 1938 [facility]-Medicare Annual Wellness (AWV) 1938 [facility]-Infant/Child/Adol SDOH Screenings 1938 [facility]- SDOH Screenings 1956 [facility]-Adult SDOH Screenings 1956 [facility]-DTaP,Tdap,and Td Vaccines (1 - Tdap) 08/27/2002 08/26/2002 [facility]-RSV Vaccine: 60+ Years or (1 - 1-dose 75+ series) 2013 [facility]-Zoster Vaccines (2 of 3) 10/25/2016 08/30/2016 [id number] Vaccine ( season) 2023 03/20/2022, 08/02/2021, 02/22/2021, Additional history exists [facility]-Influenza Vaccine (#1) 12/20/202403/10, 01/12/2018, 02/14/2017, Additional history exists [facility]-Pneumococcal Vaccine: 50+ Years Completed 02/27/2015, 04/21/2008 HPV Vaccines Aged Out No longer eligi ble based on patient's age to complete this topic [facility]-HIB Vaccines Aged Out No longer e ligible based on patient's age to complete this topic [facility]-Hepatitis A Vaccines Aged Out No longer eligible based on patient's age to complete this topic [facility]-IPV Vaccines Aged Out No longer e ligible based on patient's age to complete this topic [facility]-Rotavirus Vaccines Aged Out No lo nger eligible based on patient's age to complete this topic Insurance [employer] MEDICARE Care Teams Cable Splicer Relationship Specialty Start Date End Date Ricki London MD [address] [place] [address] PCP - General 09/01/20
--- OUTSIDE RECORDS SUMMARY | 2024-11-04 14:16 | XMS_ITS | Encounter Summary ---
Author Organization [employer] ([place], [place], [place], [place]) Address [address] [place] [address] Care Team Providers Care Inflated Ball Molder Name Role Phone Ricki London MD Primary Care Provider + [phone] Encounter Details Date Type Department Care Team (Late st Contact Info) Description 02/12/2021 Transcribed Document [facility] Family [place] [address] ProviderStanford MD [address] [place] [address] Social History Tobacco Use Types Packs/Day Years Used Date Smoking Tobacco: Never Assessed Sex and Gender Information Value Date Recorded Sex Assigned at Not on file Legal Sex Male 5:38 PM CDT Gender Identity Not on file Sexual Orientation Not on file documented as of this encounter Miscellaneous Notes * [employer]ner Conversion Note - Stanford Cain MD - 02/12/2021 11:07 PM CDT Rapid Response Team Documentation Entered On: 02/12/2021 23:11 EDT Performed On: 02/12/2021 23:07 EDT by MIHAELA PRAKASH RN Rapid Response Event Time Rapid Response Team Called : 02/12/2021 23:07 EDT Rapid Response Event Intiated By : Other: sepsis dashboard Rapid Response Team Initiation Reason : Positive SIRS screen Rapid Response Event Location Type : Other: 460 Rapid Response Team Initiation Reason Details : sepsis alert at 1804. Rapid Response Admission Diagnosis : Abnormal laboratory findings Acute kidney failure, unspecified Obstructive and reflux uropathy, unspecified Rapid Response Medical Background : Acute medical illness (Medical) Acute medical illness (Medical) Acute medical illness (Medical) Allergic rhinitis (Patient Stated) Anxiety (Medical) Arthritis (Patient Stated) Back pain (Patient Stated) Bronchitis (Medical) Cardiac arrhythmia (Patient Stated) Chews tobacco (Medical) Concussion (Patient Stated) Coronary artery disease (Medical) Disorder of urinary tract (Medical) Hiatal hernia (Patient Stated) Hyperlipidemia (Medical) Hypertension (Medical) 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) Peripheral neuropathy (Medical) Pneumonia (Patient Stated) Renal calculus (Patient Stated) Restless legs syndrome (Medical) Sinusitis (Patient Stated) Sleep apnea uses dental appliance (Patient Stated) Spinal cord injury (Medical) Stented coronary artery (Medical) Wears prescription eyeglasses (Medical) hypothyroidism (Patient Stated) Rapid Response Allergies : Substance Category Reactions Severity No Known Allergies Drug Rapid Response Recent Vital Signs : 02/12/2021 22:15 Systolic Blood Pressure 106 02/12/2021 22:15 Diastolic Blood Pressure 51 02/12/2021 22:15 Heart Rate Monitored 94 02/12/2021 22:15 Respiratory Rate 20 02/12/2021 21:05 Temperature, Fahrenheit 98.3 02/12/2021 22:15 Oxygen Saturation 94 Rapid Response Recent Lab Results : 02/12/2021 16:43 Sodium Level LOW 134 (136-146) 02/12/2021 16:43 Potassium Level 5.0 (3.5-5.1) 02/12/2021 16:43 Calcium Level LOW 8.1 (8.4-10.1) 02/12/2021 16:43 Chloride Level LOW 101 (102-112) 02/12/2021 16:43 Carbon Dioxide Level 22 (21-32) 02/12/2021 16:43 Blood Urea Nitrogen HI 45 (7-22) 02/12/2021 16:43 Creatinine Level HI 7.10 (0.70-1.30) 02/12/2021 16:43 Hgb LOW 13.3 (13.5-17.3) 02/12/2021 16:43 Hct 41.2 (40.1-51.0) 02/12/2021 16:43 RBC 4.33 (4.20-5.70) 02/12/2021 16:43 WBC HI 15.2 (3.6-9.5) 02/12/2021 16:43 Platelet Count 250 (163-369) 02/12/2021 18:17 Lactic Acid Level 1.1 (0.4-2.0) Weight/BMI : Clinical Weight/BMI CLINICALWEIGHT: 68.18 kg (02/12/21 14:40:00) Body Mass Index: 25 kg/m2 High (02/12/21 14:40:00) Code Status Pre Event : Full Code Code Status Post Event : Full Code Rapid Response Team Recommendation/Response : creatinine 7.1, wbc 15.2, and HR 106. Admitted for bilateral lithiasis. Going to OR tonight. Given fluids and antibotics. Chart reviewed. Patient Condition at End of Event : No S/S of Acute Distress Patient Disposition Post Event : No change in location/level of care Rapid Response Inflated Ball Molder #1 : MIHAELA PRAKASH V, RN MIHAELA PRAKASH V, RN - 02/12/2021 23:07 EDT Electronically signed by [facility] Conversion Experience Planning Strategist Cerner at 08/05/2022 9:21 AM CDT documented in this encounter Plan of Treatment Not on file documented as of this encounter Visit Diagnoses Not on filedocumented in this encounter Care Teams Inflated Ball Molder Relationship Specialty Start Date End Date Ricki London MD [address] [place] [id number] PCP - General Adolescent Medicine 11/04/22 documented as of this encounter
--- OUTSIDE RECORDS SUMMARY | 2024-11-04 14:16 | XMS_ITS | Encounter Summary ---
Author Organization [employer] ([place], [place]) Address [address] [place] [address] Care Team Providers Care Fisher Trawl Line Name Role Phone Ricki London MD Primary Care Provider + [phone] Encounter Details Date Type Department Care Team (Late st Contact Info) Description 02/16/2021 Transcribed Document [facility] [place] Family Medicine [facility] [place] [address] ProviderStanford MD [address] [place] [address] Social History Tobacco Use Types Packs/Day Years Used Date Smoking Tobacco: Never Assessed Sex and Gender Information Value Date Recorded Sex Assigned at Not on file Legal Sex Male 5:38 PM CDT Gender Identity Not on file Sexual Orientation Not on file documented as of this encounter Miscellaneous Notes * Cerner Conversion Note - Stanford Cain MD - 02/16/2021 2:44 PM CDT Stroke/Warfarin Instructions Entered On: 02/16/2021 14:44 EDT Performed On: 02/16/2021 14:44 EDT by Mary Henao RN-Typo Keyboards Stroke/Warfarin Instructions Stroke/TIA Discharge Ins : N/A Warfarin Discharge Ins : N/A Mary Henao RN-Typo Keyboards - 02/16/2021 14:44 EDT documented in this encounter Plan of Treatment Not on file documented as of this encounter Visit Diagnoses Not on filedocumented in this encounter Care Teams Fisher Trawl Line Relationship Specialty Start Date End Date Ricki London MD [address] [place] [address] PCP - General Adolescent Medicine 11/04/22 documented as of this encounter
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
--- OUTSIDE RECORDS SUMMARY | 2024-11-04 14:16 | XMS_ITS | Encounter Summary ---
Author Organization [employer] ([place], [place], [place], [place]) Address [address] [place] [address] Care Team Providers Care Laborer Concrete Plant Name Role Phone Ricki London MD Primary Care Provider + [phone] Encounter Details Date Type Department Care Team (Late st Contact Info) Description 02/13/2021 Transcribed Document [facility] [place] [address] ProviderStanford MD [address] [place] [address] Social History Tobacco Use Types Packs/Day Years Used Date Smoking Tobacco: Never Assessed Sex and Gender Information Value Date Recorded Sex Assigned at Not on file Legal Sex Male 5:38 PM CDT Gender Identity Not on file Sexual Orientation Not on file documented as of this encounter Miscellaneous Notes * Cerner Conversion Note - Stanford Cain MD - 02/13/2021 11:55 AM CDT UM Authorization Entered On: 02/13/2021 11:56 EDT Performed On: 02/13/2021 11:55 EDT by MAURILIO RAWLS RN Primary Insurance Authorization Authorization and Policy Numbers : Insurance 1 Health Plan: [employer] PPO Policy Number: [id number] Authorization Number: Insurance Primary Name : [employer] PPO Policy Number: [id number] Authorization Status-Primary : Awaiting callback Reference Number-Primary : Pend ref NO [id number] Authorized Service Begin Date-Primary : 02/12/2021 EDT Authorization Comments-Primary : Pend ref no per Availity Historical Authorization Comments-Primary : No Authorization Comments Found AMURILIO RAWLS RN - 02/13/2021 11:55 EDT Electronically signed by [facility] Conversion Carbon Brushes Assembler Cerner at 08/05/2022 9:14 AM CDT documented in this encounter Plan of Treatment Not on file documented as of this encounter Visit Diagnoses Not on filedocumented in this encounter Care Teams Laborer Concrete Plant Relationship Specialty Start Date End Date Ricki London MD [address] [place] [address] PCP - General Adolescent Medicine 11/04/22 documented as of this encounter
--- OUTSIDE RECORDS SUMMARY | 2024-11-04 14:16 | XMS_ITS | Encounter Summary ---
Author Organization [employer] ([place], [place], [place], [place]) Address [address] [place] [address] Care Team Providers Care Research Chemical Engineer Name Role Phone Ricki London MD Primary Care Provider + [phone] Encounter Details Date Type Department Care Team (Late st Contact Info) Description 02/12/2021 Transcribed Document [facility] [place] [facility] [place] [address] ProviderStanford MD [address] [place] [id number] Social History Tobacco Use Types Packs/Day Years Used Date Smoking Tobacco: Never Assessed Sex and Gender Information Value Date Recorded Sex Assigned at Not on file Legal Sex Male 5:38 PM CDT Gender Identity Not on file Sexual Orientation Not on file documented as of this encounter Miscellaneous Notes * Cerner Conversion Note - Stanford Cain MD - 02/12/2021 9:07 PM CDT Patient: TONY CASTRO Age: 80 Years Sex: Male : 1940 *Operation Cystoscopy, bilateral ureteral stent placement Anesthesia Type General Indication for Surgery Bilateral ureteral stones, Acute renal failure *Preoperative Diagnosis Bilateral ureteral stones, Acute renal failure *Postoperative Diagnosis Bilateral ureteral stones, Acute renal failure *Surgeon(s) Primary Surgeon Behzad *Estimated Blood Loss 0 ml *Findings Bilateral ureteral stones *Specimen(s) None Complications None Date of Service No qualifying data available. Electronically signed by Cheyenne Cannon Conversion Veterinary Practice Manager Cerner at 08/05/2022 9:19 AM CDT documented in this encounter Plan of Treatment Not on file documented as of this encounter Visit Diagnoses Not on filedocumented in this encounter Care Teams Research Chemical Engineer Relationship Specialty Start Date End Date Ricki London MD [address] [place] [address] PCP - General Adolescent Medicine 11/04/22 documented as of this encounter
--- OUTSIDE RECORDS SUMMARY | 2024-11-04 14:16 | XMS_ITS | Encounter Summary ---
Author Organization [employer] ([place], [place], [place], [place]) Address [address] [place] [address] Care Team Providers Care Record Center Specialist Name Role Phone Ricki London MD Primary Care Provider + [phone] Encounter Details Date Type Department Care Team (Late st Contact Info) Description 02/14/2021 Transcribed Document [facility] [place] [facility] [place] [address] ProviderStanford MD [address] [place] [address] Social History Tobacco Use Types Packs/Day Years Used Date Smoking Tobacco: Never Assessed Sex and Gender Information Value Date Recorded Sex Assigned at Not on file Legal Sex Male 5:38 PM CDT Gender Identity Not on file Sexual Orientation Not on file documented as of this encounter Miscellaneous Notes * Cerner Conversion Note - Stanford Cain MD - 02/14/2021 7:10 AM CDT UM Authorization Entered On: 02/14/2021 7:10 EDT Performed On: 02/14/2021 7:10 EDT by Dilia Mclean, Lawn Care Technician Primary Insurance Authorization Authorization and Policy Numbers : Insurance 1 Health Plan: [employer] PPO Policy Number: [id number] Authorization Number: Insurance Primary Name : [employer] PPO Policy Number: [id number] Authorization Status-Primary : Notification only Reference Number-Primary : [id number] Authorization Number-Primary : [id number] Authorized Service Begin Date-Primary : 02/12/2021 EDT Authorization Comments-Primary : Authorized per email from Haile Burgos RN. Historical Authorization Comments-Primary : Comment 1: Pend ref no per Availity (MAURILIO RAWLS RN 02/13/2021 11:55) Dilia Mclean, Lawn Care Technician - 02/14/2021 7:10 EDT documented in this encounter Plan of Treatment Not on file documented as of this encounter Visit Diagnoses Not on filedocumented in this encounter Care Teams Record Center Specialist Relationship Specialty Start Date End Date Ricki London MD [address] [place] [address] PCP - General Adolescent Medicine 11/04/22 documented as of this encounter
--- OUTSIDE RECORDS SUMMARY | 2024-11-04 14:16 | XMS_ITS | Encounter Summary ---
Author Organization [employer] ([place], [place], [place], [place]) Address [address] [place] [address] Care Team Providers Care Master Certified Rv Technician Name Role Phone Ricki London MD Primary Care Provider + [phone] Encounter Details Date Type Department Care Team (Late st Contact Info) Description 02/12/[address] [facility] [place] Family Medicine [facility] [place] [address] ProviderStanford MD [address] [place] [address] Social History Tobacco Use Types Packs/Day Years Used Date Smoking Tobacco: Never Assessed Sex and Gender Information Value Date Recorded Sex Assigned at Not on file Legal Sex Male 5:38 PM CDT Gender Identity Not on file Sexual Orientation Not on file documented as of this encounter Miscellaneous Notes * Cerner Conversion Note - Stanford Cain MD - 02/12/2021 11:04 PM CDT Admission History, Adult Entered On: 02/12/2021 23:15 EDT Performed On: 02/12/2021 23:04 EDT by Sabine Wen NON EMP RN - INTERNATIONAL Advance Directive Patient has Advance Directive *Q : No, patient refuses Advance Directive information Sabine Wen NON EMP RN - INTERNATIONAL - 02/12/2021 23:04 EDT Anesthesia/Transfusion History Family History of Anesthesia Reaction : No prior transfusion(s) Transfusion History : No prior anesthesia Family History of Anesthesia Reaction : None Saibne Wen NON EMP RN Padmini INTERNATIONAL - 02/12/2021 23:04 EDT Functional Assessment Living Situation : Home Persons Assisting Patient at Home : Spouse FRANCO Hx Falls Immediate/Within 3 Months : No Current Home Treatments : Oxygen therapy Sabine Wen NON EMP RN - INTERNATIONAL - 02/12/2021 23:04 EDT General Info Preferred Name : lora Mode of Arrival on Unit : Stretcher Legal Guardian : Spouse Support Person/Patient Glass Bead Maker : Yes Support Person/Pt Rep Name : Beverly Support Person/Pt Rep Contact Information : [phone] Want Family/Rep/Phys Notified of Admit : No Emergency Contact #1 : Beverly Bonilla Emergency Contact #1 Phone Number : [phone] Emergency Contact #1 Relationship : Emergency Contact #2 : NONE Emergency Contact #2 Phone Number : NONE Emergency Contact #2 Relationship : NONE Chief Complaint : had blood work done at his PCP Dr. gomez this AM weas told to come here to see a waste salvager incase he needs diaylsis Primary Language : Italian Preferred Communication Mode : Verbal Communication Barrier : None Customer Acquisition Manager Needed : No Sabine Wen NON EMP RN - INTERNATIONAL - 02/12/2021 23:04 EDT Fall Risk Scales ABCs Fall Injury Risk Identification : Age ABC Fall Injury Risk : Moderate to high injury risk FRANCO Hx Falls Immediate/Within 3 Months : Yes Franco Secondary Diagnosis : Yes FRANCO Use of Ambulatory Aid : Bed rest/Nurse assist FRANCO IV Therapy or IV Access : Yes Franco Gait/Transferring : Weak Franco Mental Status : Oriented to own ability Franco Fall Risk Score : 70 FRANCO Fall Scale Risk Level : 46 or > High Risk [place] Fall Interventions : Adequate lighting, Assistive devices within reach, Bed in low position, Call device within reach, Fall prevention handout/education per facility policy, Frequent orientation to call device, Frequent orientation to surroundings, Hourly comfort/safety rounds, Non-slip footwear, Personal items within reach, Reinforced to call for assistance before getting out of bed, Room free of clutter/spills, Upper side-rails up, Wheels locked, Wires/Cords secured Sabine Wen NON EMP RN - INTERNATIONAL - 02/12/2021 23:04 EDT Health Histories Smoking Status : Never (less than 100 in lifetime; none in last 30 days) Smokeless Tobacco Status : Never Sabine Wen NON EMP RN - INTERNATIONAL - 02/12/2021 23:04 EDT Social History (As Of: 02/12/2021 23:15:59 EDT) Tobacco: Smoking Status Former smoker. Years of Use: 15. Packs/Tins Daily: 1. Last Used: quit 1968 but chews tobacco. (Last Updated: 10/18/2014 08:25:07 EDT by HEIDY RUIZ, LUCIO) Alcohol: Alcohol Use History Yes. Date/Time of Last Drink: wine occasionally. (Last Updated: 10/18/2014 08:25:30 EDT by HEIDY RUIZ, LUCIO) Substance Abuse: Drug Use Hx: No. Use in Last 12 Months: No. (Last Updated: 10/18/2014 08:25:39 EDT by HEIDY RUIZ, LUCIO) Home/Environment: Lives with Spouse. Home equipment: Walker/Cane. (Last Updated: 03/23/2015 12:05:56 EST by RUMA GREWAL RN) Employment/School: Retired (Last Updated: 03/23/2015 12:05:42 EST by RUMA GREWAL RN) Height and Weight, Clinical Dosing Height Source : Stated Height Entry Format : Tuttle Height, Feet : 5 ft(Converted to: 152 cm, 60 Inch) Height, Inches : 5 Inch(Converted to: 0 ft 5 Inch, 12.70 cm) Clinical Height : 165.1 cm Weight Source : Bed scale Weight Entry Format : Tuttle Clinical Dosing Weight : 68.18 kg Weight, Pounds : 150 lb Body Surface Area (BSA) : 1.75 m2 Body Mass Index : 25 kg/m2 (HI) Nabb Body Weight : 61 kg Sabine Wen NON EMP RN - INTERNATIONAL - 02/12/2021 23:04 EDT Infectious Disease History Does patient have symptoms of COVID-19? : No Has the Patient Been Tested for COVID-19 in the last 14 days? : No, Patient stated Does the Patient state known exposure to a COVID-19 positive case in the last 14 days? : No Patient Vaccinated for COVID-19 : Fully vaccinated Sabine Wen NON EMP RN - INTERNATIONAL - 02/12/2021 23:04 EDT Infectious Disease Risk Screening Grid Cough < 2 wks of unknown origin : NO Cough > 2 weeks : NO Blood in Sputum : NO Fever or self-reported Fever : NO Rash of unknown origin : NO Headache : NO Stiff neck : NO Night Sweats : NO Unexplained Weight Loss : NO Diarrhea (3 episode per day) : NO Morgan WenuwatoHAILEE mix RN - 02/12/2021 23:04 EDT Physical contact outside [place] in the last 30 days : No Hospitalized in Foreign Country : No Infectious Disease History : Chicken pox/Shingles, Measles, Mumps, Pertussis (Whooping cough) INF Disease TB Screening Calc : 0 INF Disease Recent Travel Calc : 0 Behzad Sabine HAILEE [place] - 02/12/2021 23:04 EDT Influenza Vaccine Asmt, Adult Previous Vaccines from Immunization Schedule : No qualifying data available. Influenza Immunization, Current Season : Yes Behzad Sabine HAILEE [place] - 02/12/2021 23:04 EDT Pneumococcal Vaccine Previous Vaccines from Immunization Schedule : No qualifying data available. Pneumonia Immunization Received : Unknown Pneumococcal Risk Assessment < Age 65 : N/A- Patient 65 years of age or older Pneumococcal Vaccine Contraindications : No contraindications to pneumococcal vaccine Transplant Workup/Recent Transplant : No Order for Pneumococcal Vaccine : Declined Vaccination Morgan Wenuwatosin HAILEE ALVARADO RN DARSHANA - 02/12/2021 23:04 EDT Order Details Transport Mode Order Detail : Stretcher/Gurney Isolation Precautions Order Detail : Standard Precautions Order Detail : N/A IV Order Detail : 1 Oxygen Order Detail : 1 Lift/Transfer : Moderate assist Patient Needs Meds Crushed/Liquid : No Behzad Sabine HAILEE [place] - 02/12/2021 23:04 EDT Nutrition History Eating Poorly Due to Decreased Appetite : No Unplanned Weight Loss in Past 3-6 Months : No Malnutrition Screening Tool Total(mal) : 0 Malnutrition Screening Tool Risk Level : Patient not at risk Behzad Sabine HAILEE CHRISTIANO LUCIO [place] - 02/12/2021 23:04 EDT [place] Suicide Severity Rating Scale (C-SSRS) CSSRS Past Month Wish to be : No CSSRS Past Month Suicidal Thoughts : No CSSRS Lifetime Suicide Behavior : No Suicide Severity Rating Score : 0 Suicide Severity Rating : No Additional Care Required at this time Behzad Sabine HAILEE CHRISTIANO LUCIO [place] - 02/12/2021 23:04 EDT Psychosocial History Chronic/Terminal Illness w/Freq Visits : No Do You Have a History of the Following? : Anxiety Currently in Unsafe Situation : No Sabine Wen NON EMP RN - INTERNATIONAL - 02/12/2021 23:04 EDT Sleep Apnea Risk Assmt BiPAP/CPAP Ordered for Home Use : No Hx of Obstructive Sleep Apnea Diagnosis : Yes Age over 50 Years Old : Yes Gender Male : Yes Sabine Wen NON EMP RN - INTERNATIONAL - 02/12/2021 23:04 EDT Valuables and Belongings Valuables and Belongings : Clothing Clothing : Common streetwear Clothing Disposition : Bedside Sabine Wen NON EMP RN - INTERNATIONAL - 02/12/2021 23:04 EDT Electronically signed by Davis [facility] Conversion Player Development Manager Cerner at 08/05/2022 9:27 AM CDT documented in this encounter Plan of Treatment Not on file documented as of this encounter Visit Diagnoses Not on filedocumented in this encounter Care Teams Master Certified Rv Technician Relationship Specialty Start Date End Date Ricki London MD [address] [place] [address] PCP - General Adolescent Medicine 11/04/22 documented as of this encounter
--- OUTSIDE RECORDS SUMMARY | 2024-11-04 14:16 | XMS_ITS | Encounter Summary ---
Author Organization [employer] ([place], [place], [place], [place]) Address [address] [place] [address] Care Team Providers Care Gray Mixing Operator Name Role Phone Ricki London MD Primary Care Provider + [phone] Encounter Details Date Type Department Care Team (Late st Contact Info) Description 02/15/2021 Transcribed Document [facility] [place] Family Medicine [facility] [place] [address] ProviderStanford MD [address] [place] [address] Social History Tobacco Use Types Packs/Day Years Used Date Smoking Tobacco: Never Assessed Sex and Gender Information Value Date Recorded Sex Assigned at Not on file Legal Sex Male 5:38 PM CDT Gender Identity Not on file Sexual Orientation Not on file documented as of this encounter Miscellaneous Notes * Cerner Conversion Note - Stanford Cain MD - 02/15/2021 9:11 PM CDT Patient: OTNY CASTRO Age: 80 Years Sex: Male : 1940 Subjective DOS: 02/15/21 Fell out of bed last night. Now with sacral pain. Difficult to walk. No dyspea or abdo pain. Family present and questions addressed. Vital Signs T: 37.3 ??C TMIN: 36.4 ??C TMAX: 37.3 ??C HR: 82(Monitored) RR: 18 BP: 125/70 SpO2: 95% Oxygen Settings (Last) Oxygen Therapy Mode: Room air (02/15/21 18:07:00) Oxygen Flow Rate: 2 Liter/Min (02/13/21 23:00:00) Intake & Output Totals Last 24 Hours (7a-7a) Input Total: 511.69 mL Output Total: 1200 mL Balance: -688.31 mL Hospital Course Patient is a 80-year-old male with past medical history of kidney stones status post lithotripsy last week, hypertension, hyperlipidemia, coronary artery disease with stents, who presents via PCP office for evaluation of acute renal failure. Patient had a left ureteral stent removed last Friday. Patient has had urinary retention, hematuria. Patient states it is difficult for him to urinate. Associated fever. Denies flank pain. Patient had labs at his PCP office showing acute renal failure and was advised to come to the ER for evaluation. No exacerbating or relieving factors. Denies chest pain, shortness of breath, abdominal pain, melena, hematochezia, dysuria, headache, dyspnea, syncope or any other symptoms. CT imaging showed bilateral obstructing kidney stones with hydronephrosis. He underwent emergent cystoscopy with bilateral stent placement, ureteral stone removal on 02/12 evening. He has marked improvement in renal function, urine culture pending. Physical Exam General: no acute distress Neurologic: Awake, alert, and oriented X3, Moves all extremities. Eye: Pupils reactive and equal bilaterally. OP clear. Neck: No carotid bruits, no JVD, no lymphadenopathy Lungs: Clear to auscultation bilaterally. No wheezes. Heart: Regular rate and rhythm. No murmurs. Abdomen: Soft, non-tender, non-distended, normal bowel sounds, no masses Extremities: No edema. Full range of motion where tested. Some edema around sacrum L>R. Skin: No rashes or lesions Assessment/Plan #Bilateral obstructing kidney stones at UVJ's with bilateral hydroureter nephrosis s/p B ureteral stent placement. CT abdomen pelvis without contrast showed bilateral hydroureteronephrosis secondary to calculi at the UVJ's. 3 mm bilateral nonobstructing renal calculi. - urology consult, appreciate assistance and recommendations - follow up with urology in 1 week for stent removal - strain all urine #Acute renal failure 2/2 above; obstructive uropathy s/p B ureteral stent placement. Creatinine >7 on admission and steadily improving - Avoid nephrotoxins - Monitor renal function -Improving steadily #HTN - continue home meds #HLD - continue home meds #COPD with former tobacco abuse - Oxygen supplementation titration as needed - Maintain O2 sats 88 to 94% - Home medications, DuoNebs as needed #History of coronary artery disease, stents? 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 has been prescribed this for >20 years #Physical deconditioning - PT/OT consult, appreciate assistance and recommendations: HHPT Back pain after fall - xray pelvis and hips. Work with PT. Dispo - if no fracture on xray and able to ambulate, home 02/16. VTE Prophylaxis - Medical Clopidogrel 75 mg, Oral, Tab, Daily, Routine, Start 02/14/21 10:17:00 EDT, 02/14/21 10:17:00 EDT (SKYLAR HASTINGS) Sequential Compression Device Start: 02/12/21 21:22:00 EDT, Bilateral, Length: Knee High, While patient is in bed, Continuous Order (CARLOS CADENA) Medications ALPRAZolam, 0.5 mg= 1 Tab, Oral, TID aspirin, 81 mg= 1 Tab, Oral, Daily atorvastatin, 20 mg= 1 Tab, Oral, At Bedtime clopidogrel, 75 mg= 1 Tab, Oral, Daily Dulcolax Laxative, 5 mg= 1 Tab, Oral, Daily, PRN DuoNeb 0.5 mg-2.5 mg/3 mL inhalation solution, 3 mL, Nebulized Inhalation , RT_Q6H, PRN Fish Oil, 1000 mg= 1 Cap, Oral, Daily gabapentin, 600 mg= 2 Cap, Oral, Q12H levothyroxine, 50 mcg= 1 Tab, Oral, Daily melatonin, 5 mg= 1 Tab, Oral, At Bedtime, PRN MiraLax, 17 Gram= 1 Packet, Oral, Daily, PRN multivitamin, 1 Tab, Oral, Daily Normal Saline Flush, 10 mL, IV Push, Q12H Normal Saline Flush, 10 mL, IV Push, See Comment, PRN olodaterol-tiotropium, 2 Inhalation, Inhalation, Daily Pepcid, 20 mg= 1 Tab, Oral, At Bedtime Phenergan, 6.25 mg= 0.25 mL, IntraVENous, Q6H, PRN Roxicodone, 5 mg= 1 Tab, Oral, Q4H, PRN Theragran, 1 Tab, Oral, Daily Tylenol, 650 mg= 2 Tab, Oral, Q4H, PRN ubiquinone, 100 mg= 2 Cap, Oral, Daily Zofran, 4 mg= 2 mL, IV Push, Q4H, PRN Zosyn + Sodium Chloride 0.9% intravenous solution 50 mL Lab Results Test Name Test Result Date/Time Sodium Level 143 mmol/L 02/15/2021 07:57 EDT Potassium Level 3.7 mmol/L 02/15/2021 07:57 EDT Chloride Level 112 mmol/L 02/15/2021 07:57 EDT Carbon Dioxide Level 25 mmol/L 02/15/2021 07:57 EDT Anion Gap 10 02/15/2021 07:57 EDT Glucose Level 93 mg/dL 02/15/2021 07:57 EDT Blood Urea Nitrogen 17 mg/dL 02/15/2021 07:57 EDT Creatinine Level 1.80 mg/dL (High) 02/15/2021 07:57 EDT eGFR 44 mL/min/1.73m2 (Low) 02/15/2021 07:57 EDT eGFR NonAfrican 36 mL/min/1.73m2 (Low) 02/15/2021 07:57 EDT Bun/Creatinine 9.4 02/15/2021 07:57 EDT Calcium Level 7.9 mg/dL (Low) 02/15/2021 07:57 EDT WBC 6.3 K/uL 02/15/2021 07:57 EDT RBC 3.42 Million/uL (Low) 02/15/2021 07:57 EDT Hgb 10.6 g/dL (Low) 02/15/2021 07:57 EDT Hct 32.4 % (Low) 02/15/2021 07:57 EDT MCV 94.7 fL 02/15/2021 07:57 EDT MCH 31.0 pg 02/15/2021 07:57 EDT MCHC 32.7 Gram/dL 02/15/2021 07:57 EDT Platelet Count 308 K/uL 02/15/2021 07:57 EDT MPV 9.5 fL 02/15/2021 07:57 EDT RDW 13.3 % 02/15/2021 07:57 EDT Neut % 63.6 % 02/15/2021 07:57 EDT Neut # 4.00 K/uL 02/15/2021 07:57 EDT Lymph % 18.5 % (Low) 02/15/2021 07:57 EDT Lymph # 1.16 x10(3)/uL 02/15/2021 07:57 EDT Briscoe % 9.1 % (High) 02/15/2021 07:57 EDT [place]iscoe # 0.57 K/uL 02/15/2021 07:57 EDT Eos % 7.5 % (High) 02/15/2021 07:57 EDT Eos # 0.47 x10(3)/uL 02/15/2021 07:57 EDT Baso % 0.8 % 02/15/2021 07:57 EDT Baso # 0.05 x10(3)/uL 02/15/2021 07:57 EDT Slide Review No 02/15/2021 07:57 EDT IG# 0.03 x10(3)/uL 02/15/2021 07:57 EDT IG% 0.50 % 02/15/2021 07:57 EDT Electronically signed by Davis [facility] Conversion Clam Bed Laborer Cerner at 08/05/2022 9:14 AM CDT documented in this encounter Plan of Treatment Not on file documented as of this encounter Visit Diagnoses Not on filedocumented in this encounter Care Teams Gray Mixing Operator Relationship Specialty Start Date End Date Ricki London MD [address] [place] [address] PCP - General Adolescent Medicine 11/04/22 documented as of this encounter
--- OUTSIDE RECORDS SUMMARY | 2024-11-04 14:16 | XMS_ITS | Encounter Summary ---
Author Organization [employer] ([place], [place], [place], [place]) Address [address] [place] [address] Care Team Providers Care Lead Java Programmer Name Role Phone Ricki London MD Primary Care Provider + [phone] Encounter Details Date Type Department Care Team (Late st Contact Info) Description 02/12/2021 Transcribed Document [facility] [place] [address] ProviderStanford MD [address] [place] [address] Social History Tobacco Use Types [...] Cain MD - 02/12/2021 8:48 PM CDT [facility] Main OR PACU Summary Primary Physician: MERLIN MOSER MD Finalized Date/Time: 02/16/21 15:12:01 Pt. Name: TONY CASTROO.B./Sex: 1940 Male Med Rec #: [id number] Physician: ARELY PENALOZA MD-EMR Financial #: [id number] Pt. Type: I Room/Bed: [facility]/1 Admit/Disch: 02/12/21 20:19:00 - Institution: [facility] Main OR PACU I Case Times Entry 1 In PACU I 02/12/21 21:05:00 Ready for PACU 10/25/21 22:24:00 Discharge Discharge from PACU 02/12/21 22:24:00 I Last Modified By: Grazyna Mac RN-PATIENT CARE BEDSIDE NON-EXEMPT 02/12/21 22:25:22 Finalized By: Carmela Dunlap, Nurse Supervisor Chassis Assembly Signatures Signed By: Grazyna Mac RN-PATIENT CARE BEDSIDE NON-EXEMPT 02/12/21 22:25 Grazyna Mac RN-PATIENT CARE BEDSIDE NON-EXEMPT 02/12/21 22:33 Carmela Dunlap, Nurse Appraisal Analyst 02/16/21 15:12 Unfinalized History Date/Time Username Reason for Unfinalizing Freetext Reason for Unfinalizing 02/12/21 22:32 [id number] Correct Documentation 02/16/21 15:11 [id number] Correct Billing documented in this encounter Plan of Treatment Not on file documented as of this encounter Visit Diagnoses Not on filedocumented in this encounter Care Teams Lead Java Programmer Relationship Specialty Start Date End Date Ricki London MD [address] [place] [address] PCP - General Adolescent Medicine 11/04/22 documented as of this encounter
--- OUTSIDE RECORDS SUMMARY | 2024-11-04 14:16 | XMS_ITS | Encounter Summary ---
Author Organization [employer] ([place], [place], [place], [place]) Address [address] [place] [address] Care Team Providers Care Track Welder Name Role Phone Ricki London MD Primary Care Provider + [phone] Encounter Details Date Type Department Care Team (Late st Contact Info) Description 02/12/2021 Transcribed Document [facility] [place] Family Medicine [facility] [place] [address] ProviderStanford MD [address] [place] [address] Social History Tobacco Use Types Packs/Day Years Used Date Smoking Tobacco: Never Assessed Sex and Gender Information Value Date Recorded Sex Assigned at Not on file Legal Sex Male 5:38 PM CDT Gender Identity Not on file Sexual Orientation Not on file documented as of this encounter Miscellaneous Notes * Cerner Conversion Note - Stanford Cain MD - 02/12/2021 8:16 PM CDT ED Discharge Entered On: 02/12/2021 20:16 EDT Performed On: 02/12/2021 20:16 EDT by Mary Haynes Copier And Printer Field Technician Process Patient Disposition : Admit/Observe Personal Belongings With Patient : Yes IV Discontinued : No Mary Haynes Rn - 02/12/2021 20:16 EDT Admission, ED Nurse Report Accepted By : manager real estate `Nurse Report (Hand Off) : Bedside Report Accompanied By, Discharge : Spouse, Other: RN Fluids/Drips Continued on Admission : Yes Mode Of Departure : Stretcher Mary Haynes Rn - 02/12/2021 20:16 EDT Electronically signed by Cheyenne Cannon Conversion Video Production Coordinator Cerner at 08/05/2022 9:14 AM CDT documented in this encounter Plan of Treatment Not on file documented as of this encounter Visit Diagnoses Not on filedocumented in this encounter Care Teams Track Welder Relationship Specialty Start Date End Date Ricki London MD [address] [place] [address] PCP - General Adolescent Medicine 11/04/22 documented as of this encounter
--- OUTSIDE RECORDS SUMMARY | 2024-11-04 14:16 | XMS_ITS | Encounter Summary ---
Author Organization [employer] ([place], [place], [place], [place]) Address [address] [place] [address] Care Team Providers Care Set Up Machinist Name Role Phone Ricki London MD Primary Care Provider + [phone] Encounter Details Date Type Department Care Team (Late st Contact Info) Description 02/13/2021 Transcribed Document [facility] [place] [place] Family [place] [facility] [place] [address] ProviderStanford MD [address] [place] [address] Social History Tobacco Use Types Packs/Day Years Used Date Smoking Tobacco: Never Assessed Sex and Gender Information Value Date Recorded Sex Assigned at Not on file Legal Sex Male 5:38 PM CDT Gender Identity Not on file Sexual Orientation Not on file documented as of this encounter Miscellaneous Notes * Cerner Conversion Note - Stanford Cain MD - 02/13/2021 5:00 AM CDT Chart Check - Review Order Profile Entered On: 02/13/2021 5:08 EDT Performed On: 02/13/2021 5:00 EDT by Sabine Wen NON EMP RN - INTERNATIONAL Chart Check Powerplans Initiated/Discontinued as Appropriate : Yes All Active Orders Reviewed : Yes Sabine Wen NON EMP RN - INTERNATIONAL - 02/13/2021 5:08 EDT documented in this encounter Plan of Treatment Not on file documented as of this encounter Visit Diagnoses Not on filedocumented in this encounter Care Teams Set Up Machinist Relationship Specialty Start Date End Date Ricki London MD [address] [place] [address] PCP - General Adolescent Medicine 11/04/22 documented as of this encounter
--- OUTSIDE RECORDS SUMMARY | 2024-11-04 14:16 | XMS_ITS | Encounter Summary ---
Author Organization [employer] ([place], [place], [place], [place]) Address [address] [place] [address] Care Team Providers Care Dental Receptionist Name Role Phone Ricki London MD Primary Care Provider + [phone] Encounter Details Date Type Department Care Team (Late st Contact Info) Description 02/15/2021 Transcribed Document [facility] Family Medicine [address] [place] [address] ProviderStanford MD [address] [place] [address] Social History Tobacco Use Types Packs/Day Years Used Date Smoking Tobacco: Never Assessed Sex and Gender Information Value Date Recorded Sex Assigned at Not on file Legal Sex Male 5:38 PM CDT Gender Identity Not on file Sexual Orientation Not on file documented as of this encounter Miscellaneous Notes * Cerner Conversion Note - Stanford Cain MD - 02/15/2021 5:00 PM CDT Chart Check - Review Order Profile Entered On: 02/15/2021 18:46 EDT Performed On: 02/15/2021 17:00 EDT by Gordo Marr RN Chart Check Powerplans Initiated/Discontinued as Appropriate : Yes All Active Orders Reviewed : Yes Gordo Marr RN - 02/15/2021 18:46 EDT documented in this encounter Plan of Treatment Not on file documented as of this encounter Visit Diagnoses Not on filedocumented in this encounter Care Teams Dental Receptionist Relationship Specialty Start Date End Date Ricki London MD [address] [place] [address] PCP - General Adolescent Medicine 11/04/22 documented as of this encounter
--- OUTSIDE RECORDS SUMMARY | 2024-11-04 14:16 | XMS_ITS | Encounter Summary ---
Author Organization [employer] ([place], [place], [place], [place]) Address [address] [place] [address] Care Team Providers Care Jtac Name Role Phone Ricki London MD Primary Care Provider + [phone] Encounter Details Date Type Department Care Team (Late st Contact Info) Description 02/13/[address] [facility] [place] Family Medicine [facility] [place] [address] ProviderStanford MD [address] [place] [address] Social History Tobacco Use Types Packs/Day Years Used Date Smoking Tobacco: Never Assessed Sex and Gender Information Value Date Recorded Sex Assigned at Not on file Legal Sex Male 5:38 PM CDT Gender Identity Not on file Sexual Orientation Not on file documented as of this encounter Miscellaneous Notes * [employer]ner Conversion Note - Stanford ProviderMD - 02/13/2021 12:46 PM CDT Treatment Intervention, OT Entered On: 02/16/2021 15:56 EDT Performed On: 02/16/2021 11:07 EDT by ETHAN ROSALES, OTR/Patricia General Information, OT Visit Type, OT : Treatment Note Patient Orders : Order Date Order Ordering 02/12/2021 21:23 OT Evaluation and Treatment Ordered By: CARLOS CADENA DO-INT 02/13/2021 12:46 Occupational Therapy Additional Tx Ordered By: Active Diagnoses : 02/12/2021 12:00 Abnormal laboratory findings 02/12/2021 12:00 Acute kidney failure, unspecified 02/12/2021 12:00 Obstructive and reflux uropathy, unspecified Therapy Diagnosis, OT : Decreased I with ADLs and functional mobility due to weakness Admission Date : 02/12/2021 20:19 Personal Devices : Personal Devices No Devices Recorded Assistive Devices : Assistive Devices No Devices Recorded Precautions in Place : Fall prevention measures General Information Comment, OT : Pt working with PT and agreed to OT services after fxl mobility in [place]. ETHAN ROSALES OTR/L - 02/16/2021 15:50 EDT General Status Patient Received Status : Other: walking with PT Treatment Start Time : 02/16/2021 10:38 EDT Patient Left Status : Supine in bed, Bed alarm activated, Family/Visitors at bedside, All needs met and within reach RN/PCT Informed Comment : ok per Cee VALDES Treatment End Time : 02/16/2021 11:07 EDT Treatment Time : 29 Minute(s) ETHAN ROSALES OTR/Patricia - 02/16/2021 15:50 EDT Self Care/Home Management, OT Grooming Assist Level, OT : Supervision or set-up Grooming Comment, OT : pt sat EOB for grooming tasks Bathing Assist Level, OT : Supervision or set-up Bathing Comment, OT : pt sat EOB for brief UB sponge bath; pt declined to bathe LE's Upper Body Dressing Assist Level, OT : Assist, minimal Upper Body Comment, OT : min A to don car repairer pullman tshirt Bed/Chair/WC Transfer Comment : pt declined transfer to recliner due to back pain from recent fall ETHAN ROSALES OTR/Patricia - 02/16/2021 15:50 EDT Functional Mobility Mobility Grid Supine to Sit : Supervision/set-up Sit to Supine : Supervision/set-up ETHAN ROSALES OTR/Patricia - 02/16/2021 15:50 EDT Functional MobilityComment : After ADL's, pt returned to supine with SBA and bed alarm activated. Pt's family member in room. Call light in reach. ETHAN ROSALES OTR/L - 02/16/2021 15:50 EDT Plan of Care, OT OT Tx Plan/Goals Established w Patient : Yes ETHAN ROSALES OTR/L - 02/16/2021 15:50 EDT Program Engagement Director Goals, OT Grooming LTG Grid Goal #1 Activity : Grooming Assist : Independent, modified Date to Meet : 02/27/2021 EST Goal Status : Progressing, continue Comment : standing at sink ETHAN ROSALES OTR/Patricia - 02/16/2021 15:50 EDT Dressing, Lower Body LTG Grid Goal #1 Activity : Dressing, Lower Body Assist : Assist, minimal Date to Meet : 02/27/2021 EST Goal Status : Initial goal ETHAN ROSALES OTR/Patricia - 02/16/2021 15:50 EDT Toileting LTG Grid Goal #1 Activity : Toileting Assist : Supervision or set up Date to Meet : 02/27/2021 EST Goal Status : Initial goal ETHAN ROSALES OTR/Patricia - 02/16/2021 15:50 EDT Toilet Transfer LTG Grid Goal #1 Activity : Toilet Transfer, Ambulatory Assist : Independent, modified Date to Meet : 02/27/2021 EST Goal Status : Initial goal ETHAN ROSALES OTR/Patricia - 02/16/2021 15:50 EDT Treatment Note Subjective Comment : pt pleasant and cooperative Patient's Response to Treatment : pt tolerated fairly well despite back pain from recent fall Additional Objective Information : addressed ADL's Assessment : Pt progressing toward goals. Pt states, I was doing fine until I fell the other day. Plan for Treatment : Cont per POC ETHAN ROSALES OTR/Patricia 02/16/2021 15:50 EDT Pain Assessment Pain Scaled Used : 0-10 Pain scale Pain Score Pre-Intervention : 3 ETHAN ROSALES OTR/Patricia 02/16/2021 15:50 EDT Image 1 - Images currently included in the form version of this document have not been included in the text rendition version of the form. Anticipated Discharge Needs, OT/PT Anticipated Discharge to : Home, with family care, Home, with home health (Comment: level 2 [ETHAN ROSALES OTR/Patricia 02/16/2021 15:50 EDT] ) ETHAN ROSALES OTR/Patricia - 02/16/2021 15:[address] [facility] OT Charges OT Selfcare/Hm Mgmt Ea 15 Min : 2 ETHAN ROSALES OTR/Patricia 02/16/2021 15:50 EDT documented in this encounter Plan of Treatment Not on file documented as of this encounter Visit Diagnoses Not on filedocumented in this encounter Care Teams Jtac Relationship Specialty Start Date End Date Ricki London MD [address] [place] [id number] PCP - General Adolescent Medicine 11/04/22 documented as of this encounter
--- OUTSIDE RECORDS SUMMARY | 2024-11-04 14:16 | XMS_ITS | Encounter Summary ---
Author Organization [employer] ([place], [place], [place]) Address [address] [place] [address] Care Team Providers Care Sand System Operator Name Role Phone Ricki London MD Primary Care Provider + [phone] Encounter Details Date Type Department Care Team (Late st Contact Info) Description 02/12/2021 Transcribed Document [facility] [place] Family [place] [facility] [place] [address] ProviderStanford MD [address] [place] [address] Social History Tobacco Use Types Packs/Day Years Used Date Smoking Tobacco: Never Assessed Sex and Gender Information Value Date Recorded Sex Assigned at Not on file Legal Sex Male 5:38 PM CDT Gender Identity Not on file Sexual Orientation Not on file documented as of this encounter Miscellaneous Notes * Cerner Conversion Note - Stanford ProviderMD - 02/12/2021 2:24 PM CDT Broset Violence Assessment Entered On: 02/12/2021 17:16 EDT Performed On: 02/12/2021 17:10 EDT by Aleja Baumann RN Broset Violence Assessment Broset Violence Checklist of Symptoms : None Broset Violence Symptoms Subtotal : 0 Broset Violence Symptoms Indicator : Low risk (0) Aleja Baumann RN - 02/12/2021 17:10 EDT documented in this encounter Plan of Treatment Not on file documented as of this encounter Visit Diagnoses Not on filedocumented in this encounter Care Teams Sand System Operator Relationship Specialty Start Date End Date Ricki London MD [address] [place] [address] PCP - General Adolescent Medicine 11/04/22 documented as of this encounter
--- OUTSIDE RECORDS SUMMARY | 2024-11-04 14:16 | XMS_ITS | Encounter Summary ---
Author Organization [employer] ([place], [place], [place], [place]) Address [address] [place] [address] Care Team Providers Care Job Press Feeder Name Role Phone Ricki London MD Primary Care Provider + [phone] Encounter Details Date Type Department Care Team (Late st Contact Info) Description 02/14/2021 Transcribed Document [facility] [place] [facility] [place] [address] ProviderStanford MD [address] [place] [address] Social History Tobacco Use Types Packs/Day Years Used Date Smoking Tobacco: Never Assessed Sex and Gender Information Value Date Recorded Sex Assigned at Not on file Legal Sex Male 5:38 PM CDT Gender Identity Not on file Sexual Orientation Not on file documented as of this encounter Miscellaneous Notes * Cerner Conversion Note - Stanford ProviderMD - 02/14/2021 2:00 AM CDT Story Reader Details Entered On: 02/14/2021 4:31 EDT Performed On: 02/14/2021 2:00 EDT by Sabine Wen NON EMP RN - INTERNATIONAL Order Details Transport Mode Order Detail : Stretcher/Gurney Isolation Precautions Order Detail : Standard Precautions Order Detail : N/A IV Order Detail : 1 Lift/Transfer : Moderate assist Central Line Order Detail : No Patient Needs Meds Crushed/Liquid : No Sabine Wen NON EMP RN - INTERNATIONAL - 02/14/2021 4:31 EDT documented in this encounter Plan of Treatment Not on file documented as of this encounter Visit Diagnoses Not on filedocumented in this encounter Care Teams Job Press Feeder Relationship Specialty Start Date End Date Ricki London MD [address] [place] [address] PCP - General Adolescent Medicine 11/04/22 documented as of this encounter
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
--- OUTSIDE RECORDS SUMMARY | 2024-11-04 14:16 | XMS_ITS | Encounter Summary ---
Author Organization [employer] ([place], [place], [place], [place]) Address [address] [place] [address] Care Team Providers Care Slot Machine Key Person Name Role Phone Ricki London MD Primary Care Provider + [phone] Encounter Details Date Type Department Care Team (Late st Contact Info) Description 02/12/2021 Transcribed Document [facility] [place] [address] ProviderStanford MD [address] [place] [address] Social History Tobacco Use Types Packs/Day Years Used Date Smoking Tobacco: Never Assessed Sex and Gender Information Value Date Recorded Sex Assigned at Not on file Legal Sex Male 5:38 PM CDT Gender Identity Not on file Sexual Orientation Not on file documented as of this encounter Miscellaneous Notes * Cerner Conversion Note - Stanford ProviderMD - 02/12/2021 9:22 PM CDT Evaluation, Physical Therapy Entered On: 02/13/2021 12:32 EDT Performed On: 02/13/2021 11:01 EDT by MURRAY FERNÁNDEZ, PT General Information, PT Visit Type, PT : Initial evaluation Patient Orders : Order Date Order Ordering 02/12/2021 21:23 PT Evaluation and Treatment Ordered By: CARLOS CADENA DO-INT 02/13/2021 12:24 PT Additional Treatment Ordered By: MURRAY FERNÁNDEZ, PT Active Diagnoses : 02/12/2021 12:00 Abnormal laboratory findings 02/12/2021 12:00 Acute kidney failure, unspecified 02/12/2021 12:00 Obstructive and reflux uropathy, unspecified Therapy Diagnosis, PT : Debility Onset of Problem, PT : 02/13/2021 EDT Admission Date : 02/12/2021 20:19 Co-treated by, PT : Occupational Therapist Personal Devices : Personal Devices No Devices Recorded Assistive Devices : Assistive Devices No Devices Recorded Precautions in Place : Fall prevention measures General Information Comment, PT : Admit Dx: s/p Bilat ureteral stent placement due to ureteral stones, acute renal failure Hx: CAD, PPM, RLE leg length discrepancy MURRAY FERNÁNDEZ, PT - 02/13/2021 12:26 EDT General Status Patient Received Status : Supine in bed Treatment Start Time : 02/13/2021 11:01 EDT Patient Left Status : Supine in bed, All needs met and within reach Treatment End Time : 02/13/2021 11:19 EDT Treatment Time : 18 Minute(s) MURRAY FERNÁNDEZ, PT - 02/13/2021 12:26 EDT History and Environment Patient Lives With : Spouse Persons Assisting Patient at Home : Spouse Persons Providing Information : Patient Home Equipment Therapy, PT : Other: owns RWx, SPC Home Setup : Two story Stairs : Yes Stair Location(s) : Inside Railing Inside : Yes MURRAY FERNÁNDEZ, PT - 02/13/2021 12:26 EDT Prior Level of Function PT GRID Prior LOF Ambulation, Household : Independent Prior LOF Ambulation, Community : Independent Prior LOF Bed Mobility : Independent Prior LOF Toileting : Independent Prior LOF Transfer : Independent MURRAY FERNÁNDEZ, PT - 02/13/2021 12:26 EDT Prior LOF Assist with ADL Comment : admits that they are sufficient on 1st floor MURRAY FERNÁNDEZ, PT - 02/13/2021 12:26 EDT Lower Extremity RLE Active ROM : Impaired Right LE Strength : Impaired LLE Active ROM : WFL Left LE Strength : WFL MURRAY FERNÁNDEZ, PT - 02/13/2021 12:26 EDT Functional Mobility Mobility Grid Supine to Sit : Rehab Minimal assistance Sit to Stand : Rehab Minimal assistance Stand to Sit : Rehab Minimal assistance Sit to Supine : Rehab Minimal assistance MURRAY FERNÁNDEZ, PT - 02/13/2021 12:26 EDT Sit to Stand Device : Belt, gait, Walker, front wheel Stand to Sit Device : Belt, gait, Walker, front wheel MURRAY FERNÁNDEZ, PT - 02/13/2021 12:26 EDT Gait Training/Assessment, PT Gait Assistance Level : Assist, minimal Walking Distance : 80ft with RWx Rocky for balance Ambulatory Devices : Gait belt, Walker, front wheel MURRAY FERNÁNDEZ, PT - 02/13/2021 12:26 EDT Cognition Assessment, PT Orientation : Oriented x 4 Attention Assessment : Present MURRAY FERNÁNDEZ, PT - 02/13/2021 12:26 EDT Edu Topics Physical Therapy Education Grid Gait Training : Verbalizes understanding, Returns demonstration, Needs reinforcement Transfer Training : Verbalizes understanding, Returns demonstration, Needs reinforcement MURRAY FERNÁNDEZ, PT - 02/13/2021 12:26 EDT Indication Assesessment, PT Physical Therapy Indicated : Yes PT Problem List : Impaired, endurance tolerance, Impaired, gait, Impaired, strength, Impaired, transfers MURRAY FERNÁNDEZ, PT - 02/13/2021 12:26 EDT Plan of Care, PT PT Tx Plan/Goals Established w Patient : Yes PT Frequency Rehab : Five days per week PT Duration Rehab : Fourteen days PT Treatments Planned : Gait training, Therapeutic exercises, Transfer training MURRAY FERNÁNDEZ, PT - 02/13/2021 12:26 EDT Electric Tool Repairer Goals Mobility/Bed Mobility LTG PT Grid Goal #1 Goal #2 Activity : Supine to sit Sit to stand Assist : Independent, modified Independent, modified Date to Meet : 02/27/2021 EST 02/27/2021 EST Goal Status : Intial Goal Intial Goal MURRAY FERNÁNDEZ, PT - 02/13/2021 12:26 EDT MURRAY FERNÁNDEZ, PT - 02/13/2021 12:26 EDT Ambulation LTG Grid Goal #1 Device : Walker, front wheel Distance : 300ft Assist : Independent, modified Date to Meet : 02/27/2021 EST Goal Status : Intial Goal MURRAY FERNÁNDEZ, PT - 02/13/2021 12:26 EDT Treatment Note Subjective Comment : pt agreed to PTx eval Patient's Response to Treatment : Stable Assessment : pt with weakness and noted during ambulation increased R hip hiking compensatory strategies per hx of shortened R leg length discrepancy but able to tolerate ambulating ~80ft with RWx Rocky in hallways Plan for Treatment : cont PTx POC MURRAY FERNÁNDEZ, PT - 02/13/2021 12:26 EDT Pain Assessment Pain Scaled Used : 0-10 Pain scale Pain Score Pre-Intervention : 0 PRADEEPJLMURRAY, PT - 02/13/2021 12:26 EDT Image 1 - Images currently included in the form version of this document have not been included in the text rendition version of the form. Anticipated Discharge Needs, OT/PT Anticipated Discharge to : Home, with home health Recommend Continued Therapy at Discharge : Yes MURRAY FERNÁNDEZ, PT - 02/13/2021 12:26 EDT [place] PT Charges PT Eval Moderate Complexity : 1 MURRAY FERNÁNDEZ, PT - 02/13/2021 12:26 EDT Electronically signed by Davis, [facility] Conversion Registered Nurse Bone Marrow Transplant Cerner at 08/05/2022 9:21 AM CDT documented in this encounter Plan of Treatment Not on file documented as of this encounter Visit Diagnoses Not on filedocumented in this encounter Care Teams Slot Machine Key Person Relationship Specialty Start Date End Date Ricki London MD [address] [place] [address] PCP - General Adolescent Medicine 11/04/22 documented as of this encounter
--- OUTSIDE RECORDS SUMMARY | 2024-11-04 14:16 | XMS_ITS | Encounter Summary ---
Author Organization [employer] ([place], [place], [place], [place]) Address [address] [place] [address] Care Team Providers Care Hydrogenation Operator Name Role Phone Ricki London MD Primary Care Provider + [phone] Encounter Details Date Type Department Care Team (Late st Contact Info) Description 02/13/2021 Transcribed Document [facility] [place] Family Medicine [address] [place] [address] ProviderStanford MD [address] [place] [address] Social History Tobacco Use Types Packs/Day Years Used Date Smoking Tobacco: Never Assessed Sex and Gender Information Value Date Recorded Sex Assigned at Not on file Legal Sex Male 5:38 PM CDT Gender Identity Not on file Sexual Orientation Not on file documented as of this encounter Miscellaneous Notes * [employer]ner Conversion Note - Stanford Cain MD - 02/13/2021 5:00 PM CDT Chart Check - Review Order Profile Entered On: 02/13/2021 17:38 EDT Performed On: 02/13/2021 17:00 EDT by Gordo Marr RN Chart Check Power[employer]ans Initiated/Discontinued as Appropriate : Yes All Active Orders Reviewed : Yes Gordo Marr RN - 02/13/2021 17:38 EDT documented in this encounter Plan of Treatment Not on file documented as of this encounter Visit Diagnoses Not on filedocumented in this encounter Care Teams Hydrogenation Operator Relationship Specialty Start Date End Date Ricki London MD [address] [place] [address] PCP - General Adolescent Medicine 11/04/22 documented as of this encounter
--- OUTSIDE RECORDS SUMMARY | 2024-11-04 14:16 | XMS_ITS | Encounter Summary ---
Author Organization [employer] ([place], [place], [place], [place]) Address [address] [place] [address] Care Team Providers Care Outdoor Illuminating Engineer Name Role Phone Ricki Agosto MD Primary Care Provider + [phone] Encounter Details Date Type Department Care Team (Late st Contact Info) Description 02/13/2021 Transcribed Document [facility] [place] [facility] [address] ProviderStanford MD [address] [place] [address] [id number] Social History Tobacco Use Types Packs/Day Years Used Date Smoking Tobacco: Never Assessed Sex and Gender Information Value Date Recorded Sex Assigned at Not on file Legal Sex Male 5:38 PM CDT Gender Identity Not on file Sexual Orientation Not on file documented as of this encounter Miscellaneous Notes * Cerner Conversion Note - Stanford Cain MD - 02/13/2021 3:56 PM CDT Initial Discharge Planning Entered On: 02/13/2021 15:56 EDT Performed On: 02/13/2021 15:56 EDT by TY HERNÁNDEZ, Mixer Runner-Nursing Resident Initial Assessment I Enter Doctors Name : RICKI AGOSTO CARISSA A, Mixer Runner-Nursing Resident - 02/13/2021 15:57 EDT Previously Documented Living Environment : No qualifying data available. Living Situation : Home Patient Lives With : Spouse Is the Patient a Caregiver at Home? : No Emergency Contact #1 : Beverly Chad Emergency Contact #1 Phone Number : [phone] Emergency Contact #1 Relationship : Emergency Contact #2 : NONE Emergency Contact #2 Phone Number : NONE Emergency Contact #2 Relationship : NONE Does Patient have PCP Listed? : Yes TY HERNÁNDEZ Mixer Runner-Nursing Resident - 02/13/2021 15:56 EDT Initial Assessment II Sensory and Motor Deficits : None Current Home Treatments and Equipment : Walker TY HERNÁNDEZ Mixer Runner-Nursing Resident - 02/13/2021 15:57 EDT Discharge Needs I Anticipated Discharge To, CM : Home independently, Home with family care Current Home Treatment/Equipment : Current Home Treatment/Equipment No qualifying data available. Post Acute/Home Treatments : None Documentation Status Complete : Yes TY HERNÁNDEZ Mixer Runner-Nursing Resident - 02/13/2021 15:57 EDT Discharge Needs II Professional Skilled Services : Professional Skilled Services No qualifying data available. Needs Assistance with Transportation : No Discharge Options Discussed with Patient : Discharge transportation, DME, Home Health Patient Discharge Goal : Home TY HERNÁNDEZ Mixer Runner-Nursing Resident - 02/13/2021 15:57 EDT Narrative Note Narrative Note : Patient had emergent cystoscopy last night. Patient will likely go home once creatine is improved. Maybe couple of days. PT saw patient and recommended home with HH. Patient denied having/wanting/needing HH. Patient reported that he has a walker he will use and that he does not need a new one. Patient reported that he was adl independent prior to this hospitalization. Patient denied having needs at this time. Cm will continue to follow. TY HERNÁNDEZ Mixer Runner-Nursing Resident - 02/13/2021 15:57 EDT documented in this encounter Plan of Treatment Not on file documented as of this encounter Visit Diagnoses Not on filedocumented in this encounter Care Teams Outdoor Illuminating Engineer Relationship Specialty Start Date End Date Ricki Agosto MD [address] [place] [address] PCP - General Adolescent Medicine 11/04/22 documented as of this encounter
--- OUTSIDE RECORDS SUMMARY | 2024-11-04 14:16 | XMS_ITS | Encounter Summary ---
Author Organization [employer] ([place], [place], [place], [place]) Address [address] [place] [address] Care Team Providers Care Fuselage Framer Name Role Phone Ricki Agosto MD Primary Care Provider + [phone] Encounter Details Date Type Department Care Team (Late st Contact Info) Description 02/21/2021 Transcribed Document [facility] [place] [facility] [place] [address] ProviderStanford MD [address] [place] [address] Social History Tobacco Use Types Packs/Day Years Used Date Smoking Tobacco: Never Assessed Sex and Gender Information Value Date Recorded Sex Assigned at Not on file Legal Sex Male 5:38 PM CDT Gender Identity Not on file Sexual Orientation Not on file documented as of this encounter Miscellaneous Notes * Cerner Conversion Note - Stanford Cain MD - 02/21/2021 1:25 PM CDT Patient: TONY CASTRO Age: 80 Years Sex: Male : 1940 Admit Date 02/12/2021 20:19 Discharge Date 02/16/2021 17:51 DOS: 02/16/21 Primary Care Provider RICKI AGOSTO (REF)[facility] Discharge Diagnosis ARF (acute renal failure) 02/12/2021 N17.9 ICD-10-CM Obstructive uropathy 02/12/2021 N13.9 ICD-10-CM Procedures SN - Proc - Procedure: Ureteral Stent Insertion (02/12/21 21:11:55) SN - Proc - Procedure: Cystoscopy Adult (02/12/21 21:11:55) Hospital Course Patient is a 80-year-old male [...] improvement in renal function, urine culture pending. 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 has been prescribed this for >20 years #Physical deconditioning - PT/OT consult, appreciate assistance and recommendations: HHPT Back pain after fall - xray pelvis and hips ok. Work with PT. Dispo - Medically stable and requesting discharge home today. Vital Signs Oxygen Settings (Last) Oxygen Therapy Mode: Room air (02/16/21 12:03:00) Oxygen Flow Rate: 2 Liter/Min (02/13/21 23:00:00) Discharge Disposition Home with Home Care Discharge Follow Up RICKI AGOSTO (REF)[facility] - 11:30 AM MERLIN MOSER MD - 02:45 PM Discharge Medications (11) Active ALPRAZolam 0.5 mg oral tablet 0.5 mg = 1 Tab, Oral, TID aspirin 81 mg oral delayed release tablet 81 mg = 1 Tab, Oral, Daily atorvastatin 20 mg oral tablet 20 mg = 1 Tab, Oral, At Bedtime clopidogrel 75 mg oral tablet 75 mg = 1 Tab, Oral, Daily Co-Q10 100 mg oral capsule 100 mg = 1 Cap, Oral, Daily gabapentin 300 mg oral capsule 600 mg = 2 Cap, Oral, TID levothyroxine 50 mcg (0.05 mg) oral tablet 50 mcg = 1 Tab, Oral, Daily Multivitamins and Minerals 1 Tab, Oral, Daily Nitrostat 0.4 mg sublingual tablet 0.4 mg = 1 Tab, PRN, SubLINgual, Q5Min Stiolto Respimat 60 ACT 2.5 mcg-2.5 mcg/inh inhalation aerosol 2 Puff, Inhalation, [id number] Tylenol 325 mg oral tablet 650 mg = 2 Tab, PRN, Oral, Q4H Code Status No Code Status Order on Record Condition on Discharge Good Consulting Physicians No Consulting Physician on Record. Current Diet Order No qualifying data available. Pending Labs No Labs on Record Time Spent on Discharge Time for preparation of discharge was greater than 30 minutes. I personally evaluated the patient on the day of discharge. documented in this encounter Plan of Treatment Not on file documented as of this encounter Visit Diagnoses Not on filedocumented in this encounter Care Teams Fuselage Framer Relationship Specialty Start Date End Date Ricki Agosto MD [address] [place] [address] PCP - General Adolescent Medicine 11/04/22 documented as of this encounter
--- OUTSIDE RECORDS SUMMARY | 2024-11-04 14:16 | XMS_ITS | Data Portability ---
Author Organization [facility] Address [address] [place] [address] Care Team Providers Care Financial Administrative Assistant Name Role Phone HARSH AGOSTO Primary Care Provider [facility] Referring Provi chaitanya Assessment No assessment recorded. Plan of Treatment Reminders Order Date Submit Date Provider Last Modified By Organization Details Last Modified Time Details Appointments None recorded. Lab None recorded. Referral None recorded. Procedures None recorded. Surgeries None recorded. Imaging None recorded. Medication Orders mupirocin 2 % topical ointment 2023 024 [facility], [address] [place] [address], [phone], 4 16:40:26 Patient TargetsNo targets recorded. Patient InstructionsNo instructions recorded. Reason for Referral None Reported. Problems Name Problem SNOMED Code Status Onset Date Resolution Date Notes Provider Name and Address Organization Details Recorded Time Low blood pressure 67078156 Active Lucy Bonilla null, [place] - [facility] 13:39:48 Hyperlipidemi a 97850682 Active Lucy Bonilla [place] - [facility] 13:40:01 Hypothyroidis m 92662018 Active Lucy Bonilla [place] - [facility] 13:40:16 Anxiety 71199118 Active Lucy Bon[place] - [facility] 13:41:08 Neuropathy 648447912 Active Lucy Bon[place] - [facility] 13:41:20 Coronary artery bypass graft Active Lucy Bonilla null, [place] - [facility] 13:43:28 Transient cerebral ischemia 277378005 Active DOYLE Mistry [facility] 13:44:19 Chronic obstructive pulmonary disease 87500294 Active DOYLE Mistry [facility] 13:44:41 Problem Notes None recorded. Procedures Surgical History Date Name Laterality Status Provider Name and Address Organization Details Recorded Time Prostate Surgery completed Kayley Bonilla [facility] 09/18/2023 13:48:44 procedure on heart completed Lucy Bonilla [facility] 09/18/2023 13:48:50 Appendectomy completed Lucy KWON [facility] 09/18/2023 13:48:55 Cataract Surgery completed Kayley Bonilla [facility] 09/18/2023 13:49:02 excision of uvula completed Catalina Bonilla [facility] 09/18/2023 13:49:54 Imaging Results None recorded. Procedure Notes None recorded. Medical Equipment None Reported. Allergies No known drug allergies Medications Name Sig Start Date Stop Date Status Note LastModified by Organization Details LastModified Time atorvastati n 20 mg tablet TAKE ONE TABLET BY MOUTH EVERY DAY AT BEDTIME active Not Available Not Available No t Available alprazolam 1 mg tablet TAKE 1/2 TABLET BY MOUTH EVERY 8 HOURS MAY CAUSE DROWSINES S 09/17 completed Not Available Not Available Not Available hydrocodone 5 mg-acetamin ophen 325 mg tablet TAKE ONE TABLET BY MOUTH EVERY 8 HOURS NEEDED FOR PAIN MAY CAUSE DROWSINES S 09/17 completed Not Available Not Available Not Available atenolol 25 mg tablet TAKE ONE TABLET BY MOUTH EVERY DAY 09/17 completed Not Available Not Available Not Available clopidogrel 75 mg tablet TAKE ONE TABLET BY MOUTH EVERY DAY active Not Available Not Available No t Available tramadol 50 mg tablet TAKE 1 OR 2 TABLET(S) BY MOUTH EVERY 6 HOURS NEEDED 09/17 completed Not Available Not Available Not Available alprazolam 0.5 mg tablet TAKE ONE TABLET BY MOUTH THREE TIMES DAILY MAY CAUSE DROWSINES S active Not Available Not Available No t Available methocarbam ol 750 mg tablet TAKE ONE TABLET BY MOUTH EVERY 8 HOURS NEEDED FOR PAIN MAY CAUSE DROWSINES S 09/17 completed Not Available Not Available Not Available tamsulosin 0.4 mg capsule TAKE ONE CAPSULE BY MOUTH TWICE DAILY 09/17 completed Not Available Not Available Not Available levothyroxi ne 50 mcg tablet TAKE ONE TABLET BY MOUTH EVERY DAY active Not Available Not Available No t Available lidocaine 5 % topical patch APPLY 1 PATCH TOPICALLY TO THE AFFECTED AREA ONCE DAILY AND LEAVE IN PLACE FOR 12 HOURS, THEN REMOVE AND LEAVE OFF FOR 12 HOURS active Not Available Not Available No t Available nitroglycer in 0.4 mg sublingual tablet DISSOLVE 1 TABLET UNDER THE TONGUE EVERY 5 MINUTES NEEDED FOR CHEST PAIN. DO NOT EXCEED A TOTAL OF 3 DOSES IN 15 MINUTES. IF NO RELIEF AFTER 3 DOSES CALL 911/GO TO ER active Not Available Not Available No t Available docusate sodium 100 mg capsule TAKE ONE CAPSULE BY MOUTH TWICE DAILY 09/17 completed Not Available Not Available Not Available gabapentin 300 mg capsule TAKE TWO CAPSULES BY MOUTH THREE TIMES DAILY MAY CAUSE DROWSINES S active Not Available Not Available No t Available mupirocin 2 % topical ointment APPLY TOPICALLY TO THE AFFECTED AREA(S) THREE TIMES DAILY DIRECTED apply SMALL AMOUNT active Not Available Not Available No t Available azelastine 137 mcg (0.1 %) nasal spray INSTILL 2 SPRAYS IN EACH NOSTRIL TWICE DAILY 09/17 completed Not Available Not Available Not Available cefuroxime axetil 500 mg tablet TAKE ONE TABLET BY MOUTH TWICE DAILY 09/17 completed Not Available Not Available Not Available ipratropium bromide 42 mcg (0.06 %) nasal spray instill 2 SPRAYS IN EACH NOSTRIL THREE TIMES DAILY if needed active Not Available Not Available No t Available fludrocorti sone 0.1 mg tablet TAKE 1 TABLET BY MOUTH EVERY DAY 09/17 completed Not Available Not Available Not Available finasteride 5 mg tablet TAKE ONE TABLET BY MOUTH EVERY DAY active Not Available Not Available No t Available loratadine 10 mg tablet TAKE ONE TABLET BY MOUTH EVERY DAY 09/17 completed Not Available Not Available Not Available naproxen 500 mg tablet TAKE ONE TABLET BY MOUTH TWICE DAILY NEEDED FOR PAIN --TAKE WITH FOOD-- 09/17 completed Not Available Not Available Not Available midodrine 10 mg tablet TAKE ONE TABLET BY MOUTH TWICE DAILY active Not Available Not Available No t Available escitalopra m 10 mg tablet TAKE ONE TABLET BY MOUTH EVERY DAY active Not Available Not Available No t Available alfuzosin ER 10 mg tablet,exte nded release 24 hr TAKE ONE TABLET BY MOUTH EVERY DAY active Not Available Not Available No t Available nitrofurant oin monohydrate /macrocryst als 100 mg capsule TAKE ONE CAPSULE BY MOUTH EVERY TWELVE HOURS FOR 10 DAYS -- FINISH ALL MEDICINE -- 09/17 completed Not Available Not Available Not Available solifenacin 10 mg tablet TAKE ONE TABLET BY MOUTH EVERY DAY active Not Available Not Available No t Available Stimulant Laxative Plus 8.6 mg-50 mg tablet TAKE TWO TABLETS BY MOUTH EVERY DAY AT BEDTIME 09/17 completed Not Available Not Available Not Available oxygen 2l at bed time active Not Available Not Available No t Available Vitals Date Recorded Body height Body mass index (BMI) Body weight Body temperature Heart rate Oxygen saturation Oxygen saturation in Arterial blood by Pulse oximetry Respiratory rate Systolic And Diastolic Provider Name and Address Organization Details Last Updated DateTime 167.64 cm 24.4 kg/m2 59235.4 5 g 97.9 [degF] 86 /min 100 % 100 % 18 /min 105/60 mm[Hg] Lucy Bonilla [place] - [facility] 13:38:48 Social History Question Answer Notes LastModified by Organizat ion Details LastModified Time Tobacco Smoking Status Former Smoker quit in 1967 Lucy russell, [place] - [facility] 09/18/2023 13:47:17 Do You Have An Advance Directive? No Information not available 09/18/2023 Are You Blind Or Do You Have Difficulty Seeing? No Information not available 09/18/2023 What Is Your Level Of Caffeine Consumption? None Information not available 09/18/2023 How Much Tobacco Do You Chew? 2-4/day Information not available 09/18/2023 In The 14 Days Before Symptom Onset, Have You Had Close Contact With A Laboratory-confir med COVID-19 While That Case Was Ill? No Information not available 09/18/2023 In The 14 Days Before Symptom Onset, Have You Had Close Contact With A Person Who Is Under Investigation For COVID-19 While That Person Was Ill? No Information not available 09/18/2023 Have You Been To An Area Known To Be High Risk For COVID-19? No Information not available 09/18/2023 Are You Deaf Or Do You Have Serious Difficulty Hearing? No Information not available 09/18/2023 Have You Processed Blood Or Body Fluids From An Ebola Virus Disease Patient Without Appropriate PPE? No Information not available 09/18/2023 Do You Reside In Or Have You Traveled To An Area Where Ebola Virus Transmission Is Active? No Information not available 09/18/2023 Have There Been Any Changes To Your Family Or Social Situation? No Information no t available 09/18/2023 When Did You Quit Smoking? 16+yearssin finesse anguiano Information not available 09/18/2023 Have You Recently Or Are You Planning To Travel To An Area With Zika Virus? No Information not available 09/18/2023 Do You Have A Medical Power Of Executive Officer Special Warfare Team? No Information not available 09/18/2023 What Is Your Relationship Status? Information not available 09/18/2023 Are You Sexually Active? No Information not available 09/18/2023 Do You Have Smoke And Carbon Monoxide Detectors In Your Home? No Information not available 09/18/2023 Are You Passively Exposed To Smoke? No Information no t available 09/18/2023 Has Tobacco Cessation Counseling Been Provided? Yes Information not available 09/18/2023 On What Date Was Tobacco Cessation Counseling Provided? 09/18/2023 Information not available 09/18/2023 How Many Years Have You Smoked Tobacco? 20 Information not available 09/18/2023 Do You Have Difficulty Walking Or Climbing Stairs? Yes Information not available 09/18/2023 Sex: Male Functional Status Question Answer Note LastModified by [employer] ion Details LastModified Time Do you use any illicit or recreational drugs? No Information not available 09/18/2023 Do you or have you ever used any other forms of tobacco or nicotine? Yes Information not available 09/18/2023 What is your level of alcohol consumption? None Information not available 09/18/2023 Do you or have you ever used smokeless tobacco? Currently chews tobacco Information not available 09/18/2023 Do you have transportation difficulties? No Information not available 09/18/2023 Are you able to walk? YESASSIST Information not available 09/18/2023 Do you have difficulty doing errands alone? No Information not available 09/18/2023 Are you able to care for yourself? Yes Information n ot available 09/18/2023 Do you have difficulty dressing or bathing? Yes Information not available 09/18/2023 Mental Status Question Answer Note LastModified by Organization D etails LastModified Time Do you have difficulty concentrating, remembering or making decisions? No Information no t available 09/18/2023 Family History Nothing Reported. Medical History No medical history recorded. Immunizations Vaccine Type Date Status Note Provider Nam e and Address Organization Details Recorded Time Influenza, split virus, quadrivalent, preservative 8 completed Lucy Bonilla null, [place] - [facility] 09/18/2023 13:39:15 Influenza, split virus, quadrivalent, preservative 7 completed Lucy Bon[place], [place] - [facility] 09/18/2023 13:39:15 Influenza, adjuvanted, trivalent, PF 7 completed Lucy [place] - [facility] 09/18/2023 13:39:15 COVID-19, mRNA, LNP-S, PF, 100 mcg/0.5mL dose or 50 mcg/0.25mL dose 1 completed Lucy Bon[place] null, [place] - [facility] 09/18/2023 13:39:15 COVID-19, mRNA, LNP-S, PF, 100 mcg/0.5mL dose or 50 mcg/0.25mL dose 1 completed Lucy Bon[place] null, [place] - [facility] 09/18/2023 13:39:15 COVID-19, mRNA, LNP-S, PF, 100 mcg/0.5mL dose or 50 mcg/0.25mL dose 2 completed Lucy Bon[place] null, [place] - [facility] 09/18/2023 13:39:15 COVID-19, mRNA, LNP-S, PF, 100 mcg/0.5mL dose or 50 mcg/0.25mL dose 1 completed Lucy Bonilla null, [facility] 09/18/2023 13:39:15 Pneumococcal conjugate PCV20, polysaccharide [id number] conjugate, adjuvant, PF 3 completed Lucy Bonilla null, [facility] 09/18/2023 13:39:15 COVID-19, mRNA, LNP-S, bivalent, PF, 50 mcg/0.5 mL or 25mcg/0.25 mL dose 2 completed Lucy Bonilla null, [facility] 09/18/2023 13:39:15 RSV, recombinant, protein subunit RSVpreF, adjuvant reconstituted, 0.5 mL, PF 3 completed Lucy Bonilla null, [facility] 09/18/2023 13:39:15 COVID-19, mRNA, LNP-S, PF, 50 mcg/0.5 mL 3 completed Lucy Bonilla null, [facility] 09/18/2023 13:39:15 pneumococcal polysaccharide PPV23 9 completed Lucy Bonilla null, [facility] 09/18/2023 13:39:15 zoster live 7 completed Lucy Bonilla null, [facility] 09/18/2023 13:39:15 Influenza, high-dose, trivalent, PF 1 completed Lucy Bonilla null, [facility] 09/18/2023 13:39:15 Influenza, high-dose, trivalent, PF 0 completed Lucy Bonilla null, [facility] 09/18/2023 13:39:16 Influenza, high-dose, trivalent, PF 3 completed Lucy Bonilla null, [facility] 09/18/2023 13:39:16 Influenza, high-dose, trivalent, PF 2 completed Lucy Bonilla null, [facility] 09/18/2023 13:39:16 Influenza, high-dose, trivalent, PF 8 completed Lucy Bonilla null, [facility] 09/18/2023 13:39:16 Td (adult), 2 Lf tetanus toxoid, preservative free, adsorbed 3 completed Lucy Bonilla null, [place] - [facility] 09/18/2023 13:39:16 Influenza, split virus, quadrivalent, PF 4 completed Lucy Bonilla null, [place] - [facility] 09/18/2023 13:39:16 Past Encounters Encounter ID Performer Location Encounter Start Date Encounter Closed Date Diagnosis/Indication Diagnosis SNOMED-CT Code Diagnosis ICD10 Code Diagnosis Note [id number] Larissa Green APRN [address] [address] 09/18/2023 13:04:44 09/18/2023 14:43:07 Tear of skin 110424195 T14.8XXA monitor for s/s infection fall W19.XXXA Abnormal g ait due to muscle weakness 443029008 M62.81 continue PT Health Concerns Section Related Observation LastModified by Organization Detai ls LastModified Time None Recorded Concern Status LastModified by Organization Details LastModified Time None Recorded Advance Directives Directive N: Payers Insurance Date Sequence Insurance Name Policy Number Policy Hollins Covered Member ID Hollins Member ID Guarantor Name 10/04/2023 1 [employer] (MEDICARE REPLACEMENT/A DVANTAGE - PPO) Tony Bonilla [id number] Tony Bonilla Notes Date Note Type Note Provider Name and Address Organization Details Recorded Time 09/18/2023 text/html 82 yr old male presents for a fall x 2. He stated his legs just gave out. Has a bandage on top of his head, right elbow skin tear, and right hand skin tear. Larissa Green, [facility], [place], [address], [place] - [facility] 09/18/2023 16:33:16
--- OUTSIDE RECORDS SUMMARY | 2024-11-04 14:16 | XMS_ITS | Encounter Summary ---
Author Organization [employer] ([place], [place], [place], [place]) Address [address] [place] [address] Care Team Providers Care Aerodynamicist Name Role Phone Ricki London MD Primary Care Provider + [phone] Encounter Details Date Type Department Care Team (Late st Contact Info) Description 02/12/2021 Transcribed Document [facility] [place] [address] ProviderStanford MD [address] [place] [id number] Social History Tobacco Use Types Packs/Day Years Used Date Smoking Tobacco: Never Assessed Sex and Gender Information Value Date Recorded Sex Assigned at Not on file Legal Sex Male 5:38 PM CDT Gender Identity Not on file Sexual Orientation Not on file documented as of this encounter Miscellaneous Notes * Cerner Conversion Note - Stanford ProviderMD - 02/12/2021 9:22 PM CDT Evaluation, Occupational Therapy Entered On: 02/13/2021 12:46 EDT Performed On: 02/13/2021 11:21 EDT by ALO HORNE OTR/Patricia General Information, OT Visit Type, OT : Initial evaluation Patient Orders : Order Date Order Ordering 02/12/2021 21:23 OT Evaluation and Treatment Ordered By: CARLOS CADENA DO-INT Active Diagnoses : 02/12/2021 12:00 Abnormal laboratory findings 02/12/2021 12:00 Acute kidney failure, unspecified 02/12/2021 12:00 Obstructive and reflux uropathy, unspecified Therapy Diagnosis, OT : Decreased I with ADLs and functional mobility due to weakness Onset of Problem, OT : 02/13/2021 EDT Admission Date : 02/12/2021 20:19 Co-treated by, OT : Physical Therapist Personal Devices : Personal Devices No Devices Recorded Assistive Devices : Assistive Devices No Devices Recorded Precautions in Place : Fall prevention measures ALO HORNE OTR/L - 02/13/2021 12:35 EDT General Status Patient Received Status : Supine in bed, Bed alarm activated Treatment Start Time : 02/13/2021 11:02 EDT Patient Left Status : Long sitting in bed, Bed alarm activated, RN/PCT informed, Family/Visitors at bedside, All needs met and within reach RN/PCT Informed Comment : LUCIO wyatt Treatment End Time : 02/13/2021 11:21 EDT Treatment Time : 19 Minute(s) ALO HORNE OTR/Patricia - 02/13/2021 12:35 EDT History and Environment, OT Living Situation, Therapy : Home Patient Lives With : Spouse Persons Assisting Patient at Home : Spouse Persons Providing Information : Patient Home Equipment, Therapy : Cane, Shower Equipment, Walker Home Setup : Two story Bedroom Location : Upstairs Stairs : Yes Stair Location(s) : Inside Railing Inside : Yes ALO HORNE OTR/Patricia - 02/13/2021 12:35 EDT Prior LOF Bathing, OT : Independent Prior LOF Bed Mobility : Independent Prior LOF Upper Body Dressing, OT : Independent Prior LOF Lower Body Dressing, OT : Independent Prior LOF Toileting : Independent Prior LOF Transfer : Independent Prior LOF Grooming, OT : Independent Prior LOF for IADLs, OT : Independent ALO HORNE OTR/Patricia - 02/13/2021 12:35 EDT Prior LOF Assist with ADL Comment : Pt required assist with socks at times. ALO HORNE OTR/L - 02/13/2021 12:35 EDT Upper Extremity Upper Extremity Dominance : Right Right UE Active ROM : WFL Right UE Strength : WFL Left UE Active ROM : WFL Left UE Strength : WFL ALO HORNE OTR/Patricia - 02/13/2021 12:35 EDT Self Care/Home Management, OT Self Feeding Assist Level, OT : Independent, modified Grooming Assist Level, OT : Independent, modified Bathing Assist Level, OT : Assist, minimal Upper Body Dressing Assist Level, OT : Assist, minimal Lower Body Dressing Assist Level, OT : Assist, maximal Toileting Assist Level : Assist, moderate Toilet Transfer Assist Level : Assist, minimal ALO HORNE OTR/Patricia - 02/13/2021 12:35 EDT Functional Mobility Mobility Grid Supine to Sit : Rehab Minimal assistance Sit to Stand : Supervision/set-up Stand to Sit : Supervision/set-up Sit to Supine : Rehab Minimal assistance ALO HORNE OTR/Patricia - 02/13/2021 12:35 EDT Cognition Assessment, OT Orientation : Oriented x 4 ALO HORNE OTR/Patricia [place] 02/13/2021 12:35 EDT Indication Assessment, OT Occupational Therapy Indicated : Yes Problem List, OT : Impaired, bed mobility, Impaired, endurance tolerance, Impaired functional mobility, Impaired, standing balance, Impaired, strength, Impaired, transfers ALO HORNE OTR/Patricia - 02/13/2021 12:35 EDT Plan of Care, OT OT Tx Plan/Goals Established w Patient : Yes OT Frequency Rehab : Five days per week OT Duration Rehab : Fourteen days OT Treatments Planned : Activities of daily living, Caregiver training, Functional mobility training, Safety education, Therapeutic activities, Therapeutic exercises ALO HORNE OTR/Patricia - 02/13/2021 12:35 EDT Yard Labor Supervisor Goals, OT Grooming LTG Grid Goal #1 Activity : Grooming Assist : Independent, modified Date to Meet : 02/27/2021 EST Goal Status : Initial goal Comment : standing at sink ALO HORNE OTR/Patricia - 02/13/2021 12:35 EDT Dressing, Lower Body LTG Grid Goal #1 Activity : Dressing, Lower Body Assist : Assist, minimal Date to Meet : 02/27/2021 EST Goal Status : Initial goal ALO HORNE OTR/Patricia [place] 02/13/2021 12:35 EDT Toileting LTG Grid Goal #1 Activity : Toileting Assist : Supervision or set up Date to Meet : 02/27/2021 EST Goal Status : Initial goal ALO HORNE OTR/Patricia - 02/13/2021 12:35 EDT Toilet Transfer LTG Grid Goal #1 Activity : Toilet Transfer, Ambulatory Assist : Independent, modified Date to Meet : 02/27/2021 EST Goal Status : Initial goal ALO HORNE OTR/L - 02/13/2021 12:35 EDT Treatment Note Subjective Comment : Pt agreeable to therapy evaluation. Spouse present. Patient's Response to Treatment : Pt tolerated well. Additional Objective Information : Pt alert and oriented x4. Pt transferred supine to sit EOB with min A. Participated in B UE AROM/strength testing seated EOB - WFL. Pt able to doff B socks SBA but required max A to don socks. Sit to stand with S. Pt able to ambulate with RW short distance in hallway with min A. Min A sit to supine. Pt left with call light and all needs within reach. Assessment : Patient would benefit from skilled OT to increase strength and activity tolerance for ADLs and functional mobility and to reduce fall risk upon discharge home. Plan for Treatment : See goals. ALO HORNE OTR/L - 02/13/2021 12:35 EDT Pain Assessment Pain Scaled Used : 0-10 Pain scale Pain Score Pre-Intervention : 0 ALO HORNE OTR/L - 02/13/2021 12:35 EDT Image 1 - Images currently included in the form version of this document have not been included in the text rendition version of the form. Anticipated Discharge Needs, OT/PT Anticipated Discharge to : Home, with home health ALO HORNE OTR/L - 02/13/2021 12:35 EDT [place] OT Charges OT Eval Low Complexity : 1 ALO HORNE OTR/L - 02/13/2021 12:35 EDT Electronically signed by [facility] Conversion Tunnel Kiln Firer Cerner at 08/05/2022 9:13 AM CDT documented in this encounter Plan of Treatment Not on file documented as of this encounter Visit Diagnoses Not on filedocumented in this encounter Care Teams Aerodynamicist Relationship Specialty Start Date End Date Ricki London MD [address] [place] [address] PCP - General Adolescent Medicine 11/04/22 documented as of this encounter
--- OUTSIDE RECORDS SUMMARY | 2024-11-04 14:16 | XMS_ITS | Encounter Summary ---
Author Organization [employer] ([place], [place], [place], [place]) Address [address] [place] [address] Care Team Providers Care House Wirer Helper Name Role Phone Ricki London MD Primary Care Provider + [phone] Encounter Details Date Type Department Care Team (Late st Contact Info) Description 02/14/2021 Transcribed Document [facility] [place] [facility] [place] [address] ProviderStanford MD [address] [place] [address] Social History Tobacco Use Types Packs/Day Years Used Date Smoking Tobacco: Never Assessed Sex and Gender Information Value Date Recorded Sex Assigned at Not on file Legal Sex Male 5:38 PM CDT Gender Identity Not on file Sexual Orientation Not on file documented as of this encounter Miscellaneous Notes * Cerner Conversion Note - Stanford Cain MD - 02/14/2021 3:19 PM CDT On Going Discharge Planning Entered On: 02/14/2021 15:21 EDT Performed On: 02/14/2021 15:19 EDT by DI CONNORS RN - Fish And Wildlife BiologistInsecticide Supervisor Progress Note Discharge Arrangements : Patient Post-Acute Information Patient Name: TONY CASTRO Gender: Male : 38 Age: 80 Years No Post-Acute Placement(s) Listed No Post-Acute Service(s) Listed No Cur[place]pan Referral(s) Listed Discharge Options Discussed with Patient : Discharge transportation, DME, Home Health Patient Discharge Goal : Home Is the Patient Meeting Medical Necessity : Yes Did you Attend Multidisciplinary Rounds? : Yes DI CONNORS, RN - Fish And Wildlife Biologist - 02/14/2021 15:19 EDT Narrative Progress Note Narrative Progress Note : RRS Mod Day 05/23 Patient was admitted for obstructive uropathy. Consults to uro. s/p cystoscopy with elke. stents. He lives at home with . Has cane and walker.. Uses oxygen at home with [email or web address]. Home when creatinine has improved. Family to transport. DI CONNORS, RN - Fish And Wildlife Biologist - 02/14/2021 15:19 EDT Electronically signed by [facility] Conversion Membership Correspondent Cerner at 08/05/2022 9:30 AM CDT documented in this encounter Plan of Treatment Not on file documented as of this encounter Visit Diagnoses Not on filedocumented in this encounter Care Teams House Wirer Helper Relationship Specialty Start Date End Date Ricki London MD [address] [place] [address] PCP - General Adolescent Medicine 11/04/22 documented as of this encounter
--- OUTSIDE RECORDS SUMMARY | 2024-11-04 14:16 | XMS_ITS | Encounter Summary ---
Author Organization [employer] ([place], [place], [place], [place]) Address [address] [place] [address] Care Team Providers Care Stone Rubber Name Role Phone Ricki London MD Primary Care Provider + [phone] Encounter Details Date Type Department Care Team (Late st Contact Info) Description 02/16/2021 Transcribed Document [facility] [place] [facility] [place] [address] ProviderStanford MD [address] [place] [id number] Social History Tobacco Use Types Packs/Day Years Used Date Smoking Tobacco: Never Assessed Sex and Gender Information Value Date Recorded Sex Assigned at Not on file Legal Sex Male 5:38 PM CDT Gender Identity Not on file Sexual Orientation Not on file documented as of this encounter Miscellaneous Notes * Cerner Conversion Note - Stanford Cain MD - 02/16/2021 4:51 PM CDT Final Discharge Planning Entered On: 02/16/2021 16:52 EDT Performed On: 02/16/2021 16:51 EDT by DI CONNORS RN - Physician Chief Of Pathology Final Discharge Planning Discharge Arrangements : Patient Post-Acute Information Patient Name: TONY CASTRO Gender: Male : 38 Age: 80 Years No Post-Acute Placement(s) Listed No Post-Acute Service(s) Listed No Cur[place] Referral(s) Listed Important Medicare Message Reviewed With : Patient Important Medicare Message Reviewed D/T : 02/16/2021 16:00 EDT Transportation Needs : Family/Friend Discharge Transportation Arrangement Cmt : Follow Up Appointment Scheduled : Yes Is Patient High/Moderate Readmission Risk? : Yes Is Patient Ready for Discharge? : Yes Physician Notified Patient is Ready for Discharge? : Yes Discharge To Care Management : Home/Residential/Retirement or Self Care - DI CONNORS, RN - Physician Chief Of Pathology - 02/16/2021 16:51 EDT Electronically signed by [facility] Conversion Manager Of Housekeeping Cerner at 08/05/2022 9:06 AM CDT documented in this encounter Plan of Treatment Not on file documented as of this encounter Visit Diagnoses Not on filedocumented in this encounter Care Teams Stone Rubber Relationship Specialty Start Date End Date Ricki London MD [address] [place] [address] PCP - General Adolescent Medicine 11/04/22 documented as of this encounter
--- OUTSIDE RECORDS SUMMARY | 2024-11-04 14:16 | XMS_ITS | Encounter Summary ---
Author Organization [employer] ([place], [place], [place], [place]) Address [address] [place] [address] Care Team Providers Care General Repair Mechanic Name Role Phone Ricki London MD Primary Care Provider + [phone] Encounter Details Date Type Department Care Team (Late st Contact Info) Description 02/12/2021 Transcribed Document [facility] [place] Family Medicine [address] [place] [address] ProviderStanford MD [address] [place] [id number] Social History Tobacco Use Types Packs/Day Years Used Date Smoking Tobacco: Never Assessed Sex and Gender Information Value Date Recorded Sex Assigned at Not on file Legal Sex Male 5:38 PM CDT Gender Identity Not on file Sexual Orientation Not on file documented as of this encounter Miscellaneous Notes * Cerner Conversion Note - Stanford Cain MD - 02/12/2021 6:19 PM CDT Patient: TONY CASTRO Age: 80 years Sex: Male : 1940 Associated Diagnoses: Obstructive uropathy; ARF (acute renal failure) Author: ARELY PENALOZA MD-EMR Basic Information Additional information: Chief Complaint from Nursing Triage Note : Chief Complaint 02/12/2021 14:40 EDT Chief Complaint had blood work done at his PCP Dr. gomez this AM weas told to come here to see a valuation consultant incase he needs diaylsis . History of Present Illness The patient presents with 'kidney labs'. The onset was just prior to arrival. Therapy today: see nurses notes. 80-year-old male sent by primary care doctor after having lab work today with abnormal renal function. Patient had recent kidney stone on the left. Unsuccessful stent placing and underwent lithotripsy last week. Said he had a fever over the weekend and is continued to have flank pain. Reports difficulty urination and decreasing urine.. Review of Systems Constitutional symptoms: Fever, fatigue. Respiratory symptoms: Negative except as documented in HPI. Cardiovascular symptoms: Negative except as documented in HPI. Gastrointestinal symptoms: No abdominal pain, no nausea, no vomiting. Genitourinary symptoms: Hematuria, discharge. Neurologic symptoms: Negative except as documented in HPI. Additional review of systems information: All other systems reviewed and otherwise negative. Health Status Allergies: Allergic Reactions (Selected) No Known Allergies . Medications: (Selected) Inpatient Medications Ordered Zosyn + Sodium Chloride 0.9% intravenous solution 50 mL: 2.25 Gram, 16.67 mL/Hr, IV Piggyback, Q8HInt Documented Medications Documented Aspirin Low Dose 81 mg oral tablet: 81 mg, Daily, 0 Refill(s) Co-Q10 100 mg oral capsule: 1 Cap, Oral, Daily, 30 Cap, 0 Refill(s) Fish Oil 1000 mg oral capsule: 1 Cap, Oral, Daily, 60 Cap, 0 Refill(s) Lomotil 2.5 mg-0.025 mg oral tablet: 2 Tab, Oral, QID, as needed, 0 Refill(s) Multivitamins and Minerals: 1 Tab, Oral, Daily, 0 Refill(s) Neurontin 300 mg oral capsule: 3 Cap, Oral, TID, 0 Refill(s) Nitrostat 0.4 mg sublingual tablet: 1 Tab, SubLINgual, Q5Min, as needed, PRN: Chest Pain, 100 Tab, 0 Refill(s) Vitamin B Complex 100: 1 Tab, Daily, 0 Refill(s) Vitamin B-12 1000 mcg oral tablet: 1 Tab, Oral, Daily, 30 Tab, 0 Refill(s) Vitamin D3 1000 intl units oral capsule: 1 Cap, Oral, Daily, 75 Cap, 0 Refill(s) Xanax 0.5 mg oral tablet: 1 Tab, Oral, TID, as needed, PRN: for anxiety, 0 Refill(s) amiodarone 200 mg oral tablet: 0.5 Tab, Oral, Daily, 0 Refill(s) atorvastatin 20 mg oral tablet: 1 Tab, Oral, Daily, 30 Tab, 0 Refill(s) levothyroxine 75 mcg (0.075 mg) oral tablet: 1 Tab, Oral, Daily, 30 Tab, 0 Refill(s) . 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 pacemaker medtronic in 2005 at 65 Years. coronary artery bypass graft in 1997 at 57 Years. heart cath stent in 1996 at 56 Years. Appendectomy; (84504). back surgury x 3. Cholecystectomy; (36511). euvola. right leg fracture. left knee replacement. colonoscopy. injections right foot numerous. . Family history: No family history items have been selected or recorded. . Social history: Social & Psychosocial Habits Alcohol 10/18/2014 Alcohol Use History, Social Habits Yes Date/Time of Last Drink wine occasionally Employment/School 03/23/2015 Status: Retired Home/Environment 03/23/2015 Lives with: Spouse Home equipment: Walker/Cane Substance Abuse 10/18/2014 Recreational Drug Use History No Recreational Drug Use Last 12 Months No Tobacco 10/18/2014 Smoking Status Former smoker Years of Tobacco Use 15 Packs/Tins Daily 1 Month Tobacco Last Used quit 1967 but chews tobacco . Physical Examination Vital Signs Vital Signs/Vital Measures 02/12/2021 19:14 EDT Systolic Blood Pressure 126 mmHg Diastolic Blood Pressure 66 mmHg Mean Arterial Pressure (MAP)-BMDI 89 Heart Rate Monitored 102 bpm HI Respiratory Rate 25 Breaths/Min HI Oxygen Saturation 96 % Oxygen Therapy Mode Room air 02/12/2021 18:01 EDT Systolic Blood Pressure 99 mmHg Diastolic Blood Pressure 76 mmHg Mean Arterial Pressure (MAP)-BMDI 85 Heart Rate Monitored 106 bpm HI Respiratory Rate 20 Breaths/Min (Modified) Oxygen Saturation 96 % Oxygen Therapy Mode Room air 02/12/2021 17:30 EDT Heart Rate Monitored 108 bpm HI Respiratory Rate 20 Breaths/Min Oxygen Saturation 93 % LOW Oxygen Therapy Mode Room air 02/12/2021 17:10 EDT Heart Rate Monitored 106 bpm HI Respiratory Rate 20 Breaths/Min (Modified) Oxygen Saturation 96 % 02/12/2021 17:00 EDT Oxygen Therapy Mode Room air 02/12/2021 14:40 EDT Systolic Blood Pressure 119 mmHg Diastolic Blood Pressure 59 mmHg LOW Temperature Source Oral Temperature Mode Fahrenheit Temperature, Fahrenheit 98.0 Deg F Clinical Temperature, C 36.7 Deg C Peripheral Pulse Rate 114 bpm HI Respiratory Rate 16 Breaths/Min Oxygen Saturation 95 % Oxygen Therapy Mode Room air . Measurements 02/12/2021 14:40 EDT Height Source Stated Height Entry Format Jaye Height/Length, MAORI (ft) 5 ft Height/Length MAORI 5 Inch CLINICALHEIGHT 165.1 cm [place] Body Weight 60.59 kg Weight Source, ED Critical estimated dosing weight Weight Entry Format [place] Weight Polish lb 150 lb CLINICALWEIGHT 68.18 kg Body Surface Area (BSA) 1.75 m2 Body Mass Index 25 kg/m2 HI . General: Alert, no acute distress. Skin: Warm, dry, pink, intact. Head: Normocephalic, atraumatic. Neck: Supple, trachea midline. Eye: Pupils are equal, round and reactive to light, extraocular movements are intact, normal conjunctiva. Cardiovascular: Regular rate and rhythm, No murmur, Normal peripheral perfusion, Tachycardia. Respiratory: Lungs are clear to auscultation, respirations are non-labored, breath sounds are equal, Symmetrical chest wall expansion. Gastrointestinal: Soft, Nontender, Non distended. Musculoskeletal: Normal ROM, normal strength. Neurological: Alert and oriented to person, place, time, and situation, No focal neurological deficit observed, normal sensory observed, normal motor observed, normal speech observed. Psychiatric: Cooperative, appropriate mood & affect. Medical Decision Making Documents reviewed: Emergency department nurses' notes. Results review: Lab results : Lab Results 02/12/2021 19:00 EDT Urine Type. U CleanCatch Urine Color Yellow Urine Appearance Cloudy Urine Specific [place] 1.012 Urine pH Dipstick *5.0 Urine Leukocyte Esterase Trace Urine Nitrite Negative Urine Protein Dipstick 30 Urine Glucose Dipstick Negative Urine Ketones Dipstick Negative Urine Urobilinogen Dipstick 0.2 EU/dL Urine Bilirubin Dipstick Negative Urine Blood Dipstick Large Ur RBC 20-50 /HPF Ur WBC 0-2 /HPF Ur Bacteria 1+ Ur Mucous 1+ Ur Squamous Epithelial Cells 0-2 /HPF Urine Culture if Indicated Not Indicated 02/12/2021 18:28 EDT SARS-CoV-2 (COVID19 PCR) Negative 02/12/2021 18:17 EDT Lactic Acid Level 1.1 mmol/L Procalcitonin 0.70 ng/mL 02/12/2021 16:43 EDT Sodium Level 134 mmol/L LOW Potassium Level 5.0 mmol/L Chloride Level 101 mmol/L LOW Carbon Dioxide Level 22 mmol/L Anion Gap 16 Glucose Level 117 mg/dL HI Blood Urea Nitrogen 45 mg/dL HI CREATININE 7.10 mg/dL HI eGFR 9 mL/min/1.73m2 LOW eGFR NonAfrican 7 mL/min/1.73m2 LOW Bun/Creatinine 6.3 LOW Calcium Level 8.1 mg/dL LOW WBC 15.2 K/uL HI RBC 4.33 Million/uL Hgb 13.3 g/dL LOW Hct 41.2 % MCV 95.2 fL HI MCH 30.7 pg MCHC 32.3 Gram/dL Platelet Count 250 K/uL MPV 9.7 fL RDW 13.5 % Slide Review No . Radiology results: Radiology Results (Last 48 hours) [id number] -- 02/12/2021 14:24 CT Abdomen Pelvis WO (02/12/2021 18:49) Result: CT OF THE ABDOMEN AND PELVIS WITHOUT CONTRASTHISTORY: Left flank pain, recent lithotripsy.PROCEDURE: Routine axial images were obtained from the lung bases tothe pubic symphysis following IV and oral contrast administration. Thisstudy was performed with techniques to keep radiation doses as low asreasonably achievable, (ALARA). Individualized dose reduction techniquesusing automated exposure control or adjustment of mA and/or kV accordingto the patient size were employed.COMPARISON: None.FINDINGS: Abdomen: The gallbladder has been removed. There are small bilateralnonobstructing renal calculi. 3 on the right and one on the left side.There are small areas of blood clot noted in the renal collectingsystem. There is mild left hydroureteronephrosis secondary to whatappears to be 3 adjacent calculi at the UVJ. The largest is 4.3 mm indiameter. There is also mild right hydroureteronephrosis secondary to a2 mm calculus at the UVJ. There are tiny hepatic cysts. The other solidabdominal organs are unremarkable. There is mild increased stoolthroughout the colon. The GI tract is otherwise unremarkable.Pelvis: Air within the urinary bladder is likely due to recentcatheterization. The urinary bladder is otherwise normal. There is nopelvic or abdominal ascites, adenopathy or acute osseous abnormality.IMPRESSION: Bilateral hydroureteronephrosis secondary to calculi at theUVJs. 3 mm bilateral nonobstructing renal calculi.Images reviewed, interpreted, and dictated by Dr. Dayton Ryder.Transcribed by Isac Rodriguez. . Notes: Patient care transferred to dc at approximately 1900. He has a creatinine of [address] scan shows that he has bilateral ureteral lithiasis at the UVJ. I discussed this case with Dr. Wen who request that the patient remain n.p.o. and will take him to the OR [facility] for obstructive uropathy. Patient care discussed with Dr. Cadena as well who will admit after surgery.. Impression and Plan Diagnosis Obstructive uropathy - Discharge, Medical ARF (acute renal failure) - Discharge, Medical Plan Condition: Stable. Disposition: Admit Admit/Transfer/Discharge: Admit to Inpatient (Order): Start: 02/12/2021 19:59 EDT, Admit reason: Obstructive uropathy, acute renal failure, Estimated length of stay 2 Midnights or LONGER, Level of Care: Med-Surg, Admitting: CARLOS CADENA, DO-INT , Patient care transitioned to: Time: 02/12/2021 18:52:00, PASHA MARIE MD. Counseled: Patient, Regarding diagnosis, Regarding diagnostic results, Regarding treatment plan, Patient indicated understanding of instructions. documented in this encounter Plan of Treatment Not on file documented as of this encounter Visit Diagnoses Not on filedocumented in this encounter Care Teams General Repair Mechanic Relationship Specialty Start Date End Date Ricki London MD [address] [place] [address] PCP - General Adolescent Medicine 11/04/22 documented as of this encounter
--- OUTSIDE RECORDS SUMMARY | 2024-11-04 14:16 | XMS_ITS | Encounter Summary ---
Author Organization [employer] ([place], [place], [place], [place]) Address [address] [place] [address] Care Team Providers Care Rubber Boots And Shoes Repairer Name Role Phone Ricki London MD Primary Care Provider + [phone] Encounter Details Date Type Department Care Team (Late st Contact Info) Description 02/14/2021 Transcribed Document [facility] [place] Family Medicine [address] [place] [address] ProviderStanford MD [address] [place] [address] Social History Tobacco Use Types Packs/Day Years Used Date Smoking Tobacco: Never Assessed Sex and Gender Information Value Date Recorded Sex Assigned at Not on file Legal Sex Male 5:38 PM CDT Gender Identity Not on file Sexual Orientation Not on file documented as of this encounter Miscellaneous Notes * Cerner Conversion Note - Stanford Cain MD - 02/14/2021 5:00 PM CDT Chart Check - Review Order Profile Entered On: 02/14/2021 17:26 EDT Performed On: 02/14/2021 17:00 EDT by Gordo Marr RN Chart Check Powerplans Initiated/Discontinued as Appropriate : Yes All Active Orders Reviewed : Yes Gordo Marr RN - 02/14/2021 17:26 EDT documented in this encounter Plan of Treatment Not on file documented as of this encounter Visit Diagnoses Not on filedocumented in this encounter Care Teams Rubber Boots And Shoes Repairer Relationship Specialty Start Date End Date Ricki London MD [address] [place] [id number] PCP - General Adolescent Medicine 11/04/22 documented as of this encounter
--- OUTSIDE RECORDS SUMMARY | 2024-11-04 14:16 | XMS_ITS | Encounter Summary ---
Author Organization [[employer] ([place], [place], [place], [place]) Address [address] [place] [address] Care Team Providers Care Timber Hand Name Role Phone Ricki London MD Primary Care Provider + [phone] Encounter Details Date Type Department Care Team (Late st Contact Info) Description 02/17/2021 Transcribed Document [facility] [place] Family [place] [facility] [place] [address] ProviderStanford MD [address] [place] [address] Social History Tobacco Use Types Packs/Day Years Used Date Smoking Tobacco: Never Assessed Sex and Gender Information Value Date Recorded Sex Assigned at Not on file Legal Sex Male 5:38 PM CDT Gender Identity Not on file Sexual Orientation Not on file documented as of this encounter Miscellaneous Notes * Cerner Conversion Note - Stanford ProviderMD - 02/17/2021 10:54 AM CDT Discharge Summary, PT Entered On: 02/17/2021 10:56 EDT Performed On: 02/17/2021 10:54 EDT by NAKIA VAZQUEZ, PT Discharge Summary Reason for Discharge : Discharged from hospital Discharged to, Therapy : Home, with family care Discharge Equipment, PT : None Discharge Summary Comment, PT : When last seen by PT the patient was supervision sup>sit>stand and mod indepenent stand>sit>supine. He walked 300' with a rolling walker modified independent. He discharged home with the assistance of his . NAKIA VAZQUEZ, PT - 02/17/2021 10:54 EDT Retirement Goals Mobility/Bed Mobility LTG PT Grid Goal #1 Goal #2 Activity : Supine to sit Sit to stand Assist : Independent, modified Independent, modified Date to Meet : 02/27/2021 EST 02/27/2021 EST Goal Status : Not met Not met NAKIA VAZQUEZ, PT - 02/17/2021 10:54 EDT NAKIA VAZQUEZ, PT - 02/17/2021 10:54 EDT Ambulation LTG Grid Goal #1 Device : Walker, front wheel Distance : 300ft Assist : Independent, modified Date to Meet : 02/27/2021 EST Goal Status : Goal met Date Met : 02/16/2021 EDT NAKIA VAZQUEZ, PT - 02/17/2021 10:54 EDT Electronically signed by [facility] Conversion Epic Beacon Analyst Cerner at 08/05/2022 9:12 AM CDT documented in this encounter Plan of Treatment Not on file documented as of this encounter Visit Diagnoses Not on filedocumented in this encounter Care Teams Timber Hand Relationship Specialty Start Date End Date Ricki London MD [address] [place] [id number] PCP - General Adolescent Medicine 11/04/22 documented as of this encounter
--- OUTSIDE RECORDS SUMMARY | 2024-11-04 14:16 | XMS_ITS | Encounter Summary ---
Author Organization [employer] ([place], [place], [place], [place]) Address [address] [place] [address] Care Team Providers Care Machine Operator Replanter Name Role Phone Ricki London MD Primary Care Provider + [phone] Encounter Details Date Type Department Care Team (Late st Contact Info) Description 02/14/2021 Transcribed Document [facility] [place] Counts include [address] beds [facility] [place] [address] ProviderStanford MD [address] [place] [address] Social History Tobacco Use Types Packs/Day Years Used Date Smoking Tobacco: Never Assessed Sex and Gender Information Value Date Recorded Sex Assigned at Not on file Legal Sex Male 5:38 PM CDT Gender Identity Not on file Sexual Orientation Not on file documented as of this encounter Miscellaneous Notes * Cerner Conversion Note - Stanford Cain MD - 02/14/2021 5:00 AM CDT Chart Check - Review Order Profile Entered On: 02/14/2021 4:31 EDT Performed On: 02/14/2021 5:00 EDT by Sabine Wen NON EMP RN - INTERNATIONAL Chart Check Powerplans Initiated/Discontinued as Appropriate : Yes All Active Orders Reviewed : Yes Sabine Wen NON EMP RN - INTERNATIONAL - 02/14/2021 4:30 EDT documented in this encounter Plan of Treatment Not on file documented as of this encounter Visit Diagnoses Not on filedocumented in this encounter Care Teams Machine Operator Replanter Relationship Specialty Start Date End Date Ricki London MD [address] [place] [address] PCP - General Adolescent Medicine 11/04/22 documented as of this encounter
--- OUTSIDE RECORDS SUMMARY | 2024-11-04 14:16 | XMS_ITS | Encounter Summary ---
Author Organization [employer] ([place], [place], [place], [place]) Address [address] [place] [address] Care Team Providers Care Debt And Budget Counselor Name Role Phone Ricki Agosto MD Primary Care Provider + [phone] Encounter Details Date Type Department Care Team (Late st Contact Info) Description 02/16/2021 Transcribed Document [facility] [place] Family Medicine [facility] [place] [address] ProviderStanford MD [address] [place] [address] Social History Tobacco Use Types Packs/Day Years Used Date Smoking Tobacco: Never Assessed Sex and Gender Information Value Date Recorded Sex Assigned at Not on file Legal Sex Male 5:38 PM CDT Gender Identity Not on file Sexual Orientation Not on file documented as of this encounter Miscellaneous Notes * Cerner Conversion Note - Stanford Cain MD - 02/16/2021 4:15 PM CDT [facility] [place] [address] TONY CASTRO :1940 Visit Time:02/12/2021 Your Visit Summary Your Care Team Admitting Physician - CARLOS CADENA DO-INT Attending Physician - FERNANDA WALKER MD Primary Care Physician - RICKI AGOSTO (REF)MD-[facility] Referring Physician - ARELY PENALOZA MD-[facility] Your Diagnosis Abnormal laboratory findings ARF (acute renal failure) Obstructive and reflux uropathy, unspecified, Obstructive and reflux uropathy, unspecified, Obstructive uropathy These Are Your Goals Patient Discharge Goal Patient Discharge Goal: Home Discharge Vitals Temperature 36.9 ??C Heart Rate (Monitored) 80 Respiratory Rate 18 Blood Pressure 143/85 What to do next Instructions From Your Care Team Please STOP taking the following medications: -Cefdinir -Fish Oil Discharge Activity: Activity as tolerated Discharge Diet: Resume usual diet as tolerated Follow-Up Appointments Follow Up with MERLIN MOSER MD When 02/26/2021 02:45 PM EST Comments Urology follow up with bilateral stent removal Appointment has been made Bring discharge instructions with you Where: [address] [facility] [address] [place] [address]- Follow Up with RICKI AGOSTO MD (REF)-[facility] When 02/22/2021 11:30 AM EDT Comments PCP follow up Appointment has been made Bring discharge instructions with you Where: [address] [place] [address]- Medications What How Much When Instructions Next Dose acetaminophen (Tylenol 325 mg oral tablet) 2 Tablet(s) Oral Every 4 Hours as needed for Pain (Mild 1-3) as needed ALPRAZolam (ALPRAZolam 0.5 mg oral tablet) 1 Tablet(s) Oral Three Times A Day bedtime gabapentin (gabapentin 300 mg oral capsule) 2 Capsule(s) Oral Three Times A Day bedtime levothyroxine (levothyroxine 50 mcg (0.05 mg) oral tablet) 1 Tablet(s) Oral Every Day tomorrow aspirin (aspirin 81 mg oral delayed release tablet) 1 Tablet(s) Oral Every Day tomorrow atorvastatin (atorvastatin 20 mg oral tablet) 1 Tablet(s) Oral At Bedtime bedtime clopidogrel (clopidogrel 75 mg oral tablet) 1 Tablet(s) Oral Every Day Has been on hold since [address] Lita stanford multivitamin with minerals (Multivitamins and Minerals) 1 Tablet(s) Oral Every Day tomorrow nitroglycerin (Nitrostat 0.4 mg sublingual tablet) 1 Tablet(s) SubLINgual Every 5 minutes as needed for Chest Pain as needed as needed olodaterol-tiotropium (Stiolto Respimat 60 ACT 2.5 mcg-2.5 mcg/ inh inhalation aerosol) 2 Puff(s) Inhalation Interval Every 24 Hours tomorrow ubiquinone (Co-Q10 100 mg oral capsule) 1 Capsule(s) Oral Every Day tomorrow Take your medications faithfully. Do NOT skip medication. Do NOT stop taking medications without the direction of a physician. Carry a list of your medications with you at all times, and take this medication list with you to your first follow up visit. Report any side effects. Avoid herbal remedies unless discussed with your physician. As part of your treatment plan, your physician may have prescribed a limited course of a controlled substance. This medication may be given to help people with moderate or severe pain or for other medical conditions, but there are risks involved with treatment. Common side effects may include nausea, constipation, drowsiness, sweating, itching, dry mouth, and rash. More serious side effects may include cognitive and motor impairment, like problems with thinking, concentrating, alertness, and movement (e.g. slowed reflexes), and driving and operating heavy machinery can be dangerous. It is important for you to talk to your physician if you have these side effects or questions. These controlled substances can produce physical dependence and be habit-forming if taken for an extended period of time, which means that the body has gotten used to them and may experience withdrawal symptoms if they are abruptly stopped. Withdrawal symptoms can include runny nose, sweating, goose bumps, diarrhea, abdominal cramping, rapid heartbeat, difficulty sleeping, and nervousness. Please dispose of unused and medications per your retail pharmacy guidance. Allergies No Known Allergies Immunizations This Visit No Immunizations Found Education Materials Kidney Stones Kidney stones are rock-like masses [...] these instructions at home: Medicines ??? Take rkwo-vzk-ezlizjl and prescription medicines only as told by your doctor. ??? Ask your doctor if the medicine prescribed to you requires you to avoid driving or using heavy machinery. Eating and drinking ??? Drink enough fluid to keep your pee pale yellow. You may be told to drink at least 8???10 glasses of water each day. This will [...] hours after a stone comes out. ? 8???12 weeks after a stone comes out, and every 6???12 months after that. ??? Strain your pee [...] provider. Document Revised: 08/24/2019 Document Reviewed: 08/24/2019 [employer] Patient Education ?? 2020 [employer] Ureteral Stent Implantation, Care After This [...] these instructions at home: Medicines ??? Take dsqf-qdu-cavctuu and prescription medicines only as told by [...] Get up to take short walks every 1???2 hours. This is important to improve blood [...] blood in your urine increases. ??? Take pvei-tzf-zqrxnlv and prescription medicines only as told by your health care provider. ??? Drink enough fluid to keep your urine pale yellow. This information is not intended to replace advice given to you by your health care provider. Make sure you discuss any questions you have with your health care provider. Document Revised: 01/12/2019 Document Reviewed: 01/13/2019 [employer] Patient Education ?? 2020 [employer]. Acute Kidney Injury, Adult Acute kidney injury [...] these instructions at home: Medicines ??? Take ofxx-lmb-tpbiojw and prescription medicines only as told by [...] important. Where to find more information ??? [place] Association of Kidney Patients: www.aakp.org ??? National Kidney Foundation: www.kidney.org ??? [employer]: www.akfinc.org ??? [employer] [facility] [...] provider. Document Revised: 02/15/2020 Document Reviewed: 02/15/2020 [employer] Patient Education ?? 2020 [employer] Emergency Awareness and Preventative Care STROKE is an EMERGENCY Every Minute Counts Act FAST and Check for these signs: FACE Does the face look uneven? ARM Does one arm drift down? SPEECH Does their speech sound strange? TIME Call at any sign of stroke Stroke Risk Factors Atrial Fibrillation (irregular heartbeat) Diabetes Family history of stroke Heart Disease Heavy alcohol use High Blood Pressure High Cholesterol Physical inactivity and obesity Smoking Cigarette Smoking The facts are clear, cigarette smoking will shorten your life. Smoking can cause many illnesses along the way. As a healthcare provider, we recommend that you stop smoking. Assistance with quitting is available by contacting 7-524-WPNW-NOW. This is a free resource providing counseling, support, and referral. Or you may contact your personal physician. National Suicide Prevention Lifeline: The National Suicide Prevention Lifeline is a national network of local crisis centers that provides free and confidential emotional support to people in suicidal crisis or emotional distress 24 hours a day, 7 days a week. Don't Wait! Stop a Heart Attack Before it Starts What is a heart attack? A heart attack is damage or to a part of the heart from severely decreased or lack of blood flow to the heart. Over time, arteries can become narrow from the buildup of fat and cholesterol, which is called plaque. The plaque can rupture causing a blood clot to form. When the blood clot forms, the artery can become severely narrowed or completely blocked, causing a heart attack. Heart attack is the leading cause of in the [place]. 85% of muscle damage occurs within the first 2 hours. Delay in the recognition of heart attack symptoms increases the chances of . Know the early symptoms of a heart attack: Nausea Feeling of fullness in chest Jaw Pain Pain that travels down one or both arms Fatigue/being tired Anxiety Back Pain Chest pressure, squeezing, or discomfort Shortness of breath Sweating, or a cold sweat Feeling of impending doom There are unusual signs of a heart attack, too! Women, the elderly, and diabetics may present with atypical symptoms: Fainting/dizziness Weakness Confusion Risk Factors for a Heart Attack Some heart disease risk factors, such as age and family history, cannot be changed. Others, like smoking and lack of exercise, can be changed. Smoking High Cholesterol High Blood Pressure Family History Obesity Age Gender (Males are at higher risk) Lack of Exercise Diabetes Diet Stress Excessive Alcohol Intake If you or someone you know is experiencing the signs and symptoms of a heart attack, DON???T DELAY. Call immediately and seek help. If someone collapses, perform CPR! Do not attempt to drive if you are having symptoms of heart attack. Hands-Only CPR Why Hands-Only CPR? Hands-Only CPR has been shown to be as effective as conventional CPR for cardiac arrests that occur outside of a hospital. Survival depends on immediately receiving CPR from someone nearby. How do you perform Hands-Only CPR? There are two easy steps: Call if you see a teen or adult collapse Push hard and fast in the center of the chest at a beat of 100 beats per minute. Save a life! 4 WAYS TO GET AHEAD OF SEPSIS SEPSIS is a MEDICAL EMERGENCY. Time matters! Infections put you and your family at risk for a life-threatening condition called sepsis. Sepsis is the body's extreme response to an infection. It is life-threatening, and without timely treatment, sepsis can rapidly lead to tissue damage, organ failure, and . Sepsis happens when an infection you already have-in your skin, lungs, urinary tract or somewhere else-triggers a chain reaction throughout your body. 1 PREVENT INFECTIONS Take good care of chronic conditions. Talk to your doctor about getting the recommended vaccines. 2 PRACTICE GOOD HYGIENE Wash your hands frequently. Keep cuts or open sores clean and covered until they are healed. 3 KNOW THE SYMPTOMS Confusion or disorientation Shortness of breath High heart rate Fever, shivering, or feeling very cold Extreme pain or discomfort Clammy or sweaty skin 4 ACT FAST Get medical care IMMEDIATELY if you suspect sepsis or if you have an infection that is not getting better or is getting worse. To learn more about sepsis and how to prevent infections, visit www.cdc.gov/sepsis. Test Results Laboratory or Other Results This Visit (last charted value for your 02/12/2021 visit) Hematology 02/16/2021 6:44 AM WBC: 8.2 K/uL -- Normal range between ( 3.6 and 9.5 ) RBC: 3.74 Million/uL -- Normal range between ( 4.20 and 5.70 ) Hct: 35.3 % -- Normal range between ( 40.1 and 51.0 ) Hgb: 11.2 g/dL -- Normal range between ( 13.5 and 17.3 ) Platelet Count: 376 K/uL -- Normal range between ( 163 and 369 ) MCH: 29.9 pg -- Normal range between ( 25.6 and 32.2 ) MCHC: 31.7 Gram/dL -- Normal range between ( 32.2 and 36.5 ) MCV: 94.4 fL -- Normal range between ( 79.0 and 94.8 ) Slide Review: No Eos %: 7.1 % -- Normal range between ( 0.0 and 7.0 ) [place] #: 0.70 K/uL -- Normal range between ( 0.16 and 1.00 ) Eos #: 0.58 x10(3)/uL -- Normal range between ( 0.00 and 0.80 ) [place] %: 8.6 % -- Normal range between ( 3.0 and 9.0 ) Baso %: 0.6 % -- Normal range between ( 0.0 and 1.5 ) Baso #: 0.05 x10(3)/uL -- Normal range between ( 0.00 and 0.20 ) RDW: 13.6 % -- Normal range between ( 11.7 and 14.9 ) Neut %: 56.0 % -- Normal range between ( 34.0 and 71.0 ) Neut #: 4.58 K/uL -- Normal range between ( 1.56 and 6.13 ) Lymph %: 27.1 % -- Normal range between ( 19.3 and 53.1 ) Lymph #: 2.21 x10(3)/uL -- Normal range between ( 1.00 and 3.90 ) MPV: 9.3 fL -- Normal range between ( 9.4 and 12.4 ) IG#: 0.05 x10(3)/uL -- Normal range between ( 0.00 and 0.05 ) IG%: 0.60 % -- Normal range between ( 0.00 and 0.60 ) Urinalysis 02/12/2021 7:00 PM Ur RBC: 20-50 /HPF Urine Nitrite: Negative Urine Leukocyte Esterase: Trace Urine Appearance: Cloudy Urine Glucose Dipstick: Negative Urine Blood Dipstick: Large Urine Urobilinogen Dipstick: 0.2 EU/dL Urine Protein Dipstick: 30 Ur Bacteria: 1+ Ur Squamous Epithelial Cells: 0-2 /HPF Urine Color: Yellow Ur WBC: 0-2 /HPF Urine Ketones Dipstick: Negative Ur Mucous: 1+ Urine pH Dipstick: *5.0 -- Normal range between ( 6.0 and 8.0 ) Urine Bilirubin Dipstick: Negative Urine Specific [place]: 1.012 -- Normal range between ( 1.005 and 1.030 ) Urine Type.: U CleanCatch Urine Culture if Indicated: Not Indicated Microbiology 02/12/2021 7:00 PM Urine Culture: See Result 02/12/2021 6:28 PM SARS-CoV-2 (COVID19 PCR): Negative General Chemistry 02/16/2021 6:44 AM Creatinine Level: 1.70 mg/dL -- Normal range between ( 0.70 and 1.30 ) Sodium Level: 142 mmol/L -- Normal range between ( 136 and 146 ) Potassium Level: 4.4 mmol/L -- Normal range between ( 3.5 and 5.1 ) Chloride Level: 112 mmol/L -- Normal range between ( 102 and 112 ) Carbon Dioxide Level: 22 mmol/L -- Normal range between ( 21 and 32 ) Anion Gap: 12 -- Normal range between ( 9 and 20 ) Bun/Creatinine: 10.6 -- Normal range between ( 8.0 and 20.0 ) Calcium Level: 8.2 mg/dL -- Normal range between ( 8.4 and 10.1 ) eGFR : 47 mL/min/1.73m2 eGFR NonAfrican: 39 mL/min/1.73m2 Glucose Level: 102 mg/dL -- Normal range between ( 74 and 106 ) Blood Urea Nitrogen: 18 mg/dL -- Normal range between ( 7 and 22 ) 02/14/2021 7:09 AM Bilirubin Total: 0.6 mg/dL -- Normal range between ( 0.2 and 1.2 ) A/G Ratio: 0.8 -- Normal range between ( 1.1 and 2.5 ) ALT: 15 Units/Liter -- Normal range between ( 16 and 61 ) AST: 23 Units/Liter -- Normal range between ( 5 and 37 ) Globulin: 3.0 Gram/dL -- Normal range between ( 1.5 and 4.5 ) Alk Phos: 78 Units/Liter -- Normal range between ( 27 and 136 ) Protein Total: 5.3 Gram/dL -- Normal range between ( 6.4 and 8.2 ) Albumin Level: 2.3 Gram/dL -- Normal range between ( 3.4 and 5.0 ) 02/12/2021 6:17 PM Lactic Acid Level: 1.1 mmol/L -- Normal range between ( 0.4 and 2.0 ) Endocrinology 02/12/2021 6:17 PM Procalcitonin: 0.70 ng/mL -- Normal range between ( 0.00 and 2.00 ) Computed Tomography 02/12/2021 6:[address] Abdomen Pelvis WO: CT Abdomen Pelvis WO Diagnostic Radiology 02/16/2021 7:55 AM CR Pelvis W BILAT Lat Hip or Froglegs: CR Pelvis W BILAT Lat Hip or Froglegs 02/13/2021 4:43 PM CR ERCP: CR ERCP Patient Name:GLORIA, TONY W I have received and understand this information and was given the opportunity to ask questions. Patient/Access Rn Name: Patient/Access Rn Signature: Relationship to Patient: Clinician/Hospital Access Rn Signature: Date: Electronically signed by Cheyenne Cannon Conversion Head Of Partner Development Cerner at 08/05/2022 9:19 AM CDT documented in this encounter Plan of Treatment Not on file documented as of this encounter Visit Diagnoses Not on filedocumented in this encounter Care Teams Debt And Budget Counselor Relationship Specialty Start Date End Date Ricki Agosto MD [address] [place] [address] PCP - General Adolescent Medicine 11/04/22 documented as of this encounter
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
--- OUTSIDE RECORDS SUMMARY | 2024-11-04 14:16 | XMS_ITS | Clinical Summary ---
Author Organization [employer] ([place], [place], [place], [place]) Address [address] [place] [address] Care Team Providers Care Hairmasters Manager Name Role Phone Ricki London MD Primary Care Provider + [phone] Allergies No known active allergies Medications ALPRAZolam [...] Active From Automated Load;Provider: José Castro;Status: Active Encounters Date Type Department Care Team Description 08/30/2024 12:30 PM EDT Evaluation [facility] OP Occupational Therapy [address] [place] [address] [address] [place] [phone] Ricki London MD Marotta, Violet A, OTR/L COPD (chronic obstructive pulmonary disease) (HCC) (Primary Dx); Ataxia; Chronic fatigue; Gait disturbance; Frequent falls 08/30/2024 Travel 08/08/2024 Outside Orders [facility] OP Occupational Therapy [address] [place] [address] [address] [place] [phone] Ricki London MD Ataxia (Primary Dx); COPD (chronic obstructive pulmonary disease) (HCC); Chronic fatigue; Gait disturbance; Frequent falls from Last 3 Months Social History Tobacco Use Types Packs/Day Years [...] Date Liu rded Speak language other than Bermudian at home Not on file 05/09/2023 Want [...] 02/18/2023 1:00 AM EDT Plan of Treatment Health Maintenance Due Date Last Done Comments Depression Screening (12+) 1950 DTAP/TDAP/TD VACCINES (2 - T d or Tdap) 08/26/2012 08/26/2002 Respiratory Syncytial Virus (RSV) Adult or (1 - 1-dose 75+ series) 2013 Shingles Vaccine (Zoster) (2 of 2) 10/25/20162016 Medicare Initial AWV G0438 04/22/2019 COVID-19 VACCINE (5 - 4-2 5 season) 2023 08/02/2021, 02/22/2021, 06/09/2020, Additional history exists Tobacco Cessation Counseling and Screening (12+) 02/14/2024 02/13/2023 Falls Risk Screening 04/21/2024 Influenza Vaccine (#1) 2024 , 01/11/2021, 01/11/2021, Additional history exists Pneumococcal 50+ years Completed 02/27/2015, 2008 Insurance [employer] MEDICARE PPO Advance Directives For more information, please contact: [phone] * Full Code (Latest Code Status on File) Date Activated Date Inactivated Comments 02/13/2023 10:40 PM 02/18/2023 6:15 PM * Full Code Date Activated Date Inactivated Comments 02/03/2023 12:31 PM 02/04/2023 4:37 PM * Full Code Date Activated Date Inactivated Comments 02/03/2023 8:20 AM 02/03/2023 12:31 PM * Full Code Date Activated Date Inactivated Comments 11/04/2022 1:26 PM 11/05/2022 4:26 AM Care Teams Hairmasters Manager Relationship Specialty Start Date End Date Ricki London MD [address] [place] [address] PCP - General Adolescent Medicine 11/04/22
--- OUTSIDE RECORDS SUMMARY | 2024-11-04 14:16 | XMS_ITS | Encounter Summary ---
Author Organization [employer] ([place], [place], [place], [place]) Address [address] [place] [address] Care Team Providers Care Trigonometry Teacher Name Role Phone Ricki Agosto MD Primary Care Provider + [phone] Encounter Details Date Type Department Care Team (Late st Contact Info) Description 02/16/2021 Transcribed Document [facility] [place] [facility] [place] [address] ProviderStanford MD [address] [place] [id number] Social History Tobacco Use Types Packs/Day Years Used Date Smoking Tobacco: Never Assessed Sex and Gender Information Value Date Recorded Sex Assigned at Not on file Legal Sex Male 5:38 PM CDT Gender Identity Not on file Sexual Orientation Not on file documented as of this encounter Miscellaneous Notes * Cerner Conversion Note - Stanford Cain MD - 02/16/2021 3:37 PM CDT Patient Resource Center Entered On: 02/16/2021 15:38 EDT Performed On: 02/16/2021 15:37 EDT by Juliane Douglas, Clinical Laboratory Medical Director Patient Resource Center Provider Status : EST Other Established Provider Name : RICKI NGOCBRYANNA Patient Phone Number : [phone] Patient Insurance Type : Medicare Source of Referral : Case management Location of Patient : Case management referral Primary Care Scheduled : Yes Primary Care Scheduled Type : Non CMG Primary Care Provider Name : RICKI AGOSTO Primary Care Appointment Date/Time : 02/22/2021 11:30 EDT Specialty Care Scheduled : Yes Specialty Type Scheduled2 : Urology Urology Provider Name : MERLIN MOSER Urology Appointment Date/Timie : 02/26/2021 14:45 EST Qualify for Diabetes and/or Nutrition Referral : No Wound Care Appointment Made : No Why Patient Visited ED- Specialty spent : Other How Patient Arrived at ED : Other Primary Language : South Sudanese Patient Resource Center Comment : Patient needs follow up appointments. Called offices and scheduled appointments with Dr. Agosto and Dr. Moser Follow Up Needed : No Juliane Douglas, Clinical Laboratory Medical Director - 02/16/2021 15:37 EDT Electronically signed by [facility] Conversion Religion Instructor Cerner at 08/05/2022 9:15 AM CDT documented in this encounter Plan of Treatment Not on file documented as of this encounter Visit Diagnoses Not on filedocumented in this encounter Care Teams Trigonometry Teacher Relationship Specialty Start Date End Date Ricki Agosto MD [address] [place] [address] PCP - General Adolescent Medicine 11/04/22 documented as of this encounter
--- OUTSIDE RECORDS SUMMARY | 2024-11-04 14:16 | XMS_ITS | Encounter Summary ---
Author Organization [employer] ([place], [place], [place], [place]) Address [address] [place] [address] Care Team Providers Care Screen Room Operator Name Role Phone Ricki London MD Primary Care Provider + [phone] Encounter Details Date Type Department Care Team (Late st Contact Info) Description 02/12/2021 Transcribed Document [facility] [place] [facility] [place] [address] ProviderStanford MD [address] [place] [address] Social History Tobacco Use Types Packs/Day Years Used Date Smoking Tobacco: Never Assessed Sex and Gender Information Value Date Recorded Sex Assigned at Not on file Legal Sex Male 5:38 PM CDT Gender Identity Not on file Sexual Orientation Not on file documented as of this encounter Miscellaneous Notes * Cerner Conversion Note - Stanford Cain MD - 02/12/2021 9:52 PM CDT Pain Assessment Entered On: 02/15/2021 18:46 EDT Performed On: 02/15/2021 14:45 EDT by Gordo Marr RN Intervention Information: oxyCODONE Performed by Gordo Marr RN on 02/15/2021 13:45:00 EDT oxyCODONE,5mg Oral,Pain (Moderate 4-6) Pain Assessment Pain Assessment : Follow-up assessment Pain Scale Used : 0-10 Scale Gordo Marr RN - 02/15/2021 18:46 EDT Pain Scale Intensity : 4 Gordo Marr RN - 02/15/2021 18:46 EDT Image 4 - Images currently included in the form version of this document have not been included in the text rendition version of the form. Electronically signed by Cheyenne Cannon Conversion Adjunct Psychology Instructor Cerner at 08/05/2022 9:07 AM CDT documented in this encounter Plan of Treatment Not on file documented as of this encounter Visit Diagnoses Not on filedocumented in this encounter Care Teams Screen Room Operator Relationship Specialty Start Date End Date Ricki London MD [address] [place] [address] PCP - General Adolescent Medicine 11/04/22 documented as of this encounter
--- OUTSIDE RECORDS SUMMARY | 2024-11-04 14:16 | XMS_ITS | Encounter Summary ---
Author Organization [employer] ([place], [place], [place], [place]) Address [address] [place] [address] Care Team Providers Care Concrete Pavement Installer Name Role Phone Ricki London MD Primary Care Provider + [phone] Encounter Details Date Type Department Care Team (Late st Contact Info) Description 02/14/2021 Transcribed Document [facility] [place] [facility] [place] [address] ProviderStanford MD [address] [place] [address] Social History Tobacco Use Types Packs/Day Years Used Date Smoking Tobacco: Never Assessed Sex and Gender Information Value Date Recorded Sex Assigned at Not on file Legal Sex Male 5:38 PM CDT Gender Identity Not on file Sexual Orientation Not on file documented as of this encounter Miscellaneous Notes * Cerner Conversion Note - Stanford ProviderMD - 02/14/2021 9:40 AM CDT Attempt to Treat, OT Entered On: 02/14/2021 15:03 EDT Performed On: 02/14/2021 9:40 EDT by ALO HORNE OTR/Patricia Attempt to Treat Unable to Treat Due To : Patient Refusal Inability to Treat Comment : Pt stated he had a bad night and didnt sleep much. Requested to rest and not participate in therapy. present and in agreement. Will attempt again later time permitting. Notification : ALO Baldwin OTR/Patricia - 02/14/2021 15:02 EDT documented in this encounter Plan of Treatment Not on file documented as of this encounter Visit Diagnoses Not on filedocumented in this encounter Care Teams Concrete Pavement Installer Relationship Specialty Start Date End Date Ricki London MD [address] [place] [address] PCP - General Adolescent Medicine 11/04/22 documented as of this encounter
--- OUTSIDE RECORDS SUMMARY | 2024-11-04 14:17 | XMS_ITS | Encounter Summary ---
Author Organization [employer] ([place], [place], [place], [place]) Address [address] [place] [address] Care Team Providers Care Plastics Repairer Name Role Phone Ricki London MD Primary Care Provider + [phone] Encounter Details Date Type Department Care Team (Late st Contact Info) Description 02/16/2021 Transcribed Document [facility] [place] [facility] [place] [address] ProviderStanford MD [address] [place] [address] Social History Tobacco Use Types Packs/Day Years Used Date Smoking Tobacco: Never Assessed Sex and Gender Information Value Date Recorded Sex Assigned at Not on file Legal Sex Male 5:38 PM CDT Gender Identity Not on file Sexual Orientation Not on file documented as of this encounter Miscellaneous Notes * Cerner Conversion Note - Stanford Cain MD - 02/16/2021 5:11 PM CDT Nursing Discharge Summary Entered On: 02/16/2021 17:12 EDT Performed On: 02/16/2021 17:11 EDT by Mary Henao, RN-Zoobe Discharge Documentation Discharge Date/Time : 02/16/2021 17:26 EDT Discharge To : Home with ambulatory/outpatient follow-up Mode Of Departure, General Discharge : Private vehicle Accompanied By, Discharge : Spouse IV Discontinued : Yes Personal Belongings With Patient : Yes Cee Martines - 02/16/2021 17:26 EDT Patient Disposition, General : Discharge Patient Education Completed : Yes Teaching Method : Explanation, Printed materials Teaching Evaluation : Verbalizes understanding Education Comment : procedure, medication, diet, activity follow up appointment Mary Henao, LUCIO-Zoobe - 02/16/2021 17:11 EDT Electronically signed by [facility] Conversion Outdoor Pursuits Instructor Cerner at 08/05/2022 9:10 AM CDT documented in this encounter Plan of Treatment Not on file documented as of this encounter Visit Diagnoses Not on filedocumented in this encounter Care Teams Plastics Repairer Relationship Specialty Start Date End Date Ricki London MD [address] [place] [address] PCP - General Adolescent Medicine 11/04/22 documented as of this encounter
== END 2024-11-04 23:59 | disposition home or self-care (01) ==
LOC: RAD 14:01
PROVIDERS: PCP Internal Medicine Adolescent Medicine; Visit Provider Physician Assistant
DX: M17.11 Unilateral primary osteoarthritis, right knee (principal); M25.562 Pain in left knee; Z98.890 Other specified postprocedural states
CPT/HCPCS: 73562

== ENCOUNTER 2024-11-08 13:44 | Outpatient (RCR) | payer MEDICARE, SELFPAY | END 2024-11-08 23:59 | disposition home or self-care (01) | LOC: PT 13:44 | PROVIDERS: Visit Provider Physician Assistant | DX: M25.562 Pain in left knee (principal) | CPT/HCPCS: 97760 ==

== ENCOUNTER 2024-12-16 17:00 | Outpatient (RCR) | payer MEDICARE, SELFPAY ==
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
== END 2024-12-16 23:59 | disposition home or self-care (01) ==
LOC: PT 17:00
PROVIDERS: Visit Provider Physician Assistant
DX: M25.562 Pain in left knee (principal)
CPT/HCPCS: 97110; 97163; 97530

== ENCOUNTER 2024-12-31 15:00 | Outpatient (RCR) | payer MEDICARE, SELFPAY ==
--- NOTE | 2024-12-22 16:00 | HMH.RHREAS ---
Rehab Reassessment Rehab OP Re-assessment Start: 12/22/24 14:49 Freq: Status: Active Protocol: Document 12/22/24 15:21 VICTOR HUGOSTEPHANIE (Rec: 12/22/24 15:59 RALEIGH [id number]) E-signed By LUZ ELENA Hough Sitting Balance Sitting Balance Steady, safe Arising from Chair Ability to Arise Able, uses arms to help Attempts to Arise Able, requires >1 attempt Standing Balance Immediate Standing Steady with support Balance Standing Balance Unsteady Nudged Response Begins to fall Standing with Eyes Unsteady Closed Turning Step Pattern Turning Discontinuous steps 360 Degrees Stability Turning Unsteady, grabs/staggers 360 Degrees Sitting Down Sitting Down Uses arms or unsteady Gait and Step Initiation of Gait No hesitancy Right Foot Step Does pass stance foot Length Right Foot Step Completely clears floor Height Left Foot Step Does pass stance foot Length Left Foot Step Completely clears floor Height Step Description Step Symmetry Step length appears equal Step Continuity Steps appear continuous Gait Description Path Description Mild/moderate deviation Trunk Description No sway but posturing Walking Stance Heels apart Scoring and Interpretation Tinetti Composite 14 Score (points) Lower Extremity Functional Index Activities Today, do you or would you have any difficulty at all with: a.Any of your usual A little bit of difficulty work, housework or school activities b. Your usual Quite a bit of difficulty hobbies, recreational or sporting activities c. Getting into or Moderate difficulty out of the bath d. Walking between A little bit of difficulty rooms e. Putting on your Extreme difficulty or unable to perform activity shoes or socks f. Squatting Extreme difficulty or unable to perform activity g. Lifting an object Moderate difficulty , like a bag of groceries from the floor h. Performing light Quite a bit of difficulty activities around your home i. Performing heavy Quite a bit of difficulty activities around your home j. Getting into or Moderate difficulty out of a car k. Walking 2 blocks Extreme difficulty or unable to perform activity l. Walking a mile Extreme difficulty or unable to perform activity m. Going up or down Quite a bit of difficulty 10 stairs (about 1 flight of stairs) n. Standing for 1 Extreme difficulty or unable to perform activity hour o. Sitting for 1 No difficulty hour p. Running on even Extreme difficulty or unable to perform activity ground q. Running on uneven Extreme difficulty or unable to perform activity ground r. Making sharp Extreme difficulty or unable to perform activity turns while running fast s. Hopping Extreme difficulty or unable to perform activity t. Rolling over in Moderate difficulty bed LEFI Score Lower Extremity 22 Functional Index Score Rehab Re-assessment Subjective Subjective Pt reports that he is 20-25% improved. Pt reports that his balance seems to be somewhat improved. Pt reports that he is doing a little more at home on his feet but he requires the assistance of the walker. Pt reports that he does believe PT is helping and would like to continue. Objective Objective Notes MMT: - Hip Flexion: 3+/5 R, 4/5 L - Hip Abduction: 3+/5 R, 4/5 L - Hip Adduction: 3+/5 R. 4/5 L - Knee Extension: 4/5 R, 4+/5 L - Knee Flexion: 4/5 R, 4+/5 L TUs with FWW Balance: FT EO: unable to maintain without assistance Tinnetti: 14 (14 on IE) LEFS: 22 (14 on IE) Assessment Progress Assessment Progressing as Expected Assessment Notes Pt has undergone one month of skilled PT, with sessions consisting of LE strengthening, gait training, balance training and functional mobilities. Pt has responded well meeting a few of his stated short term goals. Pt's biggest limitation continues to be his balance. Pt would continue to benefit from skilled PT at this time to address his remaining impairments and to meet his remaining PT goals. PT Patient Goals PT Short Term In 4 weeks: Patient Goals 1.Patient will improve bilateral lower extremity strength upon manual muscle testing to 3+/5 grossly facilitate improved functional ambulation, improved balance and to promote a return to PLOF. MET 2. Patient will improve LEFS score to 22/80 to demonstrate improved functional mobility and increased independence with ADLs. MET 3. Pt will perform TUG test in 29 seconds with most AAD to demonstrate a decreased fall risk and improved community ambulation. NOT MET 4. Patient will demonstrate improved balance by scoring a 16 on the Tinnetti Balance and Gait assessment to demonstrate a reduced fall risk. NOT MET 5. Pt will demonstrate HEP compliance by completing prescribed HEP 4-5x/week. MET PT Correction Patient In 8 weeks: Goals 1.Patient will improve bilateral lower extremity strength upon manual muscle testing to 4-4+/5 grossly facilitate improved functional ambulation, improved balance and to promote a return to PLOF. NOT MET 2. Patient will improve LEFS score to 32/80 to demonstrate improved functional mobility and increased independence with ADLs. NOT MET 3. Pt will perform TUG test in 19 seconds with most AAD to demonstrate a decreased fall risk and improved community ambulation. NOT MET 4. Patient will demonstrate improved balance by scoring a 19 on the Tinnetti Balance and Gait assessment to demonstrate a reduced fall risk. NOT MET 5. Patient will demonstrate improved balance by maintaining feet together stance for 30s on an even surface, without upper extremity support to demonstrate a reduced fall risk. NOT MET 6. Patient will ambulate 50 ft with a SP Cane to demonstrate improved balance and improved functional capabilities. NOT MET Plan Plan Continue as per initial POC, utilizing the following activities, to address remaining impairments. Frequency of Therapy 2/week Duration of Therapy 4 weeks Therapeutic Exercise Yes Including Home Exercise Program Manual Therapy Yes Techniques Neuromuscular Re- Yes education Therapeutic Yes Activities to Return to Previous Functional/Work Level Gait Training Yes ADL/Self Care Yes Education Thermal Modalities Yes Manual Lymphatic Yes Drainage Eval/Re-Eval Yes Time and Billing Re-Eval Time 10 Re-Eval Billing 0 Units Charge for PT No reassessment? PHYSICIAN CERTIFICATION: I certify the specified therapy services for Tony Bonilla are required, authorized, and reviewed every 30 days.
== END 2024-12-31 23:59 | disposition home or self-care (01) ==
LOC: PT 15:00
PROVIDERS: Visit Provider Physician Assistant
DX: M25.562 Pain in left knee (principal)
CPT/HCPCS: 97110; 97112; 97530

== ENCOUNTER 2025-02-14 15:00 | Outpatient (RCR) | payer MEDICARE, SELFPAY ==
--- NOTE | 2025-02-02 15:11 | HMH.RHREAS ---
Rehab Reassessment Rehab OP Re-assessment Start: 02/02/25 13:59 Freq: Status: Active Protocol: Document 02/02/25 14:53 MONICA (Rec: 02/02/25 15:11 MONICA [id number]) E-signed By LUZ ELENA Morgan Sitting Balance Sitting Balance Steady, safe Arising from Chair Ability to Arise Able, uses arms to help Attempts to Arise Arises on 1st attempt Standing Balance Immediate Standing Unsteady Balance Standing Balance Unsteady Nudged Response Begins to fall Standing with Eyes Unsteady Closed Turning Step Pattern Turning Discontinuous steps 360 Degrees Stability Turning Unsteady, grabs/staggers 360 Degrees Sitting Down Sitting Down Uses arms or unsteady Gait and Step Initiation of Gait No hesitancy Right Foot Step Does pass stance foot Length Right Foot Step Completely clears floor Height Left Foot Step Does pass stance foot Length Left Foot Step Does not clear floor Height Step Description Step Symmetry Step length not equal Step Continuity Stopping or discontinuity Gait Description Path Description Mild/moderate deviation Trunk Description No sway but posturing Walking Stance Heels apart Scoring and Interpretation Tinetti Composite 11 Score (points) Interpretation of High risk for falls(< 19) Scores Lower Extremity Functional Index Activities Today, do you or would you have any difficulty at all with: a.Any of your usual Quite a bit of difficulty work, housework or school activities b. Your usual Extreme difficulty or unable to perform activity hobbies, recreational or sporting activities c. Getting into or Quite a bit of difficulty out of the bath d. Walking between A little bit of difficulty rooms e. Putting on your A little bit of difficulty shoes or socks f. Squatting Extreme difficulty or unable to perform activity g. Lifting an object Moderate difficulty , like a bag of groceries from the floor h. Performing light Moderate difficulty activities around your home i. Performing heavy Extreme difficulty or unable to perform activity activities around your home j. Getting into or Quite a bit of difficulty out of a car k. Walking 2 blocks Extreme difficulty or unable to perform activity l. Walking a mile Extreme difficulty or unable to perform activity m. Going up or down Moderate difficulty 10 stairs (about 1 flight of stairs) n. Standing for 1 Extreme difficulty or unable to perform activity hour o. Sitting for 1 No difficulty hour p. Running on even Extreme difficulty or unable to perform activity ground q. Running on uneven Extreme difficulty or unable to perform activity ground r. Making sharp Extreme difficulty or unable to perform activity turns while running fast s. Hopping Extreme difficulty or unable to perform activity t. Rolling over in Quite a bit of difficulty bed LEFI Score Lower Extremity 20 Functional Index Score Rehab Re-assessment Subjective Subjective Pt reports he has not been to therapy in a month d/t having a fall about a month ago. Pt saw his PCP for injury to left LE and was diagnosed with a contusion. Pt presents with contusion on his lateral L tibia. Pt denies HEP compliance. Objective Objective Notes MMT: - Hip Flexion: 3+/5 R, 4/5 L - Hip Abduction: 3+/5 R, 4/5 L - Hip Adduction: 3+/5 R. 4/5 L - Knee Extension: 4/5 R, 4+/5 L - Knee Flexion: 4/5 R, 4+/5 L TUs with FWW Balance: FT EO: 28 seconds without UE use. SBA required for safety Tinnetti: 11 (14 on IE) LEFS: 20 (14 on IE) Assessment Progress Assessment Slower Than Expected Assessment Notes This is pt's initial visit in 30 days. Pt was able to demonstrate improved static balance on uneven surface this date. Pt presents with same deficits noted present upon last RA. Pt would continue to benefit from skilled OP PT to address deficits and decrease pain. PT Patient Goals PT Short Term In 4 weeks: Patient Goals 1.Patient will improve bilateral lower extremity strength upon manual muscle testing to 3+/5 grossly facilitate improved functional ambulation, improved balance and to promote a return to PLOF. MET 2. Patient will improve LEFS score to 22/80 to demonstrate improved functional mobility and increased independence with ADLs. NOT MET 3. Pt will perform TUG test in 29 seconds with most AAD to demonstrate a decreased fall risk and improved community ambulation. NOT MET 4. Patient will demonstrate improved balance by scoring a 16 on the Tinnetti Balance and Gait assessment to demonstrate a reduced fall risk. NOT MET 5. Pt will demonstrate HEP compliance by completing prescribed HEP 4-5x/week. NOT MET PT Halfway Patient In 8 weeks: Goals 1.Patient will improve bilateral lower extremity strength upon manual muscle testing to 4-4+/5 grossly facilitate improved functional ambulation, improved balance and to promote a return to PLOF. NOT MET 2. Patient will improve LEFS score to 32/80 to demonstrate improved functional mobility and increased independence with ADLs. NOT MET 3. Pt will perform TUG test in 19 seconds with most AAD to demonstrate a decreased fall risk and improved community ambulation. NOT MET 4. Patient will demonstrate improved balance by scoring a 19 on the Tinnetti Balance and Gait assessment to demonstrate a reduced fall risk. NOT MET 5. Patient will demonstrate improved balance by maintaining feet together stance for 30s on an even surface, without upper extremity support to demonstrate a reduced fall risk. NOT MET 6. Patient will ambulate 50 ft with a SP Cane to demonstrate improved balance and improved functional capabilities. NOT MET Plan Plan Continue current POC Frequency of Therapy 2x weekly Duration of Therapy 6 weeks Time and Billing Re-Eval Time 10 Re-Eval Billing 0 Units Charge for PT No reassessment? PHYSICIAN CERTIFICATION: I certify the specified therapy services for Tony Bonilla are required, authorized, and reviewed every 30 days.
== END 2025-02-14 23:59 | disposition home or self-care (01) ==
LOC: PT 15:00
PROVIDERS: Visit Provider Physician Assistant
DX: M25.562 Pain in left knee (principal)
CPT/HCPCS: 97110; 97112; 97530